=== PATIENT | female | born 1950 | race Native Hawaiian/Other Pacific Islander ===

== ENCOUNTER 2017-09-11 13:57 | Emergency (ER) | payer OTHER, SELFPAY ==
[2017-09-11 14:05] VITALS: BP 152/80; PULSE 73; RESP 20; TEMP 36.6; O2SAT 100
--- NOTE | 2017-09-11 14:07 | ED.GENADULT ---
HPI - General Adult General Chief complaint: Weakness Stated complaint: weakness/fatigue Time Seen by Provider: 09/11/17 14:06 Source: patient Mode of arrival: ambulatory Limitations: no limitations History of Present Illness HPI narrative: 67-year-old female here for evaluation of a headache and bilateral lower extremity ???weakness ???that she states started yesterday. States that she felt like she was going to pass out yesterday. Has been constant since yesterday. Is ambulatory. States that this feels similar to what it felt like when she ???had my prior stroke ???patient states that the difference is that during the time when she had her prior stroke she had double vision which she does not have currently. She states that the stroke was diagnosed after an MRI during hospital stay in [facility]. She describes the symptoms as bilateral lower extremity weakness. No upper extremity weakness. Related Data Home Medications Medication Instructions Recorded Confirmed aspirin 325 mg PO QDAY #0 09/24/16 losartan-hydrochlorothiazide 1 tab PO QDAY #0 09/24/16 calcium carbonate 600 mg PO QDAY #0 03/10/17 cholecalciferol (vitamin D3) 2,000 unit PO QDAY #0 03/10/17 [Vitamin D3] ferrous sulfate [Iron (ferrous 325 mg PO QDAY #0 03/10/17 sulfate)] multivitamin [Multiple Vitamins] 1 tab PO QDAY #0 03/10/17 pioglitazone 30 mg PO QDAY #0 03/10/17 simvastatin [Zocor] 20 mg PO HS #0 03/10/17 lisinopril #0 03/16/17 ranitidine HCl [Zantac] 150 mg PO QDAY #0 03/16/17 Previous Rx's Medication Instructions Recorded ondansetron [Zofran ODT] 4 mg SUBLINGUAL Q6HP PRN #10 odt 03/10/17 Allergies Allergy/AdvReac Type Severity Reaction Status Date / Time No Known Drug Allergies Allergy Verified 09/11/17 14:05 Review of Systems Constitutional Denies chills, Denies fever(s), Reports headache(s), Reports lethargy and Denies weakness Eyes Denies blurry vision, Denies change in vision, Denies diplopia, Denies eye discharge, Denies irritation and Denies loss of vision ENT Ears, Nose, Mouth, and Throat: Denies dizziness and Reports headache(s) Cardiovascular Denies chest pain, Denies syncope, Denies irregular heart rhythm, Denies lightheadedness, Denies palpitations, Denies dyspnea, Denies dyspnea on exertion and Denies orthopnea Respiratory Denies cough, Denies dyspnea, Denies dyspnea on exertion and Denies wheezing Gastrointestinal Gastrointestinal: Denies abdominal pain, Denies change in bowel habits, Denies diarrhea, Denies nausea and Denies vomiting Musculoskeletal Comments: Bilateral lower extremity weakness No upper extremity symptoms Integumentary/Breasts Denies pruritus, Denies erythema, Denies rash and Denies wounds Neurologic Denies confusion, Denies dizziness, Denies syncope, Reports headache(s), Denies loss of vision, Denies restless legs and Denies weakness Psychiatric Denies confusion Endocrine Denies palpitations Hematologic/Lymphatic Denies easy bruising Allergic/Immunologic Denies wheezing Exam Initial Vital Signs Initial Vital Signs: Vital Signs Temperature 97.9 F 09/11/17 14:05 Pulse Rate 73 09/11/17 14:05 Respiratory Rate 20 09/11/17 14:05 Blood Pressure 152/80 H 09/11/17 14:05 Pulse Oximetry 100 09/11/17 14:05 Eyes General: appearance normal, both eyes and all related structures Eyelids: eyelids normal Conjunctivae: conjunctivae normal Sclera: sclerae normal Pupils: PERRL EOM: EOM intact bilaterally Resp Effort & Inspection: normal respiratory effort, able to speak in complete sentences, no respiratory distress and no use of accessory muscles Auscultation: clear to auscultation bilaterally, no rales, no rhonchi and no wheezes Cardio Rate: regular rate Rhythm: regular rhythm Heart Sounds: no click, no gallops, no murmurs and no rubs Pulses: normal peripheral pulses Skin General: no rashes or lesions noted, No jaundice and No petechiae Neuro General: alert, awake, oriented x3, gait normal, moves all extremities, normal light touch, pain and propioception, no meningeal signs and no focal motor deficits Cranial Nerves: CN's II-XI intact bilaterally Cognition: normal cognition Speech: speech normal Motor: strength 5/5 throughout Sensory Exam: no sensory deficits noted Extrem General: full ROM, no clubbing, cyanosis or edema, no pedal edema and no calf tenderness Course Orders Ordered: ED Orders 09/11/17 14:10 Urinalysis and Microscopic Stat EKG-12 Lead Stat 09/11/17 14:24 CT head/brain wo con Stat Basic Metabolic Panel Stat Complete Blood Count AUTO DIFF Stat Partial Thromboplastin Time Stat Prothrombin Time INR Stat Acetaminophen (Tylenol) 650 mg PO Q4HR PRN PRN Reason: As Needed for Fever/Mild Pain Last Admin: 09/11/17 15:31 Dose: 650 mg Vital Signs - 8 hr 09/11/17 14:05 09/11/17 15:07 09/11/17 15:45 Temperature 97.9 F Pulse Rate 73 65 64 Respiratory Rate 20 16 13 Blood Pressure 152/80 H Blood Pressure [Left Arm] 107/71 120/73 Pulse Oximetry 100 98 98 Medical Decision Making MDM Narrative Medical decision making narrative: Patient with negative head CT. Was given Tylenol for her headache. Has bilateral lower extremity weakness however was able to ambulate in the emergency department without any problems. Does not have blurry vision today. Has a NIH scale of 0. Has no real objective findings of neurologic problems. Has a follow-up with her primary doctor at the beginning of next month. I briefly discussed the case with Dr. Kumari who stated that if she does not have objective neurologic findings and the fact that it is bilateral lower extremity symptoms that is CVA is unlikely in that she can follow up with her primary doctor for an outpatient MRI. Discussed this with the patient. She is okay with going home. She was given return precautions. She expressed understanding and agreement with plan Lab Data Lab results reviewed: Yes I reviewed the patient's lab results. Result diagrams: 09/11/17 14:24 09/11/17 14:24 Lab Results 09/11/17 09/11/17 09/11/17 Range/Units 14:24 14:24 14:24 WBC 7.0 (4.5-11.0) X10^3/uL RBC 3.72 L (4.0-5.2) X10^6/uL Hgb 11.3 L (12.0-16.0) g/dL Hct 33.3 L (36-46) % MCV 89.7 (80-100) fL MCH 30.4 (26-34) PG MCHC 33.8 (30-36) % RDW 13.4 (11.6-14.8) % Plt Count 290 (150-400) X10^3/uL Neut % (Auto) 73.1 (50-75) % Lymph % (Auto) 20.4 L (25-40) % [place] % (Auto) 5.3 (3-14) % Eos % (Auto) 0.7 L (2-4) % Baso % (Auto) 0.5 (0-2) % Neut # (Auto) 5200 (8480-1663) /uL PT 9.6 L (10.1-12.7) SECONDS INR 0.9 (0.9-1.3) APTT 33 (26.4-36.2) SECONDS Sodium 139 (137-145) mmol/L Potassium 4.2 (3.4-5.1) mmol/L Chloride 100.0 (98-107) mmol/L Carbon Dioxide 26.0 (22-32) mmol/L BUN 33.0 H (7-17) mg/dL Creatinine 1.10 H (0.52-1.04) mg/dL Estimated GFR 49.2 L (>60) mL/min BUN/Creatinine Ratio 30.0 H (6-22) Glucose 147 H (80-110) mg/dL Calcium 9.8 (8.4-10.2) mg/dL Imaging Data CT scan - head: Radiologist's impression: PROCEDURE: CT HEAD/BRAIN WO CON INDICATIONS: Headache with prior history of stroke TECHNIQUE: Noncontrast 4.5 mm thick angled axial sections acquired from the foramen magnum to the vertex, with coronal and sagittal reformats. For radiation dose reduction, the following was used: automated exposure control, adjustment of mA and/or kV according to patient size. COMPARISON: [facility], CT, HEAD WITHOUT CONTRAST, 03/16/2017, 8:59. FINDINGS: Image quality: Excellent. CSF spaces: Basal cisterns are patent. No extra-axial fluid collections. The ventricles are symmetric in size and shape. There is mild cerebral volume loss, with resultant ventricular and sulcal prominence. Brain: No intracranial hemorrhage, mass, or mass effect. There is a hypodensity within the right thalamus redemonstrated consistent with a prior infarct. There are subcortical, periventricular and deep white matter hypodensities consistent with mild chronic small vessel ischemic changes. There is intracranial internal carotid artery atherosclerosis. Skull and face: Calvarium and visualized facial bones are intact, without suspicious lesions. Sinuses: Visualized sinuses demonstrate mild mucosal thickening within the right maxillary sinus. The mastoid air cells are clear. IMPRESSION: 1. No acute intracranial abnormality. 2. Old right thalamic infarct redemonstrated. 3. Mild cerebral volume loss and chronic white matter small vessel ischemic changes. Dictated by: Ricco Erickson M.D. on 09/11/2017 at 14:52 ECG Data Attestation: I personally reviewed and interpreted this ECG as follows: Prior ECG tracings: available for review Interpretation: EKG time 1410 hr Sinus rhythm Ventricular rate is 72 Normal axis Normal intervals Normal QRS Normal QTC No ST T wave changes Comparison EKG dated 04/22/2017 Sinus rhythm Ventricular rate of 80 Normal axis normal intervals normal QRS no ST T wave changes Discharge Plan Departure Patient Disposition: Home, Self-Care Clinical Impression: Headache, Bilateral leg weakness Instructions: DI for Headache Activity Restrictions/Additional Instructions: Recommend that you continue all of your medications as instructed. Call your primary doctor's office tomorrow to discuss a follow-up. Return to the emergency department for any new or worsening symptoms Prescriptions: No Action losartan-hydrochlorothiazide 100 MG/25 MG tablet 1 tab PO QDAY Qty: 0 RF: 0 aspirin 325 MG tablet,delayed release (DR/EC) 325 mg PO QDAY Qty: 0 RF: 0 simvastatin [Zocor] 20 MG tablet 20 mg PO HS Qty: 0 RF: 0 ferrous sulfate [Iron (ferrous sulfate)] 325 MG tablet 325 mg PO QDAY Qty: 0 RF: 0 pioglitazone 30 MG tablet 30 mg PO QDAY Qty: 0 RF: 0 multivitamin [Multiple Vitamins] 1 EACH tablet 1 tab PO QDAY Qty: 0 RF: 0 cholecalciferol (vitamin D3) [Vitamin D3] 2,000 UNIT capsule 2,000 unit PO QDAY Qty: 0 RF: 0 calcium carbonate 600 MG tablet 600 mg PO QDAY Qty: 0 RF: 0 ondansetron [Zofran ODT] 4 MG tablet,disintegrating 4 mg Sublingual Q6HP PRNQty: 10 RF: 0 lisinopril 2.5 mg Tablet Qty: 0 RF: 0 ranitidine HCl [Zantac] 150 MG tablet 150 mg PO QDAY Qty: 0 RF: 0
--- NOTE | 2017-09-11 14:24 | DI.CT.S_ITS ---
PROCEDURE: CT HEAD/BRAIN WO CON INDICATIONS: Headache with prior history of stroke TECHNIQUE: Noncontrast 4.5 mm thick angled axial sections acquired from the foramen magnum to the vertex, with coronal and sagittal reformats. For radiation dose reduction, the following was used: automated exposure control, adjustment of mA and/or kV according to patient size. COMPARISON: [facility], CT, HEAD WITHOUT CONTRAST, 03/16/2017, 8:59. FINDINGS: Image quality: Excellent. CSF spaces: Basal cisterns are patent. No extra-axial fluid collections. The ventricles are symmetric in size and shape. There is mild cerebral volume loss, with resultant ventricular and sulcal prominence. Brain: No intracranial hemorrhage, mass, or mass effect. There is a hypodensity within the right thalamus redemonstrated consistent with a prior infarct. There are subcortical, periventricular and deep white matter hypodensities consistent with mild chronic small vessel ischemic changes. There is intracranial internal carotid artery atherosclerosis. Skull and face: Calvarium and visualized facial bones are intact, without suspicious lesions. Sinuses: Visualized sinuses demonstrate mild mucosal thickening within the right maxillary sinus. The mastoid air cells are clear. IMPRESSION: 1. No acute intracranial abnormality. 2. Old right thalamic infarct redemonstrated. 3. Mild cerebral volume loss and chronic white matter small vessel ischemic changes. Dictated by: Ricco Erickson M.D. on 09/11/2017 at 14:52 Approved by: Ricco Erickson M.D. on 09/11/2017 at 14:57
[2017-09-11 14:32] LABS: Add Manual Diff / Slide Review NO; Basophils Percent Auto 0.5 % (0-2); Eosinophils Percent Auto 0.7 % (2-4); Hematocrit 33.3 % (36-46); Hemoglobin 11.3 g/dL (12.0-16.0); Lymphocytes Percent Auto 20.4 % (25-40); Mean Corpuscular HGB Conc 33.8 % (30-36); Mean Corpuscular Hemoglobin 30.4 PG (26-34); Mean Corpuscular Volume 89.7 fL (80-100); Monocytes Percent Auto 5.3 % (3-14); Neutrophils Absolute Auto 5200 /uL (3000-5900); Neutrophils Percent Auto 73.1 % (50-75); Platelet Count 290 X10^3/uL (150-400); Red Blood Cell Count 3.72 X10^6/uL (4.0-5.2); Red Cell Distribution Width 13.4 % (11.6-14.8)
[2017-09-11 14:38] LABS: INR 0.9 (0.9-1.3); Prothrombin Time 9.6 SECONDS (10.1-12.7)
[2017-09-11 14:40] LABS: PTT Partial Thromboplastin Tim 33 SECONDS (26.4-36.2)
[2017-09-11 14:42] LABS: Calcium 9.8 mg/dL (8.4-10.2); Estimated Glomerular Filt Rate 49.2 mL/min (>60); Glucose 147 mg/dL (80-110); HEMOLYSIS < 15 (0-50); Potassium 4.2 mmol/L (3.4-5.1); Sodium 139 mmol/L (137-145)
[2017-09-11 15:07] VITALS: BP 107/71; PULSE 65; RESP 16; O2SAT 98
[2017-09-11] MEDS: ACETAMINOPHEN 325 MG TABLET 650 MG PO (15:31)
--- NOTE | 2017-09-11 15:32 | PC.NURSE ---
UNABLE TO SCAN TYLENOL, DUE TO MEDITECH ERROR. PROVIDER AWARE. SUPERUSER AWARE.
[2017-09-11 15:45] VITALS: BP 120/73; PULSE 64; RESP 13; O2SAT 98
[2017-09-11 16:12] VITALS: BP 120/73; PULSE 70; RESP 20; TEMP 37.2; O2SAT 99
== END 2017-09-11 16:13 | disposition home or self-care (01) ==
PROVIDERS: Emergency Provider Emergency Medicine; Family Provider Internal Medicine; PCP Internal Medicine
DX: R51 Headache (principal); R29.898 Other symptoms and signs involving the musculoskeletal system
CPT/HCPCS: 70450; 80048; 85025; 85610; 85730; 93005; 99282; 99285

== ENCOUNTER → 2017-11-26 11:18 | Outpatient (CLI) | payer OTHER, SELFPAY ==
[2017-11-26 13:28] LABS: Hemoglobin A1C% w Est Avg Glu 7.2 % (4.0-6.0)
[2017-11-26 13:30] LABS: Alanine Aminotransferase 22 IU/L (9-52); Albumin 4.3 g/dL (3.5-5.0); Albumin Globulin Ratio 1.3 (1.0-2.8); Alkaline Phosphatase 58 U/L (38-126); Aspartate Aminotransferase 24 IU/L (14-36); Bilirubin Total 0.6 mg/dL (0.2-1.3); Blood Urea Nitrogen 22 mg/dL (7-17); Calcium 9.5 mg/dL (8.4-10.2); Carbon Dioxide 28 mmol/L (22-32); Chloride 100 mmol/L (98-107); Cholesterol 146 mg/dL (140-199); Estimated Glomerular Filt Rate 49.2 mL/min (>60); Globulin 3.4 g/dL (1.7-4.1); Glucose 136 mg/dL (80-110); HDL Cholesterol 52 mg/dL (40-60); HEMOLYSIS < 15 (0-50); LDL Cholesterol Calculated 73 mg/dL (<100); Potassium 3.6 mmol/L (3.4-5.1); Sodium 140 mmol/L (137-145); Total Protein 7.7 g/dL (6.3-8.2); Triglycerides 107 mg/dL (35-150)
== END ==
PROVIDERS: PCP Internal Medicine; Visit Provider Internal Medicine
DX: I10 Essential (primary) hypertension (principal); E11.9 Type 2 diabetes mellitus without complications; E78.5 Hyperlipidemia, unspecified
CPT/HCPCS: 36415; 80053; 80061; 83036

== ENCOUNTER 2017-12-02 16:20 | Emergency (ER) | payer OTHER, SELFPAY ==
[2017-12-02 16:45] VITALS: BP 82/52; PULSE 62; RESP 18; TEMP 35.9; O2SAT 100
[2017-12-02 17:00] VITALS: BP 93/54; PULSE 54; RESP 16; TEMP 36.3; O2SAT 97
[2017-12-02 17:41] LABS: Add Manual Diff / Slide Review NO; Basophils Percent Auto 0.7 % (0-2); Eosinophils Percent Auto 0.9 % (2-4); Hematocrit 29.9 % (36-46); Hemoglobin 10.1 g/dL (12.0-16.0); Lymphocytes Percent Auto 11.8 % (25-40); Mean Corpuscular HGB Conc 33.7 % (30-36); Mean Corpuscular Hemoglobin 31.4 PG (26-34); Mean Corpuscular Volume 93.2 fL (80-100); Monocytes Percent Auto 6.1 % (3-14); Neutrophils Absolute Auto 6800 /uL (3000-5900); Neutrophils Percent Auto 80.5 % (50-75); Platelet Count 280 X10^3/uL (150-400); Red Blood Cell Count 3.21 X10^6/uL (4.0-5.2); Red Cell Distribution Width 13.9 % (11.6-14.8); White Blood Cell Count 8.4 X10^3/uL (4.5-11.0)
[2017-12-02] MEDS: SODIUM CHLORIDE 0.9% 1,000 ML 1000 ML IV (17:41)
[2017-12-02] MEDS: ONDANSETRON 4 MG/2 ML INJ IV (17:41)
[2017-12-02 17:54] LABS: Alanine Aminotransferase 27 IU/L (9-52); Albumin 4.5 g/dL (3.5-5.0); Albumin Globulin Ratio 1.4 (1.0-2.8); Alkaline Phosphatase 68 U/L (38-126); Aspartate Aminotransferase 27 IU/L (14-36); BUN Creatinine Ratio 16.4 (6-22); Bilirubin Total 0.8 mg/dL (0.2-1.3); Blood Urea Nitrogen 23 mg/dL (7-17); Carbon Dioxide 28 mmol/L (22-32); Chloride 103 mmol/L (98-107); Estimated Glomerular Filt Rate 37.3 mL/min (>60); Globulin 3.2 g/dL (1.7-4.1); Glucose 153 mg/dL (80-110); HEMOLYSIS < 15 (0-50); Lipase 143 U/L (23-300); Potassium 3.9 mmol/L (3.4-5.1); Sodium 142 mmol/L (137-145); Total Protein 7.7 g/dL (6.3-8.2)
--- NOTE | 2017-12-02 18:32 | ED_ITS ---
HPI - Nausea/Vomiting/Diarrhea General Chief complaint: Nausea/Vomiting/Diarrhea Stated complaint: thinks poisoned Time Seen by Provider: 12/02/17 17:03 Source: patient Mode of arrival: ambulatory Limitations: no limitations History of Present Illness HPI Narrative: Patient is a 67-year-old female who presents with vomiting and diarrhea. She said she was at work when she began feeling nauseous and threw up a large quantity. She then had 2 episodes of diarrhea. No further vomiting. She does have diffuse abdominal pain. Now overall feeling better. None of this was bloody. No tender chip chest pain shortness of breath. While she was vomiting she had a little lightheaded but did not pass out. MD complaint: nausea, vomiting, diarrhea and abdominal pain Related Data Home Medications Medication Instructions Recorded Confirmed aspirin 325 mg PO QDAY #0 09/24/16 12/02/17 losartan-hydrochlorothiazide 1 tab PO QDAY #0 09/24/16 12/02/17 calcium carbonate 600 mg PO QDAY #0 03/10/17 12/02/17 cholecalciferol (vitamin D3) 2,000 unit PO QDAY #0 03/10/17 12/02/17 [Vitamin D3] ferrous sulfate [Iron (ferrous 325 mg PO QDAY #0 03/10/17 12/02/17 sulfate)] multivitamin [Multiple Vitamins] 1 tab PO QDAY #0 03/10/17 12/02/17 ranitidine HCl [Zantac] 150 mg PO QDAY #0 03/16/17 12/02/17 atorvastatin 20 mg PO QPM 12/02/17 12/02/17 metformin 1 tab PO BID 12/02/17 12/02/17 timolol maleate 1 drp OPHTHALMIC (EYE) DIRECTED 12/02/17 12/02/17 Previous Rx's Medication Instructions Recorded ondansetron [Zofran ODT] 4 mg PO Q6-8H PRN #10 tab 12/02/17 Allergies Allergy/AdvReac Type Severity Reaction Status Date / Time No Known Drug Allergies Allergy Verified 12/02/17 16:52 Review of Systems Review of Systems GENERAL: Denies chills, fatigue, malaise, fever, sweats, travel HEENT: Denies sinus pain, ear pain, sore throat, difficulty swallowing, neck pain RESPIRATORY: Denies dyspnea, cough, wheezing, hemoptysis, sputum. CARDIOVASCULAR: Denies chest pain, palpitations, orthopnea, edema GASTROINTESTINAL: See HPI : Denies dysuria, frequency, incontinence, hematuria, urinary retention, flank pain. MUSCULOSKELETAL: Denies weakness, joint pain, or bony pain SKIN: No rash, no erythema, no pruritus NEUROLOGIC: Denies weakness, dizziness, headache, numbness, change in speech, confusion PSYCHIATRIC: No concerning psychosocial issues. 12 point review of systems is negative except for those stated above and HPI PFSH Medical History Diabetes (Acute) GERD (gastroesophageal reflux disease) (Acute) Hypertension (Acute) Social History Smoking Status: Never smoker alcohol intake: never substance use type: does not use Exam Initial Vital Signs Initial Vital Signs: Vital Signs Temperature 96.7 F L 12/02/17 16:45 Pulse Rate 62 12/02/17 16:45 Respiratory Rate 18 12/02/17 16:45 Blood Pressure 82/52 L 12/02/17 16:45 Pulse Oximetry 100 12/02/17 16:45 GENERAL: Well-appearing, well-nourished and in no acute distress. HEENT: Head atraumatic,EOMI, pupils reactive, face symmetric CARDIOVASCULAR: Regular rate and rhythm without murmurs, rubs or gallops. RESPIRATORY: Breath sounds equal bilaterally, no wheezes rales or rhonchi. ABDOMEN: Soft, minimal epigastric pain without guarding or rebound negative [place] sign. Normoactive bowel sounds all 4 quadrants. No guarding or rebound. EXTREMITIES: Normal range of motion, no clubbing or edema. Neurovascularly intact NEUROLOGICAL: Alert and oriented x4.Normal gait and speech. Cranial nerves II through XII grossly intact. SKIN: Warm, dry, no laceration, no petechiae, no rashes or lesions. Course Orders Ordered: Discontinued Medications Sodium Chloride (Normal Saline 0.9%) 1,000 mls @ 1,000 mls/hr IV BOLUS ONE Stop: 12/02/17 18:00 Last Infusion: 12/02/17 18:55 Dose: 0 mls/hr Admin: 12/02/17 17:41 Dose: 1,000 mls/hr Ondansetron HCl (Zofran) 4 mg IV NOW ONE Stop: 12/02/17 17:02 Last Admin: 12/02/17 17:41 Dose: 4 mg Ondansetron HCl (Zofran Odt Prepack) 1 bottle MISC SEEINSTR ONE Stop: 12/02/17 19:02 Last Admin: 12/02/17 19:33 Dose: 1 bottle Vital Signs - 8 hr 12/02/17 16:45 12/02/17 17:00 12/02/17 18:38 Temperature 96.7 F L 97.4 F L Pulse Rate 62 54 L 62 Respiratory Rate 18 16 Blood Pressure 82/52 L Blood Pressure [Right Arm] 93/54 L 139/63 H Pulse Oximetry 100 97 100 MDM - Nausea/Vomiting/Diarrhea Medical Records Attestation: I reviewed the patient's medical records. Lab Data Attestation: I reviewed the patient's lab results. Result diagrams: 12/02/17 17:30 12/02/17 17:30 Lab Results 12/02/17 12/02/17 12/02/17 Range/Units 17:30 17:30 17:30 WBC 8.4 (4.5-11.0) X10^3/uL RBC 3.21 L (4.0-5.2) X10^6/uL Hgb 10.1 L (12.0-16.0) g/dL Hct 29.9 L (36-46) % MCV 93.2 (80-100) fL MCH 31.4 (26-34) PG MCHC 33.7 (30-36) % RDW 13.9 (11.6-14.8) % Plt Count 280 (150-400) X10^3/uL Neut % (Auto) 80.5 H (50-75) % Lymph % (Auto) 11.8 L (25-40) % [place] % (Auto) 6.1 (3-14) % Eos % (Auto) 0.9 L (2-4) % Baso % (Auto) 0.7 (0-2) % Neut # (Auto) 6800 H (5704-4959) /uL Sodium 142 (137-145) mmol/L Potassium 3.9 (3.4-5.1) mmol/L Chloride 103 (98-107) mmol/L Carbon Dioxide 28 (22-32) mmol/L BUN 23 H (7-17) mg/dL Creatinine 1.40 H (0.52-1.04) mg/dL Estimated GFR 37.3 L (>60) mL/min BUN/Creatinine Ratio 16.4 (6-22) Glucose 153 H (80-110) mg/dL Calcium 10.0 (8.4-10.2) mg/dL Total Bilirubin 0.8 (0.2-1.3) mg/dL AST 27 (14-36) IU/L ALT 27 (9-52) IU/L Alkaline Phosphatase 68 (38-126) U/L Total Protein 7.7 (6.3-8.2) g/dL Albumin 4.5 (3.5-5.0) g/dL Globulin 3.2 (1.7-4.1) g/dL Albumin/Globulin Ratio 1.4 (1.0-2.8) Lipase 143 (23-300) U/L MDM Narrative Medical decision making narrative: Patient overall appears nontoxic. She is awake alert pain is significantly improved. She is tolerating oral fluids. Blood work has been reviewed and compared to prior. Slightly anemic but at baseline for her. Creatinine today is 1.4 it has been 1.4 in the past but previously 1.1. Discussed oral rehydration techniques with both her and her daughter. I discussed all findings with the patient and daughter. Education has been performed regarding treatment plan, diagnosis, warning signs and symptoms and all concerns have been addressed. Verbally agree with and understood all of the above. Discharge Plan Departure Patient Disposition: Home, Self-Care Clinical Impression: Gastroenteritis Discharge Date/Time: 12/02/17 19:43 Interventions: ED Discharge Assessment Last Done: 12/02/17 19:42 Instructions: Clear Liquid Diet, DI for Viral Gastroenteritis -- Adult Activity Restrictions/Additional Instructions: 1) You have been diagnosed with gastroenteritis 2) What to do: Drink frequent but small amounts of fluids. I recommend Gatorade or a Gatorade-like product, as it has small amounts of sugar and salts that improve fluid retention. 3) Take medications as directed: Sent to [facility] in [place] per your request -Zofran 4mg every 6-8hours if needed for nausea or vomiting 4) Follow up with your primary care provider in 2-3 days 5) Return to ER if you should have any new or worsening symptoms such as, unable to hold down fluids despite use of anti-nausea medications and the small volume oral rehydration strategy. Prescriptions: New ondansetron [Zofran ODT] 4 mg tablet,disintegrating 4 mg PO Q6-8H PRN (Reason: nausea and vomiting) Qty: 10 RF: 0 No Action losartan-hydrochlorothiazide 100 MG/25 MG tablet 1 tab PO QDAY Qty: 0 RF: 0 aspirin 325 MG tablet,delayed release (DR/EC) 325 mg PO QDAY Qty: 0 RF: 0 ferrous sulfate [Iron (ferrous sulfate)] 325 MG tablet 325 mg PO QDAY Qty: 0 RF: 0 multivitamin [Multiple Vitamins] 1 EACH tablet 1 tab PO QDAY Qty: 0 RF: 0 cholecalciferol (vitamin D3) [Vitamin D3] 2,000 UNIT capsule 2,000 unit PO QDAY Qty: 0 RF: 0 calcium carbonate 600 MG tablet 600 mg PO QDAY Qty: 0 RF: 0 ranitidine HCl [Zantac] 150 MG tablet 150 mg PO QDAY Qty: 0 RF: 0 atorvastatin 20 mg tablet 20 mg PO QPM RF: 0 metformin 1,000 mg tablet 1 tab PO BID RF: 0 timolol maleate 0.5 % drops 1 drp ophthalmic (eye) DIRECTED RF: 0 Referrals: Yvonne Barr MD [Primary Care Provider] -
[2017-12-02 18:38] VITALS: BP 139/63; PULSE 62; O2SAT 100
[2017-12-02] MEDS: ONDANSETRON 4 MG ODT PREPACK 1 BOTTLE MISC (19:33)
[2017-12-02 19:42] VITALS: BP 113/57; PULSE 54; RESP 14; O2SAT 100
== END 2017-12-02 19:43 | disposition home or self-care (01) ==
PROVIDERS: Emergency Medicine; Emergency Provider Emergency Medicine; Family Provider Internal Medicine; PCP Internal Medicine
DX: K52.9 Noninfective gastroenteritis and colitis, unspecified (principal)
CPT/HCPCS: 36591; 80053; 82962; 83690; 85025; 96361; 96374; 99283; 99284; J2405

== ENCOUNTER → 2018-03-24 12:02 | Outpatient (CLI) | payer OTHER, SELFPAY | PROVIDERS: PCP Internal Medicine; Visit Provider Internal Medicine | DX: M81.0 Age-related osteoporosis without current pathological fracture (principal); Z78.0 Asymptomatic menopausal state; E11.9 Type 2 diabetes mellitus without complications | CPT/HCPCS: 77080 ==

== ENCOUNTER → 2018-05-11 13:01 | Outpatient (CLI) | payer OTHER, SELFPAY ==
--- NOTE | 2018-05-11 | DI.RAD.S_ITS ---
PROCEDURE: XR LUMBAR SPINE 2-3V INDICATIONS: LOW BACK PAIN TECHNIQUE: 3 views of the lumbar spine were acquired. COMPARISON: [facility] [place], [place], XR LUMBAR SPINE 2 OR 3 VIEWS, 11/07/2017, 7:51. FINDINGS: Bones: No fracture or focal osseous destruction. There is anatomic alignment. Diffuse facet arthropathy. Endplate sclerosis and spurring. Mild narrowing of the L2-L3, L3-L4, and moderate narrowing of the L5-S1 disc spaces. Soft tissues: Overlying bowel gas pattern is normal. No suspicious soft tissue calcifications. IMPRESSION: Multilevel lumbar disc degeneration and diffuse facet arthropathy as above. No interval change Dictated by: Chau Miranda M.D. on 05/11/2018 at 15:05 Approved by: Chau Miranda M.D. on 05/11/2018 at 15:07
== END ==
PROVIDERS: PCP Internal Medicine; Visit Provider Internal Medicine
DX: M54.5 Low back pain (principal); M51.36 Other intervertebral disc degeneration, lumbar region; M47.816 Spondylosis without myelopathy or radiculopathy, lumbar region; M48.061 Spinal stenosis, lumbar region without neurogenic claudication; M48.07 Spinal stenosis, lumbosacral region
CPT/HCPCS: 72100

== ENCOUNTER 2018-08-05 19:42 | Emergency (ER) | payer OTHER, SELFPAY ==
[2018-08-05 19:51] VITALS: BP 158/95; PULSE 87; RESP 18; TEMP 37.9; O2SAT 99
[2018-08-05 19:59] VITALS: TEMP 37.9
[2018-08-05] MEDS: ACETAMINOPHEN 325 MG TABLET 650 MG PO (19:59)
[2018-08-05 20:45] LABS: Influenza A and B by PCR Rapid Negative (Negative)
--- NOTE | 2018-08-05 20:49 | ED_ITS ---
HPI - Fever General Chief Complaint: Fever Stated Complaint: Vertigo, tired, headache, body is sore Time Seen by Provider: 08/05/18 20:48 Source: patient Mode of arrival: ambulatory Limitations: no limitations History of Present Illness HPI Narrative: Patient is a 68-year-old female. Earlier this week she was diagnosed with vertigo and was given meclizine by her primary doctor. She states that the vertigo has improved somewhat however is not completely resolved. It does appear to be positional. She states that since then she in general just has not felt very well. Has had occasional headaches. Has had is week off from work. Given the continued symptoms came into the emergency department for evaluation. Related Data Home Medications Medication Instructions Recorded Confirmed aspirin 325 mg PO QDAY #0 09/24/16 12/02/17 losartan-hydrochlorothiazide 1 tab PO QDAY #0 09/24/16 12/02/17 calcium carbonate 600 mg PO QDAY #0 03/10/17 12/02/17 cholecalciferol (vitamin D3) 2,000 unit PO QDAY #0 03/10/17 12/02/17 [Vitamin D3] ferrous sulfate [Iron (ferrous 325 mg PO QDAY #0 03/10/17 12/02/17 sulfate)] multivitamin [Multiple Vitamins] 1 tab PO QDAY #0 03/10/17 12/02/17 ranitidine HCl [Zantac] 150 mg PO QDAY #0 03/16/17 12/02/17 atorvastatin 20 mg PO QPM 12/02/17 12/02/17 metformin 1 tab PO BID 12/02/17 12/02/17 timolol maleate 1 drp OPHTHALMIC (EYE) DIRECTED 12/02/17 12/02/17 Previous Rx's Medication Instructions Recorded ondansetron [Zofran ODT] 4 mg PO Q6-8H PRN #10 tab 12/02/17 Allergies Allergy/AdvReac Type Severity Reaction Status Date / Time No Known Drug Allergies Allergy Verified 12/02/17 16:52 Review of Systems Constitutional Reports fatigue, Denies fever(s), Reports headache(s) and Reports malaise Eyes Denies change in vision ENT Ears, Nose, Mouth, and Throat: Reports vertigo, Reports headache(s) and Reports disequilibrium Cardiovascular Denies chest pain, Denies palpitations and Denies dyspnea Respiratory Denies dyspnea Gastrointestinal Gastrointestinal: Denies abdominal pain Musculoskeletal Denies myalgias and Denies arthralgias Integumentary/Breasts Denies rash Neurologic Reports vertigo, Reports headache(s) and Reports disequilibrium Endocrine Reports fatigue and Denies palpitations Hematologic/Lymphatic Denies easy bleeding and Denies easy bruising Allergic/Immunologic Denies urticaria PFSH Medical History Diabetes (Acute) GERD (gastroesophageal reflux disease) (Acute) Hypertension (Acute) Social History Smoking Status: Never smoker alcohol intake: never substance use type: does not use Social History Smoking Status: Never smoker alcohol intake: never substance use type: does not use Exam Initial Vital Signs Initial Vital Signs: Vital Signs Temperature 100.2 F H 08/05/18 19:51 Pulse Rate 87 08/05/18 19:51 Respiratory Rate 18 08/05/18 19:51 Blood Pressure 158/95 H 08/05/18 19:51 Pulse Oximetry 99 08/05/18 19:51 Const General: cooperative, healthy appearing, comfortable, well developed, well groomed and No acute distress Orientation: alert, awake and oriented x3 HENMT Head: normal to inspection and normocephalic Ears: TM's normal bilaterally Nose: external nose normal Resp Effort & Inspection: normal respiratory effort Auscultation: clear to auscultation bilaterally Cardio Rate: regular rate Rhythm: regular rhythm GI Inspection: non-distended Palpation: soft Skin Lesions: no lesions Rashes: no rashes Neuro General: alert, awake and oriented x3 Cranial Nerves: CN's II-XI intact bilaterally Cognition: normal cognition Speech: speech normal Motor: muscle tone normal throughout Sensory Exam: no sensory deficits noted Extrem General: normal to inspection and capillary refill normal Psych Appearance: grossly normal and well kempt Scores GCS Alethea coma scale eye opening: Spontaneous Alethea coma scale verbal response: [place] coma scale motor response: Obey commands Alethea coma scale total score: 15 Course Orders Ordered: ED Orders 08/05/18 19:56 FLU A and B [Influenza A and B by PCR Rapid] Stat 08/05/18 21:05 CT head/brain wo con Stat Discontinued Medications Acetaminophen (Tylenol) 650 mg PO NOW ONE Stop: 08/05/18 19:57 Last Admin: 08/05/18 19:59 Dose: 650 mg Vital Signs - 8 hr 08/05/18 19:51 08/05/18 19:59 08/05/18 22:31 Temperature 100.2 F H 100.2 F H 98.1 F Pulse Rate 87 64 Respiratory Rate 18 18 Blood Pressure 158/95 H 150/76 H Pulse Oximetry 99 99 MDM - Fever Lab Data Attestation: I reviewed the patient's lab results. Lab Results 08/05/18 Range/Units 19:56 Influenza A & B (PCR) Negative (Negative) Urine Dip Bedside Urine Glucose 1000 mg/dl Bedside Urine Bilirubin - Negative Bedside Urine Ketone - Negative Urine Specific [place] 1.025 Bedside Urine Occult Blood - Negative Bedside Urine pH 6.0 Bedside Urine Protein +/- 15 Bedside Urine Urobilinogen - Negative Bedside Urine Nitrite - Negative Bedside Urine Leukocytes - Negative Esterase Imaging Data CT scan - head: Radiologist's impression: Patient: Rebecca Talamantes EMR#: [id number] : 9Acct:[id number] Age/Sex: 68 / FDate of Service: 08/05/18 Loc: ED Accession Number: [id number] Procedure: CT head/brain wo con Ordering Provider: Kevin Navarro D.O. PROCEDURE: CT HEAD/BRAIN WO CON INDICATIONS: Vertigo and headache TECHNIQUE: Noncontrast 4.5 mm thick angled axial sections acquired from the foramen magnum to the vertex, with coronal and sagittal reformats. For radiation dose reduction, the following was used: automated exposure control, adjustment of mA and/or kV according to patient size. COMPARISON: [facility], CT, CT HEAD/BRAIN WO CON, 09/11/2017, 14:22. FINDINGS: Image quality: Excellent. CSF spaces: Basal cisterns are patent. No extra-axial fluid collections. The ventricles are symmetric in size and shape. Brain: No intracranial bleeds or masses. There is cerebral volume loss for a ge, with resultant ventricular and sulcal prominence. There are periventricular and deep white matter chronic small vessel ischemic changes. There is intracranial internal carotid artery atherosclerosis. Old right thalamic focus of lacunar ischemia. It is unchanged since 2018 Skull and face: Calvarium and visualized facial bones appear intact, without suspicious lesions. Sinuses: Minimal right maxillary sinus mucus retention cyst versus IMPRESSION: 1. No acute intracranial process. 2. Moderate atrophy and chronic microvascular ischemic changes. Dictated by: Terese Henriquez M.D. on 08/05/2018 at 21:53 Approved by: Terese Henriquez M.D. on 08/05/2018 at 21:55 [facility] Narrative Medical decision making narrative: Patient with a normal neurologic exam. She states she felt much better after arriving here to the emergency department. She stated that she wanted a head CT to further evaluate her symptoms. Low suspicion for CVA. Her vertigo seems to be improved. She does have meclizine. It does seem to be positional. Hold on further workup for now. Patient was instructed to contact her primary doctor the beginning of next week. She was given return precautions and follow-up instructions. She expressed understanding and agreement with plan Discharge Plan Departure Patient Disposition: Home Clinical Impression: Vertigo Discharge Date/Time: 08/05/18 22:32 Interventions: ED Discharge Assessment Last Done: 08/05/18 22:31 Instructions: Vertigo (Alternative Therapy), DI for Vertigo Activity Restrictions/Additional Instructions: Continue to use the meclizine as directed by Dr. Barr. I do recommend that you had a decongestant such as Claritin or Gisel or Zyrtec. These medications can be purchased [id number]. Call Dr. Barr's office on Tuesday for follow-up. Return to the emergency department for any new or worsening symptoms Prescriptions: No Action losartan-hydrochlorothiazide 100 MG/25 MG tablet 1 tab PO QDAY Qty: 0 RF: 0 aspirin 325 MG tablet,delayed release (DR/EC) 325 mg PO QDAY Qty: 0 RF: 0 ferrous sulfate [Iron (ferrous sulfate)] 325 MG tablet 325 mg PO QDAY Qty: 0 RF: 0 multivitamin [Multiple Vitamins] 1 EACH tablet 1 tab PO QDAY Qty: 0 RF: 0 cholecalciferol (vitamin D3) [Vitamin D3] 2,000 UNIT capsule 2,000 unit PO QDAY Qty: 0 RF: 0 calcium carbonate 600 MG tablet 600 mg PO QDAY Qty: 0 RF: 0 ranitidine HCl [Zantac] 150 MG tablet 150 mg PO QDAY Qty: 0 RF: 0 atorvastatin 20 mg tablet 20 mg PO QPM RF: 0 metformin 1,000 mg tablet 1 tab PO BID RF: 0 timolol maleate 0.5 % drops 1 drp ophthalmic (eye) DIRECTED RF: 0 ondansetron [Zofran ODT] 4 mg tablet,disintegrating 4 mg PO Q6-8H PRN (Reason: nausea and vomiting) Qty: 10 RF: 0 Referrals: Yvonne Barr MD [Primary Care Provider] -
--- NOTE | 2018-08-05 21:05 | DI.CT.S_ITS ---
PROCEDURE: CT HEAD/BRAIN WO CON INDICATIONS: Vertigo and headache TECHNIQUE: Noncontrast 4.5 mm thick angled axial sections acquired from the foramen magnum to the vertex, with coronal and sagittal reformats. For radiation dose reduction, the following was used: automated exposure control, adjustment of mA and/or kV according to patient size. COMPARISON: [facility], CT, CT HEAD/BRAIN WO CON, 09/11/2017, 14:22. FINDINGS: Image quality: Excellent. CSF spaces: Basal cisterns are patent. No extra-axial fluid collections. The ventricles are symmetric in size and shape. Brain: No intracranial bleeds or masses. There is cerebral volume loss for age, with resultant ventricular and sulcal prominence. There are periventricular and deep white matter chronic small vessel ischemic changes. There is intracranial internal carotid artery atherosclerosis. Old right thalamic focus of lacunar ischemia. It is unchanged since 2018 Skull and face: Calvarium and visualized facial bones appear intact, without suspicious lesions. Sinuses: Minimal right maxillary sinus mucus retention cyst versus IMPRESSION: 1. No acute intracranial process. 2. Moderate atrophy and chronic microvascular ischemic changes. Dictated by: Terese Henriquez M.D. on 08/05/2018 at 21:53 Approved by: Terese Henriquez M.D. on 08/05/2018 at 21:55
[2018-08-05 22:31] VITALS: BP 150/76; PULSE 64; RESP 18; TEMP 36.7; O2SAT 99
== END 2018-08-05 22:32 | disposition home or self-care (01) ==
PROVIDERS: Emergency Provider Emergency Medicine; PCP Internal Medicine
DX: R42 Dizziness and giddiness (principal); R51 Headache; R53.83 Other fatigue
CPT/HCPCS: 70450; 81003; 87400; 99283; 99284

== ENCOUNTER → 2018-12-11 11:00 | Outpatient (CLI) | payer OTHER, SELFPAY ==
--- NOTE | 2018-12-11 | DI.MRI.S_ITS ---
PROCEDURE: MR LUMBAR SPINE WO CON INDICATIONS: Other intervertebral disc degeneration, lumbar reg TECHNIQUE: Noncontrast sagittal T1 spin echo and T2 fast echo, sagittal STIR, axial T1 and T2 fast spin echo through the lumbar spine. In cases with scoliosis, additional coronal T2 fast spin echo may be performed. COMPARISON: None. FINDINGS: Image quality: Excellent. Alignment and Curvature: There is normal bony alignment. Bone Marrow: Marrow is of normal overall signal. No acute vertebral body compression fractures. Spinal Cord: Conus medullaris terminates at the L1 level. Visualized cord demonstrates normal signal and size. Paraspinous Soft Tissues: No paravertebral masses. L1-L2: Normal appearance L2-L3: Normal appearance. L3-L4: Broad-based posterior disc bulge and far left lateral disc protrusion. Bilateral facet arthropathy. Ligamentum flavum hypertrophy. Mild canal narrowing. Partial effacement of both lateral recesses with bilaterally symmetric appearance. Mild left foraminal stenosis. No right foraminal narrowing. L4-L5: Broad-based posterior disc bulge and bilateral facet arthropathy. Mild central canal narrowing. Moderate left foraminal stenosis with minimal nerve root compression. Mild right foraminal narrowing L5-S1: Normal appearance. IMPRESSION: No high-grade canal narrowing. Moderate left L4-L5 foraminal stenosis. Mild left L3-L4, and mild right L4-L5 foraminal narrowing. Dictated by: Chau Miranda M.D. on 12/11/2018 at 12:57 Approved by: Chau Miranda M.D. on 12/11/2018 at 13:02
== END ==
PROVIDERS: PCP Internal Medicine; Visit Provider Physical Medicine & Rehabilitation
DX: M51.36 Other intervertebral disc degeneration, lumbar region (principal); M48.061 Spinal stenosis, lumbar region without neurogenic claudication
CPT/HCPCS: 72148

== ENCOUNTER 2018-12-29 15:28 | Observation (INO) | payer OTHER, SELFPAY ==
[2018-12-29] VITALS (8 sets, daily range): BP systolic 107–153; BP diastolic 64–81; PULSE 59–74; RESP 15–22; TEMP 36.7–37.1; O2SAT 95–100; BMI 29.2; BMI 24.9
--- NOTE | 2018-12-29 11:45 | DI.MRI.S_ITS ---
PROCEDURE: MR STROKE Pre- and post-contrast brain MRI, non-contrast brain MR angiogram, pre- and postcontrast neck MR angiogram INDICATIONS: vertigo x one week with weakness TECHNIQUE: Brain: Noncontrast axial T1 spin echo, axial T2 fast spin echo, sagittal and axial FLAIR, coronal T2 fast spin echo, axial gradient echo, axial diffusion and ADC through the brain. After the administration of contrast, axial 3D VIBE of the cranial vasculature and brain. Brain MRA: Non-contrast 3-D time of flight MR angiogram, with multiple tdxwkjt-zpmqbmnql-amzfdekdiy (MIP) reformats performed. Neck MRA: Axial and sagittal TruFISP through the neck. Coronal dynamic MR angiogram during administration of contrast in the arterial and venous phases, with 3-dimenstional ebybxei-qxsrokanc-uhnkutkgqo (MIP) reformats constructed from subtraction images. COMPARISON: [facility], CT, CT HEAD/BRAIN WO CON, 12/29/2018, 18:26. FINDINGS: Image quality: Diagnostic. BRAIN: CSF spaces: Ventricles are normal in size and shape. Basal cisterns are patent. No extra-axial fluid collections. Brain: No intracranial bleeds or mass effects. Pascal-white matter interface is normal. Diffusion weighted images show no acute ischemic insults. Focal area of encephalomalacia involving the right thalamus may be related to previous area of ischemia. Scattered small areas of increased flair signal are seen within the periventricular and deep white matter of the supratentorial brain. Brainstem appears normal. Normal intravascular flow voids are present. No abnormal intracranial enhancement. Skull and face: Calvarial marrow signal is normal. Orbits appear normal. Sinuses: A mucous retention cyst may be present involving the posterior aspect of the right maxillary sinus. Otherwise, the imaged paranasal sinuses and mastoid air cells are clear. The BRAIN MR ANGIOGRAM: Anterior circulation: Intracranial internal carotid arteries are normal in size and enhancement. The flow within the paired anterior cerebral arteries is normal and symmetric. The flow within the middle cerebral arteries is normal and symmetric. The anterior communicating artery is seen. No stenoses, occlusions, or aneurysms. Posterior circulation: The visualized portions of the vertebral arteries demonstrate normal caliber, and join to form a normal appearing basilar artery. The flow within the posterior cerebral arteries is normal and symmetric. No stenoses, occlusions, or aneurysms. NECK MR ANGIOGRAM: Carotids: Great vessels demonstrate a conventional anatomy as they arise from the aortic arch. The origins of the common carotid arteries appear patent. The calibers and courses of both common carotid arteries are normal. However, the origin of the right common carotid artery is not clearly evident related to motion artifact. Minimal luminal narrowing is evident involving the bilateral carotid bulbs. There is approximately 20% narrowing of the lumen of the vessel at these locations. The internal carotid arteries demonstrate normal course and caliber. Posterior circulation: The origins of the vertebral arteries appear patent. More superior portions of both vertebral arteries demonstrate normal course and caliber, and join to form a normal appearing basilar artery. Miscellaneous: Subclavian arteries appear patent. Pre-contrast images through the neck show no soft tissue abnormalities. IMPRESSION: BRAIN MRI: 1. No acute intracranial hemorrhage or ischemia. 2. Chronic small vessel ischemic changes throughout the brain. 3. Probable mucus retention cyst of the right maxillary sinus. BRAIN MR ANGIOGRAM: -No aneurysms, occlusions, or high-grade narrowing of the intracranial arteries of the [place]. NECK MR ANGIOGRAM: 1. Mild narrowing of the bilateral carotid bulbs probably is atherosclerotic in nature. Otherwise, the bilateral carotid arteries are within normal limits. No high-grade narrowing or occlusions. 2. The vertebral arteries are patent and otherwise unremarkable. No high-grade narrowing or occlusions. Dictated by: Kiet Hearn M.D. on 12/30/2018 at 12:39 Approved by: Kiet Hearn M.D. on 12/30/2018 at 12:51
--- NOTE | 2018-12-29 15:45 | DI.RAD.S_ITS ---
PROCEDURE: XR CHEST 1V INDICATIONS: chest pain TECHNIQUE: One view of the chest was acquired. COMPARISON: None. FINDINGS: Surgical changes and devices: None. Lungs and pleura: Lungs are clear. No pleural effusions or pneumothorax. Mediastinum: Mediastinal contours appear normal. Heart size is normal. Bones and chest wall: No suspicious bony lesions. Overlying soft tissues appear unremarkable. IMPRESSION: No acute cardiopulmonary disease. Dictated by: Harshil Nelson M.D. on 12/29/2018 at 16:59 Approved by: Harshil Nelson M.D. on 12/29/2018 at 17:00
[2018-12-29 16:13] LABS: Add Manual Diff / Slide Review NO; Basophils Absolute Auto 0 /uL (0-100); Basophils Percent Auto 0.5 % (0-2); Eosinophils Absolute Auto 100 /uL (0-450); Eosinophils Percent Auto 0.9 % (2-4); Hematocrit 33.6 % (36-46); Hemoglobin 11.4 g/dL (12.0-16.0); Lymphocytes Absolute Auto 1600 /uL (1100-4500); Lymphocytes Percent Auto 23.8 % (25-40); Mean Corpuscular HGB Conc 33.9 % (30-36); Mean Corpuscular Hemoglobin 30.2 PG (26-34); Mean Corpuscular Volume 89.2 fL (80-100); Monocytes Absolute Auto 400 /uL (0-900); Monocytes Percent Auto 6.4 % (3-14); Neutrophils Absolute Auto 4600 /uL (1500-7000); Neutrophils Percent Auto 68.4 % (50-75); Platelet Count 289 X10^3/uL (150-400); Red Blood Cell Count 3.77 X10^6/uL (4.0-5.2); Red Cell Distribution Width 13.9 % (11.6-14.8); White Blood Cell Count 6.7 X10^3/uL (4.5-11.0)
[2018-12-29 16:16] LABS: INR 0.8 (0.9-1.3); Prothrombin Time 9.6 SECONDS (10.1-12.7)
[2018-12-29 16:18] LABS: PTT Partial Thromboplastin Tim 32 SECONDS (26.4-36.2)
[2018-12-29 16:19] LABS: Alanine Aminotransferase 22 IU/L (9-52); Albumin 4.2 g/dL (3.5-5.0); Albumin Globulin Ratio 1.2 (1.0-2.8); Alkaline Phosphatase 35 U/L (38-126); Aspartate Aminotransferase 30 IU/L (14-36); BUN Creatinine Ratio 19.2 (6-22); Bilirubin Total 0.8 mg/dL (0.2-1.3); Blood Urea Nitrogen 23 mg/dL (7-17); Calcium 9.5 mg/dL (8.4-10.2); Carbon Dioxide 27 mmol/L (22-32); Chloride 98 mmol/L (98-107); Creatine Kinase 72 U/L (30-135); Estimated Glomerular Filt Rate 44.4 mL/min (>60); Globulin 3.4 g/dL (1.7-4.1); Glucose 282 mg/dL (80-110); HEMOLYSIS 77 (0-50); Lipase 266 U/L (23-300); Potassium 5.3 mmol/L (3.4-5.1); Sodium 135 mmol/L (137-145); Total Protein 7.6 g/dL (6.3-8.2)
[2018-12-29 16:31] LABS: Troponin I < 0.012 ng/mL (0.01-0.034)
--- NOTE | 2018-12-29 18:11 | ED_ITS ---
HPI - Dizziness General Chief Complaint: Dizziness Stated Complaint: vertigo,reminds her of a previous stroke Time Seen by Provider: 12/29/18 18:06 Source: patient and family Mode of arrival: ambulatory Limitations: language barrier History of Present Illness HPI Narrative: 68F nonsmoker with history of hypertension, hyperlipidemia, diabetes and former stroke presents with her daughter and a chief complaint of dizziness and trouble ambulating, a series of symptoms that remind her of a prior stroke which left her with residual left facial droop but no other troubles. Patient states that her symptoms started about 1 week ago, she saw her primary care provider earlier in the week and was given meclizine without relief. Patient denies any recent injury, fevers, chills or illness. Patient is not activated as a code stroke as she does not meet criteria as designated by our algorithim MD complaint: dizziness Onset (ago): day(s) Timing: gradual onset Description: off-balance and difficulty walking History of similar episodes: Yes History of trauma: No Severity: moderate Relieving factors: nothing Exacerbating factors: nothing Related Data Home Medications Medication Instructions Recorded Confirmed alendronate 70 mg PO QWEEK 12/29/18 12/29/18 atorvastatin 20 mg PO DAILY 12/29/18 12/29/18 glipizide 20 mg PO DAILY 12/29/18 losartan-hydrochlorothiazide 1 tab PO DAILY 12/29/18 12/29/18 meclizine 25 mg PO TID PRN 12/29/18 12/29/18 metformin 1,000 mg PO BID 12/29/18 12/29/18 pantoprazole 40 mg PO DAILY 12/29/18 12/29/18 timolol maleate 1 drp OPHTHALMIC (EYE) DIRECTED 12/29/18 12/29/18 Allergies Allergy/AdvReac Type Severity Reaction Status Date / Time No Known Drug Allergies Allergy Verified 12/29/18 15:41 Review of Systems Constitutional Constitutional: Denies chills, Denies fatigue, Denies fever(s), Denies frequent falls, Denies lethargy and Reports weakness Eyes Eyes: Denies change in vision, Denies eye discharge, Denies irritation and Denies loss of vision ENT Ears, Nose, Mouth, and Throat: Denies change in voice, Reports dizziness, Denies neck pain, Denies sore throat and Denies throat swelling Cardiovascular Cardiovascular: Denies chest pain, Denies irregular heart rhythm, Denies light headedness, Denies palpitations, Denies dyspnea, Denies dyspnea on exertion and Denies orthopnea Respiratory Respiratory: Denies cough, Denies dyspnea, Denies dyspnea on exertion and Denies wheezing Gastrointestinal Gastrointestinal: Denies abdominal pain, Denies change in bowel habits, Denies diarrhea, Denies nausea and Denies vomiting Genitourinary Genitourinary: Denies hematuria, Denies flank pain, Denies urinary incontinence and Denies urinary urgency Musculoskeletal Musculoskeletal: Denies back pain, Denies muscle weakness, Denies neck pain, Reports numbness and Reports tingling Integumentary/Breasts Skin/Breast: Denies pruritus, Denies erythema, Denies rash and Denies wounds Neurologic Neurologic: Denies behavioral changes, Denies confusion, Reports dizziness, Denies frequent falls, Denies loss of vision, Reports numbness, Reports tingling and Reports weakness Psychiatric Psychiatric: Denies anxiety, Denies behavioral changes, Denies confusion, Denies depression, Denies homicidal ideation and Denies suicidal ideation Endocrine Endocrine: Denies fatigue, Denies flushing and Denies palpitations Hematologic/Lymphatic Hematologic/Lymphatic: Denies easy bruising Allergic/Immunologic Allergic/Immunologic: Denies urticaria, Denies throat swelling and Denies wheez ing [facility] Medical History Cerebrovascular accident (Inactive) Diabetes type 2, uncontrolled (Acute) Glaucoma, left eye (Acute) Hyperlipidemia (Acute) Hypertension (Acute) Osteoporosis (Acute) Surgical History History of section (Acute) Social History household members: family Smoking Status: Never smoker Social History household members: family Smoking Status: Never smoker Exam Narrative Exam Narrative: GENERAL: [68] year old patient appears stated age. Well- nourished, well-developed patient, in mild distress. HEAD: Atraumatic. Normocephalic. EYES: Pupils equal round and reactive. Extraocular motions intact. No scleral icterus. No injection or drainage. ENT: Nose without bleeding, purulent drainage. Throat without erythema, tonsillar hypertrophy or exudate. Airway patent. NECK: Trachea midline. Non tender CARDIOVASCULAR: Regular rate and rhythm without murmurs, gallops, or rubs. RESPIRATORY: Clear to auscultation. Breath sounds equal bilaterally. No wheezes, rales, or rhonchi. GASTROINTESTINAL: Abdomen soft, non-tender, nondistended. EXTREMITIES: No edema or joint tenderness. BACK: Nontender without deformity or crepitance. No flank tenderness. NEURO: AOx3. SKIN: No rash or erythema of visible areas Initial Vital Signs Initial Vital Signs: Vital Signs Temperature 98.5 F 12/29/18 15:35 Pulse Rate 72 12/29/18 15:35 Respiratory Rate 18 12/29/18 15:35 Blood Pressure 128/71 12/29/18 15:35 Pulse Oximetry 98 12/29/18 15:35 Scores NIH Stroke Scale Level of Conciousness: Alert, keenly responsive Ask month/age: Answers both questions correctly. Open/close eyes, close hand: Performs both tasks correctly Best gaze horizontal: Normal Visual cantu: No visual loss Facial palsy: Minor paralysis, flattened nasolabial fold, asymmetry on smiling Left arm drift: Drifts down, not to bed Right arm drift: No drift for full 10 sec Left leg drift: Drifts down, not to bed Right leg drift: No drift for full 10 sec Limb ataxia: Present in one limb Sensory on face/arms/legs: Mild to moderate sensory loss, can tell touch Best language: No aphasia, normal Dysarthria: Normal Extinction or inattention: No abnormality Total NIH Stroke scale score: 5 Course Orders Ordered: Acetaminophen (Tylenol) 650 mg PO Q6HR PRN PRN Reason: As Needed for Fever/Mild Pain Al Hydrox/Mg Hydrox/Simethicone (Maalox Plus) 30 ml PO Q6HR PRN PRN Reason: Dyspepsia Aspirin (Aspirin Ec) 81 mg PO DAILY COUNT INCLUDES THE [facility] Atorvastatin Calcium (Lipitor) 80 mg PO BEDTIME COUNT INCLUDES THE [facility] Last Admin: 12/29/18 22:00 Dose: 80 mg Documented by: JACOB Bisacodyl (Dulcolax) 10 mg MT DAILY PRN PRN Reason: Constipation Calcium Carbonate (Tums) 1,000 mg PO Q4HR PRN PRN Reason: Dyspepsia Clopidogrel Bisulfate (Plavix) 75 mg PO DAILY COUNT INCLUDES THE [facility] Dextrose (D50w) 25 gm IV PRN PRN; Protocol PRN Reason: Hypoglycemia Docusate Sodium (Colace) 100 mg PO BID COUNT INCLUDES THE [facility] Last Admin: 12/29/18 22:00 Dose: 100 mg Documented by: JACOB Enoxaparin Sodium (Lovenox) 40 mg SUBCUT DAILY COUNT INCLUDES THE [facility] Hydrochlorothiazide (Hydrochlorothiazide) 25 mg PO DAILY COUNT INCLUDES THE [facility] Sodium Chloride (Normal Saline 0.9%) 1,000 mls @ 75 mls/hr IV CONT COUNT INCLUDES THE [facility] Last Admin: 12/29/18 22:00 Dose: 75 mls/hr Documented by: JACOB Insulin Aspart (Novolog Flexpen) 0 unit SUBCUT ACHS COUNT INCLUDES THE [facility]; Protocol Losartan Potassium (Cozaar) 100 mg PO DAILY COUNT INCLUDES THE [facility] Morphine Sulfate (Morphine) 2 mg IV Q4HR PRN PRN Reason: Pain, Moderate (4-6) Naloxone HCl (Narcan) 0.2 mg IV Q2MIN PRN PRN Reason: Opiate Reversal Ondansetron HCl (Zofran) 4 mg IV Q8HR PRN PRN Reason: Nausea And Vomiting Pantoprazole Sodium (Protonix) 40 mg PO DAILY COUNT INCLUDES THE [facility] Timolol Maleate (Timoptic 0.5%) 1 drops EYE-LEFT DAILY COUNT INCLUDES THE [facility] Consultations Consultation #1: call to hospitalist Vital Signs Vital signs: Vital Signs - 8 hr 12/29/18 15:35 12/29/18 16:44 Temperature 98.5 F Pulse Rate 72 63 Respiratory Rate 18 20 Blood Pressure 128/71 Blood Pressure [Right Arm] 124/68 Pulse Oximetry 98 98 MDM - Dizziness Lab Data Result diagrams: 12/29/18 15:59 12/29/18 15:59 Labs: Lab Results 12/29/18 12/29/18 12/29/18 Range/Units 15:59 15:59 15:59 WBC 6.7 (4.5-11.0) X10^3/uL RBC 3.77 L (4.0-5.2) X10^6/uL Hgb 11.4 L (12.0-16.0) g/dL Hct 33.6 L (36-46) % MCV 89.2 (80-100) fL MCH 30.2 (26-34) PG MCHC 33.9 (30-36) % RDW 13.9 (11.6-14.8) % Plt Count 289 (150-400) X10^3/uL Neut % (Auto) 68.4 (50-75) % Lymph % (Auto) 23.8 L (25-40) % [place] % (Auto) 6.4 (3-14) % Eos % (Auto) 0.9 L (2-4) % Baso % (Auto) 0.5 (0-2) % Neut # (Auto) 4600 (9074-8354) /uL Lymph # (Auto) 1600 (2414-0484) /uL [place] # (Auto) 400 (0-900) /uL Eos # (Auto) 100 (0-450) /uL Baso # (Auto) 0 (0-100) /uL PT 9.6 L (10.1-12.7) SECONDS INR 0.8 L (0.9-1.3) APTT 32 (26.4-36.2) SECONDS Sodium 135 L (137-145) mmol/L Potassium 5.3 H (3.4-5.1) mmol/L Chloride 98 (98-107) mmol/L Carbon Dioxide 27 (22-32) mmol/L BUN 23 H (7-17) mg/dL Creatinine 1.20 H (0.52-1.04) mg/dL Estimated GFR 44.4 L (>60) mL/min BUN/Creatinine Ratio 19.2 (6-22) Glucose 282 H (80-110) mg/dL Hemoglobin A1c (4.0-6.0) % Calcium 9.5 (8.4-10.2) mg/dL Magnesium (1.6-2.3) mg/dL Total Bilirubin 0.8 (0.2-1.3) mg/dL AST 30 (14-36) IU/L ALT 22 (9-52) IU/L Alkaline Phosphatase 35 L (38-126) U/L Total Creatine Kinase 72 (30-135) U/L CK-MB (CK-2) TNP CK-MB (CK-2) Rel Index TNP Troponin I < 0.012 (0.01-0.034) ng/mL Total Protein 7.6 (6.3-8.2) g/dL Albumin 4.2 (3.5-5.0) g/dL Globulin 3.4 (1.7-4.1) g/dL Albumin/Globulin Ratio 1.2 (1.0-2.8) Triglycerides (35-150) mg/dL Cholesterol (140-199) mg/dL LDL Cholesterol, Calc (<100) mg/dL HDL Cholesterol (40-60) mg/dL Lipase 266 (23-300) U/L 12/29/18 12/29/18 12/29/18 Range/Units 15:59 15:59 15:59 WBC (4.5-11.0) X10^3/uL RBC (4.0-5.2) X10^6/uL Hgb (12.0-16.0) g/dL Hct (36-46) % MCV (80-100) fL MCH (26-34) PG MCHC (30-36) % RDW (11.6-14.8) % Plt Count (150-400) X10^3/uL Neut % (Auto) (50-75) % Lymph % (Auto) (25-40) % [place] % (Auto) (3-14) % Eos % (Auto) (2-4) % Baso % (Auto) (0-2) % Neut # (Auto) (2984-3385) /uL Lymph # (Auto) (7897-0636) /uL [place] # (Auto) (0-900) /uL Eos # (Auto) (0-450) /uL Baso # (Auto) (0-100) /uL PT (10.1-12.7) SECONDS INR (0.9-1.3) APTT (26.4-36.2) SECONDS Sodium (137-145) mmol/L Potassium (3.4-5.1) mmol/L Chloride (98-107) mmol/L Carbon Dioxide (22-32) mmol/L BUN (7-17) mg/dL Creatinine (0.52-1.04) mg/dL Estimated GFR (>60) mL/min BUN/Creatinine Ratio (6-22) Glucose (80-110) mg/dL Hemoglobin A1c 10.3 H (4.0-6.0) % Calcium (8.4-10.2) mg/dL Magnesium 1.6 (1.6-2.3) mg/dL Total Bilirubin (0.2-1.3) mg/dL AST (14-36) IU/L ALT (9-52) IU/L Alkaline Phosphatase (38-126) U/L Total Creatine Kinase (30-135) U/L CK-MB (CK-2) CK-MB (CK-2) Rel Index Troponin I (0.01-0.034) ng/mL Total Protein (6.3-8.2) g/dL Albumin (3.5-5.0) g/dL Globulin (1.7-4.1) g/dL Albumin/Globulin Ratio (1.0-2.8) Triglycerides 180 H (35-150) mg/dL Cholesterol 170 (140-199) mg/dL LDL Cholesterol, Calc 77 (<100) mg/dL HDL Cholesterol 57 (40-60) mg/dL Lipase (23-300) U/L Imaging Data CT scan - head: Radiologist's impression: [address] [address] [address] Scan Report Signed Patient: Rebecca Talamantes EMR#: [id number] : 9Acct:[id number] Age/Sex: 68 / FDate of Service: 12/29/18 Loc: ED Accession Number: [id number] Procedure: CT head/brain wo con Ordering Provider: González Ware D.O. PROCEDURE: CT HEAD/BRAIN WO CON INDICATIONS: dizzy, feels like prior stroke TECHNIQUE: Noncontrast 4.5 mm thick angled axial sections acquired from the foramen magnum to the vertex, with coronal and sagittal reformats. For radiation dose reduction, the following was used: automated exposure control, adjustment of mA and/or kV according to patient size. COMPARISON: None. FINDINGS: Image quality: Excellent. CSF spaces: Basal cisterns are patent. No extra-axial fluid collections. The ventricles are symmetric in size and shape. Brain: No intracranial bleeds or masses. There is cerebral volume loss for age, with resultant ventricular and sulcal prominence. There are periventricular and deep white matter chronic small vessel ischemic changes. There is intracranial internal carotid artery atherosclerosis. Skull and face: Calvarium and visualized facial bones appear intact, without suspicious lesions. Sinuses: Visualized sinuses and mastoids are clear. IMPRESSION: No acute intracranial process. Dictated by: Chau Miranda M.D. on 12/29/2018 at 18:53 Approved by: Chau Miranda M.D. on 12/29/2018 at 18:54 Discharge Plan Departure Patient Disposition: Admitted As Inpatient Clinical Impression: Cerebrovascular accident Discharge Date/Time: 12/29/18 21:04 Admit Date/Time: 12/29/18 19:27 Admit Provider: Ancelmo Gill
--- NOTE | 2018-12-29 21:06 | DI.ECHO.S_ITS ---
[facility]---------+ [facility] +---------+ : : [address] [place] : : : : [id number] : : : : Phone: [phone] Echocardiogram Report + + :Name: PEYTON GALE Study Date: 12/30/2018 Height: 50 in : :[facility] Exam Location: [facility] Weight: 145 lb : : Gender: Female BSA: 1.4 m2 : :: 1950 Age: 68 yrs BP: 137/75 mmHg: :Reason For Study: CVA : :Ordering Physician: Ruth : :Hospitalist Performed By: Arlin Page : :Referring: ROBERT GRANT : + + Interpretation Summary The left ventricle is normal in size. Left ventricular wall thickness is mildly increased. The left ventricular ejection fraction is normal. There are no obvious focal wall motion abnormalities noted but poor endocardial definition reduces the sensitivity for the detection of such. The right ventricle is normal in size and function. The right ventricular systolic pressure is estimated to be at least 25 mmHg based on an estimated right atrial pressure of 3 mm Hg. The left atrium is moderately dilated. There is no Doppler evidence for an interatrial shunt. There is no prior echocardiogram noted for this patient. Procedure: A two-dimensional transthoracic echocardiogram with color flow and Doppler was performed. The study quality was technically adequate. There is no prior echocardiogram noted for this patient. The patient was in sinus bradycardia with heart rates between 50-55 bpm during the exam. Left Ventricle: The left ventricle is normal in size. Left ventricular wall thickness is mildly increased. The ejection fraction is estimated to be 60- 65%. The left ventricular ejection fraction is normal. There are no obvious focal wall motion abnormalities noted but poor endocardial definition reduces the sensitivity for the detection of such. Diastolic parameters suggest a relaxation abnormality of the left ventricle, consistent with probable normal filling pressures. Right Ventricle: The right ventricle is normal in size and function. Atria: The left atrium is moderately dilated. Right atrial size is normal. There is no Doppler evidence for an interatrial shunt. Mitral Valve: The mitral valve leaflets appear mildly thickened, but open well. There is mild mitral annular calcification. There is trace mitral regurgitation. Aortic Valve: The aortic valve is trileaflet. The aortic valve opens well. No aortic regurgitation is present. Tricuspid Valve: The tricuspid valve is normal in structure and function. There is mild tricuspid regurgitation. The right ventricular systolic pressure is estimated to be at least 25 mmHg based on an estimated right atrial pressure of 3 mm Hg. Pulmonic Valve: The pulmonic valve is not well visualized. There is a trace or physiologic amount of pulmonic regurgitation. Great Vessels: The aortic root is normal size. The ascending aorta is mild- moderately enlarged. The pulmonary artery is not well visualized, but is probably normal size. The IVC is of normal diameter and collapses greater than 50% with a sniff. This suggests a low right atrial pressure of 3 mm Hg. Pericardium/ Pleura There is no pericardial effusion. There is no pleural effusion. MMode/2D Measurements & Calculations LVIDd: 3.8 cm LVOT diam: 1.8 cm LVIDs: 2.1 cm Ao root diam: 3.3 cm FS: 45.5 % asc Aorta Diam: 4.0 cm EPSS: 0.27 cm IVSd: 0.82 cm LVPWd: 0.99 cm LV titus. diameter/BSA (cm/m^2): 2.6 LV sys. diameter/BSA (cm/m^2): 1.4 LA A2 area: 23.9 cm2 RA long axis: 4.9 cm LA A4 area: 24.6 cm2 RA area: 15.4 cm2 LA length (vol): 6.0 cm RA vol: 41.3 ml LA vol: 83.2 ml RA : 29.0 ml/m2 LA vol index: 58.3 ml/m2 IVC diam: 1.4 cm RVD1 (basal): 3.4 cm RVD2 (mid): 3.0 cm TAPSE: 1.5 cm Doppler Measurements & Calculations Ao V2 max: 152.7 cm/sec LVOT Max Adiel: 94.7 cm/sec Ao V2 mean: 105.7 cm/sec LV V1 max P.6 mmHg Ao max P.3 mmHg LV V1 VTI: 22.8 cm Ao mean P.8 mmHg MERE(I,D): 1.8 cm2 Ao V2 VTI: 31.7 cm MERE(V,D): 1.6 cm2 sev ratio: 0.72 MERE indexed to BSA (cm^2/m^2): 1.3 MV E max adiel: 53.0 cm/sec TR max adiel: 235.9 cm/sec MV A max adiel: 78.4 cm/sec TR max P.3 mmHg MV E/A: 0.68 PA V2 max: 65.1 cm/sec Med Peak E' Adiel: 3.5 cm/sec PA V2 mean: 45.4 cm/sec E/E' med: 15.1 PA mean P.91 mmHg Lat Peak E' Adiel: 6.5 cm/sec PA Accel Time: 0.14 sec E/E' lat: 8.2 E/e' average: 11.6 MV dec time: 0.31 sec MV P1/2t: 92.6 msec MV P1/2t max adiel: 53.7 cm/sec SV(LVOT): 58.0 ml MVA(P1/2t): 2.4 cm2 Electronically signed by: Chad Jaramillo M.D. on Reading Physician:12/30/2018 06:10 PM
[2018-12-29 21:20] LABS: Magnesium 1.6 mg/dL (1.6-2.3)
[2018-12-29 21:24] LABS: Cholesterol 170 mg/dL (140-199); HDL Cholesterol 57 mg/dL (40-60); LDL Cholesterol Calculated 77 mg/dL (<100); Triglycerides 180 mg/dL (35-150)
[2018-12-29 21:31] LABS: Hemoglobin A1C% w Est Avg Glu 10.3 % (4.0-6.0)
[2018-12-29] MEDS: DOCUSATE 100 MG CAPSULE PO (22:00)
[2018-12-29] MEDS: SODIUM CHLORIDE 0.9% 1,000 ML 75 ML IV (22:00)
[2018-12-29] MEDS: ATORVASTATIN 20 MG TABLET 80 MG PO (22:00)
--- NOTE | 2018-12-29 22:22 | PM.HP.1 ---
History of Present Illness History of Present Illness Date Patient Seen: 12/29/18 Time Patient Seen: 20:05 Chief complaint: vertigo,reminds her of a previous stroke Narrative: Ms. Rebecca Talamantes is a 68-year-old right-handed female with history significant for hypertension, hyperlipidemia, type 2 diabetes mellitus on oral control, glaucoma and prior CVA with residual left facial droop who presents with her daughter for dizziness and difficulty walking which she states is similar to her prior stroke symptoms. Patient has her symptoms for 1 week onset last Tuesday. Since then she has had headache which will be right-side or frontal and has associated blurring of vision like a film over her eyes. She was seen by her primary care provider who started her on meclizine without improvement. She describes her dizziness as occurring when she stands up. She describes nasal congestion but no nasal drainage or sore throat. She has shortness of breath with climbing stairs and atypical chest pain that she describes as sharp substernal be in brief in duration lasting only seconds and going away. She reports no radiation diaphoresis or shortness of breath at rest. She has no complaints of abdominal pain nausea vomiting and complains of constipation passing hard stool. She denies urinary symptoms. The patient also reports some chronic back pain and had stopped taking her daily aspirin last Tuesday after the onset of symptoms for spinal injection procedure. The patient was brought in by her daughter and upon arrival had a temperature of 98.5?, heart rate of 72, blood pressure 128/71, respirations of 18 saturating 98% on room air. Patient underwent CT which showed no acute intracranial processes and also had a chest x-ray which showed no acute cardiopulmonary disease. NIH score per ER provider was 5. On laboratory analysis her CBC is within normal ranges, she has a PT of 9.6 and INR of 0.8 with a PTT of 32. On electrolytes she is mildly hyperkalemic at 5.3 and has a BUN of 23 and creatinine 1.2. Her nonfasting glucose is 282. Her liver functions are within normal range. The patient is admitted for acute CVA with 1 week of symptoms outside the therapeutic treatment window. Patient History Medical History Cerebrovascular accident (Inactive) Diabetes type 2, uncontrolled (Acute) Glaucoma, left eye (Acute) Hyperlipidemia (Acute) Hypertension (Acute) Osteoporosis (Acute) Surgical History History of section (Acute) Social History household members: family Smoking Status: Never smoker Family & Social History Social History: household members family Prior Living Arrangements House Safety & Behavioral: Feels Safe in Current Yes Environment Been Physically Hurt or No Threatened By a Person Suicidal Ideation Description None Suicide Plan Description No Plan Tobacco & Substance use: Smoking Status Never smoker alcohol intake frequency 0-2 drinks per day Substance Use Type does not use Comment: Depression currently lives by herself in a trailer. She has has been for 10 years. The patient's father from trauma related to drowning and her mother from a stroke. She has a family history of diabetes, hypertension but denies family history of cancer or kidney disease. Occupation: Patient currently works at [employer] Smoking: Patient has never smoked. Alcohol: Patient does not consume alcohol. Substance use: The patient denies use of recreational pharmaceuticals, herbal or cannabis products. Advanced directives: The patient has no formal documentation but states her desire to be FULL CODE. She designates her daughter Alejandra Leo to be her surrogate decision maker. Meds Home Medications and Allergies Home Medications Medication Instructions Recorded Confirmed Type alendronate 70 mg PO QWEEK 12/29/18 12/29/18 History atorvastatin 20 mg PO DAILY 12/29/18 12/29/18 History glipizide 20 mg PO DAILY 12/29/18 History losartan-hydrochlorothiazide 1 tab PO DAILY 12/29/18 12/29/18 History meclizine 25 mg PO TID PRN 12/29/18 12/29/18 History metformin 1,000 mg PO BID 12/29/18 12/29/18 History pantoprazole 40 mg PO DAILY 12/29/18 12/29/18 History timolol maleate 1 drp OPHTHALMIC (EYE) DIRECTED 12/29/18 12/29/18 History Allergies Allergy/AdvReac Type Severity Reaction Status Date / Time No Known Drug Allergies Allergy Verified 12/29/18 15:41 Review of Systems Review of Systems ROS Unobtainable: All systems reviewed & are unremarkable except as noted in HPI and below Exam Vital Signs (past 8 hours): - 12/29/18 15:35 12/29/18 16:44 12/29/18 17:00 Temperature 98.5 F Pulse Rate 72 63 61 Respiratory Rate 18 20 22 Blood Pressure 128/71 Blood Pressure [Right Arm] 124/68 112/77 Pulse Oximetry 98 98 98 12/29/18 17:30 12/29/18 18:00 12/29/18 20:55 Temperature Pulse Rate 59 L 61 64 Respiratory Rate 15 22 15 Blood Pressure Blood Pressure [Right Arm] 138/71 127/75 153/81 H Pulse Oximetry 100 98 99 12/29/18 21:00 Temperature 98.7 F Pulse Rate 60 Respiratory Rate 18 Blood Pressure 137/75 Blood Pressure [Right Arm] Pulse Oximetry 99 Oxygen Delivery Method Room Air Narrative Exam Narrative: GENERAL APPEARANCE: well developed, well nourished, in no acute distress. HEENT: A symmetrical facies , left facial droop, PERRLA, EOMs intact without nystagmus, conjunctiva clear, no sinus tenderness to percussion, no rhinorrhea, mucous membranes are moist and pink without lesions or exudate. NECK/THYROID: neck supple, no JVD, no carotid bruit, no thyromegaly, trachea midline. LYMPH NODES: no cervical or supraclavicular lymphadenopathy. SKIN: warm and dry, no suspicious lesions, no rashes, good turgor. HEART: regular rate and rhythm, S1-S2 without murmur, no rubs or gallops, brisk capillary refill, no edema LUNGS: clear to auscultation bilaterally, no coarseness crackles or wheezing, no cough present CHEST: Symmetrical movement, no accessory muscle use, no pain to AP and lateral compression. ABDOMEN: Soft, no distention, no abdominal tenderness on palpation, no organomegaly, no flank or suprapubic tenderness, active bowel tones. 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 NEUROLOGIC: AAO x4, no ptosis, left facial droop present, left side numbness present, drift left lower extremity other limbs are normal, hearing grossly normal to speech, NIH score-3 PSYCH: alert, cognitive function intact, good eye contact, appropriate with stable behavior Objective Labs Result Diagrams: 12/29/18 15:59 12/29/18 15:59 Labs: Laboratory Results - last 24 hr 12/29/18 12/29/18 12/29/18 15:59 15:59 15:59 WBC 6.7 RBC 3.77 L Hgb 11.4 L Hct 33.6 L MCV 89.2 MCH 30.2 MCHC 33.9 RDW 13.9 Plt Count 289 Neut % (Auto) 68.4 Lymph % (Auto) 23.8 L [place] % (Auto) 6.4 Eos % (Auto) 0.9 L Baso % (Auto) 0.5 Neut # (Auto) 4600 Lymph # (Auto) 1600 [place] # (Auto) 400 Eos # (Auto) 100 Baso # (Auto) 0 PT 9.6 L INR 0.8 L APTT 32 Sodium 135 L Potassium 5.3 H Chloride 98 Carbon Dioxide 27 BUN 23 H Creatinine 1.20 H Estimated GFR 44.4 L BUN/Creatinine Ratio 19.2 Glucose 282 H Hemoglobin A1c Calcium 9.5 Magnesium Total Bilirubin 0.8 AST 30 ALT 22 Alkaline Phosphatase 35 L Total Creatine Kinase 72 CK-MB (CK-2) TNP CK-MB (CK-2) Rel Index TNP Troponin I < 0.012 Total Protein 7.6 Albumin 4.2 Globulin 3.4 Albumin/Globulin Ratio 1.2 Triglycerides Cholesterol LDL Cholesterol, Calc HDL Cholesterol Lipase 266 12/29/18 12/29/18 12/29/18 15:59 15:59 15:59 WBC RBC Hgb Hct MCV MCH MCHC RDW Plt Count Neut % (Auto) Lymph % (Auto) [place] % (Auto) Eos % (Auto) Baso % (Auto) Neut # (Auto) Lymph # (Auto) [place] # (Auto) Eos # (Auto) Baso # (Auto) PT INR APTT Sodium Potassium Chloride Carbon Dioxide BUN Creatinine Estimated GFR BUN/Creatinine Ratio Glucose Hemoglobin A1c 10.3 H Calcium Magnesium 1.6 Total Bilirubin AST ALT Alkaline Phosphatase Total Creatine Kinase CK-MB (CK-2) CK-MB (CK-2) Rel Index Troponin I Total Protein Albumin Globulin Albumin/Globulin Ratio Triglycerides 180 H Cholesterol 170 LDL Cholesterol, Calc 77 HDL Cholesterol 57 Lipase Assessment & Plan Assessment & Plan narrative: This is a 68-year-old female patient with symptoms of dizziness treated outpatient with meclizine without benefit and developing ataxia. 1. Acute versus subacute CVA in setting of prior CVA, present on admission, active. -patient with risk factors of diabetes, hypertension, hyperlipidemia. -CT scan finds no evidence of intracranial pathology, will obtain MR stroke in the morning. -EKG is is sinus rhythm with rate of 66, no no block, ST or T-wave changes, Q-waves inferiorly in lead 3 and AVF, will obtain echocardiogram. -aspirin 81 mg daily as well as clopidogrel 75 mg daily for 2nd event occurring while on aspirin. -meclizine was not beneficial to the patient and is discontinued. -PT, OT and speech therapy to evaluate and treat. -patient passed swallow eval and has been eating at home reporting no coughing on thin liquids, no symptoms for 1 week with clear chest x-ray and no fever or white count will load the patient to have a constant carbohydrate diet. 2. Chronic Diabetes type 2, non insulin dependent, uncontrolled, present on admission, active. -patient with elevated blood sugar at 282 on admission to the ER. She reports being compliant with glipizide and metformin. -no complaints of neuropathy or retinopathy, possible nephropathy with elevated creatinine 1.2 with unknown baseline. IV normal saline at 75 cc/hour. -Accu-Cheks AC and HS with low-dose range correctional insulin. -will obtain hemoglobin A1c -dietitian to consult for uncontrolled diabetes. 3. Atypical chest pain, unclear if acute or chronic, active -patient scribed sharp stabbing substernal chest pain lasting seconds and goes away. No pain on palpation of chest wall. -evidence of inferior infarct on EKG with Q-waves in lead 3 and AVF, no evidence of ischemia with no T-wave, ST abnormalities. Troponin is negative. -patient will be on telemetry and will obtain echocardiogram in morning. 4. Chronic Hypertension, stable -on arrival patient's blood pressure was 128/71. -will continue patient's home medications of losartan hydrochlorothiazide 100/25 daily. 5. Hyperlipidemia, chronic, active -patient has cardiovascular disease with prior inferior MS, prior stroke and new stroke. -patient has been on atorvastatin 20 mg daily as which will be increased to 80 mg daily. The patient is admitted to the hospital with acute versus subacute stroke and potential for complications and adverse events. Patient is admitted as an inpatient with expected length of stay to be greater than 2 midnights. Scores GCS [place] coma scale eye opening: Spontaneous [place] coma scale verbal response: Orientated Ale[place]a coma scale motor response: Obey commands Alethea coma scale total score: 15 NIHSS Level of Conciousness: Alert, keenly responsive Ask month/age: Answers both questions correctly. Open/close eyes, close hand: Performs both tasks correctly Best gaze horizontal: Normal Visual cantu: No visual loss Facial palsy: Minor paralysis, flattened nasolabial fold, asymmetry on smiling Left arm drift: No drift for full 10 sec Right arm drift: No drift for full 10 sec Left leg drift: Drifts down, not to bed Right leg drift: No drift for full 5 sec Limb ataxia: Absent Sensory on face/arms/legs: Mild to moderate sensory loss, can tell touch Best language: No aphasia, normal Dysarthria: Normal Extinction or inattention: No abnormality Total NIH Stroke scale score: 3 Quality VTE Deep Vein Thrombosis/Pulmonary Embolism Present on Admission: No
[2018-12-30 04:31] VITALS: BP 126/69; PULSE 63; RESP 16; TEMP 36.2; O2SAT 98
[2018-12-30 06:25] LABS: BUN Creatinine Ratio 16.4 (6-22); Blood Urea Nitrogen 18 mg/dL (7-17); Calcium 9.2 mg/dL (8.4-10.2); Carbon Dioxide 28 mmol/L (22-32); Chloride 102 mmol/L (98-107); Estimated Glomerular Filt Rate 49.1 mL/min (>60); Glucose 144 mg/dL (80-110); HEMOLYSIS < 15 (0-50); Potassium 4.4 mmol/L (3.4-5.1); Sodium 139 mmol/L (137-145)
[2018-12-30 07:01] LABS: Thyroid Stimulating Hormone 2.16 uIU/mL (0.47-4.68)
[2018-12-30] MEDS: ACETAMINOPHEN 325 MG TABLET 650 MG PO (07:40)
[2018-12-30 08:00] VITALS: BP 133/76; PULSE 55; RESP 16; TEMP 36.6; O2SAT 100
[2018-12-30] MEDS: ASPIRIN EC 81 MG TABLET PO (09:27)
[2018-12-30] MEDS: ENOXAPARIN 40 MG/0.4 ML SYRINGE SUBCUT (09:28)
[2018-12-30] MEDS: DOCUSATE 100 MG CAPSULE PO ×2 (09:28→21:19)
[2018-12-30] MEDS: CLOPIDOGREL 75 MG TABLET PO (09:28)
[2018-12-30] MEDS: hydroCHLOROthiazide 25 MG TABLET PO (09:29)
[2018-12-30] MEDS: PANTOPRAZOLE 40 MG TABLET PO (09:29)
[2018-12-30] MEDS: TIMOLOL 0.5% OPHTH 1 DROPS EYE-LEFT (09:29)
[2018-12-30] MEDS: LOSARTAN 50 MG TABLET 100 MG PO (09:29)
[2018-12-30] MEDS: INSULIN ASPART 100 UNIT/ML INSULN PEN SUBCUT ×4 (09:33→21:21)
--- NOTE | 2018-12-30 09:45 | PT.IIE ---
Surgical History (Last Reviewed 12/29/18 @ 22:37 by DIPESH Simmons) History of section (Acute) Medical History (Last Reviewed 12/29/18 @ 22:37 by DIPESH Simmons) Cerebrovascular accident (Inactive) Diabetes type 2, uncontrolled (Acute) Glaucoma, left eye (Acute) Hyperlipidemia (Acute) Hypertension (Acute) Osteoporosis (Acute) Physical Therapy Inpatient Evaluation/Re-Eval M1 PT/OT-IP Prior Functional Status Start: 12/30/18 12:55 Freq: NEEDED Status: Active Protocol: Document 12/30/18 09:45 AB (Rec: 12/30/18 13:40 AB [id number]) Medical Review Prior Functional Status Medical History Reviewed Yes Communication able to make needs known Mobility and Gait pt stated that she is independent with all mobilities and ambulation without AD Social History Household Members family Living Arrangements Mobile home Number of Floors (Floors) One Floor Number of Stairs To Enter/Railing? 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 Additional Social History Comment pt works for [employer] M2 PT-IP Current Condition Start: 12/30/18 12:55 Freq: NEEDED Status: Active Protocol: Document 12/30/18 09:45 AB (Rec: 12/30/18 13:40 AB [id number]) Physical Therapy Current Condition Current Condition Evaluation Date 12/30/18 Treatment Diagnosis CVA; difficulty in walking Onset Date 12/29/18 Precautions Other Precautions falls M3 PT-IP Subjective Start: 12/30/18 12:55 Freq: NEEDED Status: Active Protocol: Document 12/30/18 09:45 AB (Rec: 12/30/18 13:40 AB [id number]) Subjective Physical Therapy Visit Type Type Initial Evaluation Visit Start Time 09:45 Visit Stop Time 10:28 Total Visit Minutes 43 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 Physical Therapy Visit Comments Patient Comments pt agreeable to do PT; stated that she does not want to be disabled Therapy Pain Assessment Pain When Pain Assessed At Rest Pain Present Pain Present Pain Reported Location head Intensity 2 Scale Used increases dizzess with mobility to4/10 M4 PT-IP Mobility and Gait Start: 12/30/18 12:55 Freq: NEEDED Status: Active Protocol: Document 12/30/18 09:45 AB (Rec: 12/30/18 13:40 AB [id number]) PT-Bed Mobility Assessment Supine to Sit Supine to Sit Maximum Assistance,1 Person Assistance,Head of Bed Elevated Sit to Supine Sit to Supine Moderate Assistance PT-Transfer Assessment Sit to and From Stand Sit to and from Stand Moderate Assistance,Use of Upper Extremities Equipment Transfer Assistive Device Gait Belt,Front Wheeled Walker Orthotic/Prosthetic Devices or Brace: No Transfers Transfer Destination Chair Transfer Technique pt ambulated using FWW Transfer Ability Level of Assist Moderate Assistance Comments Mobility Comments BP supine 136/78. pt completed supine to sit max A and max cues. c/o dizziness in supine but increases with upright position. pt laid back down. completed supine to sit again max A and cues. c/o dizziness. sat on EOB CGA . BP checked: 157/87. pt completed sit to stand mod A and cues and ambulated towards the chair mod A ~ 12 ft. pt agreed to sit up on chair. positioned on chair. call light and table placed within reach. bP checked: 169/87. informed nurse. Gait Assessment Gait Gait Assistance Required: Moderate Assistance Distance (Feet) 12 Able to Maintain Weight Bearing Status Yes During Gait Assistive Devices Assistive Device Gait Belt,Front Wheeled Walker Orthotic/Prosthetic Devices or Brace: No Gait Deviations General Gait Pattern Decreased Stride Length, Decreased Feet Clearance,Step- to Gait Factors Limiting Gait Function Factors Limiting Gait Function Decreased Activity Tolerance, Decreased Strength,Pain,Poor Balance,Poor Safety Awareness Comments Gait Comments pt presenst with unsteady gait and requires increase time to complete tasks. PT-Balance Assessment Sitting Balance and Reactions Static Sitting Balance Ability Good Dynamic Sitting Balance Ability Fair Standing Balance and Reactions Static Standing Balance Ability Fair Dynamic Standing Balance Ability Poor Device Used FWW M5 PT-IP Objective Assessments Start: 12/30/18 12:55 Freq: NEEDED Status: Active Protocol: Document 12/30/18 09:45 AB (Rec: 12/30/18 13:40 AB [id number]) Orientation Orientation/Cognition Level of Alertness Alert Orientation Name,Age,Place,Situation Language Function Ability No Deficits Noted Safety Awareness Decreased Safety Awareness Gross Range of Motion Lower Extremity ROM Assessment Within Functional Limits Strength Lower Extremity Strength Assessment Within Functional Limits Sensation Assessment Sensation Gross Sensation WNL Muscle Tone Muscle Tone WNL Yes M6 PT-IP Treatment Start: 12/30/18 12:55 Freq: NEEDED Status: Active Protocol: Document 12/30/18 09:45 AB (Rec: 12/30/18 13:40 AB [id number]) Physical Therapy Treatment Education Education Provided Safety M7 PT-IP Assessment and Plan Start: 12/30/18 12:55 Freq: NEEDED Status: Active Protocol: Document 12/30/18 09:45 AB (Rec: 12/30/18 13:40 AB [id number]) PT Summary Assessment and Plan Potential Rehabilitation Potential Fair Status of Condition at Evaluation Evolving Summary Impairments Pain,Strength,Balance, Coordination,Cognition,Bed Mobility,Transfers,Gait, Activity Tolerance Assessment Summary pt requiring max A with bed mobility and mod A with transfers and ambulation using FWW. pt presents with unsteady gait and requires increase time to complete tasks. pt c/o increase dizziness with upright position and LE weakness. pt d/c plan depending on progress but at this time may require SNF rehab. will continue to assess. Goals Bed Mobility Goal Standby Assistance Transfer Goal Standby Assistance,Front Wheeled Walker Gait Goal Standby Assistance,Front Wheel Walker Gait Distance 100 Other Goals improve ambulation without AD ~ 200 ft SBA be able to complete up/down 3 steps without rails SBA Days to Meet Goals 10 Frequency of Treatment Frequency Of Treatment Twice a Day Treatment Plan Physical Therapy Treatment Plan Bed Mobility Training,Transfer Training,Gait Training, Therapeutic Exercise,Balance Retraining,Post Op Education, Discharge Planning,Hot or Cold Pack,Neuromuscular Re-ed, Coordination Retraining,Manual Therapy Recommendations To Nursing Amount of Assist Needed 1 Person Assist Discharge Recommendations PT Discharge Recommendations SNF Rehab Equipment Needed for Home Before FWW Discharge
[2018-12-30 11:00] VITALS: BP 127/73; PULSE 60
--- NOTE | 2018-12-30 12:14 | PT.IIE ---
Surgical History (Last Reviewed 12/29/18 @ 22:37 by DIPESH Simmons) History of section (Acute) Medical History (Last Reviewed 12/29/18 @ 22:37 by DIPESH Simmons) Cerebrovascular accident (Inactive) Diabetes type 2, uncontrolled (Acute) Glaucoma, left eye (Acute) Hyperlipidemia (Acute) Hypertension (Acute) Osteoporosis (Acute) Physical Therapy Inpatient Evaluation/Re-Eval M1 PT/OT-IP Prior Functional Status Start: 12/30/18 12:55 Freq: NEEDED Status: Active Protocol: Document 12/30/18 09:45 AB (Rec: 12/30/18 13:40 AB [id number]) Medical Review Prior Functional Status Medical History Reviewed Yes Communication able to make needs known Mobility and Gait pt stated that she is independent with all mobilities and ambulation without AD Social History Household Members family Living Arrangements Mobile home Number of Floors (Floors) One Floor Number of Stairs To Enter/Railing? pt stated that she lives in a trailer with her daughter and niece 4steps L rail +landing+2 steps L rail to enter Home Environment Standard Height Toilet,Tub/ Shower Home Equipment Straight Cane Employment Status [employer] Employed Additional Social History Comment pt works for [employer] M2 PT-IP Current Condition Start: 12/30/18 12:55 Freq: NEEDED Status: Active Protocol: Document 12/30/18 09:45 AB (Rec: 12/30/18 13:40 AB [id number]) Physical Therapy Current Condition Current Condition Evaluation Date 12/30/18 Treatment Diagnosis CVA; difficulty in walking Onset Date 12/29/18 Precautions Other Precautions falls M3 PT-IP Subjective Start: 12/30/18 12:55 Freq: NEEDED Status: Active Protocol: Document 12/30/18 09:45 AB (Rec: 12/30/18 13:40 AB [id number]) Subjective Physical Therapy Visit Type Type Initial Evaluation Visit Start Time 09:45 Visit Stop Time 10:28 Total Visit Minutes 43 Number of INSPECTOR FIREARMS Visits 0 Physical Therapy Visit Comments Patient Comments pt agreeable to do PT; stated that she does not want to be disabled Therapy Pain Assessment Pain When Pain Assessed At Rest Pain Present Pain Present Pain Reported Location head Intensity 2 Scale Used increases dizzess with mobility to4/10 M4 PT-IP Mobility and Gait Start: 12/30/18 12:55 Freq: NEEDED Status: Active Protocol: Document 12/30/18 09:45 AB (Rec: 12/30/18 13:40 AB [id number]) PT-Bed Mobility Assessment Supine to Sit Supine to Sit Maximum Assistance,1 Person Assistance,Head of Bed Elevated Sit to Supine Sit to Supine Moderate Assistance PT-Transfer Assessment Sit to and From Stand Sit to and from Stand Moderate Assistance,Use of Upper Extremities Equipment Transfer Assistive Device Gait Belt,Front Wheeled Walker Orthotic/Prosthetic Devices or Brace: No Transfers Transfer Destination Chair Transfer Technique pt ambulated using FWW Transfer Ability Level of Assist Moderate Assistance Comments Mobility Comments BP supine 136/78. pt completed supine to sit max A and max cues. c/o dizziness in supine but increases with upright position. pt laid back down. completed supine to sit again max A and cues. c/o dizziness. sat on EOB CGA . BP checked: 157/87. pt completed sit to stand mod A and cues and ambulated towards the chair mod A ~ 12 ft. pt agreed to sit up on chair. positioned on chair. call light and table placed within reach. bP checked: 169/87. informed nurse. Gait Assessment Gait Gait Assistance Required: Moderate Assistance Distance (Feet) 12 Able to Maintain Weight Bearing Status Yes During Gait Assistive Devices Assistive Device Gait Belt,Front Wheeled Walker Orthotic/Prosthetic Devices or Brace: No Gait Deviations General Gait Pattern Decreased Stride Length, Decreased Feet Clearance,Step- to Gait Factors Limiting Gait Function Factors Limiting Gait Function Decreased Activity Tolerance, Decreased Strength,Pain,Poor Balance,Poor Safety Awareness Comments Gait Comments pt presenst with unsteady gait and requires increase time to complete tasks. PT-Balance Assessment Sitting Balance and Reactions Static Sitting Balance Ability Good Dynamic Sitting Balance Ability Fair Standing Balance and Reactions Static Standing Balance Ability Fair Dynamic Standing Balance Ability Poor Device Used FWW M5 PT-IP Objective Assessments Start: 12/30/18 12:55 Freq: NEEDED Status: Active Protocol: Document 12/30/18 09:45 AB (Rec: 12/30/18 13:40 AB [id number]) Orientation Orientation/Cognition Level of Alertness Alert Orientation Name,Age,Place,Situation Language Function Ability No Deficits Noted Safety Awareness Decreased Safety Awareness Gross Range of Motion Lower Extremity ROM Assessment Within Functional Limits Strength Lower Extremity Strength Assessment Within Functional Limits Sensation Assessment Sensation Gross Sensation WNL Muscle Tone Muscle Tone WNL Yes M6 PT-IP Treatment Start: 12/30/18 12:55 Freq: NEEDED Status: Active Protocol: Document 12/30/18 09:45 AB (Rec: 12/30/18 13:40 AB [id number]) Physical Therapy Treatment Education Education Provided Safety M7 PT-IP Assessment and Plan Start: 12/30/18 12:55 Freq: NEEDED Status: Active Protocol: Document 12/30/18 09:45 AB (Rec: 12/30/18 13:40 AB [id number]) PT Summary Assessment and Plan Potential Rehabilitation Potential Fair Status of Condition at Evaluation Evolving Summary Impairments Pain,Strength,Balance, Coordination,Cognition,Bed Mobility,Transfers,Gait, Activity Tolerance Assessment Summary pt requiring max A with bed mobility and mod A with transfers and ambulation using FWW. pt presents with unsteady gait and requires increase time to complete tasks. pt c/o increase dizziness with upright position and LE weakness. pt d/c plan depending on progress but at this time may require SNF rehab. will continue to assess. Goals Bed Mobility Goal Standby Assistance Transfer Goal Standby Assistance,Front Wheeled Walker Gait Goal Standby Assistance,Front Wheel Walker Gait Distance 100 Other Goals improve ambulation without AD ~ 200 ft SBA be able to complete up/down 3 steps without rails SBA Days to Meet Goals 10 Frequency of Treatment Frequency Of Treatment Twice a Day Treatment Plan Physical Therapy Treatment Plan Bed Mobility Training,Transfer Training,Gait Training, Therapeutic Exercise,Balance Retraining,Post Op Education, Discharge Planning,Hot or Cold Pack,Neuromuscular Re-ed, Coordination Retraining,Manual Therapy Recommendations To Nursing Amount of Assist Needed 1 Person Assist Discharge Recommendations PT Discharge Recommendations SNF Rehab Equipment Needed for Home Before FWW Discharge
--- NOTE | 2018-12-30 14:55 | P.PN_ITS ---
Subjective Subjective Date Patient Seen: 12/30/18 Interval history: 68-year-old female admitted to the hospital for dizziness and difficulty walking. By report the patient has had a stroke in the past. This has affected her speech but she has been able to continue to ambulate without difficulty. She works at [employer] and has continued to do so up until now. The patient also reports a headache which is chronic. She has been taking Tylenol around the clock with minimal relief. Patient was seen and evaluated in the emergency room last and admitted to the hospital for presumed recurrent stroke. Per the patient her symptoms are similar to her prior symptoms with her former stroke she was discharged however without need for assistive devices for ambulation. Today during physical therapy the patient was quite unsteady with a walker and is felt to be unsafe to return home independently at this time. Exam Vital Signs (past 8 hours): - 12/30/18 08:00 12/30/18 11:00 Temperature 97.8 F Pulse Rate 55 L 60 Respiratory Rate 16 Blood Pressure 133/76 127/73 Pulse Oximetry 100 Oxygen Delivery Method Room Air Oxygen Flow Rate 0 Narrative Exam Narrative: Pleasant female in no obvious distress, with slurred speech which according to family is her baseline Lungs: Clear to auscultate Cardiac exam: Regular rate and rhythm normal S1-S2 Abdomen: Soft nontender nondistended Neuro exam: Cranial nerves are intact, speech is slurred, there is minimal left-sided facial weakness. Patient has left lower extremity weakness. Her strength in her upper extremity is 5+ and equal. She is unsteady with ambulation. Sensation is grossly intact reflexes are brisk and equal. Objective Labs Result Diagrams: 12/29/18 15:59 12/30/18 06:00 Labs: Laboratory Results - last 24 hr 12/29/18 12/29/18 12/29/18 15:59 15:59 15:59 WBC 6.7 RBC 3.77 L Hgb 11.4 L Hct 33.6 L MCV 89.2 MCH 30.2 MCHC 33.9 RDW 13.9 Plt Count 289 Neut % (Auto) 68.4 Lymph % (Auto) 23.8 L [place] % (Auto) 6.4 Eos % (Auto) 0.9 L Baso % (Auto) 0.5 Neut # (Auto) 4600 Lymph # (Auto) 1600 [place] # (Auto) 400 Eos # (Auto) 100 Baso # (Auto) 0 PT 9.6 L INR 0.8 L APTT 32 Sodium 135 L Potassium 5.3 H Chloride 98 Carbon Dioxide 27 BUN 23 H Creatinine 1.20 H Estimated GFR 44.4 L BUN/Creatinine Ratio 19.2 Glucose 282 H Hemoglobin A1c Calcium 9.5 Magnesium Total Bilirubin 0.8 AST 30 ALT 22 Alkaline Phosphatase 35 L Total Creatine Kinase 72 CK-MB (CK-2) TNP CK-MB (CK-2) Rel Index TNP Troponin I < 0.012 Total Protein 7.6 Albumin 4.2 Globulin 3.4 Albumin/Globulin Ratio 1.2 Triglycerides Cholesterol LDL Cholesterol, Calc HDL Cholesterol Lipase 266 TSH 12/29/18 12/29/18 12/29/18 15:59 15:59 15:59 WBC RBC Hgb Hct MCV MCH MCHC RDW Plt Count Neut % (Auto) Lymph % (Auto) [place] % (Auto) Eos % (Auto) Baso % (Auto) Neut # (Auto) Lymph # (Auto) [place] # (Auto) Eos # (Auto) Baso # (Auto) PT INR APTT Sodium Potassium Chloride Carbon Dioxide BUN Creatinine Estimated GFR BUN/Creatinine Ratio Glucose Hemoglobin A1c 10.3 H Calcium Magnesium 1.6 Total Bilirubin AST ALT Alkaline Phosphatase Total Creatine Kinase CK-MB (CK-2) CK-MB (CK-2) Rel Index Troponin I Total Protein Albumin Globulin Albumin/Globulin Ratio Triglycerides 180 H Cholesterol 170 LDL Cholesterol, Calc 77 HDL Cholesterol 57 Lipase TSH 12/30/18 12/30/18 06:00 06:00 WBC RBC Hgb Hct MCV MCH MCHC RDW Plt Count Neut % (Auto) Lymph % (Auto) [place] % (Auto) Eos % (Auto) Baso % (Auto) Neut # (Auto) Lymph # (Auto) [place] # (Auto) Eos # (Auto) Baso # (Auto) PT INR APTT Sodium 139 Potassium 4.4 Chloride 102 Carbon Dioxide 28 BUN 18 H Creatinine 1.10 H Estimated GFR 49.1 L BUN/Creatinine Ratio 16.4 Glucose 144 H D Hemoglobin A1c Calcium 9.2 Magnesium Total Bilirubin AST ALT Alkaline Phosphatase Total Creatine Kinase CK-MB (CK-2) CK-MB (CK-2) Rel Index Troponin I Total Protein Albumin Globulin Albumin/Globulin Ratio Triglycerides Cholesterol LDL Cholesterol, Calc HDL Cholesterol Lipase TSH 2.16 Assessment & Plan Assessment & Plan narrative: Acute versus subacute CVA in setting of prior CVA, present on admission, active. -patient with risk factors of diabetes, hypertension, hyperlipidemia. -CT scan finds no evidence of intracranial pathology, will obtain MR stroke in the morning. -EKG is is sinus rhythm with rate of 66, no no block, ST or T-wave changes, Q- waves inferiorly in lead 3 and AVF, will obtain echocardiogram. -aspirin 81 mg daily as well as clopidogrel 75 mg daily for 2nd event occurring while on aspirin. -meclizine was not beneficial to the patient and is discontinued. -PT, OT and speech therapy to evaluate and treat. -patient passed swallow eval and has been eating at home reporting no coughing on thin liquids, no symptoms for 1 week with clear chest x-ray and no fever or white count will load the patient to have a constant carbohydrate diet. MRI negative for acute ischemic infarct despite negative MRI suspect the patient has had a recurrent vascular event. Given her significant inability to ambulate with the walker and unsteadiness will would define this as an MRI negative CVA. Patient will continue with physical therapy and occupational therapy. She is unsafe to be at home independent. For recommended rehabilitation at discharge. 2. Chronic Diabetes type 2, non insulin dependent, uncontrolled, present on admission, active. -patient with elevated blood sugar at 282 on admission to the ER. She reports being compliant with glipizide and metformin. -no complaints of neuropathy or retinopathy, possible nephropathy with elevated creatinine 1.2 with unknown baseline. IV normal saline at 75 cc/hour. -Accu-Cheks AC and HS with low-dose range correctional insulin. -will obtain hemoglobin A1c -dietitian to consult for uncontrolled diabetes. 3. Atypical chest pain, unclear if acute or chronic, active -patient scribed sharp stabbing substernal chest pain lasting seconds and goes away. No pain on palpation of chest wall. -evidence of inferior infarct on EKG with Q-waves in lead 3 and AVF, no evidence of ischemia with no T-wave, ST abnormalities. Troponin is negative. -patient will be on telemetry and will obtain echocardiogram in morning. 4. Chronic Hypertension, stable -on arrival patient's blood pressure was 128/71. -will continue patient's home medications of losartan hydrochlorothiazide 100/25 daily. 5. Hyperlipidemia, chronic, active -patient has cardiovascular disease with prior inferior [place], prior stroke and new stroke. -patient has been on atorvastatin 20 mg daily as which will be increased to 80 mg daily. 6. Chronic daily headache. Patient will continue with Tylenol as needed as needed. The patient is admitted to the hospital with acute versus subacute stroke and potential for complications and adverse events. Patient is admitted as an inpatient with expected length of stay to be greater than 2 midnights. Quality VTE Deep Vein Thrombosis/Pulmonary Embolism Present on Admission: No
--- NOTE | 2018-12-30 15:33 | CM.DANOTE ---
Patient is a 68 year old female who was admitted on 12/29/18 for Vertigo, possible CVA. Pt has [employer] MCR ADV for insurance and her PCP is not listed. EMR was reviewed. Per MD, pt to have MRI to determine if possible stroke and PT/OT/ST ordered. Per PT, recommending possible SNF pending pt's progress while hospitalized. SW met bedside with pt, Dtr, and niece and explained role and updated white board and pt confirms that she lives in [place] in a mobile home with her adult Dtr/DPOA Alejandra and her niece and is typically independent with ADL's at baseline and works at [employer]. Pt had a previous hospitalization for CVA but was able to d/c home without the need for SNF at that time. Pt does not think that she had HH before either, just outpt. SW discussed possible need for SNF at d/c pending progress and pt confirms that her preference would be to d/c home if possible but would be agreeable to SNF if needed. SW provided the SNF Choice List and discussed the need to confirm that SNF is contracted with [employer] as well. Pt's preference would be [facility] or [facility] due to location to their home and family. SW called [facility] admissions [place] who confirms that they are NOT contracted with [employer]. SW called [facility] September admission and confirms they also are NOT contracted with [employer] either. SW called [facility] and w/e staff believe that they ARE still contracted with [employer]. Due to triage needs, SW unable to update pt and Dtr on above information and still waiting for further PT/OT/ST to confirm if SNF needed at d/c. Plan: SW to follow closely with pt in the morning to update on [facility] and [facility] not being contracted and determine if pt agreeable to referral to the [facility]F's if SNF still needed at d/c. SW to follow for further PT/OT/ST recommendations. PASRR needed if SNF at d/c. DANISH Sotelo Discharge Planning/Care Management CM Discharge Assessment Start: 12/30/18 15:07 Freq: Status: Active Protocol: Document 12/30/18 15:07 BF (Rec: 12/30/18 15:33 BF [id number]) Discharge Planning Assessment Assigned Bread Stacker Ramona, TICKET COLLECTOR DPOA/Assigned Designee Name Maira Roberts Contact Information [phone] Advance Directives? No Advance Directives on File No History Provided By Patient,Family Member,Medical Record Has Patient been admitted in last 30 No days? Prior Living Arrangements Mobile home Household Members family Type of transporation used prior to Drives own vehicle admit Independent with ADL's Yes Is patient alert and oriented? Yes Caregiver for Another No Patient/Family Preference [facility] Barriers to Discharge No Discharge Plan [facility] Transportation Arrangement If home family can transport, if SNF then facility to transport Medicare Choice List Provided Yes SNF/HH Preference [facility] but neither likely contracted with insurance Has Agency SNF been contacted Yes Whiteboard Updated in Patient Room with Yes name and ext. # of Bread Stacker Review Status In Process Please Provide Date Initial DC 12/30/18 Assessment Was Performed Next Review Type Continued Stay Review
[2018-12-30 15:36] VITALS: BMI 25.4
--- NOTE | 2018-12-30 15:40 | DIET.PN ---
Dietary Progress Note Assessment: 68y [place] descent F referred to nutrition for uncontrolled DM2 c A1c 10.2 Pt lives c daughter, works FT plus often overtime at [employer]. Responsible for packing own lunches and snacks. Drives brain to work at 6am. Pt resistant to talking about food choices, reports not eating much rice, likes fruit-jackfruit, apples, grapes, sometimes drinks regular Pepsi. Pt daughter reports pt is stubborn, will eat what she wants. Pt interested in getting PA routine for gym membership via home health. Usual Intake: B: cheerios c milk and coffee, occ oatmeal L: fruit Did not get dinner intake Sn: pumpkin seeds, peanuts, fruits, Pepsi sometimes HT: 149.8cm WT: 57kg BMI: 25.4 Labs: BG 144-282 (H), A1c 10.3 (H), GFR 49.1 (L), K+ 4.4-5.3 Nutrition Diagnosis: Undesirable food choices r/t uncontrolled DM2 aeb A1c 10.3 (H), pt unable to name foods which elevate BG besides rice, abnormal kidney lab values (GFR 49.1, K+ elevated). Interventions: Discussed elevated BG effects on kidney health, educated on foods which raise BG, stressed importance of adequate PRO (pt enjoys smelt, halibut, tilapia, nuts and seeds), vegetables, and water. Recc switching to Sprite Zero or Stevia soda instead of regular Pepsi if choosing to drink soda. Encouraged pt interest in getting PA routine from PT usinig her gym membership. Monitoring/Evaluations: Pt would greatly benefit from OP diabetes education
[2018-12-30 15:45] VITALS: BP 135/84; PULSE 54; RESP 15; TEMP 37; O2SAT 100
--- NOTE | 2018-12-30 15:50 | PT.IPTN ---
Physical Therapy Treatment Note M2 PT-IP Current Condition Start: 12/30/18 12:55 Freq: NEEDED Status: Active Protocol: Document 12/30/18 09:45 AB (Rec: 12/30/18 13:40 AB [id number]) Physical Therapy Current Condition Current Condition Evaluation Date 12/30/18 Treatment Diagnosis CVA; difficulty in walking Onset Date 12/29/18 Precautions Other Precautions falls M3 PT-IP Subjective Start: 12/30/18 12:55 Freq: NEEDED Status: Active Protocol: Document 12/30/18 15:50 GGD (Rec: 12/30/18 16:05 GGD [id number]) Subjective Physical Therapy Visit Type Type Treatment Note Visit Start Time 15:15 Visit Stop Time 15:48 Total Visit Minutes 23 Number of ANATOMIC PATHOLOGY ASSISTANT Visits 1 Physical Therapy Visit Comments Patient Comments Pt want's to work with therapy Therapy Pain Assessment Pain When Pain Assessed At Rest Pain Present Pain Present Pain Reported M4 PT-IP Mobility and Gait Start: 12/30/18 12:55 Freq: NEEDED Status: Active Protocol: Document 12/30/18 15:50 GGD (Rec: 12/30/18 16:05 GGD [id number]) PT-Bed Mobility Assessment Supine to Sit Supine to Sit Contact Guard Assistance,1 Person Assistance,Bedrails Scooting Scooting to Edge of Bed Standby Assistance PT-Transfer Assessment Sit to and From Stand Sit to and from Stand Contact Guard Assistance,1 Person Assistance Equipment Transfer Assistive Device Gait Belt,Front Wheeled Walker Orthotic/Prosthetic Devices or Brace: No Transfers Transfer Destination Chair Transfer Ability Level of Assist Contact Guard Assistance Gait Assessment Gait Gait Assistance Required: Standby Assistance,Contact Guard Assist,1 Person Assist Distance (Feet) 220 Able to Maintain Weight Bearing Status Yes During Gait Assistive Devices Assistive Device Gait Belt,Front Wheeled Walker Gait Deviations General Gait Pattern Decreased Stride Length, Decreased Feet Clearance,Step- to Gait Factors Limiting Gait Function Factors Limiting Gait Function Decreased Activity Tolerance, Decreased Strength,Pain,Poor Balance,Poor Safety Awareness Stair Climbing Assessment Evaluation Level of Assist On Stairs Contact Guard Assistance,1 Person Assistance Devices Stair Climbing Assistive Devices Right Railing Technique/Endurance Stair Climbing Direction Ascend and Descend Stair Climbing Technique Step to Step Number of Steps Climbed 3 Stair Climbing Set # Repetitions (reps) 1 M5 PT-IP Objective Assessments Start: 12/30/18 12:55 Freq: NEEDED Status: Active Protocol: Document 12/30/18 09:45 AB (Rec: 12/30/18 13:40 AB [id number]) Orientation Orientation/Cognition Level of Alertness Alert Orientation Name,Age,Place,Situation Language Function Ability No Deficits Noted Safety Awareness Decreased Safety Awareness Gross Range of Motion Lower Extremity ROM Assessment Within Functional Limits Strength Lower Extremity Strength Assessment Within Functional Limits Sensation Assessment Sensation Gross Sensation WNL Muscle Tone Muscle Tone WNL Yes M6 PT-IP Treatment Start: 12/30/18 12:55 Freq: NEEDED Status: Active Protocol: Document 12/30/18 09:45 AB (Rec: 12/30/18 13:40 AB [id number]) Physical Therapy Treatment Education Education Provided Safety M7 PT-IP Assessment and Plan Start: 12/30/18 12:55 Freq: NEEDED Status: Active Protocol: Document 12/30/18 15:50 GGD (Rec: 12/30/18 16:05 GGD [id number]) PT Summary Assessment and Plan Summary Assessment Summary Pt improving with mobility. She had need decrease in assistance with bed mobility. She was able to progress gait distance. She was safe and stable with gait with FWW, needing min cues for FWW management. Frequency of Treatment Frequency Of Treatment Twice a Day Recommendations To Nursing Amount of Assist Needed 1 Person Assist Discharge Recommendations PT Discharge Recommendations Home with Assistance,Home Health,SNF Rehab Other Discharge Recommendations SNF vs home with HH Equipment Needed for Home Before FWW Discharge
--- NOTE | 2018-12-30 18:29 | OT.IP.EVAL ---
Past Medical History (Last Reviewed 12/29/18 @ 22:37 by DIPESH Simmons) Cerebrovascular accident (Inactive) Diabetes type 2, uncontrolled (Acute) Glaucoma, left eye (Acute) Hyperlipidemia (Acute) Hypertension (Acute) Osteoporosis (Acute) Surgical History (Last Reviewed 12/29/18 @ 22:37 by DIPESH Simmons) History of section (Acute) Occupational Therapy Inpatient Evaluation/Re-Eval M1 PT/OT-IP Prior Functional Status Start: 12/30/18 17:59 Freq: NEEDED Status: Active Protocol: Document 12/30/18 17:59 [facility] (Rec: 12/30/18 18:28 [facility] [id number]) Medical Review Prior Functional Status Medical History Reviewed Yes Communication able to make needs known Mobility and Gait pt stated that she is independent with all mobilities and ambulation without AD Activities of Daily Living and IADL's Pt completely independent with all ADL, IADL, workgin at [employer], and driving. Social History Household Members family Living Arrangements Mobile home Number of Floors (Floors) One Floor Number of Stairs To Enter/Railing? pt stated that she lives in a trailer with her daughter and niece 4steps L rail +landing+2 steps L rail to enter Home Environment Standard Height Toilet,Tub/ Shower Home Equipment Straight Cane M2 OT-IP Current Condition Start: 12/30/18 17:59 Freq: Status: Active Protocol: Document 12/30/18 17:59 [facility] (Rec: 12/30/18 18:28 [facility] [id number]) Occupational Therapy Current Condition Current Condition Evaluation Date 12/30/18 Treatment Diagnosis CVA, weakness Diagnosis Onset Date 12/29/18 Weight Bearing Status Weight Bearing Status Weight Bear as Tolerated M3 OT- IP Subjective and Pain Start: 12/30/18 17:59 Freq: Status: Active Protocol: Document 12/30/18 17:59 [facility] (Rec: 12/30/18 18:28 [facility] [id number]) OT- Subjective Occupational Therapy Visit Type Type Initial Evaluation Visit Start Time 12:00 Visit Stop Time 12:17 Total Visit Minutes 82 Notes Also seen from [id number]. Occupational Therapy Visit Comments Patient Comments Pt having to get MRI and then seen again in the PM. Patient/Caregiver Goals Pt wanting to go home. OT Pain Assessment Pain When Pain Assessed At Rest Pain Present Pain Present Denied Pain M4 OT- IP ADL's Start: 12/30/18 17:59 Freq: Status: Active Protocol: Document 12/30/18 17:59 [facility] (Rec: 12/30/18 18:28 [facility] [id number]) OT [id number] General Evaluation Self-Feeding Ability Independent OT ADL-Grooming General Evaluation Grooming Ability Standby Assistance Comments OT Grooming Comments Pt able to stand with FWW at the sink in order to do all grooming needs. OT ADL-Oral Care General Eval Oral Care Ability Independent OT ADL-Dressing General Eval Lower Body Dressing Ability Independent Comments OT Dressing Comments Pt able to maddie/doff socks while sitting at the edge of the bed. OT ADL-Toileting General Evaluation Toileting Ability Standby Assistance Comments OT Toileting Comments VC to use FWW to back up all the way to the toilet before sitting down. M5 OT- IP IADL's Start: 12/30/18 17:59 Freq: Status: Active Protocol: Document 12/30/18 17:59 [facility] (Rec: 12/30/18 18:28 [facility] [id number]) OT-Instrumental Activities of Daily Living Home Safety Awareness Home Safety Comments Pt needing verbal prompt to identify call 911 in case of emergency. Otherwise pt was 90% accurate for home safety situations. Medication Management Medication Management No Deficits Identified Money Management Money Management No Deficits Identified Optical Laboratory Mechanic Optical Laboratory Mechanic Comments Due to decreased balance, pt will initially need assist for IADL needs. M6 OT- IP Functional Cognition Start: 12/30/18 17:59 Freq: Status: Active Protocol: Document 12/30/18 17:59 [facility] (Rec: 12/30/18 18:28 [facility] [id number]) Cognitive Factors Limiting Selfcare Function Cognitive Ability Level of Alertness Alert Patient Orientation Name,Age,Birthday,Month,Date, Year,Day of Week,Place, Situation Attention Span Ability Capable of Focused Attention, Capable of Sustained Attention Ability to Follow Commands Able to Follow One Step Commands Memory Description No Deficits Noted Safety Awareness Underestimates Need for Assistance Problem Solving Ability Needs Assist to Identify Solutions Cognitive Tests ACL Pt scored 5.6 out of 6.0. Pt's scored indicated may live alone or live with others, learns and follow precautions, effective use of prior learning, aware of primary effects of actions and makes adaptations for improvement. Cognitive Comments Cognitive Assessment Comments Pt needing intial education for FWW safety and use. VC to keep FWW in front of her at all times. In addition vc for safety awareness due to decreased balance to push up from the surface to stand versus pull on the FWW. Palestinian is pt's second language. OT- Vision and Hearing OT- Hearing Assessment OT- Hearing Assessment WFL OT- Vision Assessment Visual Acuity Glasses For Reading Visual Lei WFL M7 OT- IP Mobility and Balance Start: 12/30/18 17:59 Freq: Status: Active Protocol: Document 12/30/18 17:59 [facility] (Rec: 12/30/18 18:28 [facility] [id number]) OT- Bed Mobility Assessment Rolling Type of Rolling Bilateral Supine to Sit Supine to Sit Assist Standby Assistance,Bedrails Sit to Supine Sit to Supine Assist Standby Assistance,Bedrails OT-Transfer Assessment Sit to and From Stand Sit to and from Stand Standby Assistance,Contact Guard Assistance Transfers Transfer Ability Contact Guard Assistance, Minimal Assistance Technique Transfer Destination Bed,Chair,Toilet Transfer Technique Stand Step Pivot Devices Transfer Assistive Devices Gait Belt,Front Wheeled Walker Comments Mobility Comments Pt needing assist for FWW for balance needing CGA to SBA with fww and mainly needing vc for safety. Without use of walker , pt very unsteady and needing GOMEZ. OT- Balance Assessment Sitting Balance and Reactions Static Sitting Balance Ability Normal Dynamic Sitting Balance Ability Good Standing Balance and Reactions Static Standing Balance Ability Fair M8 OT- IP Objective Assessments Start: 12/30/18 17:59 Freq: Status: Active Protocol: Document 12/30/18 17:59 [facility] (Rec: 12/30/18 18:28 [facility] [id number]) OT Gross Range of Motion Upper Extremity Range of Motion Assessment Within Functional Limits OT- Coordination Assessment Upper Extremity Finger to Nose Test Within Functional Limits OT-Muscle Tone Assessment Muscle Tone WNL Yes M9 OT- IP Assessment and Plan Start: 12/30/18 17:59 Freq: Status: Active Protocol: Document 12/30/18 17:59 [facility] (Rec: 12/30/18 18:28 [facility] [id number]) OT Summary Assessment and Plan Potential Rehabilitation Potential Excellent Analytic Complexity at Evaluation Low Summary OT Impairments Balance,Functional Mobility, Dressing,Toileting,Bathing Progress Towards Goals Progressing Toward Goals Assessment Summary Pt low complexity and main barriers are steps and decreased dynamic balance and now needing use of walker for safety. Pt's prior is home alone from the day however due to decreased balance may benefit from short skilled rehab prior to going home pending medical progress. Goals Grooming Goal Independent Dressing Goal Independent Toileting Goal Independent Bathing Goal Standby Assistance Toilet Transfer Goal Independent Shower Transfer Goal Standby Assistance Days to Meet Goals 5 Frequency of Treatment Frequency Of Treatment Once a Day Treatment Plan OT Treatment Plan ADL Training,Functional Mobility,Patient/Family Education,Discharge Planning Other Treatment Recommendations and Next shower Treatment Focus Discharge Recommendations OT Discharge Recommendations SNF Rehab Other Discharge Recommendations Pending progress home with assist. Home Equipment Needs FWW, shower chair
[2018-12-30 19:40] VITALS: BP 134/67; PULSE 65; RESP 16; TEMP 37.2; O2SAT 99
[2018-12-30] MEDS: SODIUM CHLORIDE 0.9% FLUSH 10 ML IV (21:19)
[2018-12-30] MEDS: ATORVASTATIN 20 MG TABLET 80 MG PO (21:19)
[2018-12-30 23:00] VITALS: BP 130/77; PULSE 60; RESP 16; TEMP 36.4; O2SAT 97
[2018-12-31] MEDS: ACETAMINOPHEN 325 MG TABLET 650 MG PO (01:20)
--- NOTE | 2018-12-31 01:35 | PC.NURSE ---
Patient is oriented except for date. Slight left facial droop consistent with baseline. Speech can be difficult to understand related to accent. Breath sounds CTA with RA sat of 98%; on continuous oximetry. HRR but bradycardic in 50's; telemetry reading was SR. Denies nausea. BT present and abdomen is soft. Denies dysuria, frequency or urgency; urine is light yellow. Able to turn self in bed. Ambulates to bathroom with walker and SBA; slightly unsteady on legs but seems to have good strength in all extremities. Complains of 4/10 headache across upper head; medicated with Tylenol. Wearing bilateral SCD's. Fall risk score is high and bed alarm is activated.
[2018-12-31 06:00] VITALS: BP 108/72; PULSE 73; RESP 16; TEMP 37.2; O2SAT 97
[2018-12-31 08:00] VITALS: BP 127/73; PULSE 54; RESP 16; TEMP 36.2; O2SAT 97
--- NOTE | 2018-12-31 08:04 | PM.PN.1 ---
Subjective Subjective Date Patient Seen: 12/31/18 Exam Vital Signs (past 8 hours): - 12/31/18 06:00 Temperature 98.9 F Pulse Rate 73 Respiratory Rate 16 Blood Pressure 108/72 Pulse Oximetry 97 Oxygen Delivery Method Room Air Oxygen Flow Rate 0 Objective Labs Result Diagrams: 12/29/18 15:59 12/30/18 06:00 Quality VTE Deep Vein Thrombosis/Pulmonary Embolism Present on Admission: No
[2018-12-31] MEDS: ENOXAPARIN 40 MG/0.4 ML SYRINGE SUBCUT (09:00)
[2018-12-31] MEDS: DOCUSATE 100 MG CAPSULE PO (09:03)
[2018-12-31] MEDS: TIMOLOL 0.5% OPHTH 1 DROPS EYE-LEFT (09:03)
[2018-12-31] MEDS: PANTOPRAZOLE 40 MG TABLET PO (09:04)
[2018-12-31] MEDS: SODIUM CHLORIDE 0.9% FLUSH 10 ML IV (09:04)
[2018-12-31] MEDS: ASPIRIN EC 81 MG TABLET PO (09:04)
[2018-12-31] MEDS: CLOPIDOGREL 75 MG TABLET PO (09:04)
[2018-12-31] MEDS: INSULIN ASPART 100 UNIT/ML INSULN PEN SUBCUT (09:06)
--- NOTE | 2018-12-31 09:27 | PT.IPTN ---
Physical Therapy Treatment Note M2 PT-IP Current Condition Start: 12/30/18 12:55 Freq: NEEDED Status: Active Protocol: Document 12/30/18 09:45 AB (Rec: 12/30/18 13:40 AB [id number]) Physical Therapy Current Condition Current Condition Evaluation Date 12/30/18 Treatment Diagnosis CVA; difficulty in walking Onset Date 12/29/18 Precautions Other Precautions falls M3 PT-IP Subjective Start: 12/30/18 12:55 Freq: NEEDED Status: Active Protocol: Document 12/31/18 09:10 [facility] (Rec: 12/31/18 11:49 [facility] [id number]) Subjective Physical Therapy Visit Type Type Treatment Note Visit Start Time 09:10 Visit Stop Time 09:27 Total Visit Minutes 17 Number of CLOUD PHYSICIST Visits 2 Physical Therapy Visit Comments Patient Comments Pt want's to work with therapy Therapy Pain Assessment Pain When Pain Assessed During Mobility Pain Present Pain Present Denied Pain M4 PT-IP Mobility and Gait Start: 12/30/18 12:55 Freq: NEEDED Status: Active Protocol: Document 12/31/18 09:10 [facility] (Rec: 12/31/18 11:49 [facility] [id number]) PT-Transfer Assessment Equipment Transfer Assistive Device Gait Belt,Front Wheeled Walker Orthotic/Prosthetic Devices or Brace: No Transfers Transfer Destination Chair Transfer Ability Level of Assist Contact Guard Assistance Comments Mobility Comments pt able to perform sit<>stand CGA Gait Assessment Gait Gait Assistance Required: Standby Assistance,Contact Guard Assist,1 Person Assist Distance (Feet) 450 Able to Maintain Weight Bearing Status Yes During Gait Assistive Devices Assistive Device Gait Belt,Front Wheeled Walker Gait Deviations General Gait Pattern Decreased Stride Length, Decreased Feet Clearance,Step- to Gait Factors Limiting Gait Function Factors Limiting Gait Function Decreased Activity Tolerance, Decreased Strength,Pain,Poor Balance,Poor Safety Awareness Comments Gait Comments Pt able to ambulate with FWW SBA-CGA. Pt c/o her vertigo like walking in the ocean. Pt was able to increase ambulation w/o LOB or rest breaks. Pt with increased steadiness with FWW. Stair Climbing Assessment Evaluation Level of Assist On Stairs Standby Assistance,Contact Guard Assistance,1 Person Assistance Devices Stair Climbing Assistive Devices Right Railing Technique/Endurance Stair Climbing Direction Ascend and Descend Stair Climbing Technique Step Over Step Number of Steps Climbed 3 Stair Climbing Set # Repetitions (reps) 3 Comments Stair Climbing Comments Pt able to climb stairs SBA- CGA climbing three sets of three stairs with step over step. M5 PT-IP Objective Assessments Start: 12/30/18 12:55 Freq: NEEDED Status: Active Protocol: Document 12/30/18 09:45 [facility] (Rec: 12/30/18 13:40 AB [id number]) Orientation Orientation/Cognition Level of Alertness Alert Orientation Name,Age,Place,Situation Language Function Ability No Deficits Noted Safety Awareness Decreased Safety Awareness Gross Range of Motion Lower Extremity ROM Assessment Within Functional Limits Strength Lower Extremity Strength Assessment Within Functional Limits Sensation Assessment Sensation Gross Sensation WNL Muscle Tone Muscle Tone WNL Yes M6 PT-IP Treatment Start: 12/30/18 12:55 Freq: NEEDED Status: Active Protocol: Document 12/30/18 09:45 [facility] (Rec: 12/30/18 13:40 AB [id number]) Physical Therapy Treatment Education Education Provided Safety M7 PT-IP Assessment and Plan Start: 12/30/18 12:55 Freq: NEEDED Status: Active Protocol: Document 12/31/18 09:10 [facility] (Rec: 12/31/18 11:49 [facility] [id number]) PT Summary Assessment and Plan Summary Assessment Summary Pt continues to improve with stability during ambulation and increased gait distance. Pt improved with walker management and was able to safely ambulate in [place] ~450ft . Pt daughter stated she or her daughter would be with pt once at home for safety. Goals Bed Mobility Goal Standby Assistance Transfer Goal Standby Assistance,Front Wheeled Walker Gait Goal Standby Assistance,Front Wheel Walker Gait Distance 100 Other Goals improve ambulation without AD ~ 200 ft SBA be able to complete up/down 3 steps without rails SBA Days to Meet Goals 10 Frequency of Treatment Frequency Of Treatment Twice a Day Treatment Plan Physical Therapy Treatment Plan Bed Mobility Training,Transfer Training,Gait Training, Therapeutic Exercise,Balance Retraining,Post Op Education, Discharge Planning,Hot or Cold Pack,Neuromuscular Re-ed, Coordination Retraining,Manual Therapy Recommendations To Nursing Amount of Assist Needed Standby Assistance Discharge Recommendations PT Discharge Recommendations Home with Assistance,Home Health,SNF Rehab Other Discharge Recommendations Home with HH vs SNF Equipment Needed for Home Before Issued pt FWW at d/c Discharge
--- NOTE | 2018-12-31 09:59 | PC.NURSE ---
Addendum entered by Rekha Nogueira R.N. 12/31/18 13:51: Pt left unit at 1350 via wheelchair in no distress with all belongings and her family at her side with a [employer] escort. Addendum entered by Rekha Nogueira R.N. 12/31/18 13:42: Discahrge Summary reviewed with pt and her 2 daughters in the room. No voiced concerns, Pt will call Tuesday to make follow up appointment with her PCP. TElemetry and PIV discontinued. Pt has walker given to her by PT. No further needs at home voiced. Pt's 2 daughters stated they will arrange transport to her follow up appointments and arrange for family home assist. Addendum entered by Rekha Nogueira R.N. 12/31/18 11:24: Dr. Kwong aware of BP meds held this AM, plan to recheck BP. Pt will be discharging home today with family Original Note: Day Shift- Pt A&OX4, encouraged to use call light for help as pt was sitting in chair and found ambulating in room by herself using her walker. Pt assisted to BR with SBA and sink for hand hygiene and then back to chair with chair alarm on and call light within reach. Pt's gait steady today compared to yesterday. Pt states feeling overall better. Dizziness with turning her head during ambulation. PT reported after walking with pt in hallways that pt reported dizziness when turning her head was greater when turning to the right compared to the left with ambulation. Pt has history of vertigo and not currently on her home medication meclizine, will report to physician during rounding. Family at bedside- a niece and her daughter Sherry.
--- NOTE | 2018-12-31 11:34 | P.DS_ITS ---
History of Present Illness History of Present Illness Date Patient Seen: 12/31/18 Time Patient Seen: 11:34 Chief complaint: vertigo,reminds her of a previous stroke Narrative: Ms. Rebecca Talamantes is a 68-year-old right-handed female with history significant for hypertension, hyperlipidemia, type 2 diabetes mellitus on oral control, glaucoma and prior CVA with residual left facial droop who presents with her daughter for dizziness and difficulty walking which she states is similar to her prior stroke symptoms. Patient has her symptoms for 1 week onset last Tuesday. Since then she has had headache which will be right-side or frontal and has associated blurring of vision like a film over her eyes. She was seen by her primary care provider who started her on meclizine without improvement. She describes her dizziness as occurring when she stands up. She describes nasal congestion but no nasal drainage or sore throat. She has shortness of breath with climbing stairs and atypical chest pain that she describes as sharp substernal be in brief in duration lasting only seconds and going away. She reports no radiation diaphoresis or shortness of breath at rest. She has no complaints of abdominal pain nausea vomiting and complains of constipation passing hard stool. She denies urinary symptoms. The patient also reports some chronic back pain and had stopped taking her daily aspirin last Tuesday after the onset of symptoms for spinal injection procedure. The patient was brought in by her daughter and upon arrival had a temperature of 98.5?, heart rate of 72, blood pressure 128/71, respirations of 18 saturating 98% on room air. Patient underwent CT which showed no acute intracranial processes and also had a chest x-ray which showed no acute cardiopulmonary disease. NIH score per ER provider was 5. On laboratory analysis her CBC is wit hin normal ranges, she has a PT of 9.6 and INR of 0.8 with a PTT of 32. On electrolytes she is mildly hyperkalemic at 5.3 and has a BUN of 23 and creatinine 1.2. Her nonfasting glucose is 282. Her liver functions are within normal range. The patient is admitted for acute CVA with 1 week of symptoms outside the therapeutic treatment window. Discharge Providers Provider Date of admission: 12/29/18 19:27 Discharge Date: 12/31/18 Consults: 12/29/18 20:57 Consult to Discharge Planning Routine Comment: Consult to Occupational Therapy Evaluate & Treat Comment: CVA, left weakness, history prior CVA Physician Instructions: Evaluate and treat Consult to Physical Therapy Evaluate & Treat Comment: CVA left weakness, history prior CVA Physician Instructions: Evaluate and Treat Consult to Speech Therapy Evaluate & Treat Comment: CVA symptoms for 1 week Physician Instructions: Evaluate and treat 12/29/18 21:20 Consult to Dietitian, Adult Routine Comment: Reason For Exam: uncontrolled diabeties 12/31/18 10:11 Consult to Physical Therapy Evaluate & Treat Comment: DX: vertigo/stroke Physician Instructions: FWW for home use Discharge provider: Solitario Kwong MD Summary Hospital Course Discharge Diagnosis: 1. Acute versus subacute CVA in setting of prior CVA, present on admission, active. 2. Chronic Diabetes type 2, non insulin dependent, uncontrolled, present on admission, active. 3. Atypical chest pain, unclear if acute or chronic, active 4. Chronic Hypertension, stable 5. Hyperlipidemia, chronic, active 6. Chronic daily headache. Patient will continue with Tylenol as needed as needed. 7. Vertigo Hospital Course: 1. Acute versus subacute CVA in setting of prior CVA, present on admission, active. -patient with risk factors of diabetes, hypertension, hyperlipidemia. -CT and MRI scans finds no evidence of intracranial pathology. -EKG was sinus rhythm with rate of 66, no no block, ST or T-wave changes, Q- waves inferiorly in lead 3 and AVF -Echocardiogram is normal -aspirin 81 mg daily as well as clopidogrel 75 mg daily for 2nd event occurring while on aspirin. -meclizine was initially not helpful but she is requesting it today and indicating that she feels her vertigo is the major cause of her symptoms? -PT, OT and speech therapy evaluated and treated. -patient passed swallow eval and has been eating at home reporting no coughing on thin liquids, no symptoms for 1 week with clear chest x-ray and no fever or white count. MRI negative for acute ischemic infarct despite negative MRI suspect the patient has had a recurrent vascular event. Given her significant inability to ambulate with the walker and unsteadiness yesterday would define this as an MRI negative CVA. She is remarkably better today. Walking the hallways, climbing the stairs. -it is recommended that she undergo outpatient neurological evaluation for possible migraine equivalent as a cause of these variable symptoms especially given her complaint of headaches. 2. Chronic Diabetes type 2, non insulin dependent, uncontrolled, present on admission, active. -patient with elevated blood sugar at 282 on admission to the ER. She reports being compliant with glipizide and metformin. -no complaints of neuropathy or retinopathy, possible nephropathy with elevated creatinine 1.2 with unknown baseline. -A1c was ordered but no results available before discharge. 3. Atypical chest pain, unclear if acute or chronic, active -patient described sharp stabbing substernal chest pain lasting seconds and goes away. No pain on palpation of chest wall. -evidence of inferior infarct on EKG with Q-waves in lead 3 and AVF, no evidence of ischemia with no T-wave, ST abnormalities. Troponin is negative. -echocardiogram was normal. 4. Chronic Hypertension, stable -on arrival patient's blood pressure was 128/71. -will continue patient's home medications of losartan hydrochlorothiazide 100/25 daily. 5. Hyperlipidemia, chronic, active -patient has cardiovascular disease with prior inferior [place], prior stroke and new stroke. -patient has been on atorvastatin 20 mg daily as which will be increased to 80 mg daily. 6. Chronic daily headache. Patient will continue with Tylenol as needed as needed. -recommend outpatient neurological evaluation for possible migraine cause of headaches and atypical neurological symptoms noted for this ?MRI negative CVA.? Status at Discharge Cognitive/behavioral status at discharge: at baseline, oriented Functional status at discharge: independent ambulation Overall status at discharge: patient is back to baseline Time Spent with Patient Time spent: Greater than 30 minutes Exam Vital Signs (past 8 hours): - 12/31/18 06:00 12/31/18 08:00 12/31/18 09:04 Temperature 98.9 F 97.1 F L Pulse Rate 73 54 L 60 Respiratory Rate 16 16 Blood Pressure 108/72 127/73 104/69 Pulse Oximetry 97 97 Oxygen Delivery Method Room Air Oxygen Flow Rate 0 Narrative Exam Narrative: She is alert and oriented x3. She is in no apparent distress No neurological symptoms ongoing. No speech slurring, asymmetric motor weakness or cranial nerve abnormality seen today. Heart is regular rate and rhythm without murmur. Lungs are clear to auscultation bilaterally. Extremities no ankle edema. Objective Labs Result Diagrams: 12/29/18 15:59 12/30/18 06:00 Discharge Plan Discharge Plan Patient Disposition: Home Discharge comment: See Dr. Momo jang and ask her about a referral to Neurology for your headaches and other symptoms. Discharge Med Rec/Prescriptions Prescriptions: New clopidogrel 75 mg Tablet 75 mg PO DAILY Qty: 30 RF: 0 aspirin 81 mg Tablet,Delayed Release (Dr/Ec) 81 mg PO DAILY Qty: 30 RF: 0 Continued atorvastatin 20 mg tablet 20 mg PO DAILY RF: 0 alendronate 70 mg tablet 70 mg PO QWEEK RF: 0 glipizide 5 mg tablet extended release 24hr 20 mg PO DAILY RF: 0 losartan-hydrochlorothiazide 100-25 mg tablet 1 tab PO DAILY RF: 0 meclizine 25 mg tablet 25 mg PO TID PRN (Reason: Vertigo) RF: 0 pantoprazole 40 mg tablet,delayed release (DR/EC) 40 mg PO DAILY RF: 0 metformin 1,000 mg tablet 1,000 mg PO BID RF: 0 timolol maleate 0.5 % drops 1 drp OPHTHALMIC (EYE) DIRECTED RF: 0 Follow up/Referrals: Yvonne Barr MD [Physician] - (please follow up with your Primary Care Provider as soon as possible. ) Visit Report/Discharge Packet Instructions: Ischemic Stroke, DI for Stroke-Ischemic, DI for Vertigo, How to Prevent Falls, Clopidogrel Discharges patient from system. Discharge Date/Time: 12/31/18 13:50 Quality VTE Deep Vein Thrombosis/Pulmonary Embolism Present on Admission: No
[2018-12-31 12:00] VITALS: BP 125/75; PULSE 60; RESP 16; O2SAT 100
[2018-12-31 13:10] VITALS: BP 104/69; PULSE 60
[2018-12-31] MEDS: hydroCHLOROthiazide 25 MG TABLET PO (13:10)
[2018-12-31] MEDS: LOSARTAN 50 MG TABLET 100 MG PO (13:10)
--- NOTE | 2018-12-31 13:49 | CM.DPNOTE ---
DCP/continued: Received notification in AM rounds that patient medically stable for discharge today. Per therapy patient cleared to d/c home with supportive family. No SNF recommended at this time. Per [employer] patient managed steps and walked the hallway this AM. Current recommendation from therapy is outpatient therapy and FWW for home use. Order obtained for FWW and PT will provide prior to patient's departure. P: Home today. DANISH Quintero
== END 2018-12-31 13:50 | disposition home or self-care (01) | DRG 66 ==
LOC: ED 19:26 → AC 12-30 07:15
PROVIDERS: Emergency Medicine; Admitting Provider Nurse Practitioner Adult Health; Emergency Provider Emergency Medicine; Visit Provider Nurse Practitioner Adult Health
DX: I63.9 Cerebral infarction, unspecified (principal); E11.9 Type 2 diabetes mellitus without complications; H53.8 Other visual disturbances; R26.0 Ataxic gait; R42 Dizziness and giddiness; I69.392 Facial weakness following cerebral infarction; I10 Essential (primary) hypertension; E78.5 Hyperlipidemia, unspecified; R51 Headache; R07.89 Other chest pain; Z79.84 Long term (current) use of oral hypoglycemic drugs
CPT/HCPCS: 36415; 36591; 70450; 70548; 70553; 71045; 80048; 80053; 80061; 82550; 82962; 83036; 83690; 83735; 84443; 84484; 85025; 85610; 85730; 93005; 93306; 97116; 97162; 97165; 97530; 97535; 99283; G0378; A9579; J1650

== ENCOUNTER → 2019-02-05 14:15 | Outpatient (ROUT) | payer OTHER, SELFPAY ==
[2018-12-29 21:52] VITALS: BMI 24.9
[2019-02-05 15:06] LABS: Alanine Aminotransferase 17 IU/L (9-52); Aspartate Aminotransferase 22 IU/L (14-36); BUN Creatinine Ratio 25.5 (6-22); Blood Urea Nitrogen 28 mg/dL (7-17); Calcium 9.8 mg/dL (8.4-10.2); Carbon Dioxide 27 mmol/L (22-32); Chloride 97 mmol/L (98-107); Cholesterol 166 mg/dL (140-199); Estimated Glomerular Filt Rate 49.1 mL/min (>60); Glucose 154 mg/dL (80-110); HDL Cholesterol 63 mg/dL (40-60); HEMOLYSIS < 15 (0-50); Hemoglobin A1C% w Est Avg Glu 9.5 % (4.0-6.0); LDL Cholesterol Calculated 75 mg/dL (<100); Potassium 4.1 mmol/L (3.4-5.1); Sodium 138 mmol/L (137-145); Triglycerides 138 mg/dL (35-150)
== END ==
PROVIDERS: PCP Internal Medicine; Visit Provider Internal Medicine
DX: E78.5 Hyperlipidemia, unspecified (principal); I10 Essential (primary) hypertension; E11.9 Type 2 diabetes mellitus without complications
CPT/HCPCS: 80048; 80061; 83036; 84450; 84460

== ENCOUNTER → 2020-05-14 08:53 | Outpatient (CLI) | payer OTHER, SELFPAY ==
[2018-12-29 21:52] VITALS: BMI 24.9
[2020-05-14 09:57] LABS: Alanine Aminotransferase 41 IU/L (<35); Albumin 4.8 g/dL (3.5-5.0); Alkaline Phosphatase 130 U/L (38-126); Aspartate Aminotransferase 32 IU/L (14-36); BUN Creatinine Ratio 24.1 (6-22); Blood Urea Nitrogen 47 mg/dL (7-17); Carbon Dioxide 29 mmol/L (22-32); Chloride 87 mmol/L (98-107); Cholesterol 273 mg/dL (140-199); Estimated Glomerular Filt Rate 25.3 mL/min (>60); Globulin 4.9 g/dL (1.7-4.1); HDL Cholesterol 48 mg/dL (40-60); HEMOLYSIS < 15 (0-50); LDL Cholesterol Calculated 164 mg/dL (<100); Potassium 4.9 mmol/L (3.4-5.1); Sodium 128 mmol/L (137-145); Triglycerides 304 mg/dL (35-150)
[2020-05-14 10:01] LABS: Hemoglobin A1C% w Est Avg Glu 13.5 % (4.0-6.0)
[2020-05-14 10:20] LABS: Glucose 772 mg/dL (80-110); Total Protein 9.7 g/dL (6.3-8.2)
[2020-05-14 11:33] LABS: Creatinine Urine Random 48.5 mg/dL
[2020-05-14 11:37] LABS: Microalbumi Creatinin Ratio Ur 119.5 ug/mg CR (<30); Microalbumin Urine Random 5.8 mg/dL (0-1.6)
== END ==
PROVIDERS: PCP Internal Medicine; Referring Provider Internal Medicine; Visit Provider Internal Medicine
DX: E11.9 Type 2 diabetes mellitus without complications (principal); I10 Essential (primary) hypertension; E78.5 Hyperlipidemia, unspecified
CPT/HCPCS: 36415; 80053; 80061; 82043; 82570; 83036

== ENCOUNTER 2020-05-21 13:22 | Observation (INO) | payer OTHER, SELFPAY ==
[2018-12-29 21:52] VITALS: BMI 24.9
[2020-05-21] VITALS (52 sets, daily range): BP systolic 76–120; BP diastolic 50–66; PULSE 59–88; RESP 14–32; TEMP 36.5–37; O2SAT 29–100; BMI 28.3; BMI 27.8
--- NOTE | 2020-05-21 13:42 | DI.RAD.S_ITS ---
PROCEDURE: XR CHEST 1V INDICATIONS: hypeglycemia TECHNIQUE: One view of the chest was acquired. COMPARISON: [facility], CR, XR CHEST 1V, 12/29/2018, 16:22. FINDINGS: Surgical changes and devices: None. Scattered subsegmental atelectasis and/or scarring. No focal consolidation. No pleural effusions or pneumothorax. Mediastinum: Mediastinal contours appear normal. Heart size is normal. Bones and chest wall: No suspicious bony lesions. Overlying soft tissues appear unremarkable. IMPRESSION: No acute disease. Dictated by: Chau Miranda M.D. on 05/21/2020 at 14:50 Approved by: Chau Miranda M.D. on 05/21/2020 at 14:54
[2020-05-21 13:49] LABS: Add Manual Diff / Slide Review NO; Basophils Absolute Auto 0 /uL (0-100); Basophils Percent Auto 0.5 % (0-2); Eosinophils Absolute Auto 0 /uL (0-450); Eosinophils Percent Auto 0.7 % (2-4); Hemoglobin 11.7 g/dL (12.0-16.0); Lymphocytes Absolute Auto 1400 /uL (1100-4500); Lymphocytes Percent Auto 23.6 % (25-40); Mean Corpuscular HGB Conc 32.5 % (30-36); Mean Corpuscular Hemoglobin 29.5 PG (26-34); Mean Corpuscular Volume 90.7 fL (80-100); Monocytes Absolute Auto 300 /uL (0-900); Monocytes Percent Auto 4.8 % (3-14); Neutrophils Absolute Auto 4200 /uL (1500-7000); Neutrophils Percent Auto 70.4 % (50-75); Platelet Count 241 X10^3/uL (150-400); Red Blood Cell Count 3.97 X10^6/uL (4.0-5.2); Red Cell Distribution Width 12.3 % (11.6-14.8)
[2020-05-21] MEDS: SODIUM CHLORIDE 0.9% 1,000 ML 1000 ML IV ×2 (13:56→14:09)
[2020-05-21 14:04] LABS: HEMOLYSIS < 15 (0-50)
[2020-05-21 14:08] LABS: Lactate (Lactic Acid) 3.7 mmol/L (0.7-2.1)
[2020-05-21 14:09] LABS: Alanine Aminotransferase 36 IU/L (<35); Albumin 4.2 g/dL (3.5-5.0); Albumin Globulin Ratio 1.1 (1.0-2.8); Alkaline Phosphatase 107 U/L (38-126); Aspartate Aminotransferase 39 IU/L (14-36); BUN Creatinine Ratio 17.2 (6-22); Bilirubin Total 0.6 mg/dL (0.2-1.3); Blood Urea Nitrogen 33 mg/dL (7-17); Calcium 8.8 mg/dL (8.4-10.2); Carbon Dioxide 26 mmol/L (22-32); Chloride 88 mmol/L (98-107); Estimated Glomerular Filt Rate 25.7 mL/min (>60); Globulin 3.9 g/dL (1.7-4.1); Potassium 3.9 mmol/L (3.4-5.1); Sodium 125 mmol/L (137-145); Total Protein 8.1 g/dL (6.3-8.2)
--- NOTE | 2020-05-21 14:13 | ED_ITS ---
HPI - Dizziness General Chief Complaint: Diabetic Problem Stated Complaint: mouth dry,dizzy Time Seen by Provider: 05/21/20 14:13 Source: patient Mode of arrival: Wheelchair Limitations: no limitations History of Present Illness HPI Narrative: This is a 69-year-old female comes in with complaint of dizziness, blurry vision, dry mouth, polyuria and feeling generally unwell. Patient has a history of diabetes, dyslipidemia, hypertension and GERD. Patient was in the [facility] and was stuck in the [facility] secondary to travel restrictions starting in June. She only recently returned to the [facility], she had to quarantine for 14-20 days and did not have any of her medications. She states she did have medications available to her while in the [facility]. She called her physician in the last 1-2 weeks to restart her medications. Patient denies fevers. No chest pain or shortness of breath she h as had some nausea but no vomiting. She denies any diarrhea or constipation. She denies any urinary issues other than polyuria and frequency. She denies any dysuria. She denies any swelling in her extremities. She states she does take injectable insulin, she is unsure of the name. She states she has a history of . Denies other surgeries. No tobacco, alcohol or illicit. She is acc ompanied by her son Clark. Patient's PCP is . Related Data Home Medications Medication Instructions Recorded Confirmed aspirin 325 mg PO QDAY #0 09/24/16 12/02/17 losartan-hydrochlorothiazide 1 tab PO QDAY #0 09/24/16 05/21/20 calcium carbonate 600 mg PO QDAY #0 03/10/17 12/02/17 cholecalciferol (vitamin D3) 2,000 unit PO QDAY #0 03/10/17 12/02/17 [Vitamin D3] ferrous sulfate [Iron (ferrous 325 mg PO QDAY #0 03/10/17 12/02/17 sulfate)] multivitamin [Multiple Vitamins] 1 tab PO QDAY #0 03/10/17 12/02/17 ranitidine HCl [Zantac] 150 mg PO QDAY #0 03/16/17 12/02/17 atorvastatin 20 mg PO QPM 12/02/17 12/02/17 metformin 1 tab PO BID 12/02/17 12/02/17 timolol maleate 1 drp OPHTHALMIC (EYE) DIRECTED 12/02/17 12/02/17 alendronate 70 mg PO QWEEK 12/29/18 12/29/18 atorvastatin 20 mg PO DAILY 12/29/18 12/29/18 glipizide 20 mg PO DAILY 12/29/18 12/30/18 losartan-hydrochlorothiazide 1 tab PO DAILY 12/29/18 12/29/18 meclizine 25 mg PO TID PRN 12/29/18 12/29/18 metformin 1,000 mg PO BID 12/29/18 12/29/18 pantoprazole 40 mg PO DAILY 12/29/18 05/21/20 timolol maleate 1 drp OPHTHALMIC (EYE) DIRECTED 12/29/18 12/29/18 insulin glargine [Lantus Solostar 30 unit SUBCUT DAILY 05/21/20 05/21/20 U-100 Insulin] Previous Rx's Medication Instructions Recorded ondansetron [Zofran ODT] 4 mg PO Q6-8H PRN #10 tab 12/02/17 aspirin 81 mg PO DAILY #30 tab 12/31/18 clopidogrel 75 mg PO DAILY #30 tab 12/31/18 Allergies Allergy/AdvReac Type Severity Reaction Status Date / Time No Known Drug Allergies Allergy Verified 05/21/20 13:38 Review of Systems Review of Systems ROS Unobtainable: All systems reviewed & are unremarkable except as noted in HPI and below Patient History Medical History Cerebrovascular accident Diabetes Diabetes type 2, uncontrolled GERD (gastroesophageal reflux disease) Glaucoma, left eye Hyperlipidemia Hypertension Hypertension Osteoporosis Surgical History History of section Social History household members: family Smoking Status: Never smoker alcohol intake: never substance use type: does not use Smoking Status: Never smoker alcohol intake frequency: 0-2 drinks per day Substance Use Type: does not use Exam Narrative Exam Narrative: GEN: well nourished, well appearing female, alert and oriented x 3, patient appears to be in mild distress. HEENT: Atraumatic, pupils are equal round reactive to light, extraocular movements are intact, nares are clear, dry mucous membranes. HEART: Regular rate and rhythm without murmur, clicks, rubs. Pulses are equal in upper and lower extremities LUNGS:Lungs clear to auscultation, no wheezes, rales, crackles, chest moves symmetrically ABD:bowel sounds normal, soft, non-tender, no guarding, rebound, rigidity, no masses noted, no hepatosplenomegaly :No CVA tenderness MSCL: Non-tender, no muscle atrophy, muscles strength 5/5 upper and lower extremities, full range of motion, normal gait NEURO:CN 2-12 intact, sensation normal. SKIN: No erythema, rash or other changes appreciated Initial Vital Signs Initial Vital Signs: Vital Signs Pulse Rate 84 05/21/20 13:32 Respiratory Rate 20 05/21/20 13:32 Pulse Oximetry 99 05/21/20 13:32 Scores GCS Hickman coma scale eye opening: Spontaneous Hickman coma scale verbal response: Orientated Alethea coma scale motor response: Obey commands Hickman coma scale total score: 15 Course Orders Ordered: ED Orders 05/21/20 13:35 Complete Blood Count AUTO DIFF Stat Comprehensive Metabolic Panel Stat Ketones (Beta-Hydroxybutyrate) Stat Lactate (Lactic Acid) Stat Procalcitonin Stat 05/21/20 13:39 EKG-12 Lead Stat 05/21/20 13:42 XR chest 1V Stat 05/21/20 13:52 Venous Blood Gas Stat 05/21/20 14:10 COVID19 Stat 05/21/20 14:17 Blood Culture Stat 05/21/20 14:45 Urinalysis and Microscopic Stat Urine Culture Stat 05/21/20 15:09 Glucose Stat Acetaminophen (Acetaminophen 325 Mg Tablet) 650 mg PO Q6HR PRN PRN Reason: Fever/Mild Pain (1-3) Aspirin (Aspirin Ec 81 Mg Tablet) 81 mg PO DAILY AUGUSTIN Dextrose (Dextrose 50 % In Water 25 Gm/50 Ml Syringe) 25 gm IV PRN PRN PRN Reason: Hypoglycemia Enoxaparin Sodium (Enoxaparin 30 Mg/0.3 Ml Syringe) 30 mg SUBCUT DAILY AUGUSTIN Sodium Chloride (Normal Saline 0.9%) 1,000 mls @ 100 mls/hr IV BOLUS ONE Stop: 05/22/20 02:20 Last Infusion: 05/21/20 18:17 Dose: 100 mls/hr Documented by: Admin: 05/21/20 16:29 Dose: 200 mls/hr Documented by: KAUSHAL Ceftriaxone Sodium/Dextrose (Rocephin) 1 gm in 50 mls @ 100 mls/hr IV Q24H AUGUSTIN Insulin Aspart (Insulin Aspart 100 Unit/Ml Insuln Pen) 0 unit SUBCUT ACHS AUGUSTIN; Protocol Insulin Glargine (Insulin Glargine 100 Unit/Ml 3ml Pen) 30 unit SUBCUT 2100 AUGUSTIN Ondansetron HCl (Ondansetron 4 Mg/2 Ml Inj) 4 mg IV Q8HR PRN PRN Reason: Nausea And Vomiting Pantoprazole Sodium (Pantoprazole 40 Mg Tablet) 40 mg PO DAILY AUGUSTIN Discontinued Medications Sodium Chloride (Normal Saline 0.9%) 1,000 mls @ 1,000 mls/hr IV BOLUS ONE Stop: 05/21/20 14:38 Last Infusion: 05/21/20 15:44 Dose: 0 mls/hr Documented by: Admin: 05/21/20 13:56 Dose: 1,000 mls/hr Documented by: LUIS ALBERTO Sodium Chloride (Normal Saline 0.9%) 1,000 mls @ 1,000 mls/hr IV BOLUS ONE Stop: 05/21/20 15:06 Last Infusion: 05/21/20 15:44 Dose: 0 mls/hr Documented by: Admin: 05/21/20 14:09 Dose: 1,000 mls/hr Documented by: LUIS ALBERTO Ceftriaxone Sodium/Dextrose (Rocephin) 1 gm in 50 mls @ 100 mls/hr IV NOW ONE Stop: 05/21/20 16:15 Last Infusion: 05/21/20 17:00 Dose: 0 mls/hr Documented by: Admin: 05/21/20 16:21 Dose: 100 mls/hr Documented by: KAUSHAL Insulin Human Regular (Insulin Regular 100 Unit/Ml 3 Ml Vial) 10 unit SUBCUT NOW ONE Stop: 05/21/20 16:17 Last Admin: 05/21/20 16:28 Dose: 10 unit Documented by: KAUSHAL Cosigned by: LUIS ALBERTO Consultations Consultation #1: Dr. Weir accepts for observation. Plan for subcutaneous insulin 10 units, plan to continue hydration. Patient had Rocephin 1gram ordered for possible UTI although unlikely cause of her hyperglycemia as she was off medications for at minimum several weeks. Time: 15:46 Vital Signs Vital signs: Vital Signs - 8 hr 05/21/20 13:32 05/21/20 13:33 05/21/20 13:35 Temperature 98.6 F Pulse Rate 84 88 82 Respiratory Rate 20 16 20 Blood Pressure 104/57 L Pulse Oximetry 99 99 100 05/21/20 13:40 05/21/20 13:45 05/21/20 13:50 Temperature Pulse Rate 82 80 79 Respiratory Rate 20 21 20 Blood Pressure Pulse Oximetry 98 99 98 05/21/20 13:55 05/21/20 14:00 05/21/20 14:01 Temperature Pulse Rate 78 77 77 Respiratory Rate 19 14 22 Blood Pressure 77/51 L 76/50 L Pulse Oximetry 96 99 100 05/21/20 14:05 05/21/20 14:10 05/21/20 14:15 Temperature Pulse Rate 78 77 74 Respiratory Rate 25 H 23 18 Blood Pressure 77/50 L 85/51 L Pulse Oximetry 100 98 05/21/20 14:20 05/21/20 14:25 05/21/20 14:30 Temperature Pulse Rate 74 73 72 Respiratory Rate 18 25 H 23 Blood Pressure 86/53 L 88/50 L Pulse Oximetry 100 100 100 05/21/20 14:35 05/21/20 14:40 05/21/20 14:42 Temperature Pulse Rate 71 64 73 Respiratory Rate 24 18 Blood Pressure 91/57 L Pulse Oximetry 99 92 05/21/20 14:45 05/21/20 14:50 05/21/20 14:55 Temperature Pulse Rate 72 71 68 Respiratory Rate 14 27 H 23 Blood Pressure 91/51 L Pulse Oximetry 100 100 99 05/21/20 15:00 05/21/20 15:05 05/21/20 15:10 Temperature Pulse Rate 67 66 65 Respiratory Rate 21 18 17 Blood Pressure 91/54 L 89/51 L 92/53 L Pulse Oximetry 99 100 100 05/21/20 15:15 05/21/20 15:20 05/21/20 15:25 Temperature Pulse Rate 66 66 68 Respiratory Rate 22 20 25 H Blood Pressure 90/55 L Pulse Oximetry 100 100 100 05/21/20 15:30 05/21/20 15:35 05/21/20 15:40 Temperature Pulse Rate 66 67 69 Respiratory Rate 27 H 30 H 21 Blood Pressure 90/53 L 110/64 Pulse Oximetry 100 99 100 05/21/20 15:45 05/21/20 15:50 05/21/20 15:55 Temperature Pulse Rate 67 66 68 Respiratory Rate 22 18 20 Blood Pressure 97/59 L Pulse Oximetry 99 99 98 05/21/20 16:00 05/21/20 16:05 05/21/20 16:10 Temperature Pulse Rate 66 65 65 Respiratory Rate 26 H 19 20 Blood Pressure 95/62 100/61 Pulse Oximetry 63 L 98 78 L 05/21/20 16:15 05/21/20 16:20 05/21/20 16:27 Temperature Pulse Rate 64 65 68 Respiratory Rate 25 H 17 16 Blood Pressure 118/57 L Pulse Oximetry 100 29 L 05/21/20 16:30 Temperature Pulse Rate 61 Respiratory Rate 27 H Blood Pressure 120/60 Pulse Oximetry 82 L MDM - Dizziness Lab Data Attestation: I reviewed the patient's lab results. Result diagrams: 05/21/20 13:35 05/21/20 16:38 Labs: Lab Results 05/21/20 05/21/20 05/21/20 Range/Units 13:35 13:35 13:35 WBC 6.0 (4.5-11.0) X10^3/uL RBC 3.97 L (4.0-5.2) X10^6/uL Hgb 11.7 L (12.0-16.0) g/dL Hct 36.0 (36-46) % MCV 90.7 (80-100) fL MCH 29.5 (26-34) PG MCHC 32.5 (30-36) % RDW 12.3 (11.6-14.8) % Plt Count 241 (150-400) X10^3/uL Neut % (Auto) 70.4 (50-75) % Lymph % (Auto) 23.6 L (25-40) % Allen % (Auto) 4.8 (3-14) % Eos % (Auto) 0.7 L (2-4) % Baso % (Auto) 0.5 (0-2) % Neut # (Auto) 4200 (1905-2301) /uL Lymph # (Auto) 1400 (8468-6070) /uL Allen # (Auto) 300 (0-900) /uL Eos # (Auto) 0 (0-450) /uL Baso # (Auto) 0 (0-100) /uL VBG pH (7.33-7.43) VBG pCO2 (45-50) mmHg VBG pO2 (35-45) mmHg VBG HCO3 (23-28) mmol/L VBG Total CO2 (24-29) mmol/L VBG O2 Saturation (70-75) % VBG Base Excess (0-4) mmol/L Sodium 125 L (137-145) mmol/L Potassium 3.9 (3.4-5.1) mmol/L Chloride 88 L (98-107) mmol/L Carbon Dioxide 26 (22-32) mmol/L BUN 33 H (7-17) mg/dL Creatinine 1.92 H (0.52-1.04) mg/dL Estimated GFR 25.7 L (>60) mL/min BUN/Creatinine Ratio 17.2 (6-22) Glucose 741 H* (80-110) mg/dL Lactate (0.7-2.1) mmol/L Calcium 8.8 (8.4-10.2) mg/dL Total Bilirubin 0.6 (0.2-1.3) mg/dL AST 39 H (14-36) IU/L ALT 36 H (<35) IU/L Alkaline Phosphatase 107 (38-126) U/L Total Protein 8.1 (6.3-8.2) g/dL Albumin 4.2 (3.5-5.0) g/dL Globulin 3.9 (1.7-4.1) g/dL Albumin/Globulin Ratio 1.1 (1.0-2.8) Procalcitonin < 0.05 (<0.5) ng/mL Urine Color Urine Appearance Urine pH (4.5-8.0) Ur Specific Waldo (1.000-1.035) Urine Protein (Negative) Urine Glucose (UA) (Negative) g/dL Urine Ketones (NEGATIVE) Urine Occult Blood (Negative) Urine Nitrate (Negative) Urine Bilirubin (NEGATIVE) Urine Urobilinogen (0.2) E.U./dL Ur Leukocyte Esterase (NEGATIVE) Urine RBC (0-5/HPF) Urine WBC (0-5/HPF) Urine Bacteria (None) Ur Culture Indicated? Ketones 0.14 (<0.27) mmol/L SARS-CoV-2 (PCR) (Negative) 05/21/20 05/21/20 05/21/20 Range/Units 13:35 13:52 14:10 WBC (4.5-11.0) X10^3/uL RBC (4.0-5.2) X10^6/uL Hgb (12.0-16.0) g/dL Hct (36-46) % MCV (80-100) fL MCH (26-34) PG MCHC (30-36) % RDW (11.6-14.8) % Plt Count (150-400) X10^3/uL Neut % (Auto) (50-75) % Lymph % (Auto) (25-40) % Allen % (Auto) (3-14) % Eos % (Auto) (2-4) % Baso % (Auto) (0-2) % Neut # (Auto) (0839-3390) /uL Lymph # (Auto) (5741-3223) /uL Allen # (Auto) (0-900) /uL Eos # (Auto) (0-450) /uL Baso # (Auto) (0-100) /uL VBG pH 7.33 (7.33-7.43) VBG pCO2 50.4 H (45-50) mmHg VBG pO2 25 L (35-45) mmHg VBG HCO3 27 (23-28) mmol/L VBG Total CO2 28 (24-29) mmol/L VBG O2 Saturation 40 L (70-75) % VBG Base Excess 1.0 (0-4) mmol/L Sodium (137-145) mmol/L Potassium (3.4-5.1) mmol/L Chloride (98-107) mmol/L Carbon Dioxide (22-32) mmol/L BUN (7-17) mg/dL Creatinine (0.52-1.04) mg/dL Estimated GFR (>60) mL/min BUN/Creatinine Ratio (6-22) Glucose (80-110) mg/dL Lactate 3.7 H (0.7-2.1) mmol/L Calcium (8.4-10.2) mg/dL Total Bilirubin (0.2-1.3) mg/dL AST (14-36) IU/L ALT (<35) IU/L Alkaline Phosphatase (38-126) U/L Total Protein (6.3-8.2) g/dL Albumin (3.5-5.0) g/dL Globulin (1.7-4.1) g/dL Albumin/Globulin Ratio (1.0-2.8) Procalcitonin (<0.5) ng/mL Urine Color Urine Appearance Urine pH (4.5-8.0) Ur Specific Waldo (1.000-1.035) Urine Protein (Negative) Urine Glucose (UA) (Negative) g/dL Urine Ketones (NEGATIVE) Urine Occult Blood (Negative) Urine Nitrate (Negative) Urine Bilirubin (NEGATIVE) Urine Urobilinogen (0.2) E.U./dL Ur Leukocyte Esterase (NEGATIVE) Urine RBC (0-5/HPF) Urine WBC (0-5/HPF) Urine Bacteria (None) Ur Culture Indicated? Ketones (<0.27) mmol/L SARS-CoV-2 (PCR) Negative (Negative) 05/21/20 05/21/20 05/21/20 Range/Units 14:45 15:09 16:30 WBC (4.5-11.0) X10^3/uL RBC (4.0-5.2) X10^6/uL Hgb (12.0-16.0) g/dL Hct (36-46) % MCV (80-100) fL MCH (26-34) PG MCHC (30-36) % RDW (11.6-14.8) % Plt Count (150-400) X10^3/uL Neut % (Auto) (50-75) % Lymph % (Auto) (25-40) % Allen % (Auto) (3-14) % Eos % (Auto) (2-4) % Baso % (Auto) (0-2) % Neut # (Auto) (3980-4819) /uL Lymph # (Auto) (2299-9768) /uL Allen # (Auto) (0-900) /uL Eos # (Auto) (0-450) /uL Baso # (Auto) (0-100) /uL VBG pH (7.33-7.43) VBG pCO2 (45-50) mmHg VBG pO2 (35-45) mmHg VBG HCO3 (23-28) mmol/L VBG Total CO2 (24-29) mmol/L VBG O2 Saturation (70-75) % VBG Base Excess (0-4) mmol/L Sodium (137-145) mmol/L Potassium (3.4-5.1) mmol/L Chloride (98-107) mmol/L Carbon Dioxide (22-32) mmol/L BUN (7-17) mg/dL Creatinine (0.52-1.04) mg/dL Estimated GFR (>60) mL/min BUN/Creatinine Ratio (6-22) Glucose 613 H* (80-110) mg/dL Lactate 1.3 (0.7-2.1) mmol/L Calcium (8.4-10.2) mg/dL Total Bilirubin (0.2-1.3) mg/dL AST (14-36) IU/L ALT (<35) IU/L Alkaline Phosphatase (38-126) U/L Total Protein (6.3-8.2) g/dL Albumin (3.5-5.0) g/dL Globulin (1.7-4.1) g/dL Albumin/Globulin Ratio (1.0-2.8) Procalcitonin (<0.5) ng/mL Urine Color Yellow Urine Appearance Clear Urine pH 6.0 (4.5-8.0) Ur Specific Waldo 1.010 (1.000-1.035) Urine Protein Negative (Negative) Urine Glucose (UA) 3+ H (Negative) g/dL Urine Ketones Negative (NEGATIVE) Urine Occult Blood Trace-intact (Negative) Urine Nitrate Negative (Negative) Urine Bilirubin Negative (NEGATIVE) Urine Urobilinogen 0.2 (0.2) E.U./dL Ur Leukocyte Esterase Trace H (NEGATIVE) Urine RBC 1-5/hpf (0-5/HPF) Urine WBC 5-10/hpf H (0-5/HPF) Urine Bacteria None seen (None) Ur Culture Indicated? Specimen cultured Ketones (<0.27) mmol/L SARS-CoV-2 (PCR) (Negative) Point of Care Testing Glucose POC 500 Imaging Data Chest x-ray: Radiologist's Impression: [address] [id number] ReportSigned Patient: Rebecca Talamantes EMR#: [id number]: [id number]:[id number]/Sex: 69 / FDate of Service: 05/21/20Loc: EDAccession Number: [id number] Procedure: XR chest 1V Ordering Provider: Shanell Peralta D.O. PROCEDURE: XR CHEST 1V INDICATIONS: hypeglycemia TECHNIQUE: One view of the chest was acquired. COMPARISON: [facility], , XR CHEST 1V, 12/29/2018, 16:22. FINDINGS: Surgical changes and devices: None. Scattered subsegmental atelectasis and/or scarring. No focal consolidation. No pleural effusions or pneumothorax. Mediastinum: Mediastinal contours appear normal. Heart size is normal. Bones and chest wall: No suspicious bony lesions. Overlying soft tissues appear unremarkable. IMPRESSION: No acute disease. Dictated by: Chau Miranda M.D. on 05/21/2020 at 14:50 Approved by: Chau Miranda M.D. on 05/21/2020 at 14:54 ECG Data Attestation: I personally reviewed and interpreted this ECG as follows: Prior ECG tracings: available for review Interpretation: Sinus rhythm rate of 78, CT 192, QRS is 86 QTC is 478. Q-wave in 2 3 AVF. Non specific change. Patient has prior EKG from 01/08/2019 which appears similar including Q-waves in [address] segment changes. MDM Narrative Medical decision making narrative: This is a 69-year-old female who comes to the emergency department with complaint consistent with hyperglycemia. Patient's VBG shows a pH of 7.328, CO2 of 50 with the bicarb of 26. Patient glucose is 741, she has a sodium of 125 when corrected for hyperglycemia is 135 with potassium at 3.9. CO2 is 26 and her anion gap is only 11. Patient's creatinine is 1.9 which appears consistent with last week from January of 2019. Patient has had a hemoglobin A1c last week that was 13.5. Her lactate is 3.7 today. Patient is hypotensive but slowly improving. Some of this may be consistent with dehydration. Patient glucose slowly trending downwards, plan for subcutaneous insulin, fluid replacement and continuing monitoring. Patient does not meet criteria for DKA today. Urine shows leukocyte esterase but no nitrates was given a dose of Rocephin for possible UTI. Unlikely this causes her hyperglycemia and medication noncompliance secondary patient being unable to return to her home after travel restrictions. Discharge Plan Departure Patient Disposition: Admitted as Observation Clinical Impression: Hyperglycemia, Acidosis, lactic, Kidney injury Admit Date/Time: 05/21/20 16:33 Admit Provider: Ancelmo Weir
[2020-05-21 14:29] LABS: HCO3 VBG 27 mmol/L (23-28); Oxygen Saturation VBG 40 % (70-75); PCO2 VBG 50.4 mmHg (45-50); PO2 VBG 25 mmHg (35-45); Total CO2 VBG 28 mmol/L (24-29); pH VBG 7.33 (7.33-7.43)
[2020-05-21 14:31] LABS: Glucose 741 mg/dL (80-110); Procalcitonin < 0.05 ng/mL (<0.5)
[2020-05-21 14:42] LABS: COVID19 -Nasal RAPID Negative (Negative)
[2020-05-21 15:00] LABS: Bacteria Urine None Seen
[2020-05-21 15:25] LABS: Appearance Urine UA CLEAR; Bilirubin Urine UA NEGATIVE (NEGATIVE); Color Urine UA YELLOW; Glucose Urine UA 3+ g/dL (Negative); Ketones Urine UA NEGATIVE (NEGATIVE); Leukocyte Esterase Urine UA TRACE (NEGATIVE); Nitrite Urine UA NEGATIVE (Negative); Occult Blood Urine UA TRACE-INTACT (Negative); Protein Urine UA NEGATIVE (Negative); Urobilinogen Urine UA 0.2 E.U./dL (0.2)
[2020-05-21 15:30] LABS: Culture Indicated Urine Specimen Cultured; RBC Urine 1-5/HPF (0-5/HPF); WBC Urine 5-10/HPF (0-5/HPF)
[2020-05-21 15:47] LABS: Ketones (Beta-Hydroxybutyrate) 0.14 mmol/L (<0.27)
[2020-05-21 15:49] LABS: Reflexed Lactate in 2 Hours Y
[2020-05-21 16:03] LABS: Glucose 613 mg/dL (80-110)
[2020-05-21] MEDS: CEFTRIAXONE 1 GM/50 ML FROZ.PIGGY IV (16:21)
[2020-05-21] MEDS: INSULIN REGULAR 100 UNIT/ML 3 ML VIAL 10 UNIT SUBCUT (16:28)
[2020-05-21] MEDS: SODIUM CHLORIDE 0.9% 1,000 ML 200 ML IV (16:29)
--- NOTE | 2020-05-21 17:07 | PC.NURSE ---
Second time calling lab for repeat glucose. They are checking on it
[2020-05-21 17:17] LABS: Lactate 2HR (Lactic Acid Rflx) 1.3 mmol/L (0.7-2.1)
[2020-05-21 17:21] LABS: Glucose 525 mg/dL (80-110)
--- NOTE | 2020-05-21 18:01 | P.HP_ITS ---
History of Present Illness History of Present Illness Date Patient Seen: 05/21/20 Time Patient Seen: 18:02 Chief complaint: mouth dry,dizzy Narrative: Rebecca Talamantes is a 69 year old female with a past medical history of hypertension, type 2 diabetes, hyperlipidemia, osteoporosis, and GERD who presented with dizziness and blurry vision since this morning. For the past 3-4 days she has also had polyuria and polydipsia, generalized malaise and fatigue. Patient had been in the [facility] secondary to travel restrictions starting in June of last year. She only recently returned to the [facility] and had to quarantine, and she did not have access to her medications. Patient went to see her primary care doctor, Dr. Barr, who refilled some of her medications but to check blood work. Patient reports that her office called and sent her prescription for insulin which she has been taking 30 units nightly, and she had stopped metformin per their recommendations. In the emergency room, patient was mildly hypotensive but this improved with fluids. Remainder of her vital signs were unremarkable. Initial CBC was unremarkable except for a mild normocytic anemia with a hemoglobin of 11.7. VBG was unremarkable. Chemistries revealed a sodium of 125, although this corrects to normal when considering her glucose on admission was 741. She had labs done about a week ago after her PCP visit with similar lab values. Creatinine was also elevated at 1.92, also similar from these previous values. Procalcitonin was negative. Urinalysis shows 5-10 white blood cells per high-powered field, glucose, and leuk esterase but negative nitrites. Specimen was sent for culture. Ketone levels were within normal limits. COVID-19 testing was negative. EKG showed normal sinus rhythm. Chest x-ray was unremarkable. Given the patient's hypotension and lactic acid of 3.4, she was admitted under observation for sepsis rule out from a possible UTI, but more likely HHS. Patient History Medical History Cerebrovascular accident Diabetes Diabetes type 2, uncontrolled GERD (gastroesophageal reflux disease) Glaucoma, left eye Hyperlipidemia Hypertension Hypertension Osteoporosis Surgical History History of section Family & Social History Social History: household members family Prior Living Arrangements Mobile home Safety & Behavioral: Feels Safe in Current Yes Environment Been Physically Hurt or No Threatened By a Person Suicidal Ideation Description None Suicide Plan Description No Plan Tobacco & Substance use: Smoking Status Never smoker alcohol intake never alcohol intake frequency 0-2 drinks per day Substance Use Type does not use Meds Home Medications and Allergies Home Medications Medication Instructions Recorded Confirmed Type aspirin 325 mg PO QDAY #0 09/24/16 12/02/17 History losartan-hydrochlorothiazide 1 tab PO QDAY #0 09/24/16 05/21/20 History calcium carbonate 600 mg PO QDAY #0 03/10/17 12/02/17 History cholecalciferol (vitamin D3) 2,000 unit PO QDAY #0 03/10/17 12/02/17 History [Vitamin D3] ferrous sulfate [Iron (ferrous 325 mg PO QDAY #0 03/10/17 12/02/17 History sulfate)] multivitamin [Multiple Vitamins] 1 tab PO QDAY #0 03/10/17 12/02/17 History ranitidine HCl [Zantac] 150 mg PO QDAY #0 03/16/17 12/02/17 History atorvastatin 20 mg PO QPM 12/02/17 12/02/17 History metformin 1 tab PO BID 12/02/17 12/02/17 History ondansetron [Zofran ODT] 4 mg PO Q6-8H PRN #10 tab 12/02/17 Rx timolol maleate 1 drp OPHTHALMIC (EYE) DIRECTED 12/02/17 12/02/17 History alendronate 70 mg PO QWEEK 12/29/18 12/29/18 History atorvastatin 20 mg PO DAILY 12/29/18 12/29/18 History glipizide 20 mg PO DAILY 12/29/18 12/30/18 History losartan-hydrochlorothiazide 1 tab PO DAILY 12/29/18 12/29/18 History meclizine 25 mg PO TID PRN 12/29/18 12/29/18 History metformin 1,000 mg PO BID 12/29/18 12/29/18 History pantoprazole 40 mg PO DAILY 12/29/18 05/21/20 History timolol maleate 1 drp OPHTHALMIC (EYE) DIRECTED 12/29/18 12/29/18 History aspirin 81 mg PO DAILY #30 tab 12/31/18 05/21/20 Rx clopidogrel 75 mg PO DAILY #30 tab 12/31/18 Rx insulin glargine [Lantus Solostar 30 unit SUBCUT DAILY 05/21/20 05/21/20 History U-100 Insulin] Allergies Allergy/AdvReac Type Severity Reaction Status Date / Time No Known Drug Allergies Allergy Verified 05/21/20 13:38 Review of Systems Review of Systems Narrative: All other systems reviewed with the patient and are negative unless otherwise stated. Exam Vital Signs (past 8 hours): - 05/21/20 13:32 05/21/20 13:33 05/21/20 13:35 Temperature 98.6 F Pulse Rate 84 88 82 Respiratory Rate 20 16 20 Blood Pressure 104/57 L Pulse Oximetry 99 99 100 05/21/20 13:40 05/21/20 13:45 05/21/20 13:50 Temperature Pulse Rate 82 80 79 Respiratory Rate 20 21 20 Blood Pressure Pulse Oximetry 98 99 98 05/21/20 13:55 05/21/20 14:00 05/21/20 14:01 Temperature Pulse Rate 78 77 77 Respiratory Rate 19 14 22 Blood Pressure 77/51 L 76/50 L Pulse Oximetry 96 99 100 05/21/20 14:05 05/21/20 14:10 05/21/20 14:15 Temperature Pulse Rate 78 77 74 Respiratory Rate 25 H 23 18 Blood Pressure 77/50 L 85/51 L Pulse Oximetry 100 98 05/21/20 14:20 05/21/20 14:25 05/21/20 14:30 Temperature Pulse Rate 74 73 72 Respiratory Rate 18 25 H 23 Blood Pressure 86/53 L 88/50 L Pulse Oximetry 100 100 100 05/21/20 14:35 05/21/20 14:40 05/21/20 14:42 Temperature Pulse Rate 71 64 73 Respiratory Rate 24 18 Blood Pressure 91/57 L Pulse Oximetry 99 92 05/21/20 14:45 05/21/20 14:50 05/21/20 14:55 Temperature Pulse Rate 72 71 68 Respiratory Rate 14 27 H 23 Blood Pressure 91/51 L Pulse Oximetry 100 100 99 05/21/20 15:00 05/21/20 15:05 05/21/20 15:10 Temperature Pulse Rate 67 66 65 Respiratory Rate 21 18 17 Blood Pressure 91/54 L 89/51 L 92/53 L Pulse Oximetry 99 100 100 05/21/20 15:15 05/21/20 15:20 05/21/20 15:25 Temperature Pulse Rate 66 66 68 Respiratory Rate 22 20 25 H Blood Pressure 90/55 L Pulse Oximetry 100 100 100 05/21/20 15:30 05/21/20 15:35 05/21/20 15:40 Temperature Pulse Rate 66 67 69 Respiratory Rate 27 H 30 H 21 Blood Pressure 90/53 L 110/64 Pulse Oximetry 100 99 100 05/21/20 15:45 05/21/20 15:50 05/21/20 15:55 Temperature Pulse Rate 67 66 68 Respiratory Rate 22 18 20 Blood Pressure 97/59 L Pulse Oximetry 99 99 98 05/21/20 16:00 05/21/20 16:05 05/21/20 16:10 Temperature Pulse Rate 66 65 65 Respiratory Rate 26 H 19 20 Blood Pressure 95/62 100/61 Pulse Oximetry 63 L 98 78 L 05/21/20 16:15 05/21/20 16:20 05/21/20 16:27 Temperature Pulse Rate 64 65 68 Respiratory Rate 25 H 17 16 Blood Pressure 118/57 L Pulse Oximetry 100 29 L 05/21/20 16:30 05/21/20 16:35 05/21/20 16:40 Temperature Pulse Rate 61 61 60 Respiratory Rate 27 H 26 H 32 H Blood Pressure 120/60 Pulse Oximetry 82 L 88 L 100 05/21/20 16:41 05/21/20 16:45 05/21/20 16:50 Temperature Pulse Rate 60 67 62 Respiratory Rate 28 H 23 Blood Pressure 102/64 108/65 Pulse Oximetry 97 98 05/21/20 16:55 05/21/20 17:00 05/21/20 17:05 Temperature Pulse Rate 79 65 64 Respiratory Rate 17 18 27 H Blood Pressure 111/65 Pulse Oximetry 05/21/20 17:30 Temperature 97.7 F Pulse Rate 59 L Respiratory Rate 18 Blood Pressure 95/66 Pulse Oximetry 99 Oxygen Delivery Method Room Air Oxygen Flow Rate 0 Narrative Exam Narrative: GENERAL APPEARANCE: Well developed, well nourished, in no acute distress. SKIN: Inspection of the skin reveals no rashes, ulcerations or petechiae. HEENT: Normocephalic atraumatic, extraocular muscles are intact, oropharynx is clear and mucous membranes are mildly dry, neck is supple without adenopathy NECK: Supple and symmetric. There was no thyroid enlargement, and no tenderness, or masses were felt. CHEST: Normal AP diameter and normal contour without any kyphoscoliosis. LUNGS: Auscultation of the lungs revealed no wheezes, rhonchi, or rales. CARDIOVASCULAR: There was a regular rate and rhythm without any murmurs, gallops, rubs. Peripheral pulses were 2+ and symmetric. ABDOMEN: Soft and nontender with normal bowel sounds. No ascites was noted. MUSCULOSKELETAL: There was no tenderness or effusions noted. Muscle strength and tone were normal. EXTREMITIES: No cyanosis, clubbing or edema. NEUROLOGIC: Alert and oriented x 3. Normal affect. Strength is +5/5 in the Upper Extremities and Lower Extremities Bilaterally. Sensation to touch was normal. Objective Labs Result Diagrams: 05/21/20 13:35 05/21/20 16:38 Labs: Laboratory Results - last 24 hr 05/21/20 05/21/20 05/21/20 13:35 13:35 13:35 WBC 6.0 RBC 3.97 L Hgb 11.7 L Hct 36.0 MCV 90.7 MCH 29.5 MCHC 32.5 RDW 12.3 Plt Count 241 Neut % (Auto) 70.4 Lymph % (Auto) 23.6 L [place] % (Auto) 4.8 Eos % (Auto) 0.7 L Baso % (Auto) 0.5 Neut # (Auto) 4200 Lymph # (Auto) 1400 [place] # (Auto) 300 Eos # (Auto) 0 Baso # (Auto) 0 VBG pH VBG pCO2 VBG pO2 VBG HCO3 VBG Total CO2 VBG O2 Saturation VBG Base Excess Sodium 125 L Potassium 3.9 Chloride 88 L Carbon Dioxide 26 BUN 33 H Creatinine 1.92 H Estimated GFR 25.7 L BUN/Creatinine Ratio 17.2 Glucose 741 H* Lactate Calcium 8.8 Total Bilirubin 0.6 AST 39 H ALT 36 H Alkaline Phosphatase 107 Total Protein 8.1 Albumin 4.2 Globulin 3.9 Albumin/Globulin Ratio 1.1 Procalcitonin < 0.05 Urine Color Urine Appearance Urine pH Ur Specific [place] Urine Protein Urine Glucose (UA) Urine Ketones Urine Occult Blood Urine Nitrate Urine Bilirubin Urine Urobilinogen Ur Leukocyte Esterase Urine RBC Urine WBC Urine Bacteria Ur Culture Indicated? Ketones 0.14 SARS-CoV-2 (PCR) 05/21/20 05/21/2021 13:35 13:52 14:10 WBC RBC Hgb Hct MCV MCH MCHC RDW Plt Count Neut % (Auto) Lymph % (Auto) [place] % (Auto) Eos % (Auto) Baso % (Auto) Neut # (Auto) Lymph # (Auto) [place] # (Auto) Eos # (Auto) Baso # (Auto) VBG pH 7.33 VBG pCO2 50.4 H VBG pO2 25 L VBG HCO3 27 VBG Total CO2 28 VBG O2 Saturation 40 L VBG Base Excess 1.0 Sodium Potassium Chloride Carbon Dioxide BUN Creatinine Estimated GFR BUN/Creatinine Ratio Glucose Lactate 3.7 H Calcium Total Bilirubin AST ALT Alkaline Phosphatase Total Protein Albumin Globulin Albumin/Globulin Ratio Procalcitonin Urine Color Urine Appearance Urine pH Ur Specific [place] Urine Protein Urine Glucose (UA) Urine Ketones Urine Occult Blood Urine Nitrate Urine Bilirubin Urine Urobilinogen Ur Leukocyte Esterase Urine RBC Urine WBC Urine Bacteria Ur Culture Indicated? Ketones SARS-CoV-2 (PCR) Negative 05/21/20 05/21/20 05/21/20 14:45 15:09 16:30 WBC RBC Hgb Hct MCV MCH MCHC RDW Plt Count Neut % (Auto) Lymph % (Auto) [place] % (Auto) Eos % (Auto) Baso % (Auto) Neut # (Auto) Lymph # (Auto) [place] # (Auto) Eos # (Auto) Baso # (Auto) VBG pH VBG pCO2 VBG pO2 VBG HCO3 VBG Total CO2 VBG O2 Saturation VBG Base Excess Sodium Potassium Chloride Carbon Dioxide BUN Creatinine Estimated GFR BUN/Creatinine Ratio Glucose 613 H* Lactate 1.3 Calcium Total Bilirubin AST ALT Alkaline Phosphatase Total Protein Albumin Globulin Albumin/Globulin Ratio Procalcitonin Urine Color Yellow Urine Appearance Clear Urine pH 6.0 Ur Specific [place] 1.010 Urine Protein Negative Urine Glucose (UA) 3+ H Urine Ketones Negative Urine Occult Blood Trace-intact Urine Nitrate Negative Urine Bilirubin Negative Urine Urobilinogen 0.2 Ur Leukocyte Esterase Trace H Urine RBC 1-5/hpf Urine WBC 5-10/hpf H Urine Bacteria None seen Ur Culture Indicated? Specimen cultured Ketones SARS-CoV-2 (PCR) 05/21/20 16:38 WBC RBC Hgb Hct MCV MCH MCHC RDW Plt Count Neut % (Auto) Lymph % (Auto) [place] % (Auto) Eos % (Auto) Baso % (Auto) Neut # (Auto) Lymph # (Auto) [place] # (Auto) Eos # (Auto) Baso # (Auto) VBG pH VBG pCO2 VBG pO2 VBG HCO3 VBG Total CO2 VBG O2 Saturation VBG Base Excess Sodium Potassium Chloride Carbon Dioxide BUN Creatinine Estimated GFR BUN/Creatinine Ratio Glucose 525 H* Lactate Calcium Total Bilirubin AST ALT Alkaline Phosphatase Total Protein Albumin Globulin Albumin/Globulin Ratio Procalcitonin Urine Color Urine Appearance Urine pH Ur Specific [place] Urine Protein Urine Glucose (UA) Urine Ketones Urine Occult Blood Urine Nitrate Urine Bilirubin Urine Urobilinogen Ur Leukocyte Esterase Urine RBC Urine WBC Urine Bacteria Ur Culture Indicated? Ketones SARS-CoV-2 (PCR) Assessment & Plan Assessment & Plan narrative: Rebecca Talamantes is a 69 year old female with a past medical history of hypertension, type 2 diabetes, hyperlipidemia, osteoporosis, and GERD who presented with dizziness and blurry vision since this morning. For the past 3-4 days she has also had polyuria and polydipsia, generalized malaise and fatigue. She was admitted for probable HHS. 1. Type 2 diabetes with hyperglycemia, probable HHS, present on admission -patient presents with dizziness and blurry vision since this morning, she had only recently restarted taking her medications and does state that she had started 30 units of Lantus at night approximately 3-4 days ago per her PCP recommendations after blood work was done. She had not been taking metformin. Despite the addition of Lantus, she has similar elevated glucoses today. -patient was given 10 units of regular insulin in the ER with subsequent improvement in her sugars into the 500s. Will resume her 30 units of Lantus tonight. Have added medium dose sliding scale coverage as well. Suspect she will need some mealtime coverage. -patient was adequately rehydrated with 2 L of normal saline. 2. Possible acute on chronic kidney failure, chronic stage 3, present on admission -suspect in the setting of dehydration from hyperglycemia. Creatinine of 1.9 was also present a week ago, this may be indicative a new baseline given that she was off of medications while in the [facility]. -will check a urine protein creatinine ratio -will hold home blood pressure medications at this time, including diuretics and Arb, pending further trending of her creatinine. 3. Elevated lactate, resolved -likely secondary to dehydration from HHS, exacerbated by her home blood pressure medications including a diuretic and Arb. Another possibility, although very low likelihood, is that her blood pressures were low due to her possible acute cystitis. -resolved after 2 L of fluids given in the ER, will continue fluids overnight at 100 cc of normal saline. No acidosis on labs. 4. Hypertension, chronic -will hold home medications as noted above, if there is improvement in her creatinine can restart her home losartan. Would continue to hold diuretic until sugars are improved. 5. Hyperlipidemia, chronic -continue home medications 6. GERD, chronic -continue home pantoprazole 7. Possible acute cystitis -patient presents with no complaints of dysuria but has had urinary frequency although this may be related to her hyperglycemia. UA is positive with 5-10 white blood cells and was sent for culture. Will continue ceftriaxone out of an abundance of precaution, low threshold to discontinue if cultures are negative. treat x3 days unless cultures negative before then. Code: Full Dispo: Admitted under observation status, expect discharge tomorrow if symptomatically improved DVT: Lovenox daily COVID-19 COVID-19 status: Negative Quality VTE Deep Vein Thrombosis/Pulmonary Embolism Present on Admission: No
[2020-05-21 19:57] LABS: Creatinine Urine Random 66.2 mg/dL
[2020-05-21 20:40] LABS: Protein (Total) Urine Random 15 mg/dL (0-12); Protein Creatinine Ratio Urine 0.22 GRAM/24H
[2020-05-21] MEDS: INSULIN ASPART 100 UNIT/ML INSULN PEN SUBCUT (21:27)
[2020-05-21] MEDS: INSULIN GLARGINE 100 UNIT/ML 3ML PEN 30 UNIT SUBCUT (21:29)
[2020-05-21] MEDS: ACETAMINOPHEN 325 MG TABLET 650 MG PO (21:31)
--- NOTE | 2020-05-21 22:03 | PC.NURSE ---
Admission: Patient arrived via stretcher from ED @ 1720, ambulates without assistive device. No hx of falls. AxOx3, can make needs known. Partial medication reconciliation done, [facility] notified that patient has a history of medications but has not had any of them recently filled or updated since trip to [facility]. Fall risk and safety education given, call light in reach, bed alarm active.
[2020-05-22] VITALS: BP 100/54; PULSE 60; RESP 18; TEMP 36.7; O2SAT 94
[2020-05-22 03:03] VITALS: O2SAT 94
[2020-05-22 05:00] VITALS: BP 113/69; PULSE 59; RESP 18; TEMP 36.9; O2SAT 99
[2020-05-22 06:06] LABS: Add Manual Diff / Slide Review NO; Basophils Absolute Auto 0 /uL (0-100); Basophils Percent Auto 0.4 % (0-2); Eosinophils Absolute Auto 100 /uL (0-450); Hematocrit 33.1 % (36-46); Lymphocytes Absolute Auto 2600 /uL (1100-4500); Lymphocytes Percent Auto 40.5 % (25-40); Mean Corpuscular HGB Conc 33.2 % (30-36); Mean Corpuscular Hemoglobin 29.5 PG (26-34); Mean Corpuscular Volume 88.7 fL (80-100); Monocytes Absolute Auto 400 /uL (0-900); Monocytes Percent Auto 5.7 % (3-14); Neutrophils Absolute Auto 3300 /uL (1500-7000); Neutrophils Percent Auto 52.4 % (50-75); Platelet Count 222 X10^3/uL (150-400); Red Blood Cell Count 3.73 X10^6/uL (4.0-5.2); Red Cell Distribution Width 12.4 % (11.6-14.8); White Blood Cell Count 6.4 X10^3/uL (4.5-11.0)
[2020-05-22 06:16] LABS: BUN Creatinine Ratio 19.5 (6-22); Blood Urea Nitrogen 24 mg/dL (7-17); Calcium 8.8 mg/dL (8.4-10.2); Carbon Dioxide 29 mmol/L (22-32); Chloride 103 mmol/L (98-107); Glucose 143 mg/dL (80-110); HEMOLYSIS < 15 (0-50); Magnesium 2.3 mg/dL (1.6-2.3); Sodium 136 mmol/L (137-145)
[2020-05-22 08:00] VITALS: BP 145/77; PULSE 66; RESP 18; TEMP 36.7; O2SAT 100
[2020-05-22] MEDS: INSULIN ASPART 100 UNIT/ML INSULN PEN SUBCUT ×2 (08:19→12:02)
[2020-05-22] MEDS: ASPIRIN EC 81 MG TABLET PO (08:21)
[2020-05-22] MEDS: PANTOPRAZOLE 40 MG TABLET PO (08:22)
--- NOTE | 2020-05-22 10:26 | P.DS_ITS ---
History of Present Illness History of Present Illness Date Patient Seen: 05/22/20 Time Patient Seen: 09:15 Chief complaint: mouth dry,dizzy Narrative: Rebecca Talamantes is a 69 year old female with a past medical history of hypertension, type 2 diabetes, hyperlipidemia, osteoporosis, and GERD who presented with dizziness and blurry vision since this morning. For the past 3-4 days she has also had polyuria and polydipsia, generalized malaise and fatigue. Patient had been in the [facility] secondary to travel restrictions starting in June of last year. She only recently returned to the [facility] and had to quarantine, and she did not have access to her medications. Patient went to see her primary care doctor, Dr. Barr, who refilled some of her medications but to check blood work. Patient reports that her office called and sent her prescription for insulin which she has been taking 30 units nightly, and she had stopped metformin per their recommendations. In the emergency room, patient was mildly hypotensive but this improved with fluids. Remainder of her vital signs were unremarkable. Initial CBC was unremarkable except for a mild normocytic anemia with a hemoglobin of 11.7. VBG was unremarkable. Chemistries revealed a sodium of 125, although this corrects to normal when considering her glucose on admission was 741. She had labs done about a week ago after her PCP visit with similar lab values. Creatinine was also elevated at 1.92, also similar from these previous values. Procalcitonin was negative. Urinalysis shows 5-10 white blood cells per high-powered field, glucose, and leuk esterase but negative nitrites. Specimen was sent for culture. Ketone levels were within normal limits. COVID-19 testing was negative. EKG showed normal sinus rhythm. Chest x-ray was unremarkable. Given the patient's hypotension and lactic acid of 3.4, she was admitted under observation for sepsis rule out from a possible UTI, but more likely HHS. Discharge Providers Provider Date of admission: 05/21/20 16:33 Discharge Date: 05/22/20 Primary care physician: Yvonne Barr MD Consults: 05/21/20 18:34 Consult to Dietitian, Adult Routine Comment: Reason For Exam: uncontrolled DM Discharge provider: Ancelmo Weir DO Summary Hospital Course Hospital Course: Rebecca Talamantes is a 69 year old female with a past medical history of hypertension, type 2 diabetes, hyperlipidemia, osteoporosis, and GERD who presented with dizziness and blurry vision. For the past 3-4 days she also had polyuria and polydipsia, generalized malaise and fatigue. She was admitted for probable HHS, dehydration, and acute kidney injury. Improved fairly quickly after fluids, carb controlled diet, and resuming of insulin. Discharged home the following morning. 1. Type 2 diabetes with hyperglycemia, probable HHS, present on admission -patient presented with dizziness and blurry vision since the morning of her admission, she had only recently restarted taking her medications and does state that she had started 30 units of Lantus at night approximately 3-4 days pre viously per her PCP recommendations after blood work was done. She had not been taking metformin. Despite the addition of Lantus, she has similar elevated glucoses today. -patient was given 10 units of regular insulin in the ER with subsequent improvement in her sugars into the 500s. Resumed lantus 30 with controlled glucose the following morning. Given improvement suspect increased carbohydrate intake at home. Patient was seen by photoengraving etcher apprentice prior to discharge. -patient was adequately rehydrated with 2 L of normal saline. -safe to resume metformin on discharge with improvement in Creatinine to near baseline. Would hold glipizide to reduce risk of hypoglycemia. 2. acute on chronic kidney failure, chronic stage 3, present on admission -suspect in the setting of dehydration from hyperglycemia. Creatinine of 1.9 on admission was also present a week ago but improved tto 1.2 with above fluids and improvement in blood sugars. -UPC 0.22 -safe to resume home BP medications on discharge with improvement in Cr. 3. Elevated lactate, resolved -likely secondary to dehydration from HHS, exacerbated by her home blood pressure medications including a diuretic and Arb. -resolved after 2 L of fluids given in the ER, will continue fluids overnight at 100 cc of normal saline. No acidosis on labs. 4. Hypertension, chronic -will hold home medications as noted above, if there is improvement in her creatinine can restart her home losartan. Would continue to hold diuretic until sugars are improved. 5. Hyperlipidemia, chronic -continue home medications 6. GERD, chronic -continue home pantoprazole 7. asymptomatic bacteruria. -patient presents with no complaints of dysuria but has had urinary frequency although this may be related to her hyperglycemia. UA was positive with 5-10 w becka blood cells and was sent for culture which grew gram negative bacteria, but only 10-20K / hpf. Given one dose of ceftriaxone given admission complaint of frequency and + UA. No further antibiotics recommended. Code: Full Dispo: Admitted under observation status, expect discharge tomorrow if symptomatically improved DVT: Lovenox daily Exam Vital Signs (past 8 hours): - 05/22/20 03:03 05/22/20 05:00 05/22/20 08:00 Temperature 98.5 F 98.0 F Pulse Rate 59 L 66 Respiratory Rate 18 18 Blood Pressure 113/69 145/77 H Pulse Oximetry 94 99 100 Oxygen Delivery Method Room Air Oxygen Flow Rate 0 Narrative Exam Narrative: GENERAL APPEARANCE: Well developed, well nourished, in no acute distress. SKIN: Inspection of the skin reveals no rashes, ulcerations or petechiae. HEENT: Normocephalic atraumatic, extraocular muscles are intact, oropharynx is clear and mucous membranes are mildly dry, neck is supple without adenopathy NECK: Supple and symmetric. There was no thyroid enlargement, and no tenderness, or masses were felt. CHEST: Normal AP diameter and normal contour without any kyphoscoliosis. LUNGS: Auscultation of the lungs revealed no wheezes, rhonchi, or rales. CARDIOVASCULAR: There was a regular rate and rhythm without any murmurs, gallops, rubs. Peripheral pulses were 2+ and symmetric. ABDOMEN: Soft and nontender with normal bowel sounds. No ascites was noted. MUSCULOSKELETAL: There was no tenderness or effusions noted. Muscle strength and tone were normal. EXTREMITIES: No cyanosis, clubbing or edema. NEUROLOGIC: Alert and oriented x 3. Normal affect. Strength is +5/5 in the Upper Extremities and Lower Extremities Bilaterally. Sensation to touch was normal. Objective Labs Result Diagrams: 05/22/20 05:32 05/22/20 05:32 Labs: Laboratory Results - last 24 hr 05/21/20 05/21/20 05/21/20 13:35 13:35 13:35 WBC 6.0 RBC 3.97 L Hgb 11.7 L Hct 36.0 MCV 90.7 MCH 29.5 MCHC 32.5 RDW 12.3 Plt Count 241 Neut % (Auto) 70.4 Lymph % (Auto) 23.6 L [place] % (Auto) 4.8 Eos % (Auto) 0.7 L Baso % (Auto) 0.5 Neut # (Auto) 4200 Lymph # (Auto) 1400 [place] # (Auto) 300 Eos # (Auto) 0 Baso # (Auto) 0 VBG pH VBG pCO2 VBG pO2 VBG HCO3 VBG Total CO2 VBG O2 Saturation VBG Base Excess Sodium 125 L Potassium 3.9 Chloride 88 L Carbon Dioxide 26 BUN 33 H Creatinine 1.92 H Estimated GFR 25.7 L BUN/Creatinine Ratio 17.2 Glucose 741 H* Lactate Calcium 8.8 Magnesium Total Bilirubin 0.6 AST 39 H ALT 36 H Alkaline Phosphatase 107 Total Protein 8.1 Albumin 4.2 Globulin 3.9 Albumin/Globulin Ratio 1.1 Procalcitonin < 0.05 TSH Urine Color Urine Appearance Urine pH Ur Specific [place] Urine Protein Urine Glucose (UA) Urine Ketones Urine Occult Blood Urine Nitrate Urine Bilirubin Urine Urobilinogen Ur Leukocyte Esterase Urine RBC Urine WBC Urine Bacteria Ur Culture Indicated? U Random Total Protein Urine Creatinine Protein/Creatinin Ratio Ketones 0.14 SARS-CoV-2 (PCR) 05/21/20 05/21/20 05/21/20 13:35 13:52 14:10 WBC RBC Hgb Hct MCV MCH MCHC RDW Plt Count Neut % (Auto) Lymph % (Auto) [place] % (Auto) Eos % (Auto) Baso % (Auto) Neut # (Auto) Lymph # (Auto) [place] # (Auto) Eos # (Auto) Baso # (Auto) VBG pH 7.33 VBG pCO2 50.4 H VBG pO2 25 L VBG HCO3 27 VBG Total CO2 28 VBG O2 Saturation 40 L VBG Base Excess 1.0 Sodium Potassium Chloride Carbon Dioxide BUN Creatinine Estimated GFR BUN/Creatinine Ratio Glucose Lactate 3.7 H Calcium Magnesium Total Bilirubin AST ALT Alkaline Phosphatase Total Protein Albumin Globulin Albumin/Globulin Ratio Procalcitonin TSH Urine Color Urine Appearance Urine pH Ur Specific [place] Urine Protein Urine Glucose (UA) Urine Ketones Urine Occult Blood Urine Nitrate Urine Bilirubin Urine Urobilinogen Ur Leukocyte Esterase Urine RBC Urine WBC Urine Bacteria Ur Culture Indicated? U Random Total Protein Urine Creatinine Protein/Creatinin Ratio Ketones SARS-CoV-2 (PCR) Negative 05/21/20 05/21/20 05/21/20 14:45 15:09 16:30 WBC RBC Hgb Hct MCV MCH MCHC RDW Plt Count Neut % (Auto) Lymph % (Auto) [place] % (Auto) Eos % (Auto) Baso % (Auto) Neut # (Auto) Lymph # (Auto) [place] # (Auto) Eos # (Auto) Baso # (Auto) VBG pH VBG pCO2 VBG pO2 VBG HCO3 VBG Total CO2 VBG O2 Saturation VBG Base Excess Sodium Potassium Chloride Carbon Dioxide BUN Creatinine Estimated GFR BUN/Creatinine Ratio Glucose 613 H* Lactate 1.3 Calcium Magnesium Total Bilirubin AST ALT Alkaline Phosphatase Total Protein Albumin Globulin Albumin/Globulin Ratio Procalcitonin TSH Urine Color Yellow Urine Appearance Clear Urine pH 6.0 Ur Specific [place] 1.010 Urine Protein Negative Urine Glucose (UA) 3+ H Urine Ketones Negative Urine Occult Blood Trace-intact Urine Nitrate Negative Urine Bilirubin Negative Urine Urobilinogen 0.2 Ur Leukocyte Esterase Trace H Urine RBC 1-5/hpf Urine WBC 5-10/hpf H Urine Bacteria None seen Ur Culture Indicated? Specimen cultured U Random Total Protein Urine Creatinine Protein/Creatinin Ratio Ketones SARS-CoV-2 (PCR) 05/21/20 05/21/20 05/22/20 16:38 16:45 05:32 WBC 6.4 RBC 3.73 L Hgb 11.0 L Hct 33.1 L MCV 88.7 MCH 29.5 MCHC 33.2 RDW 12.4 Plt Count 222 Neut % (Auto) 52.4 Lymph % (Auto) 40.5 H [place] % (Auto) 5.7 Eos % (Auto) 1.0 L Baso % (Auto) 0.4 Neut # (Auto) 3300 Lymph # (Auto) 2600 [place] # (Auto) 400 Eos # (Auto) 100 Baso # (Auto) 0 VBG pH VBG pCO2 VBG pO2 VBG HCO3 VBG Total CO2 VBG O2 Saturation VBG Base Excess Sodium Potassium Chloride Carbon Dioxide BUN Creatinine Estimated GFR BUN/Creatinine Ratio Glucose 525 H* Lactate Calcium Magnesium Total Bilirubin AST ALT Alkaline Phosphatase Total Protein Albumin Globulin Albumin/Globulin Ratio Procalcitonin TSH Urine Color Urine Appearance Urine pH Ur Specific [place] Urine Protein Urine Glucose (UA) Urine Ketones Urine Occult Blood Urine Nitrate Urine Bilirubin Urine Urobilinogen Ur Leukocyte Esterase Urine RBC Urine WBC Urine Bacteria Ur Culture Indicated? U Random Total Protein 15 H Urine Creatinine 66.2 Protein/Creatinin Ratio 0.22 Ketones SARS-CoV-2 (PCR) 05/22/20 05/22/20 05:32 05:32 WBC RBC Hgb Hct MCV MCH MCHC RDW Plt Count Neut % (Auto) Lymph % (Auto) [place] % (Auto) Eos % (Auto) Baso % (Auto) Neut # (Auto) Lymph # (Auto) [place] # (Auto) Eos # (Auto) Baso # (Auto) VBG pH VBG pCO2 VBG pO2 VBG HCO3 VBG Total CO2 VBG O2 Saturation VBG Base Excess Sodium 136 L D Potassium 4.0 Chloride 103 Carbon Dioxide 29 BUN 24 H Creatinine 1.23 H Estimated GFR 43.0 L BUN/Creatinine Ratio 19.5 Glucose 143 H D Lactate Calcium 8.8 Magnesium 2.3 Total Bilirubin AST ALT Alkaline Phosphatase Total Protein Albumin Globulin Albumin/Globulin Ratio Procalcitonin TSH 1.80 Urine Color Urine Appearance Urine pH Ur Specific [place] Urine Protein Urine Glucose (UA) Urine Ketones Urine Occult Blood Urine Nitrate Urine Bilirubin Urine Urobilinogen Ur Leukocyte Esterase Urine RBC Urine WBC Urine Bacteria Ur Culture Indicated? U Random Total Protein Urine Creatinine Protein/Creatinin Ratio Ketones SARS-CoV-2 (PCR) PFSH Medical History Cerebrovascular accident Diabetes Diabetes type 2, uncontrolled GERD (gastroesophageal reflux disease) Glaucoma, left eye Hyperlipidemia Hypertension Hypertension Osteoporosis Surgical History History of section Social History household members: family Smoking Status: Never smoker alcohol intake: never substance use type: does not use Discharge Plan Discharge Plan Patient Disposition: Home Provider Discharge Comment: You were admitted to the hospital with high blood sugars. This improved with insulin and a carb controlled diet. You were seen by the drill press tender to go over carbohydrate consistent diets. Your kidney function improved with fluids and improved blood sugars, I believe you are safe to resume your metformin. Please follow up with Dr. Barr in the next 1-2 weeks. Discharge orders & Medications Prescriptions: Continued losartan-hydrochlorothiazide 100 MG/25 MG tablet 1 tab PO QDAY Qty: 0 RF: 0 cholecalciferol (vitamin D3) [Vitamin D3] 2,000 UNIT capsule 2,000 unit PO QDAY Qty: 0 RF: 0 calcium carbonate 600 MG tablet 600 mg PO QDAY Qty: 0 RF: 0 Basaglar KwikPen U-100 Insulin 100 unit/mL (3 mL) insulin pen 30 unit SUBCUT BEDTIME RF: 0 atorvastatin 20 mg tablet 20 mg PO QPM RF: 0 metformin 1,000 mg tablet 1 tab PO BID RF: 0 alendronate 70 mg tablet 70 mg PO QWEEK RF: 0 pantoprazole 40 mg tablet,delayed release (DR/EC) 40 mg PO DAILY RF: 0 timolol maleate 0.5 % drops 1 drp OPHTHALMIC (EYE) DIRECTED RF: 0 aspirin 81 mg Tablet,Delayed Release (Dr/Ec) 81 mg PO DAILY Qty: 30 RF: 0 Follow up/Referrals: Yvonne Barr MD [Primary Care Provider] - 2 Weeks Diet/Activity/Treatments Diet: Diet as Tolerated and Carb-consistent/Diabetic Activity: As tolerated Visit Report/Discharge Packet Instructions: DI for Diabetes Type 2 Discharge Data Primary Care Provider: Yvonne Barr Attending Provider: Ancelmo Weir VTE Deep Vein Thrombosis/Pulmonary Embolism Present on Admission: No
--- NOTE | 2020-05-22 12:30 | DIET.PN ---
Dietary Progress Note Assessment: 69y [place] female c pmhx of DM2, HTN, HLD, osteoporosis, GERD admitted for uncontrolled DM2 and acute kidney injury referred to nutrition for the same. Pt got stuck visiting family in the [facility] during global pandemic, what should have been 3mo was over 6mo which was difficult for her as majority of her family [place]. Pt did not have DM supplies upon return to [place] in March 2020 and admitted c sx of hyperglycemia including dizziness, blurry vision, polyuria, polydipsea, fatigue c admit BG 741 and A1c 13.7. Pt reports no formal DM education but would prefer to receive education IP with handouts to use at home rather than DSME at this time. Pt agrees to start DSME if BG remains uncontrolled. Pt reports drinking a variety of beverages including soda secondary to her excessive thirst and urination. Pt says she is on a diet and doesn't want to come back to the hospital again for this. Usual Day: B: packet oatmeal, lemon tea L: pb sandwich on white bread, water D: salad HT: 149.6cm WT: 62.4kg BMI: 27.8 Labs: A1c 13.7, admit BG 741, post-insulin tx 140, eGFR 25.7 trending up, Cr 1.92 trending down Nutrition Diagnosis: altered nutrition related laboratory values (BG, A1c) r/t medication non-compliance and dietary indescretions aeb A1c 13.7, admit BG 741, pt recently [place] without DM medication, pt consuming high carb beverages c sx of polyuria and polydipsea. Interventions: 1. Provided pt Carb Counting for people c DM2 handout. Worked through handout c pt answering questions as we went. Pt agrees to limit her intake of sugar-sweetened beverages and desserts and moderate portions of noodles and bread. Pt does not eat rice. Diet Order: CCD3 EER: 30-45g CHO c meals Monitoring/Evaluations: Recc pt be referred to DSME if A1c >8 in 3mo
--- NOTE | 2020-05-22 14:40 | CM.IDA ---
Initial DCP Assessment Note Pt is a 69 yo female, resident of [place], patient presents to the ED w/dry mouth, extreme and persistent thirst and dizziness, admitted for uncontrolled DM2 and acute kidney injury; patient recently stuck in the [facility] visiting family, d/t COVID-19 pandemic, and did not have access to usual medical care and medications PCP: Yvonne Barr Payer: Griselda JANE Reviewed chart, pt discussed in multidisciplinary rounds this morning. Dr Weir has discharged patient home today after dietary consult, patient medically cleared. Patient eager to return home, up ambulating in room, no needs from this [employer]. Home w/family today, close outpatient f/u recommended DANISH Tao
== END 2020-05-22 12:50 | disposition home or self-care (01) ==
LOC: ED 16:17 → AC 16:34
PROVIDERS: Admitting Provider Internal Medicine; Emergency Provider Emergency Medicine; PCP Internal Medicine; Referring Provider Emergency Medicine; Visit Provider Internal Medicine
DX: E11.65 Type 2 diabetes mellitus with hyperglycemia (principal); R42 Dizziness and giddiness; E86.0 Dehydration; R74.02 Elevation of levels of lactic acid dehydrogenase [LDH]; E78.5 Hyperlipidemia, unspecified; I10 Essential (primary) hypertension; K21.9 Gastro-esophageal reflux disease without esophagitis; E11.9 Type 2 diabetes mellitus without complications; Z79.4 Long term (current) use of insulin; Z20.822 Contact with and (suspected) exposure to COVID-19
CPT/HCPCS: 36415; 71045; 80048; 80053; 81001; 82009; 82570; 82805; 82947; 82962; 83605; 83735; 84145; 84156; 84443; 85025; 87040; 87077; 87086; 87186; 87635; 93005; 96361; 96365; 96372; 99284; C9803; G0378

== ENCOUNTER 2020-08-14 09:15 | Emergency (ER) | payer OTHER, SELFPAY ==
[2020-05-21 16:47] VITALS: BMI 27.8
[2020-08-14] VITALS (11 sets, daily range): BP systolic 136–161; BP diastolic 75–87; PULSE 57–68; RESP 15–24; TEMP 37.2; O2SAT 98–99; BMI 29.9
--- NOTE | 2020-08-14 09:37 | DI.RAD.S_ITS ---
PROCEDURE: XR CHEST 2V INDICATIONS: dizzy TECHNIQUE: 2 views of the chest were acquired. COMPARISON: [facility], CR, XR CHEST 1V, 05/21/2020, 14:20. FINDINGS: Surgical changes and devices: None. Lungs and pleura: Lungs are clear. No pleural effusions or pneumothorax. Mediastinum: Mediastinal contours are normal. Heart size is normal. Bones and chest wall: No suspicious bony abnormalities. Soft tissues appear unremarkable. IMPRESSION: No acute cardiopulmonary abnormalities. No focal consolidation. Dictated by: Rosas Sales M.D. on 08/14/2020 at 9:37 Approved by: Rosas Sales M.D. on 08/14/2020 at 9:38
[2020-08-14 09:50] LABS: Add Manual Diff / Slide Review NO; Basophils Absolute Auto 0 /uL (0-100); Basophils Percent Auto 0.4 % (0-2); Eosinophils Absolute Auto 100 /uL (0-450); Eosinophils Percent Auto 1.8 % (2-4); Hematocrit 33.2 % (36-46); Hemoglobin 11.1 g/dL (12.0-16.0); Lymphocytes Absolute Auto 1800 /uL (1100-4500); Lymphocytes Percent Auto 33.3 % (25-40); Mean Corpuscular HGB Conc 33.5 % (30-36); Mean Corpuscular Hemoglobin 30.2 PG (26-34); Mean Corpuscular Volume 90.1 fL (80-100); Monocytes Absolute Auto 300 /uL (0-900); Monocytes Percent Auto 6.4 % (3-14); Neutrophils Absolute Auto 3100 /uL (1500-7000); Neutrophils Percent Auto 58.1 % (50-75); Platelet Count 267 X10^3/uL (150-400); Prothrombin Time 11.1 SECONDS (10.1-12.7); Red Blood Cell Count 3.68 X10^6/uL (4.0-5.2); White Blood Cell Count 5.4 X10^3/uL (4.5-11.0)
[2020-08-14 09:54] LABS: Alanine Aminotransferase 23 IU/L (<35); Albumin 4.3 g/dL (3.5-5.0); Albumin Globulin Ratio 1.1 (1.0-2.8); Alkaline Phosphatase 65 U/L (38-126); Aspartate Aminotransferase 35 IU/L (14-36); BUN Creatinine Ratio 19.8 (6-22); Bilirubin Total 0.7 mg/dL (0.2-1.3); Blood Urea Nitrogen 21 mg/dL (7-17); Calcium 9.4 mg/dL (8.4-10.2); Carbon Dioxide 26 mmol/L (22-32); Chloride 103 mmol/L (98-107); Globulin 3.8 g/dL (1.7-4.1); Glucose 142 mg/dL (80-110); HEMOLYSIS < 15 (0-50); Potassium 3.8 mmol/L (3.4-5.1); Sodium 138 mmol/L (137-145); Total Protein 8.1 g/dL (6.3-8.2)
--- NOTE | 2020-08-14 09:58 | ED.DIZZY ---
HPI - Dizziness General Chief Complaint: Dizziness Stated Complaint: dizzy/headaches Time Seen by Provider: 08/14/20 09:44 Source: patient, family and old records reviewed Mode of arrival: Ambulatory Limitations: no limitations History of Present Illness HPI Narrative: This is a 70-year-old female comes to the emergency department with complaint of dizziness that started yesterday which is worsened today. She describes just feeling off balance. She denies any other vertigo type symptoms such as the room spinning. Patient has not had any acute vision changes she states that she is in the process of having her glasses prescription changed. She states that she has a headache today she did have chest pain yesterday but does not have any today. She denies any difficulty with speech. She denies any chest pain or pressure today. She has some had some mild shortness of breath. Patient denies any nausea, no vomiting, no issues such as diarrhea constipation she has not had any urinary symptoms. She has noticed that her legs feel little heavier today. She denies any numbness, tingling or weakness in general. Patient does have diabetes, hypertension, dyslipidemia and a daily aspirin. Patient denies any prior surgeries. No allergies to medications. No tobacco, alcohol or illicit. Her primary care is Dr. Yvonne Barr. Patient states she was diagnosed with a stroke last time she was here but according to her discharge summary with probable HHS from her diabetes an asymptomatic bacteriuria. Related Data Home Medications Medication Instructions Recorded Confirmed losartan-hydrochlorothiazide 1 tab PO QDAY #0 09/24/16 05/21/20 calcium carbonate 600 mg PO QDAY #0 03/10/17 05/22/20 cholecalciferol (vitamin D3) 2,000 unit PO QDAY #0 03/10/17 05/22/20 [Vitamin D3] atorvastatin 20 mg PO QPM 12/02/17 05/22/20 metformin 1 tab PO BID 12/02/17 05/22/20 alendronate 70 mg PO QWEEK 12/29/18 05/22/20 pantoprazole 40 mg PO DAILY 12/29/18 05/21/20 timolol maleate 1 drp OPHTHALMIC (EYE) DIRECTED 12/29/18 05/22/20 Basagltori Dee U-100 Insulin 30 unit SUBCUT BEDTIME 05/22/20 05/22/20 Previous Rx's Medication Instructions Recorded aspirin 81 mg PO DAILY #30 tab 12/31/18 meclizine 50 mg PO TID PRN #20 tab 08/14/20 Allergies Allergy/AdvReac Type Severity Reaction Status Date / Time No Known Drug Allergies Allergy Verified 08/14/20 09:37 Review of Systems Review of Systems ROS Unobtainable: All systems reviewed & are unremarkable except as noted in HPI and below Patient History Medical History (Updated 08/14/20 @ 11:12 by Shanell Peralta DO) Cerebrovascular accident Diabetes Diabetes type 2, uncontrolled GERD (gastroesophageal reflux disease) Glaucoma, left eye Hyperlipidemia Hypertension Hypertension Osteoporosis Surgical History History of section Social History household members: family Smoking Status: Never smoker alcohol intake: never substance use type: does not use Smoking Status: Never smoker alcohol intake frequency: 0-2 drinks per day Substance Use Type: does not use Exam Narrative Exam Narrative: GEN: well nourished, well appearing elderly female, alert and oriented x 3, patient appears to be in mild distress. HEENT: Atraumatic, pupils are equal round reactive to light, extraocular movements are intact, no nystagmus, nares are clear, TMs are clear with no fluid, there is no conjunctival pallor. Throat is clear without any exudates, erythema, tonsillar enlargement or uvular deviation HEART: Regular rate and rhythm without murmur, clicks, rubs. Pulses are equal in upper and lower extremities LUNGS:Lungs clear to auscultation, no wheezes, rales, crackles, chest moves symmetrically ABD:bowel sounds normal, soft, non-tender, no guarding, rebound, rigidity, no masses noted, no hepatosplenomegaly :No CVA tenderness MSCL: Non-tender, no muscle atrophy, muscles strength 5/5 upper and lower extremities, full range of motion NEURO:CN 2-12 intact, sensation normal except for possible difference on left cheek, reflexes 2/4 upper and lower extremities. finger nose finger test normal, heel andino test normal SKIN: No rash, no erythema or skin changes noted. Initial Vital Signs Initial Vital Signs: Vital Signs Temperature 98.9 F 08/14/20 09:17 Pulse Rate 63 08/14/20 09:17 Respiratory Rate 15 08/14/20 09:17 Blood Pressure 161/75 H 08/14/20 09:17 Pulse Oximetry 98 08/14/20 09:17 Scores GCS [place] coma scale eye opening: Spontaneous [place] coma scale verbal response: Orientated [place] coma scale motor response: Obey commands [place] coma scale total score: 15 NIH Stroke Scale Level of Conciousness: Alert, keenly responsive Ask month/age: Answers both questions correctly. Open/close eyes, close hand: Performs both tasks correctly Best gaze horizontal: Normal Visual cantu: No visual loss Facial palsy: Normal symetrical movement Left arm drift: No drift for full 10 sec Right arm drift: No drift for full 10 sec Left leg drift: No drift for full 5 sec Right leg drift: No drift for full 5 sec Limb ataxia: Absent Sensory on face/arms/legs: Normal, no sensory loss Best language: No aphasia, normal Dysarthria: Normal Extinction or inattention: No abnormality Total NIH Stroke scale score: 0 Course Orders Ordered: ED Orders 08/14/20 10:21 CT head/brain wo con Stat 08/14/20 10:29 CT angio head and neck Stat Discontinued Medications Acetaminophen (Acetaminophen 325 Mg Tablet) 650 mg PO NOW ONE Stop: 08/14/20 10:22 Last Admin: 08/14/20 10:50 Dose: 650 mg Documented by: CAMELIA Sodium Chloride (Normal Saline 0.9%) 1,000 mls @ 150 mls/hr IV CONT AUGUSTIN Last Infusion: 08/14/20 11:58 Dose: 0 mls/hr Documented by: Admin: 08/14/20 10:50 Dose: 150 mls/hr Documented by: CAMELIA Meclizine HCl (Meclizine Hcl 12.5 Mg Tablet) 50 mg PO NOW ONE Stop: 08/14/20 10:22 Last Admin: 08/14/20 10:51 Dose: 50 mg Documented by: CAMELIA Vital Signs Vital signs: Vital Signs - 8 hr 08/14/20 10:55 08/14/20 11:53 Pulse Rate 61 57 L Respiratory Rate 23 22 Blood Pressure 136/75 136/75 Pulse Oximetry 99 99 MDM - Dizziness Lab Data Attestation: I reviewed the patient's lab results. Result diagrams: 08/14/20 09:27 08/14/20 09:27 Labs: Lab Results 08/14/20 08/14/20 08/14/20 Range/Units 09:27 09:27 09:27 WBC 5.4 (4.5-11.0) X10^3/uL RBC 3.68 L (4.0-5.2) X10^6/uL Hgb 11.1 L (12.0-16.0) g/dL Hct 33.2 L (36-46) % MCV 90.1 (80-100) fL MCH 30.2 (26-34) PG MCHC 33.5 (30-36) % RDW 13.0 (11.6-14.8) % Plt Count 267 (150-400) X10^3/uL Neut % (Auto) 58.1 (50-75) % Lymph % (Auto) 33.3 (25-40) % [place] % (Auto) 6.4 (3-14) % Eos % (Auto) 1.8 L (2-4) % Baso % (Auto) 0.4 (0-2) % Neut # (Auto) 3100 (7533-8008) /uL Lymph # (Auto) 1800 (2964-2181) /uL [place] # (Auto) 300 (0-900) /uL Eos # (Auto) 100 (0-450) /uL Baso # (Auto) 0 (0-100) /uL PT 11.1 (10.1-12.7) SECONDS INR 1.0 (0.9-1.3) Sodium 138 (137-145) mmol/L Potassium 3.8 (3.4-5.1) mmol/L Chloride 103 (98-107) mmol/L Carbon Dioxide 26 (22-32) mmol/L BUN 21 H (7-17) mg/dL Creatinine 1.06 H (0.52-1.04) mg/dL Estimated GFR 51.0 L (>60) mL/min BUN/Creatinine Ratio 19.8 (6-22) Glucose 142 H (80-110) mg/dL Lactate (0.7-2.1) mmol/L Calcium 9.4 (8.4-10.2) mg/dL Total Bilirubin 0.7 (0.2-1.3) mg/dL AST 35 (14-36) IU/L ALT 23 (<35) IU/L Alkaline Phosphatase 65 (38-126) U/L Troponin I < 0.012 (0.01-0.034) ng/mL Total Protein 8.1 (6.3-8.2) g/dL Albumin 4.3 (3.5-5.0) g/dL Globulin 3.8 (1.7-4.1) g/dL Albumin/Globulin Ratio 1.1 (1.0-2.8) Lipase (23-300) U/L 08/14/20 08/14/20 Range/Units 09:27 09:27 WBC (4.5-11.0) X10^3/uL RBC (4.0-5.2) X10^6/uL Hgb (12.0-16.0) g/dL Hct (36-46) % MCV (80-100) fL MCH (26-34) PG MCHC (30-36) % RDW (11.6-14.8) % Plt Count (150-400) X10^3/uL Neut % (Auto) (50-75) % Lymph % (Auto) (25-40) % [place] % (Auto) (3-14) % Eos % (Auto) (2-4) % Baso % (Auto) (0-2) % Neut # (Auto) (1183-8271) /uL Lymph # (Auto) (1323-8137) /uL [place] # (Auto) (0-900) /uL Eos # (Auto) (0-450) /uL Baso # (Auto) (0-100) /uL PT (10.1-12.7) SECONDS INR (0.9-1.3) Sodium (137-145) mmol/L Potassium (3.4-5.1) mmol/L Chloride (98-107) mmol/L Carbon Dioxide (22-32) mmol/L BUN (7-17) mg/dL Creatinine (0.52-1.04) mg/dL Estimated GFR (>60) mL/min BUN/Creatinine Ratio (6-22) Glucose (80-110) mg/dL Lactate 1.0 (0.7-2.1) mmol/L Calcium (8.4-10.2) mg/dL Total Bilirubin (0.2-1.3) mg/dL AST (14-36) IU/L ALT (<35) IU/L Alkaline Phosphatase (38-126) U/L Troponin I (0.01-0.034) ng/mL Total Protein (6.3-8.2) g/dL Albumin (3.5-5.0) g/dL Globulin (1.7-4.1) g/dL Albumin/Globulin Ratio (1.0-2.8) Lipase 147 (23-300) U/L Urine Dip Bedside Urine Glucose Negative Bedside Urine Bilirubin - Negative Bedside Urine Ketone - Negative Urine Specific [place] 1.015 Bedside Urine Occult Blood - Negative Bedside Urine pH 7 Bedside Urine Protein - Negative Bedside Urine Urobilinogen - Negative Bedside Urine Nitrite - Negative Bedside Urine Leukocytes - Negative Esterase Imaging Data CTA - brain/neck: Radiologist's Impression: [address] [id number] Scan ReportSigned Patient: Rebecca Talamantes EMR#: [id number]: 9Acct:[id number]/Sex: 70 / FDate of Service: 08/14/20Loc: EDAccession Number: [id number] Procedure: CT angio head and neck Ordering Provider: Shanell Peralta D.O. PROCEDURE: CT ANGIO HEAD AND NECK INDICATIONS: dizziness, headache, diabetes TECHNIQUE: After the administration of intravenous contrast, 1 mm thick sections acquired from the aortic arch through the [place] of [place]. Post-contrast 4.5 mm thick sections then re-acquired from the foramen magnum to the vertex. 3-dimensional vxmjxzz-pmxojfaqd-zqtxsdpqqw (MIP) and/or volume rendering reformats were acquired of the central intracranial vasculature and neck separately. COMPARISON: None. FINDINGS: Image quality: Excellent. BRAIN: CSF spaces: Ventricles are normal in size and shape. Basal cisterns are patent. No extra-axial fluid collections. Brain: No midline shift. No intracranial bleeds or masses. Pascal-white matter interface appears intact. Skull and face: Calvarium and facial bones appear intact, without suspicious lesions. Orbits appear normal. Sinuses: Sinuses and mastoids are clear. HEAD CT ANGIOGRAPHY: Anterior circulation: Intracranial internal carotid arteries are normal in flow. Atherosclerotic calcifications noted in the cavernous and clinoid segments of the internal carotid arteries which causes mild narrowing of the vessels. The flow within the paired anterior cerebral arteries is normal and symmetric. The flow within the middle cerebral arteries is normal and symmetric. The anterior communicating artery is seen. No aneurysms are seen. Posterior circulation: Visualized portions of the vertebral arteries demonstrate normal caliber, and join to form a normal appearing basilar artery. Flow within the posterior cerebral arteries is normal and symmetric. No aneurysms are seen. Dural sinuses demonstrate normal postcontrast enhancement. NECK CT ANGIOGRAPHY: Carotid system: The great vessels demonstrate a conventional anatomy as they arise from the aortic arch. The origins of the common carotid arteries appear patent. The common carotid arteries demonstrate normal caliber and courses. Atherosclerotic calcifications noted in the origins of the internal carotid arteries which causes less than 50% stenosis of the vessels. Posterior circulation: The origins of the vertebral arteries both appear widely patent. The more superior extracranial portions of both vertebral arteries also demonstrate normal courses and calibers. They join to form a normal appearing basilar artery. Soft tissues: Visualized neck soft tissues demonstrate no suspicious abnormalities. Atherosclerotic calcifications noted in the visualized coronary vasculature. Bones: No suspicious bony lesions. Spine degenerative disc disease and facet arthropathy. Visualized cervical spine appears normally aligned. IMPRESSION: 1. No acute intracranial disease process. 2. No large vessel occlusion, hemodynamically significant vascular stenosis, vascular dissection or aneurysm. Any quantitative measurements of stenosis were performed using NASCET criteria. Dictated by: India Sarabia MD, PhD on 08/14/2020 at 10:57 Approved by: India Sarabia MD, PhD on 08/14/2020 at 11:09 Chest x-ray: Radiologist's Impression: [address] [id number] ReportSigned Patient: Rebecca Talamantes EMR#: [id number]: [id number]:[id number]/Sex: 70 / FDate of Service: 08/14/20Loc: EDAccession Number: [id number] Procedure: XR chest 2V Ordering Provider: Shanell Peralta D.O. PROCEDURE: XR CHEST 2V INDICATIONS: dizzy TECHNIQUE: 2 views of the chest were acquired. COMPARISON: [facility], , XR CHEST 1V, 05/21/2020, 14:20. FINDINGS: Surgical changes and devices: None. Lungs and pleura: Lungs are clear. No pleural effusions or pneumothorax. Mediastinum: Mediastinal contours are normal. Heart size is normal. Bones and chest wall: No suspicious bony abnormalities. Soft tissues appear unremarkable. IMPRESSION: No acute cardiopulmonary abnormalities. No focal consolidation. Dictated by: Rosas Sales M.D. on 08/14/2020 at 9:37 Approved by: Rosas Sales M.D. on 08/14/2020 at 9:38 CT scan - head: Radiologist's Impression: Rebecca Talamantes 70 F [address] [id number] Scan ReportSigned Patient: Rebecca Talamantes EMR#: [id number]: 1950cct:[id number]/Sex: 70 / FDate of Service: 08/14/20Loc: EDAccession Number: [id number] Procedure: CT head/brain wo con Ordering Provider: Shanell Peralta D.O. PROCEDURE: CT HEAD/BRAIN WO CON INDICATIONS: dizziness, headache, diabetes TECHNIQUE: Noncontrast 4.5 mm thick angled axial sections acquired from the foramen magnum to the vertex, with coronal and sagittal reformats. For radiation dose reduction, the following was used: automated exposure control, adjustment of mA and/or kV according to patient size. COMPARISON: [facility], MR, MR STROKE, 12/30/2018, 11:53. [facility], CT, CT HEAD/BRAIN WO CON, 12/29/2018, 18:26. FINDINGS: Image quality: Excellent. CSF spaces: Basal cisterns are patent. No extra-axial fluid collections. The ventricles are symmetric in size and shape. Brain: No intracranial bleeds or masses. There is cerebral volume loss for age, with resultant ventricular and sulcal prominence. There are periventricular and deep white matter chronic small vessel ischemic changes. Chronic right thalamic lacunar infarct is stable compared to prior CT scan and MRI scan. There is intracranial internal carotid artery and vertebral artery atherosclerosis. Skull and face: Calvarium and visualized facial bones appear intact, without suspicious lesions. Sinuses: Visualized sinuses and mastoids are clear. IMPRESSION: No acute intracranial disease process. Dictated by: India Sarabia MD, PhD on 08/14/2020 at 10:54 Approved by: India Sarabia MD, PhD on 08/14/2020 at 10:56 ECG Data Attestation: I personally reviewed and interpreted this ECG as follows: Prior ECG tracings: available for review Interpretation: Sinus rhythm, rate of 61 P are 166 QRS 80 and QTC 446. No acute changes appreciated. Patient has prior EKG from 05/21/2020 appears similar MDM Narrative Medical decision making narrative: This is a 70-year-old female comes in with complaint of headache and dizziness that started yesterday with chest pain present yesterday but none today and headache developing today. Patient describes it more as dizziness and feeling off balance but without any spinning of the room. She has been seen in the past for vertigo. She does have risk factors for stroke, her NIH scale is 0. Patient labs and imaging do not show any acute changes today. After further discussion patient defers any observation. We did discuss that my suspicion is higher for recurrence of her vertigo symptoms over stroke but she does have risk factors an observation was offered. All questions were answered. Patient does not have any further concerns at this time. She was encouraged to follow-up close with her primary care physician. Discharge Plan Departure Patient Disposition: Home Clinical Impression: Dizziness Instructions: DI for Dizziness-Nonvertigo Activity Restrictions/Additional Instructions: Follow-up with your physician, call for an appointment. This may be a recurrence of your vertigo from before. Continue home medications as prescribed. You may take meclizine 1-2 tablets every 6-8 hours as needed for symptoms. Prescription was sent to [facility] in [place]. Please return for new or worsening symptoms, lightheadedness or passing out, persistent vomiting, new weakness, numbness, loss of sensation, difficulty with speech, if you feel unsafe that you going to fall frequently, difficulty using your extremity or lifting or moving your arms or legs or other new or concerning symptoms. Prescriptions: New meclizine 25 mg tablet 50 mg PO TID PRN (Reason: dizziness) Qty: 20 RF: 0 No Action losartan-hydrochlorothiazide 100 MG/25 MG tablet 1 tab PO QDAY Qty: 0 RF: 0 cholecalciferol (vitamin D3) [Vitamin D3] 2,000 UNIT capsule 2,000 unit PO QDAY Qty: 0 RF: 0 calcium carbonate 600 MG tablet 600 mg PO QDAY Qty: 0 RF: 0 Basaglar KwikPen U-100 Insulin 100 unit/mL (3 mL) insulin pen 30 unit SUBCUT BEDTIME RF: 0 atorvastatin 20 mg tablet 20 mg PO QPM RF: 0 metformin 1,000 mg tablet 1 tab PO BID RF: 0 alendronate 70 mg tablet 70 mg PO QWEEK RF: 0 pantoprazole 40 mg tablet,delayed release (DR/EC) 40 mg PO DAILY RF: 0 timolol maleate 0.5 % drops 1 drp OPHTHALMIC (EYE) DIRECTED RF: 0 aspirin 81 mg Tablet,Delayed Release (Dr/Ec) 81 mg PO DAILY Qty: 30 RF: 0 Referrals: Yvonne Barr MD [Primary Care Provider] -
[2020-08-14 10:05] LABS: Troponin I < 0.012 ng/mL (0.01-0.034)
--- NOTE | 2020-08-14 10:21 | DI.CT.S_ITS ---
PROCEDURE: CT HEAD/BRAIN WO CON INDICATIONS: dizziness, headache, diabetes TECHNIQUE: Noncontrast 4.5 mm thick angled axial sections acquired from the foramen magnum to the vertex, with coronal and sagittal reformats. For radiation dose reduction, the following was used: automated exposure control, adjustment of mA and/or kV according to patient size. COMPARISON: [facility], MR, MR STROKE, 12/30/2018, 11:53. [facility], CT, CT HEAD/BRAIN WO CON, 12/29/2018, 18:26. FINDINGS: Image quality: Excellent. CSF spaces: Basal cisterns are patent. No extra-axial fluid collections. The ventricles are symmetric in size and shape. Brain: No intracranial bleeds or masses. There is cerebral volume loss for age, with resultant ventricular and sulcal prominence. There are periventricular and deep white matter chronic small vessel ischemic changes. Chronic right thalamic lacunar infarct is stable compared to prior CT scan and MRI scan. There is intracranial internal carotid artery and vertebral artery atherosclerosis. Skull and face: Calvarium and visualized facial bones appear intact, without suspicious lesions. Sinuses: Visualized sinuses and mastoids are clear. IMPRESSION: No acute intracranial disease process. Dictated by: India Sarabia MD, PhD on 08/14/2020 at 10:54 Approved by: India Sarabia MD, PhD on 08/14/2020 at 10:56
--- NOTE | 2020-08-14 10:29 | DI.CT.S_ITS ---
PROCEDURE: CT ANGIO HEAD AND NECK INDICATIONS: dizziness, headache, diabetes TECHNIQUE: After the administration of intravenous contrast, 1 mm thick sections acquired from the aortic arch through the [place] of [place]. Post-contrast 4.5 mm thick sections then re-acquired from the foramen magnum to the vertex. 3-dimensional uvhvghl-cmaynjzhy-dwbcoesfmx (MIP) and/or volume rendering reformats were acquired of the central intracranial vasculature and neck separately. COMPARISON: None. FINDINGS: Image quality: Excellent. BRAIN: CSF spaces: Ventricles are normal in size and shape. Basal cisterns are patent. No extra-axial fluid collections. Brain: No midline shift. No intracranial bleeds or masses. Pascal-white matter interface appears intact. Skull and face: Calvarium and facial bones appear intact, without suspicious lesions. Orbits appear normal. Sinuses: Sinuses and mastoids are clear. HEAD CT ANGIOGRAPHY: Anterior circulation: Intracranial internal carotid arteries are normal in flow. Atherosclerotic calcifications noted in the cavernous and clinoid segments of the internal carotid arteries which causes mild narrowing of the vessels. The flow within the paired anterior cerebral arteries is normal and symmetric. The flow within the middle cerebral arteries is normal and symmetric. The anterior communicating artery is seen. No aneurysms are seen. Posterior circulation: Visualized portions of the vertebral arteries demonstrate normal caliber, and join to form a normal appearing basilar artery. Flow within the posterior cerebral arteries is normal and symmetric. No aneurysms are seen. Dural sinuses demonstrate normal postcontrast enhancement. NECK CT ANGIOGRAPHY: Carotid system: The great vessels demonstrate a conventional anatomy as they arise from the aortic arch. The origins of the common carotid arteries appear patent. The common carotid arteries demonstrate normal caliber and courses. Atherosclerotic calcifications noted in the origins of the internal carotid arteries which causes less than 50% stenosis of the vessels. Posterior circulation: The origins of the vertebral arteries both appear widely patent. The more superior extracranial portions of both vertebral arteries also demonstrate normal courses and calibers. They join to form a normal appearing basilar artery. Soft tissues: Visualized neck soft tissues demonstrate no suspicious abnormalities. Atherosclerotic calcifications noted in the visualized coronary vasculature. Bones: No suspicious bony lesions. Spine degenerative disc disease and facet arthropathy. Visualized cervical spine appears normally aligned. IMPRESSION: 1. No acute intracranial disease process. 2. No large vessel occlusion, hemodynamically significant vascular stenosis, vascular dissection or aneurysm. Any quantitative measurements of stenosis were performed using NASCET criteria. Dictated by: India Sarabia MD, PhD on 08/14/2020 at 10:57 Approved by: India Sarabia MD, PhD on 08/14/2020 at 11:09
[2020-08-14 10:34] LABS: Lipase 147 U/L (23-300)
[2020-08-14] MEDS: ACETAMINOPHEN 325 MG TABLET 650 MG PO (10:50)
[2020-08-14] MEDS: SODIUM CHLORIDE 0.9% 1,000 ML 150 ML IV (10:50)
[2020-08-14] MEDS: MECLIZINE HCL 12.5 MG TABLET 50 MG PO (10:51)
== END 2020-08-14 11:58 | disposition home or self-care (01) ==
PROVIDERS: Emergency Provider Emergency Medicine; PCP Internal Medicine
DX: R42 Dizziness and giddiness (principal); R51.9 Headache, unspecified
CPT/HCPCS: 36415; 70450; 70496; 70498; 71046; 80053; 81003; 83605; 83690; 84484; 85025; 85610; 93005; 93010; 96360; 99284

== ENCOUNTER 2021-03-18 13:55 | Emergency (ER) | payer OTHER, SELFPAY ==
[2020-05-21 16:47] VITALS: BMI 27.8
[2021-03-18 14:06] VITALS: BP 156/84; PULSE 74; RESP 18; TEMP 36.8; O2SAT 100
--- NOTE | 2021-03-18 14:11 | DI.RAD.S_ITS ---
PROCEDURE: XR CHEST 1V INDICATIONS: chest pain TECHNIQUE: One view of the chest was acquired. COMPARISON: [facility], CR, XR CHEST 2V, 08/14/2020, 9:35. FINDINGS: Surgical changes and devices: None. Lungs and pleura: Lungs are clear. No pleural effusions or pneumothorax. Mediastinum: Mediastinal contours appear normal. Heart size is enlarged. Bones and chest wall: No suspicious bony lesions. Overlying soft tissues appear unremarkable. IMPRESSION: No acute cardiopulmonary findings. Mild cardiomegaly accentuated by low lung volumes Approved by: Deshawn Burns M.D. on 03/18/2021 at 14:18
[2021-03-18] MEDS: MECLIZINE HCL 12.5 MG TABLET 50 MG PO (14:24)
[2021-03-18 14:48] LABS: Add Manual Diff / Slide Review NO; Basophils Absolute Auto 0 /uL (0-100); Basophils Percent Auto 0.3 % (0-2); Eosinophils Absolute Auto 100 /uL (0-450); Eosinophils Percent Auto 0.9 % (2-4); Hematocrit 33.9 % (36-46); Hemoglobin 11.3 g/dL (12.0-16.0); Lymphocytes Absolute Auto 1400 /uL (1100-4500); Lymphocytes Percent Auto 20.7 % (25-40); Mean Corpuscular HGB Conc 33.4 % (30-36); Mean Corpuscular Hemoglobin 29.6 PG (26-34); Mean Corpuscular Volume 88.4 fL (80-100); Monocytes Absolute Auto 300 /uL (0-900); Monocytes Percent Auto 4.8 % (3-14); Neutrophils Absolute Auto 5000 /uL (1500-7000); Neutrophils Percent Auto 73.3 % (50-75); Platelet Count 305 X10^3/uL (150-400); Red Blood Cell Count 3.83 X10^6/uL (4.0-5.2); Red Cell Distribution Width 13.7 % (11.6-14.8); White Blood Cell Count 6.8 X10^3/uL (4.5-11.0)
[2021-03-18 14:59] LABS: Alanine Aminotransferase 24 IU/L (<35); Albumin 4.9 g/dL (3.5-5.0); Albumin Globulin Ratio 1.2 (1.0-2.8); Alkaline Phosphatase 65 U/L (38-126); Aspartate Aminotransferase 30 IU/L (14-36); BUN Creatinine Ratio 18.7 (6-22); Bilirubin Total 0.8 mg/dL (0.2-1.3); Blood Urea Nitrogen 23 mg/dL (7-17); Calcium 9.6 mg/dL (8.4-10.2); Carbon Dioxide 27 mmol/L (22-32); Chloride 103 mmol/L (98-107); Creatine Kinase 133 U/L (30-135); Estimated Glomerular Filt Rate 42.9 mL/min (>60); Glucose 122 mg/dL (80-110); HEMOLYSIS < 15 (0-50); Lipase 173 U/L (23-300); Potassium 3.4 mmol/L (3.4-5.1); Sodium 143 mmol/L (137-145); Total Protein 8.9 g/dL (6.3-8.2)
[2021-03-18 15:11] LABS: Troponin I < 0.012 ng/mL (0.01-0.034)
[2021-03-18 15:14] LABS: CKMB % Relative Index 1.2 % (1.5-5.0); Creatine Kinase MB 1.61 ng/mL (<2.37)
--- NOTE | 2021-03-18 15:32 | ED.DIZZY ---
HPI - Dizziness <Byron Noriega PA-C - Last Filed: 03/18/21 19:52> General Chief Complaint: Dizziness Stated Complaint: Dizzy/chest pain/nausea intermittent x1day Time Seen by Provider: 03/18/21 15:00 Source: patient Mode of arrival: Ambulatory Limitations: no limitations History of Present Illness HPI Narrative: Patient is a 70-year-old female presenting to the emergency department today for evaluation of dizziness. Patient states that she is experience intermittent dizziness for unspecified number of years, but she notes that it worsened yesterday with an associated headache and nausea. Patient states that her dizziness is exacerbated with lying supine and she notes that when she lays down the room begins to spin. Additionally, patient has reported associated ringing in her years that began approximately the same time her dizziness began. Patient denies fever, chills, chest pain, shortness of breath, cough, abdominal pain, vomiting, diarrhea, dysuria, syncope, changes in vision. No other concerns voiced at this time. Related Data Home Medications Medication Instructions Recorded Confirmed losartan 100 1 tab PO QDAY #0 09/24/16 05/21/20 mg-hydrochlorothiazide 25 mg tablet calcium carbonate 600 mg calcium 600 mg PO QDAY #0 03/10/17 05/22/20 (1,500 mg) tablet cholecalciferol (vitamin D3) 50 2,000 unit PO QDAY #0 03/10/17 05/22/20 mcg (2,000 unit) capsule (Vitamin D3) atorvastatin 20 mg tablet 20 mg PO QPM 12/02/17 05/22/20 metformin 1,000 mg tablet 1 tab PO BID 12/02/17 05/22/20 alendronate 70 mg tablet 70 mg PO QWEEK 12/29/18 05/22/20 pantoprazole 40 mg tablet,delayed 40 mg PO DAILY 12/29/18 05/21/20 release timolol maleate 0.5 % eye drops 1 drp OPHTHALMIC (EYE) DIRECTED 12/29/18 05/22/20 insulin glargine 100 unit/mL (3 30 unit SUBCUT BEDTIME 05/22/20 05/22/20 mL) subcutaneous pen (Basaglar KwikPen U-100 Insulin) Previous Rx's Medication Instructions Recorded aspirin 81 mg tablet,delayed 81 mg PO DAILY #30 tab 12/31/18 release meclizine 25 mg tablet 50 mg PO TID PRN #20 tab 08/14/20 meclizine 25 mg tablet 25 mg PO TID PRN #60 tab 03/18/21 Allergies Allergy/AdvReac Type Severity Reaction Status Date / Time No Known Drug Allergies Allergy Verified 08/14/20 09:37 Review of Systems <Byron Noriega PA-C - Last Filed: 03/18/21 19:52> Constitutional Constitutional: Denies chills, Denies fatigue, Denies fever(s), Denies frequent falls, Reports headache(s), Denies lethargy and Denies weakness Eyes Eyes: Denies loss of vision ENT Ears, Nose, Mouth, and Throat: Denies change in voice, Reports dizziness, Reports headache(s), Denies neck pain, Reports tinnitus, Denies sore throat and Denies throat swelling Cardiovascular Cardiovascular: Denies chest pain, Denies irregular heart rhythm, Denies lightheadedness, Denies palpitations, Denies dyspnea, Denies dyspnea on exertion and Denies orthopnea Respiratory Respiratory: Denies cough, Denies dyspnea, Denies dyspnea on exertion and Denies wheezing Gastrointestinal Gastrointestinal: Denies abdominal pain, Denies change in bowel habits, Denies diarrhea, Reports nausea and Denies vomiting Genitourinary Genitourinary: Denies hematuria, Denies flank pain, Denies urinary incontinence and Denies urinary urgency Musculoskeletal Musculoskeletal: Denies neck pain, Denies numbness and Denies tingling Neurologic Neurologic: Denies behavioral changes, Denies confusion, Reports dizziness, Denies frequent falls, Reports headache(s), Denies loss of vision, Denies numbness, Denies tingling and Denies weakness Psychiatric Psychiatric: Denies behavioral changes and Denies confusion Endocrine Endocrine: Denies fatigue and Denies palpitations Allergic/Immunologic Allergic/Immunologic: Denies urticaria, Denies throat swelling and Denies wheezing Patient History <Byron Noriega PA-C - Last Filed: 03/18/21 19:52> Medical History (Updated 03/18/21 @ 16:40 by Byron Noriega PA-C) Cerebrovascular accident Diabetes Diabetes type 2, uncontrolled GERD (gastroesophageal reflux disease) Glaucoma, left eye Hyperlipidemia Hypertension Hypertension Osteoporosis Surgical History History of section Social History household members: family Smoking Status: Never smoker alcohol intake: never substance use type: does not use Smoking Status: Never smoker alcohol intake frequency: 0-2 drinks per day Substance Use Type: does not use Exam <Byron Noriega PA-C - Last Filed: 03/18/21 19:52> Narrative Exam Narrative: GENERAL: 70 year old patient appears stated age. Well-developed patient, in mild distress. HEAD: Atraumatic. Normocephalic. EYES: Pupils equal round and reactive. Extraocular motions intact. No scleral icterus. No injection or drainage. ENT: Nose without bleeding, purulent drainage. Throat without erythema, tonsillar hypertrophy or exudate. Airway patent. Tympanic membrane obstructed due to cerumen impaction on the right, tympanic membrane clear without erythema or bulging on the left. NECK: Trachea midline. Non tender CARDIOVASCULAR: Regular rate and rhythm without murmurs, gallops, or rubs. RESPIRATORY: Clear to auscultation. Breath sounds equal bilaterally. No wheezes, rales, or rhonchi. GASTROINTESTINAL: Abdomen soft, non-tender, nondistended. EXTREMITIES: No edema or joint tenderness. BACK: Nontender without deformity or crepitance. No flank tenderness. NEURO: AOx3. SKIN: No rash or erythema of visible areas Initial Vital Signs Initial Vital Signs: Vital Signs Temperature 98.2 F 03/18/21 14:06 Pulse Rate 74 03/18/21 14:06 Respiratory Rate 18 03/18/21 14:06 Blood Pressure 156/84 H 03/18/21 14:06 Pulse Oximetry 100 03/18/21 14:06 Neuro General: [place] [facility] (Modified: Increased dizziness while looking directly up) <Kevin Navarro DO - Last Filed: 03/20/21 07:19> Initial Vital Signs Initial Vital Signs: Vital Signs Temperature 98.2 F 03/18/21 14:06 Pulse Rate 74 03/18/21 14:06 Respiratory Rate 18 03/18/21 14:06 Blood Pressure 156/84 H 03/18/21 14:06 Pulse Oximetry 100 03/18/21 14:06 Course <Byron Noriega PA-C - Last Filed: 03/18/21 19:52> Course Course Narrative: CBC, troponin, CMP, lipase, chest x-ray, EKG ordered Orders Ordered: Discontinued Medications Acetaminophen (Acetaminophen 325 Mg Tablet) 650 mg PO NOW ONE Stop: 03/18/21 15:57 Last Admin: 03/18/21 16:08 Dose: 650 mg Documented by: DEBBIE Meclizine HCl (Meclizine Hcl 12.5 Mg Tablet) 50 mg PO NOW ONE Stop: 03/18/21 14:22 Last Admin: 03/18/21 14:24 Dose: 50 mg Documented by: SERJIO Vital Signs Vital signs: Vital Signs - 8 hr 03/18/21 14:06 03/18/21 15:51 03/18/21 15:52 Temperature 98.2 F Pulse Rate 74 68 65 Respiratory Rate 18 Blood Pressure 156/84 H 158/74 H Pulse Oximetry 100 98 100 03/18/21 16:00 03/18/21 16:30 03/18/21 16:31 Temperature Pulse Rate 63 58 L 74 Respiratory Rate Blood Pressure 137/64 166/92 H Pulse Oximetry 98 100 100 <Kevin Navarro DO - Last Filed: 03/20/21 07:19> Orders Ordered: Discontinued Medications Acetaminophen (Acetaminophen 325 Mg Tablet) 650 mg PO NOW ONE Stop: 03/18/21 15:57 Last Admin: 03/18/21 16:08 Dose: 650 mg Documented by: DEBBIE Meclizine HCl (Meclizine Hcl 12.5 Mg Tablet) 50 mg PO NOW ONE Stop: 03/18/21 14:22 Last Admin: 03/18/21 14:24 Dose: 50 mg Documented by: SERJIO Vital Signs Vital signs: Vital Signs - 8 hr 03/18/21 14:06 03/18/21 15:51 03/18/21 15:52 Temperature 98.2 F Pulse Rate 74 68 65 Respiratory Rate 18 Blood Pressure 156/84 H 158/74 H Pulse Oximetry 100 98 100 03/18/21 16:00 03/18/21 16:30 03/18/21 16:31 Temperature Pulse Rate 63 58 L 74 Respiratory Rate Blood Pressure 137/64 166/92 H Pulse Oximetry 98 100 100 MDM - Dizziness <Byron Noriega PA-C - Last Filed: 03/18/21 19:52> Lab Data Result diagrams: 03/18/21 14:30 03/18/21 14:30 Labs: Lab Results 03/18/21 03/18/21 Range/Units 14:30 14:30 WBC 6.8 (4.5-11.0) X10^3/uL RBC 3.83 L (4.0-5.2) X10^6/uL Hgb 11.3 L (12.0-16.0) g/dL Hct 33.9 L (36-46) % MCV 88.4 (80-100) fL MCH 29.6 (26-34) PG MCHC 33.4 (30-36) % RDW 13.7 (11.6-14.8) % Plt Count 305 (150-400) X10^3/uL Neut % (Auto) 73.3 (50-75) % Lymph % (Auto) 20.7 L (25-40) % Guthrie % (Auto) 4.8 (3-14) % Eos % (Auto) 0.9 L (2-4) % Baso % (Auto) 0.3 (0-2) % Neut # (Auto) 5000 (0106-8352) /uL Lymph # (Auto) 1400 (2950-7890) /uL Guthrie # (Auto) 300 (0-900) /uL Eos # (Auto) 100 (0-450) /uL Baso # (Auto) 0 (0-100) /uL Sodium 143 (137-145) mmol/L Potassium 3.4 (3.4-5.1) mmol/L Chloride 103 (98-107) mmol/L Carbon Dioxide 27 (22-32) mmol/L BUN 23 H (7-17) mg/dL Creatinine 1.23 H (0.52-1.04) mg/dL Estimated GFR 42.9 L (>60) mL/min BUN/Creatinine Ratio 18.7 (6-22) Glucose 122 H (80-110) mg/dL Calcium 9.6 (8.4-10.2) mg/dL Total Bilirubin 0.8 (0.2-1.3) mg/dL AST 30 (14-36) IU/L ALT 24 (<35) IU/L Alkaline Phosphatase 65 (38-126) U/L Total Creatine Kinase 133 (30-135) U/L CK-MB (CK-2) 1.61 (<2.37) ng/mL CK-MB (CK-2) Rel Index 1.2 L (1.5-5.0) % Troponin I < 0.012 (0.01-0.034) ng/mL Total Protein 8.9 H (6.3-8.2) g/dL Albumin 4.9 (3.5-5.0) g/dL Globulin 4.0 (1.7-4.1) g/dL Albumin/Globulin Ratio 1.2 (1.0-2.8) Lipase 173 (23-300) U/L Imaging Data Chest x-ray: Radiologist's Impression: PROCEDURE:? XR CHEST 1V ? INDICATIONS:? chest pain ? TECHNIQUE:? One view of the chest was acquired.? ? COMPARISON:? [facility], , XR CHEST 2V, 08/14/2020, 9:35. ? FINDINGS:? ? Surgical changes and devices:? None.? ? Lungs and pleura:? Lungs are clear.? No pleural effusions or pneumothorax.? ? Mediastinum:? Mediastinal contours appear normal.? Heart size is enlarged.? ? Bones and chest wall:? No suspicious bony lesions.? Overlying soft tissues appear unremarkable.? ? IMPRESSION:? No acute cardiopulmonary findings.? Mild cardiomegaly accentuated by low lung volumes ? ? ? Approved by: Deshawn Burns M.D. on 03/18/2021 at 14:18? [facility] Narrative Medical decision making narrative: Patient is a 70-year-old female presenting to the emergency department today for evaluation of dizziness. To consider transient ischemic attack versus arrhythmia versus benign paroxysmal vertigo. Overall physical examination and history are reassuring. No neuro deficits noted on physical exam. Overall lab results and imaging results are reassuring, and results were discussed patient. At this time she feels comfortable being discharged home with strict return precautions discussed prior to discharge. <Kevin Navarro, DO - Last Filed: 03/20/21 07:19> Lab Data Labs: Lab Results 03/18/21 03/18/21 Range/Units 14:30 14:30 WBC 6.8 (4.5-11.0) X10^3/uL RBC 3.83 L (4.0-5.2) X10^6/uL Hgb 11.3 L (12.0-16.0) g/dL Hct 33.9 L (36-46) % MCV 88.4 (80-100) fL MCH 29.6 (26-34) PG MCHC 33.4 (30-36) % RDW 13.7 (11.6-14.8) % Plt Count 305 (150-400) X10^3/uL Neut % (Auto) 73.3 (50-75) % Lymph % (Auto) 20.7 L (25-40) % Guthrie % (Auto) 4.8 (3-14) % Eos % (Auto) 0.9 L (2-4) % Baso % (Auto) 0.3 (0-2) % Neut # (Auto) 5000 (4386-4584) /uL Lymph # (Auto) 1400 (7705-2185) /uL Guthrie # (Auto) 300 (0-900) /uL Eos # (Auto) 100 (0-450) /uL Baso # (Auto) 0 (0-100) /uL Sodium 143 (137-145) mmol/L Potassium 3.4 (3.4-5.1) mmol/L Chloride 103 (98-107) mmol/L Carbon Dioxide 27 (22-32) mmol/L BUN 23 H (7-17) mg/dL Creatinine 1.23 H (0.52-1.04) mg/dL Estimated GFR 42.9 L (>60) mL/min BUN/Creatinine Ratio 18.7 (6-22) Glucose 122 H (80-110) mg/dL Calcium 9.6 (8.4-10.2) mg/dL Total Bilirubin 0.8 (0.2-1.3) mg/dL AST 30 (14-36) IU/L ALT 24 (<35) IU/L Alkaline Phosphatase 65 (38-126) U/L Total Creatine Kinase 133 (30-135) U/L CK-MB (CK-2) 1.61 (<2.37) ng/mL CK-MB (CK-2) Rel Index 1.2 L (1.5-5.0) % Troponin I < 0.012 (0.01-0.034) ng/mL Total Protein 8.9 H (6.3-8.2) g/dL Albumin 4.9 (3.5-5.0) g/dL Globulin 4.0 (1.7-4.1) g/dL Albumin/Globulin Ratio 1.2 (1.0-2.8) Lipase 173 (23-300) U/L Discharge Plan Departure Patient Disposition: Home Clinical Impression: Benign paroxysmal positional vertigo Instructions: Benign Paroxysmal Positional Vertigo, DI for Vertigo Activity Restrictions/Additional Instructions: *You have been diagnosed with benign paroxysmal positional vertigo *What to do: *Please continue to take your regular medications as directed. [X] New medication prescriptions sent to your pharmacy: [facility] - Meclizine [ ] New medication written as a paper prescription [ ] No new medications given *Please follow up with your primary care provider in the next 24-48 hours, call for an appointment. Let them know you were seen in the Emergency Department and that we ask that you be seen in follow up. We will electronically transmit a record of today's note if your PCP is in our system. *Please contact the office of Dr. Jenaro Thomas (ENT) for the earliest available appointment. His office can be reached at . *If you do not have a primary care provider please contact the [facility] Resource line at [phone]. They will ask some questions about your medical history and help get you set up with a doctor in the community. *Return to Emergency Department if you should have any new, worsening or concerning symptoms, such as fever greater than 101 F, shaking chills, worsening dizziness, persistent vomiting or other bothersome symptoms. Prescriptions: New meclizine 25 mg tablet 25 mg PO TID PRN (Reason: dizziness) Qty: 60 0RF No Action losartan-hydrochlorothiazide 100 MG/25 MG tablet 1 tab PO QDAY Qty: 0 0RF cholecalciferol (vitamin D3) [Vitamin D3] 2,000 UNIT capsule 2,000 unit PO QDAY Qty: 0 0RF Label Comments: not known if current calcium carbonate 600 MG tablet 600 mg PO QDAY Qty: 0 0RF Label Comments: not known if current Basaglar KwikPen U-100 Insulin 100 unit/mL (3 mL) insulin pen 30 unit SUBCUT BEDTIME 0RF meclizine 25 mg tablet 50 mg PO TID PRN (Reason: dizziness) Qty: 20 0RF atorvastatin 20 mg tablet 20 mg PO QPM 0RF metformin 1,000 mg tablet 1 tab PO BID 0RF alendronate 70 mg tablet 70 mg PO QWEEK 0RF pantoprazole 40 mg tablet,delayed release (DR/EC) 40 mg PO DAILY 0RF timolol maleate 0.5 % drops 1 drp OPHTHALMIC (EYE) DIRECTED 0RF aspirin 81 mg Tablet,Delayed Release (Dr/Ec) 81 mg PO DAILY Qty: 30 0RF Referrals: Jenaro Thomas MD [Physician] - As soon as possible <Kevin Navarro DO - Last Filed: 03/20/21 07:19> Cosign ED Attending Cosignature Attestation: Dr Navarro Co-Sign Statement: I was available for consultation during this patient's emergency department visit. This chart is signed by myself for administrative purposes only. I did not have direct contact with this patient during this visit. They were seen independently by the APC.
[2021-03-18 15:51] VITALS: PULSE 68; O2SAT 98
[2021-03-18 15:52] VITALS: BP 158/74; PULSE 65; O2SAT 100
[2021-03-18 16:00] VITALS: BP 137/64; PULSE 63; O2SAT 98
[2021-03-18] MEDS: ACETAMINOPHEN 325 MG TABLET 650 MG PO (16:08)
[2021-03-18 16:30] VITALS: PULSE 58; O2SAT 100
[2021-03-18 16:31] VITALS: BP 166/92; PULSE 74; O2SAT 100
== END 2021-03-18 16:57 | disposition home or self-care (01) ==
PROVIDERS: Emergency Medicine; Emergency Provider Physician Assistant
DX: H81.10 Benign paroxysmal vertigo, unspecified ear (principal); R03.0 Elevated blood-pressure reading, without diagnosis of hypertension
CPT/HCPCS: 36415; 71045; 80053; 82550; 82553; 83690; 84484; 85025; 93005; 99283; 99284

== ENCOUNTER 2021-08-04 18:30 | Emergency (ER) | payer OTHER, SELFPAY ==
[2020-05-21 16:47] VITALS: BMI 27.8
[2021-08-04 18:30] VITALS: BP 210/109; PULSE 88; RESP 25; TEMP 36.4; O2SAT 98; BMI 28.3
--- NOTE | 2021-08-04 18:36 | DI.RAD.S_ITS ---
PROCEDURE: XR CHEST 1V INDICATIONS: chest pain TECHNIQUE: One view of the chest was acquired. COMPARISON: [facility], CT, CT ANGIO HEAD AND NECK, 08/14/2020, 10:32. [facility], CR, XR CHEST 1V, 03/18/2021, 14:28. [facility], CR, XR CHEST 2V, 08/14/2020, 9:35. FINDINGS: Surgical changes and devices: None. Lungs and pleura: Lungs are clear. No pleural effusions or pneumothorax. Mediastinum: Mediastinal contours appear unchanged. Heart size is within normal limits. Bones and chest wall: No suspicious bony lesions. Overlying soft tissues appear unremarkable. IMPRESSION: No acute cardiopulmonary abnormality. Dictated by: Jossue Lawrence M.D. on 08/04/2021 at 20:03 Approved by: Jossue Lawrence M.D. on 08/04/2021 at 20:05
[2021-08-04 18:51] LABS: Add Manual Diff / Slide Review NO; Basophils Absolute Auto 0 /uL (0-100); Basophils Percent Auto 0.5 % (0-2); Eosinophils Absolute Auto 100 /uL (0-450); Eosinophils Percent Auto 2.2 % (2-4); Hematocrit 33.4 % (36-46); Hemoglobin 11.1 g/dL (12.0-16.0); Lymphocytes Absolute Auto 2300 /uL (1100-4500); Lymphocytes Percent Auto 34.6 % (25-40); Mean Corpuscular HGB Conc 33.3 % (30-36); Mean Corpuscular Hemoglobin 29.3 PG (26-34); Mean Corpuscular Volume 87.9 fL (80-100); Monocytes Absolute Auto 400 /uL (0-900); Monocytes Percent Auto 6.1 % (3-14); Neutrophils Absolute Auto 3700 /uL (1500-7000); Neutrophils Percent Auto 56.6 % (50-75); Platelet Count 327 X10^3/uL (150-400); Red Cell Distribution Width 13.5 % (11.6-14.8); White Blood Cell Count 6.6 X10^3/uL (4.5-11.0)
[2021-08-04 19:02] LABS: Alanine Aminotransferase 21 IU/L (<35); Albumin 4.6 g/dL (3.5-5.0); Albumin Globulin Ratio 1.1 (1.0-2.8); Alkaline Phosphatase 60 U/L (38-126); Aspartate Aminotransferase 26 IU/L (14-36); BUN Creatinine Ratio 14.3 (6-22); Bilirubin Total 0.4 mg/dL (0.2-1.3); Blood Urea Nitrogen 22 mg/dL (7-17); Calcium 9.3 mg/dL (8.4-10.2); Carbon Dioxide 30 mmol/L (22-32); Chloride 102 mmol/L (98-107); Creatine Kinase 173 U/L (30-135); Estimated Glomerular Filt Rate 35.4 mL/min (>60); Globulin 4.1 g/dL (1.7-4.1); Glucose 212 mg/dL (80-110); HEMOLYSIS < 15 (0-50); Lipase 221 U/L (23-300); Magnesium 1.5 mg/dL (1.6-2.3); Potassium 3.2 mmol/L (3.4-5.1); Sodium 144 mmol/L (137-145); Total Protein 8.7 g/dL (6.3-8.2)
[2021-08-04 19:14] LABS: Troponin I < 0.012 ng/mL (0.01-0.034)
[2021-08-04 19:17] LABS: CKMB % Relative Index 1.1 % (1.5-5.0); Creatine Kinase MB 1.84 ng/mL (<2.37)
--- NOTE | 2021-08-04 19:49 | ED.CHESTPAIN ---
HPI - Chest Pain General Chief Complaint: Chest Pain Stated Complaint: FAST HEART RATE SOB Time Seen by Provider: 08/04/21 19:22 Mode of arrival: Family Vehicle History of Present Illness HPI narrative: 71 year old woman with history of hypertension, type 2 diabetes, reflux, hyperlipidemia recurrent episodes of BPV presents today complaining of acute onset of chest pain at 4:00 p.m. this afternoon. She describes it as central radiating through to her back associated with shortness of breath describes the initial pain as an 8/10 and increasing to a 9/10 and was associated with significant emotional distress at the time but no overt physical exertion. She states that the pain has decreased to a pressure sensation at this point. She describes no recent fever, cough, chills no recent palpitations no prior chest pain but she does note that she has a stroke. She is very anxious because her mother of chest pain. She has had no vomiting, abdominal pain, diarrhea. She does note that she is developing mild headache. She notes no acute neurologic findings or complaints of new weakness or paresthesias. Related Data Home Medications Medication Instructions Recorded Confirmed losartan 100 1 tab PO QDAY #0 09/24/16 05/21/20 mg-hydrochlorothiazide 25 mg tablet calcium carbonate 600 mg calcium 600 mg PO QDAY #0 03/10/17 05/22/20 (1,500 mg) tablet cholecalciferol (vitamin D3) 50 2,000 unit PO QDAY #0 03/10/17 05/22/20 mcg (2,000 unit) capsule (Vitamin D3) atorvastatin 20 mg tablet 20 mg PO QPM 12/02/17 05/22/20 metformin 1,000 mg tablet 1 tab PO BID 12/02/17 05/22/20 alendronate 70 mg tablet 70 mg PO QWEEK 12/29/18 05/22/20 pantoprazole 40 mg tablet,delayed 40 mg PO DAILY 12/29/18 05/21/20 release timolol maleate 0.5 % eye drops 1 drp OPHTHALMIC (EYE) DIRECTED 12/29/18 05/22/20 insulin glargine 100 unit/mL (3 30 unit SUBCUT BEDTIME 05/22/20 05/22/20 mL) subcutaneous pen (Basaglar KwikPen U-100 Insulin) Previous Rx's Medication Instructions Recorded aspirin 81 mg tablet,delayed 81 mg PO DAILY #30 tab 12/31/18 release meclizine 25 mg tablet 50 mg PO TID PRN #20 tab 08/14/20 meclizine 25 mg tablet 25 mg PO TID PRN #60 tab 03/18/21 Allergies Allergy/AdvReac Type Severity Reaction Status Date / Time No Known Drug Allergies Allergy Verified 08/04/21 18:44 Review of Systems Review of Systems Narrative: Remainder of complete review of systems is otherwise unremarkable except for that included in the HPI. Patient History Medical History (Updated 08/04/21 @ 22:52 by Veronica Gutierrez MD) Cerebrovascular accident Diabetes Diabetes type 2, uncontrolled GERD (gastroesophageal reflux disease) Glaucoma, left eye Hyperlipidemia Hypertension Hypertension Osteoporosis Surgical History History of section Social History household members: family Smoking Status: Never smoker alcohol intake: never substance use type: does not use Smoking Status: Never smoker alcohol intake frequency: 0-2 drinks per day Substance Use Type: does not use Exam Initial Vital Signs Initial Vital Signs: Vital Signs Temperature 97.6 F 08/04/21 18:30 Pulse Rate 88 08/04/21 18:30 Respiratory Rate 25 H 08/04/21 18:30 Blood Pressure 210/109 H 08/04/21 18:30 Pulse Oximetry 98 08/04/21 18:30 General: Patient appears anxious with no tachypnea, pain behaviors or diaphoresis. Able to give a complete and coherent history. Well-nourished well-developed HEENT: Moist mucous membranes, normal sclera with reactive pupils, Neck: No JVD, supple Respiratory: Lungs are clear to auscultation, no wheezing no rales no rhonchi. Full and symmetrical air movement Chest: She does have some tenderness along the left costochondral margin that does reproduce the pain of which she is complaining. There are no skin changes associated with that area. Cardiac: Regular rate and rhythm no murmurs no bruits Abdomen: Soft, nontender, good bowel tones, no flank pain Skin: Warm and dry, no rashes Neurologic: Grossly neurologically intact with no obvious asymmetries or abnormalities Extremities: No trauma, well perfused Psych: Cooperative, appropriate insight and affect Course Orders Ordered: ED Orders 08/04/21 18:36 XR chest 1V Stat EKG-12 Lead Stat 08/04/21 18:45 Complete Blood Count AUTO DIFF Stat Comprehensive Metabolic Panel Stat Lipase Stat Magnesium Stat Troponin & CK Cardiac Panel Stat 08/04/21 20:48 Trop I [Troponin I] Stat Nitroglycerin (Nitroglycerin 0.4 Mg Sl Tab) 0.4 mg SL [id number] PRN PRN Reason: Chest Pain Last Admin: 08/04/21 20:26 Dose: 0.4 mg Documented by: Admin: 08/04/21 20:19 Dose: 0.4 mg Documented by: GRADY Discontinued Medications Aspirin (Aspirin 81 Mg Chew Tab) 324 mg PO NOW ONE Stop: 08/04/21 20:02 Last Admin: 08/04/21 20:18 Dose: 324 mg Documented by: GRADY Ketorolac Tromethamine (Ketorolac 30 Mg/Ml Vial) 15 mg IV NOW ONE Stop: 08/04/21 20:02 Last Admin: 08/04/21 20:18 Dose: 15 mg Documented by: GRADY Vital Signs Vital signs: Vital Signs - 8 hr 08/04/21 18:30 08/04/21 20:25 08/04/21 22:22 Temperature 97.6 F Pulse Rate 88 73 78 Respiratory Rate 25 H 16 27 H Blood Pressure 210/109 H 148/82 H Pulse Oximetry 98 99 98 08/04/21 22:23 Temperature Pulse Rate 69 Respiratory Rate 39 H Blood Pressure 145/68 H Pulse Oximetry 99 MDM - Chest Pain Lab Data Result diagrams: 08/04/21 18:45 08/04/21 18:45 Labs: Lab Results 08/04/21 08/04/21 08/04/21 Range/Units 18:45 18:45 20:48 WBC 6.6 (4.5-11.0) X10^3/uL RBC 3.80 L (4.0-5.2) X10^6/uL Hgb 11.1 L (12.0-16.0) g/dL Hct 33.4 L (36-46) % MCV 87.9 (80-100) fL MCH 29.3 (26-34) PG MCHC 33.3 (30-36) % RDW 13.5 (11.6-14.8) % Plt Count 327 (150-400) X10^3/uL Neut % (Auto) 56.6 (50-75) % Lymph % (Auto) 34.6 (25-40) % [place] % (Auto) 6.1 (3-14) % Eos % (Auto) 2.2 (2-4) % Baso % (Auto) 0.5 (0-2) % Neut # (Auto) 3700 (4174-3786) /uL Lymph # (Auto) 2300 (4807-6782) /uL [place] # (Auto) 400 (0-900) /uL Eos # (Auto) 100 (0-450) /uL Baso # (Auto) 0 (0-100) /uL Sodium 144 (137-145) mmol/L Potassium 3.2 L (3.4-5.1) mmol/L Chloride 102 (98-107) mmol/L Carbon Dioxide 30 (22-32) mmol/L BUN 22 H (7-17) mg/dL Creatinine 1.54 H (0.52-1.04) mg/dL Estimated GFR 35.4 L (>60) mL/min BUN/Creatinine Ratio 14.3 (6-22) Glucose 212 H (80-110) mg/dL Calcium 9.3 (8.4-10.2) mg/dL Magnesium 1.5 L (1.6-2.3) mg/dL Total Bilirubin 0.4 (0.2-1.3) mg/dL AST 26 (14-36) IU/L ALT 21 (<35) IU/L Alkaline Phosphatase 60 (38-126) U/L Total Creatine Kinase 173 H (30-135) U/L CK-MB (CK-2) 1.84 (<2.37) ng/mL CK-MB (CK-2) Rel Index 1.1 L (1.5-5.0) % Troponin I < 0.012 < 0.012 (0.01-0.034) ng/mL Total Protein 8.7 H (6.3-8.2) g/dL Albumin 4.6 (3.5-5.0) g/dL Globulin 4.1 (1.7-4.1) g/dL Albumin/Globulin Ratio 1.1 (1.0-2.8) Lipase 221 (23-300) U/L Imaging Data Chest x-ray: Radiologist's Impression: FINDINGS:? ? Surgical changes and devices:? None.? ? Lungs and pleura:? Lungs are clear.? No pleural effusions or pneumothorax.? ? Mediastinum:? Mediastinal contours appear unchanged.? Heart size is within normal limits. ? ? Bones and chest wall:? No suspicious bony lesions.? Overlying soft tissues appear unremarkable.? ? IMPRESSION:? No acute cardiopulmonary abnormality. ? ? ? Dictated by: Jossue Lawrence M.D. on 08/04/2021 at 20:03? ?? ECG Data Interpretation: NSR at 80 Normal intervals, normal axis No acute ischemic changes MDM Narrative Medical decision making narrative: 71-year-old woman presents with left-sided chest pain that started abruptly this evening. It is reproducible with palpation along the left anterior sternal border. It is significantly improved with ibuprofen. He does have multiple risk factors for heart attack in acute coronary syndrome. Cardiac workup is very reassuring today with troponin negative x2 and a normal EKG. There is no evidence of pneumonia, pneumothorax, widened mediastinum or congestive heart failure. At this time I believe the costochondritis is the most unifying diagnosis and will recommend ibuprofen for the next 3-7 days as needed she does have a follow-up appointment scheduled with her primary care doctor on the . She is safe for home discharge Discharge Plan Departure Patient Disposition: Home Clinical Impression: Acute costochondritis Instructions: DI for Costochondritis Activity Restrictions/Additional Instructions: Thank you for coming in today You do have many risk factors for having a heart attack and it is frightening when you have chest pain particularly knowing this is how your mother . Fortunately, today there is no evidence of a heart attack or heart attack like syndrome. There is no evidence of collapsed lung, blood clots in your lungs, pneumonia or other overwhelming infection. With the pain along the left side of your breast bone, I believe you have costochondritis. This typically will get better within 3-7 days. Using 400 mg of ibuprofen (2 [id number] pills) and 1 Tylenol every 6 hours can be very helpful in controlling pain. If you have worsening signs or symptoms please feel free to return to the emergency department. I encourage you to keep your follow-up appointment as scheduled with your primary care doctor on the . Prescriptions: No Action losartan-hydrochlorothiazide 100 MG/25 MG tablet 1 tab PO QDAY Qty: 0 0RF cholecalciferol (vitamin D3) [Vitamin D3] 2,000 UNIT capsule 2,000 unit PO QDAY Qty: 0 0RF Label Comments: not known if current calcium carbonate 600 MG tablet 600 mg PO QDAY Qty: 0 0RF Label Comments: not known if current Basaglar KwikPen U-100 Insulin 100 unit/mL (3 mL) insulin pen 30 unit SUBCUT BEDTIME 0RF meclizine 25 mg tablet 50 mg PO TID PRN (Reason: dizziness) Qty: 20 0RF atorvastatin 20 mg tablet 20 mg PO QPM 0RF metformin 1,000 mg tablet 1 tab PO BID 0RF alendronate 70 mg tablet 70 mg PO QWEEK 0RF pantoprazole 40 mg tablet,delayed release (DR/EC) 40 mg PO DAILY 0RF timolol maleate 0.5 % drops 1 drp OPHTHALMIC (EYE) DIRECTED 0RF aspirin 81 mg Tablet,Delayed Release (Dr/Ec) 81 mg PO DAILY Qty: 30 0RF meclizine 25 mg tablet 25 mg PO TID PRN (Reason: dizziness) Qty: 60 0RF
[2021-08-04] MEDS: ASPIRIN 81 MG CHEW TAB 324 MG PO (20:18)
[2021-08-04] MEDS: KETOROLAC 30 MG/ML VIAL 15 MG IV (20:18)
[2021-08-04] MEDS: NITROGLYCERIN 0.4 MG SL TAB SL ×2 (20:19→20:26)
[2021-08-04 20:25] VITALS: BP 148/82; PULSE 73; RESP 16; O2SAT 99
[2021-08-04 21:17] LABS: Troponin I < 0.012 ng/mL (0.01-0.034)
[2021-08-04 22:22] VITALS: PULSE 78; RESP 27; O2SAT 98
[2021-08-04 22:23] VITALS: BP 145/68; PULSE 69; RESP 39; O2SAT 99
== END 2021-08-04 22:58 | disposition home or self-care (01) ==
PROVIDERS: Emergency Provider Emergency Medicine
DX: R07.9 Chest pain, unspecified (principal); M94.0 Chondrocostal junction syndrome [Tietze]
CPT/HCPCS: 36415; 71045; 80053; 82550; 82553; 83690; 83735; 84484; 85025; 93005; 93010; 96374; 99284; J1885

== ENCOUNTER 2021-08-23 17:29 | Emergency (ER) | payer OTHER, SELFPAY ==
[2020-05-21 16:47] VITALS: BMI 27.8
[2021-08-23] VITALS (11 sets, daily range): BP systolic 139–185; BP diastolic 80–94; PULSE 91–100; RESP 18–33; TEMP 37.3–37.9; O2SAT 98–100
--- NOTE | 2021-08-23 17:39 | DI.RAD.S_ITS ---
PROCEDURE: XR CHEST 2V INDICATIONS: cough/fever TECHNIQUE: 2 views of the chest were acquired. COMPARISON: [facility], CR, XR CHEST 2V, 08/14/2020, 9:35. [facility], CR, XR CHEST 1V, 03/18/2021, 14:28. [facility], CR, XR CHEST 1V, 08/04/2021, 18:36. FINDINGS: Surgical changes and devices: None. Lungs and pleura: Lungs are clear. No pleural effusions or pneumothorax. Mediastinum: The cardiac contours are within normal limits. The aorta demonstrates calcification and tortuosity. Bones and chest wall: Age-appropriate bony degenerative changes are seen. Accentuated thoracic kyphosis is seen. No suspicious bony abnormalities. Soft tissues appear unremarkable. IMPRESSION: Negative for infiltrate. Dictated by: Ananda Marie M.D. on 08/23/2021 at 16:58 Approved by: Ananda Marie M.D. on 08/23/2021 at 16:59
--- NOTE | 2021-08-23 18:28 | ED.SOB ---
HPI - SOB/Dyspnea General Chief Complaint: Fever Stated Complaint: sore throat, dry cough, dizzy, headache Time Seen by Provider: 08/23/21 18:14 Source: patient Mode of arrival: Ambulatory History of Present Illness HPI Narrative: 71-year-old female nonsmoker with a history of renal insufficiency presents with her son and a chief complaint of sore throat, cough productive of yellowish sputum and mild headache over the course of the week. She has had subjective fevers. She denies exposure to other ill persons. She has had pneumonia in the past and states this feels like that and she is concerned that she has pneumonia again. Her headache is mild and was gradual in onset. She denies any fall or injury. She has no neck pain. She takes no blood thinners. She denies other neurologic symptoms such as blurred vision, trouble speech or extremity weakness. She has had cough but denies significant shortness of breath, she denies any significant work of breathing or need for supplemental oxygen. She denies abdominal pain, nausea, vomiting or diarrhea. She denies dysuria, frequency or urgency. She took a COVID test earlier in the week and was negative. Related Data Home Medications Medication Instructions Recorded Confirmed losartan 100 1 tab PO QDAY #0 09/24/16 05/21/20 mg-hydrochlorothiazide 25 mg tablet calcium carbonate 600 mg calcium 600 mg PO QDAY #0 03/10/17 05/22/20 (1,500 mg) tablet cholecalciferol (vitamin D3) 50 2,000 unit PO QDAY #0 03/10/17 05/22/20 mcg (2,000 unit) capsule (Vitamin D3) atorvastatin 20 mg tablet 20 mg PO QPM 12/02/17 05/22/20 metformin 1,000 mg tablet 1 tab PO BID 12/02/17 05/22/20 alendronate 70 mg tablet 70 mg PO QWEEK 12/29/18 05/22/20 pantoprazole 40 mg tablet,delayed 40 mg PO DAILY 12/29/18 05/21/20 release timolol maleate 0.5 % eye drops 1 drp OPHTHALMIC (EYE) DIRECTED 12/29/18 05/22/20 insulin glargine 100 unit/mL (3 30 unit SUBCUT BEDTIME 05/22/20 05/22/20 mL) subcutaneous pen (Basaglar KwikPen U-100 Insulin) Previous Rx's Medication Instructions Recorded aspirin 81 mg tablet,delayed 81 mg PO DAILY #30 tab 12/31/18 release meclizine 25 mg tablet 50 mg PO TID PRN #20 tab 08/14/20 meclizine 25 mg tablet 25 mg PO TID PRN #60 tab 03/18/21 doxycycline hyclate 100 mg tablet 100 mg PO BID #20 tab 08/23/21 Allergies Allergy/AdvReac Type Severity Reaction Status Date / Time No Known Drug Allergies Allergy Verified 08/04/21 18:44 Review of Systems Review of Systems Narrative: GENERAL: See HPI HEENT: Denies sinus pain, ear pain, sore throat, difficulty swallowing, dizziness. RESPIRATORY: See HPI CARDIOVASCULAR: Denies chest pain, palpitations, orthopnea, edema, GASTROINTESTINAL: Denies nausea, vomiting, abdominal pain, diarrhea, constipation, melena. : Denies dysuria, frequency, incontinence, hematuria, urinary retention. MUSCULOSKELETAL: denies weakness, joint pain, or bony pain SKIN: Denies rash, skin lesions, or other NEUROLOGIC: Denies weakness, headache, numbness, change in speech, confusion, seizures, incoordination. PSYCHIATRIC: No concerning psychosocial issues. 12 point review of systems is negative except for those stated above Patient History Medical History (Updated 08/23/21 @ 20:48 by González Ware DO) Cerebrovascular accident Diabetes Diabetes type 2, uncontrolled GERD (gastroesophageal reflux disease) Glaucoma, left eye Hyperlipidemia Hypertension Hypertension Osteoporosis Surgical History History of section Social History household members: family Smoking Status: Never smoker alcohol intake: never substance use type: does not use Smoking Status: Never smoker alcohol intake frequency: 0-2 drinks per day Substance Use Type: does not use Exam Narrative Exam Narrative: GENERAL: [71] year old patient appears stated age. Well-developed patient, in mild distress. HEAD: Atraumatic. Normocephalic. EYES: Pupils equal round and reactive. Extraocular motions intact. No scleral icterus. No injection or drainage. ENT: Nose without bleeding, purulent drainage. Throat without erythema, tonsillar hypertrophy or exudate. Airway patent. NECK: Trachea midline. Non tender CARDIOVASCULAR: Regular rate and rhythm without murmurs, gallops, or rubs. RESPIRATORY: Clear to auscultation. Breath sounds equal bilaterally. No wheezes, rales, or rhonchi. Occasional cough, no evidence of respiratory distress, no tachypnea, hypoxemia or use of accessory muscles GASTROINTESTINAL: Abdomen soft, non-tender, nondistended. EXTREMITIES: No edema or joint tenderness. BACK: Nontender without deformity or crepitance. No flank tenderness. NEURO: AOx3. SKIN: No rash or erythema of visible areas Initial Vital Signs Initial Vital Signs: Vital Signs Temperature 100.2 F H 08/23/21 17:36 Pulse Rate 98 H 08/23/21 17:36 Respiratory Rate 20 08/23/21 17:36 Blood Pressure 165/89 H 08/23/21 17:36 Pulse Oximetry 99 08/23/21 17:36 Course Orders Ordered: ED Orders 08/23/21 17:39 Chest [XR chest 2V] Stat 08/23/21 18:27 Influenza A & B (PCR) Stat 08/23/21 18:35 C-Reactive Protein Quant Stat Complete Blood Count AUTO DIFF Stat Comprehensive Metabolic Panel Stat Ferritin Stat Lactate (Lactic Acid) Stat Magnesium Stat NT-proBNP (BNP-Adult 18+) Stat Troponin & CK Cardiac Panel Stat 08/23/21 19:20 COVID19 -Nasal RAPID/Pre-Proc Stat 08/23/21 20:11 Blood Culture Stat Discontinued Medications Doxycycline Hyclate (Doxycycline Hyclate 100 Mg Tablet) 100 mg PO NOW ONE Stop: 08/23/21 20:46 Last Admin: 08/23/21 21:00 Dose: 100 mg Documented by: ABI Sodium Chloride (Normal Saline 0.9%) 1,000 mls @ 1,000 mls/hr IV BOLUS ONE Stop: 08/23/21 19:25 Last Infusion: 08/23/21 20:16 Dose: 0 mls/hr Documented by: Admin: 08/23/21 19:11 Dose: 1,000 mls/hr Documented by: TRENT Vital Signs Vital signs: Vital Signs - 8 hr 08/23/21 17:36 08/23/21 18:19 08/23/21 18:21 Temperature 100.2 F H Pulse Rate 98 H 97 H 94 H Respiratory Rate 20 24 Blood Pressure 165/89 H 185/94 H Pulse Oximetry 99 100 08/23/21 18:26 08/23/21 18:30 08/23/21 19:00 Temperature 99.1 F Pulse Rate 95 H 92 H 94 H Respiratory Rate 18 26 H 33 H Blood Pressure 185/94 H Pulse Oximetry 100 99 99 08/23/21 19:18 08/23/21 19:30 08/23/21 20:00 Temperature Pulse Rate 91 H 91 H 97 H Respiratory Rate 22 20 22 Blood Pressure 139/80 146/83 H 163/81 H Pulse Oximetry 99 98 100 08/23/21 20:37 08/23/21 20:38 Temperature Pulse Rate 100 H 97 H Respiratory Rate 22 Blood Pressure 164/88 H Pulse Oximetry 98 100 MDM - SOB/Dyspnea Lab Data Result diagrams: 08/23/21 18:35 08/23/21 18:35 Labs: Lab Results 08/23/21 08/23/21 08/23/21 Range/Units 18:27 18:35 18:35 WBC 10.3 (4.5-11.0) X10^3/uL RBC 3.96 L (4.0-5.2) X10^6/uL Hgb 11.4 L (12.0-16.0) g/dL Hct 34.6 L (36-46) % MCV 87.2 (80-100) fL MCH 28.8 (26-34) PG MCHC 33.0 (30-36) % RDW 13.5 (11.6-14.8) % Plt Count 335 (150-400) X10^3/uL Neut % (Auto) 75.2 H (50-75) % Lymph % (Auto) 15.5 L (25-40) % [place] % (Auto) 7.2 (3-14) % Eos % (Auto) 1.6 L (2-4) % Baso % (Auto) 0.5 (0-2) % Neut # (Auto) 7800 H (4334-6652) /uL Lymph # (Auto) 1600 (5607-1378) /uL [place] # (Auto) 700 (0-900) /uL Eos # (Auto) 200 (0-450) /uL Baso # (Auto) 0 (0-100) /uL Sodium 142 (137-145) mmol/L Potassium 3.5 (3.4-5.1) mmol/L Chloride 102 (98-107) mmol/L Carbon Dioxide 30 (22-32) mmol/L BUN 18 H (7-17) mg/dL Creatinine 1.32 H (0.52-1.04) mg/dL Estimated GFR 43 L (>60) mL/min BUN/Creatinine Ratio 13.6 (6-22) Glucose 109 (80-110) mg/dL Lactate (0.7-2.1) mmol/L Calcium 9.7 (8.4-10.2) mg/dL Magnesium (1.6-2.3) mg/dL Ferritin (11-264) ng/mL Total Bilirubin 0.7 (0.2-1.3) mg/dL AST 28 (14-36) IU/L ALT 23 (<35) IU/L Alkaline Phosphatase 73 (38-126) U/L Total Creatine Kinase (30-135) U/L CK-MB (CK-2) (<2.37) ng/mL CK-MB (CK-2) Rel Index (1.5-5.0) % Troponin I (0.01-0.034) ng/mL C-Reactive Protein 4.9 H (<1.0) mg/dL NT-Pro-B Natriuret Pep (<125) pg/mL Total Protein 9.5 H (6.3-8.2) g/dL Albumin 4.8 (3.5-5.0) g/dL Globulin 4.7 H (1.7-4.1) g/dL Albumin/Globulin Ratio 1.0 (1.0-2.8) SARS-CoV-2 (PCR) (Negative) Influenza A (RT-PCR) Flu a negative (NEGATIVE) Influenza B (RT-PCR) Flu b negative (NEGATIVE) 08/23/21 08/23/21 08/23/21 Range/Units 18:35 18:35 19:20 WBC (4.5-11.0) X10^3/uL RBC (4.0-5.2) X10^6/uL Hgb (12.0-16.0) g/dL Hct (36-46) % MCV (80-100) fL MCH (26-34) PG MCHC (30-36) % RDW (11.6-14.8) % Plt Count (150-400) X10^3/uL Neut % (Auto) (50-75) % Lymph % (Auto) (25-40) % [place] % (Auto) (3-14) % Eos % (Auto) (2-4) % Baso % (Auto) (0-2) % Neut # (Auto) (1044-9800) /uL Lymph # (Auto) (0070-0794) /uL [place] # (Auto) (0-900) /uL Eos # (Auto) (0-450) /uL Baso # (Auto) (0-100) /uL Sodium (137-145) mmol/L Potassium (3.4-5.1) mmol/L Chloride (98-107) mmol/L Carbon Dioxide (22-32) mmol/L BUN (7-17) mg/dL Creatinine (0.52-1.04) mg/dL Estimated GFR (>60) mL/min BUN/Creatinine Ratio (6-22) Glucose (80-110) mg/dL Lactate 1.0 (0.7-2.1) mmol/L Calcium (8.4-10.2) mg/dL Magnesium 1.7 (1.6-2.3) mg/dL Ferritin 38 (11-264) ng/mL Total Bilirubin (0.2-1.3) mg/dL AST (14-36) IU/L ALT (<35) IU/L Alkaline Phosphatase (38-126) U/L Total Creatine Kinase 210 H (30-135) U/L CK-MB (CK-2) 1.76 (<2.37) ng/mL CK-MB (CK-2) Rel Index 0.8 L (1.5-5.0) % Troponin I < 0.012 (0.01-0.034) ng/mL C-Reactive Protein (<1.0) mg/dL NT-Pro-B Natriuret Pep 127 H (<125) pg/mL Total Protein (6.3-8.2) g/dL Albumin (3.5-5.0) g/dL Globulin (1.7-4.1) g/dL Albumin/Globulin Ratio (1.0-2.8) SARS-CoV-2 (PCR) Negative (Negative) Influenza A (RT-PCR) (NEGATIVE) Influenza B (RT-PCR) (NEGATIVE) Point of Care Testing Rapid Strep A Negative Urine Dip Bedside Urine Glucose Negative Bedside Urine Bilirubin - Negative Bedside Urine Ketone - Negative Urine Specific [place] 1.015 Bedside Urine Occult Blood - Negative Bedside Urine pH 6.5 Bedside Urine Protein - Negative Bedside Urine Urobilinogen - Negative Bedside Urine Nitrite - Negative Bedside Urine Leukocytes - Negative Esterase Imaging Data Chest x-ray: Radiologist's Impression: Negative for infiltrate MDM Narrative Medical decision making narrative: patient with reassuring history and physical exam. She is alert and oriented, in no respiratory distress, shows no signs of sepsis. Labs and imaging are reassuring. No respiratory distress, use of accessory muscles or need for supplemental oxygen. Given the duration of her symptoms along with fever and sputum production we will treat for an atypical pneumonia, she has been given extensive return precautions and questions have been answered to her apparent satisfaction Discharge Plan Departure Patient Disposition: Home Clinical Impression: Atypical pneumonia Instructions: Atypical Pneumonia Activity Restrictions/Additional Instructions: *You have been diagnosed with [atypical pneumonia. As we discussed your labs, x-ray and swabs for COVID and flu are negative. Given the cough with sputum, we will treat you for atypical pneumonia (walking pneumonia). *What to do: *Please continue to take your regular medications as directed. [x ] New medication prescriptions sent to your pharmacy: [ [facility]] [ ] New medication written as a paper prescription [ ] No new medications given *Please follow up with your primary care provider in 2-3 days, call for an appointment. Let them know you were seen in the Emergency Department and that we ask that you be seen in follow up. We will electronically transmit a record of today's note if your PCP is in our system *If you do not have a primary care provider please contact the [facility] Resource line at [phone]. They will ask some questions about your medical history and help get you set up with a doctor in the community. *Return to Emergency Department if you should have any new, worsening or concerning symptoms, such as [fever greater than 101 F, shaking chills, worsening pain, persistent vomiting or other bothersome symptoms] Prescriptions: New doxycycline hyclate 100 mg tablet 100 mg PO BID Qty: 20 0RF No Action losartan-hydrochlorothiazide 100 MG/25 MG tablet 1 tab PO QDAY Qty: 0 0RF cholecalciferol (vitamin D3) [Vitamin D3] 2,000 UNIT capsule 2,000 unit PO QDAY Qty: 0 0RF Label Comments: not known if current calcium carbonate 600 MG tablet 600 mg PO QDAY Qty: 0 0RF Label Comments: not known if current [place] U-100 Insulin 100 unit/mL (3 mL) insulin pen 30 unit SUBCUT BEDTIME 0RF meclizine 25 mg tablet 50 mg PO TID PRN (Reason: dizziness) Qty: 20 0RF atorvastatin 20 mg tablet 20 mg PO QPM 0RF metformin 1,000 mg tablet 1 tab PO BID 0RF alendronate 70 mg tablet 70 mg PO QWEEK 0RF pantoprazole 40 mg tablet,delayed release (DR/EC) 40 mg PO DAILY 0RF timolol maleate 0.5 % drops 1 drp OPHTHALMIC (EYE) DIRECTED 0RF aspirin 81 mg Tablet,Delayed Release (Dr/Ec) 81 mg PO DAILY Qty: 30 0RF meclizine 25 mg tablet 25 mg PO TID PRN (Reason: dizziness) Qty: 60 0RF Referrals: Yvonne Barr MD [Primary Care Provider] -
[2021-08-23 18:49] LABS: Hemoglobin 11.4 g/dL (12.0-16.0); Mean Corpuscular Volume 87.2 fL (80-100); Monocytes Absolute Auto 700 /uL (0-900); Red Blood Cell Count 3.96 X10^6/uL (4.0-5.2); Red Cell Distribution Width 13.5 % (11.6-14.8); White Blood Cell Count 10.3 X10^3/uL (4.5-11.0)
[2021-08-23 18:54] LABS: Add Manual Diff / Slide Review NO; Basophils Absolute Auto 0 /uL (0-100); Basophils Percent Auto 0.5 % (0-2); Eosinophils Absolute Auto 200 /uL (0-450); Eosinophils Percent Auto 1.6 % (2-4); Hematocrit 34.6 % (36-46); Lymphocytes Absolute Auto 1600 /uL (1100-4500); Lymphocytes Percent Auto 15.5 % (25-40); Mean Corpuscular Hemoglobin 28.8 PG (26-34); Monocytes Percent Auto 7.2 % (3-14); Neutrophils Absolute Auto 7800 /uL (1500-7000); Neutrophils Percent Auto 75.2 % (50-75); Platelet Count 335 X10^3/uL (150-400)
[2021-08-23 19:06] LABS: Alanine Aminotransferase 23 IU/L (<35); Albumin 4.8 g/dL (3.5-5.0); Alkaline Phosphatase 73 U/L (38-126); Aspartate Aminotransferase 28 IU/L (14-36); BUN Creatinine Ratio 13.6 (6-22); Bilirubin Total 0.7 mg/dL (0.2-1.3); Blood Urea Nitrogen 18 mg/dL (7-17); C-Reactive Protein Quant 4.9 mg/dL (<1.0); Calcium 9.7 mg/dL (8.4-10.2); Carbon Dioxide 30 mmol/L (22-32); Chloride 102 mmol/L (98-107); Estimated Glomerular Filt Rate 43 mL/min (>60); Globulin 4.7 g/dL (1.7-4.1); Glucose 109 mg/dL (80-110); HEMOLYSIS < 15 (0-50); Potassium 3.5 mmol/L (3.4-5.1); Sodium 142 mmol/L (137-145); Total Protein 9.5 g/dL (6.3-8.2)
[2021-08-23 19:07] LABS: Creatine Kinase 210 U/L (30-135); Magnesium 1.7 mg/dL (1.6-2.3)
[2021-08-23] MEDS: SODIUM CHLORIDE 0.9% 1,000 ML 1000 ML IV (19:11)
[2021-08-23 19:20] LABS: NT-proBNP (BNP-Adult 18+) 127 pg/mL (<125); Troponin I < 0.012 ng/mL (0.01-0.034)
[2021-08-23 19:22] LABS: CKMB % Relative Index 0.8 % (1.5-5.0); Creatine Kinase MB 1.76 ng/mL (<2.37)
[2021-08-23 19:37] LABS: COVID19 -Nasal RAPID Negative (Negative)
[2021-08-23 19:43] LABS: Ferritin 38 ng/mL (11-264)
[2021-08-23 19:44] LABS: Influenza A - CEPHEID Flu A NEGATIVE (NEGATIVE); Influenza B - CEPHEID Flu B NEGATIVE (NEGATIVE)
[2021-08-23] MEDS: DOXYCYCLINE HYCLATE 100 MG TABLET PO (21:00)
== END 2021-08-23 21:00 | disposition home or self-care (01) ==
PROVIDERS: Emergency Provider Emergency Medicine; PCP Internal Medicine
DX: J18.9 Pneumonia, unspecified organism (principal); Z20.822 Contact with and (suspected) exposure to COVID-19
CPT/HCPCS: 36415; 71046; 80053; 81003; 82550; 82553; 82728; 83605; 83735; 83880; 84484; 85025; 86140; 87040; 87502; 87635; 87880; 99284; C9803

== ENCOUNTER 2021-12-22 16:49 | Emergency (ER) | payer OTHER, SELFPAY ==
[2020-05-21 16:47] VITALS: BMI 27.8
[2021-12-22 16:52] VITALS: BP 128/70; PULSE 69; RESP 20; TEMP 36.6; O2SAT 98
[2021-12-22] MEDS: ONDANSETRON 4 MG ODT SL (17:43)
[2021-12-22] MEDS: ONDANSETRON 4 MG ODT PREPACK 1 BOTTLE MISC (21:21)
[2021-12-22 21:24] VITALS: BP 120/82; PULSE 64; RESP 20; O2SAT 98
--- NOTE | 2021-12-23 03:50 | ED_ITS ---
HPI - Dizziness General Chief Complaint: Dizziness Stated Complaint: Dizzy headache nausea Time Seen by Provider: 12/22/21 19:51 Source: patient Mode of arrival: Ambulatory History of Present Illness HPI Narrative: 71-year-old female nonsmoker with history of diabetes and hyperlipidemia as well as chronic vertigo presents with family in the chief complaint of vertigo. She routinely takes meclizine for the dizziness but tonight she vomited once and was unable to keep her meclizine. She does have dizziness that is typical for her and seems to be worse when she turns her head and improves with rest. She denies recent trauma or injury and has no fever or chills. She takes no blood thinners and denies any neck pain. She is had no chest pain or shortness of breath and denies any cough. She is had no abdominal pain, constipation or diarrhea. She denies dysuria, frequency or urgency Related Data Home Medications Medication Instructions Recorded Confirmed losartan 100 1 tab PO QDAY ##0 09/24/16 05/21/20 mg-hydrochlorothiazide 25 mg tablet calcium carbonate 600 mg calcium 600 mg PO QDAY ##0 03/10/17 05/22/20 (1,500 mg) tablet cholecalciferol (vitamin D3) 50 2,000 unit PO QDAY ##0 03/10/17 05/22/20 mcg (2,000 unit) capsule (Vitamin D3) atorvastatin 20 mg tablet 20 mg PO QPM 12/02/17 05/22/20 metformin 1,000 mg tablet 1 tab PO BID 12/02/17 05/22/20 alendronate 70 mg tablet 70 mg PO QWEEK 12/29/18 05/22/20 pantoprazole 40 mg tablet,delayed 40 mg PO DAILY 12/29/18 05/21/20 release timolol maleate 0.5 % eye drops 1 drp ophthalmic (eye) DIRECTED 12/29/18 05/22/20 insulin glargine 100 unit/mL (3 30 unit SUBCUT BEDTIME 05/22/20 05/22/20 mL) subcutaneous pen (Basaglar KwikPen U-100 Insulin) Previous Rx's Medication Instructions Recorded aspirin 81 mg tablet,delayed 81 mg PO DAILY #30 tabs 12/31/18 release meclizine 25 mg tablet 50 mg PO TID PRN dizziness #20 tabs 08/14/20 meclizine 25 mg tablet 25 mg PO TID PRN dizziness #60 tabs 03/18/21 doxycycline hyclate 100 mg tablet 100 mg PO BID #20 tabs 08/23/21 meclizine 25 mg tablet 25 mg PO BID-TID PRN dizziness #60 12/22/21 tabs ondansetron 4 mg disintegrating 4 mg PO TID-QID PRN nausea and 12/22/21 tablet vomiting #10 tabs Allergies Allergy/AdvReac Type Severity Reaction Status Date / Time No Known Drug Allergies Allergy Verified 08/04/21 18:44 Review of Systems Review of Systems Narrative: GENERAL: Denies chills, fatigue, malaise, fever, sweats. HEENT: Denies sinus pain, ear pain, sore throat, difficulty swallowing, dizziness. RESPIRATORY: Denies dyspnea, cough, wheezing, hemoptysis, sputum. CARDIOVASCULAR: Denies chest pain, palpitations, orthopnea, edema, GASTROINTESTINAL: Denies nausea, vomiting, abdominal pain, diarrhea, constipation, melena. : Denies dysuria, frequency, incontinence, hematuria, urinary retention. MUSCULOSKELETAL: denies weakness, joint pain, or bony pain SKIN: Denies rash, skin lesions, or other NEUROLOGIC: See HPI PSYCHIATRIC: No concerning psychosocial issues. 12 point review of systems is negative except for those stated above Patient History Medical History (Updated 12/22/21 @ 21:17 by González Ware DO) Cerebrovascular accident Diabetes Diabetes type 2, uncontrolled GERD (gastroesophageal reflux disease) Glaucoma, left eye Hyperlipidemia Hypertension Hypertension Osteoporosis Surgical History History of section Social History household members: family Smoking Status: Never smoker alcohol intake: never substance use type: does not use Smoking Status: Never smoker alcohol intake frequency: 0-2 drinks per day Substance Use Type: does not use Exam Narrative Exam Narrative: GENERAL: [71] year old patient appears stated age. Well-developed patient, in mild distress. HEAD: Atraumatic. Normocephalic. EYES: Pupils equal round and reactive. Extraocular motions intact. No scleral icterus. No injection or drainage. ENT: Nose without bleeding, purulent drainage. Throat without erythema, tonsillar hypertrophy or exudate. Airway patent. NECK: Trachea midline. Non tender CARDIOVASCULAR: Regular rate and rhythm without murmurs, gallops, or rubs. RESPIRATORY: Clear to auscultation. Breath sounds equal bilaterally. No wheezes, rales, or rhonchi. GASTROINTESTINAL: Abdomen soft, non-tender, nondistended. EXTREMITIES: No edema or joint tenderness. BACK: Nontender without deformity or crepitance. No flank tenderness. NEURO: AOx3. SKIN: No rash or erythema of visible areas Initial Vital Signs Initial Vital Signs: Vital Signs Temperature 97.9 F 12/22/21 16:52 Pulse Rate 69 12/22/21 16:52 Respiratory Rate 20 12/22/21 16:52 Blood Pressure 128/70 12/22/21 16:52 Pulse Oximetry 98 12/22/21 16:52 Oxygen Delivery Method 12/22/21 16:52 Course Orders Ordered: Discontinued Medications Ondansetron HCl (Ondansetron 4 Mg Odt) 4 mg SL NOW ONE Stop: 12/22/21 16:56 Last Admin: 12/22/21 17:43 Dose: 4 mg Documented By: ELIZABET Ondansetron HCl (Ondansetron 4 Mg Odt Prepack) 1 bottle MISC SEEINSTR ONE Stop: 12/22/21 21:15 Last Admin: 12/22/21 21:21 Dose: 1 bottle Documented By: SERGE Reevaluation(s) Reevaluation #1: Patient given Zofran early in her visit and has been able to tolerate liquids with no difficulty. We did discuss a much more significant workup including labs and imaging but she feels much better and would prefer to go home. She understands the risks and benefits of doing so and demonstrates capacity to make this decision. She understands that she may return at any point for worsening, persistent symptoms or a change of heart. She is been given return precautions and questions answered to her apparent satisfaction Vital Signs Vital signs: Vital Signs - 8 hr 12/22/21 21:24 Pulse Rate 64 Respiratory Rate 20 Blood Pressure 120/82 Pulse Oximetry 98 Oxygen Delivery Method Room Air Discharge Plan Departure Patient Disposition: Home Clinical Impression: Vertigo Instructions: DI for Vertigo Activity Restrictions/Additional Instructions: *You have been diagnosed with [vertigo] *What to do: *Please continue to take your regular medications as directed. [x ] New medication prescriptions sent to your pharmacy: [ [facility]] [ ] New medication written as a paper prescription [ ] No new medications given *Please follow up with your primary care provider in 2-3 days, call for an appointment. Let them know you were seen in the Emergency Department and that we ask that you be seen in follow up. We will electronically transmit a record of today's note if your PCP is in our system *If you do not have a primary care provider please contact the [facility] Resource line at [phone]. They will ask some questions about your medical history and help get you set up with a doctor in the community. *Return to Emergency Department if you should have any new, worsening or concerning symptoms, such as [fever greater than 101 F, shaking chills, worsening pain, persistent vomiting or other bothersome symptoms] Prescriptions: New meclizine 25 mg tablet 25 mg PO BID-TID PRN (Reason: dizziness) Qty: 60 0RF ondansetron 4 mg tablet,disintegrating 4 mg PO TID-QID PRN (Reason: nausea and vomiting) Qty: 10 0RF No Action losartan-hydrochlorothiazide 100 MG/25 MG tablet 1 tab PO QDAY Qty: 0 cholecalciferol (vitamin D3) [Vitamin D3] 2,000 UNIT capsule 2,000 unit PO QDAY Qty: 0 Label Comments: not known if current calcium carbonate 600 MG tablet 600 mg PO QDAY Qty: 0 Label Comments: not known if current Basaglar KwikPen U-100 Insulin 100 unit/mL (3 mL) insulin pen 30 unit SUBCUT BEDTIME meclizine 25 mg tablet 50 mg PO TID PRN (Reason: dizziness) Qty: 20 0RF doxycycline hyclate 100 mg tablet 100 mg PO BID Qty: 20 0RF atorvastatin 20 mg tablet 20 mg PO QPM metformin 1,000 mg tablet 1 tab PO BID alendronate 70 mg tablet 70 mg PO QWEEK pantoprazole 40 mg tablet,delayed release (DR/EC) 40 mg PO DAILY timolol maleate 0.5 % drops 1 drp OPHTHALMIC (EYE) DIRECTED aspirin 81 mg Tablet,Delayed Release (Dr/Ec) 81 mg PO DAILY Qty: 30 0RF meclizine 25 mg tablet 25 mg PO TID PRN (Reason: dizziness) Qty: 60 0RF Visit Report Forms: Patient Portal/API
== END 2021-12-22 21:26 | disposition home or self-care (01) ==
PROVIDERS: Emergency Provider Emergency Medicine
DX: R42 Dizziness and giddiness (principal)
CPT/HCPCS: 99282; 99283

== ENCOUNTER 2022-03-28 17:40 | Emergency (ER) | payer OTHER, SELFPAY ==
[2020-05-21 16:47] VITALS: BMI 27.8
[2022-03-28 17:55] VITALS: BP 180/87; PULSE 93; RESP 24; TEMP 38.1; O2SAT 97; BMI 33.4
--- NOTE | 2022-03-28 18:13 | PC.NURSE ---
pt had covid booster shot on tuesday during the daytime, by that night she had developed a fever. tylenol and ibuprofen was given. this morning she started to feel weak, fell in the bathroom (did not hit head, no loc, not on blood thinners). pt had a few near syncopal episodes and then started to vomit at 1530. has had 4 episodes of vomiting since then
--- NOTE | 2022-03-28 19:00 | DI.RAD.S_ITS ---
PROCEDURE: XR CHEST 1V INDICATIONS: chest pain TECHNIQUE: One view of the chest was acquired. COMPARISON: [facility], CR, XR CHEST 2V, 08/23/2021, 17:36. FINDINGS: Surgical changes and devices: None. Lungs and pleura: Lungs are clear. No pleural effusions or pneumothorax. Mediastinum: Mediastinal contours appear normal. Heart size is prominent, but may be accentuated by portable technique. Bones and chest wall: No suspicious bony lesions. Overlying soft tissues appear unremarkable. Degenerative changes are seen in the spine. IMPRESSION: No acute cardiopulmonary abnormality. Approved by: Fidel Moreno M.D. on 03/28/2022 at 19:21
--- NOTE | 2022-03-28 19:02 | ED_ITS ---
HPI - Weakness General Chief complaint: Weakness Stated complaint: reaction to covid booster, swollen, fever, weaknes Time Seen by Provider: 03/28/22 18:35 Source: patient Mode of arrival: Wheelchair History of Present Illness HPI Narrative: Patient is a 71-year-old female history of diabetes presenting today with fever body aches and generally not feeling well. She received her 5th COVID booster 2 days ago and has had fever and body aches since. She says she typically does not get this reaction with it. She has feels nauseous she has had intermittent vomiting. No significant lower extremity swelling. No significant chest she h as been taking all Tylenol ibuprofen for the fever continues to come back. She has decreased appetite. Related Data Home Medications Medication Instructions Recorded Confirmed losartan 100 1 tab PO QDAY ##0 09/24/16 05/21/20 mg-hydrochlorothiazide 25 mg tablet calcium carbonate 600 mg calcium 600 mg PO QDAY ##0 03/10/17 05/22/20 (1,500 mg) tablet cholecalciferol (vitamin D3) 50 2,000 unit PO QDAY ##0 03/10/17 05/22/20 mcg (2,000 unit) capsule (Vitamin D3) atorvastatin 20 mg tablet 20 mg PO QPM 12/02/17 05/22/20 metformin 1,000 mg tablet 1 tab PO BID 12/02/17 05/22/20 alendronate 70 mg tablet 70 mg PO QWEEK 12/29/18 05/22/20 pantoprazole 40 mg tablet,delayed 40 mg PO DAILY 12/29/18 05/21/20 release timolol maleate 0.5 % eye drops 1 drp ophthalmic (eye) DIRECTED 12/29/18 05/22/20 insulin glargine 100 unit/mL (3 30 unit SUBCUT BEDTIME 05/22/20 05/22/20 mL) subcutaneous pen (Basaglar KwikPen U-100 Insulin) Previous Rx's Medication Instructions Recorded aspirin 81 mg tablet,delayed 81 mg PO DAILY #30 tabs 12/31/18 release meclizine 25 mg tablet 50 mg PO TID PRN dizziness #20 tabs 08/14/20 meclizine 25 mg tablet 25 mg PO TID PRN dizziness #60 tabs 03/18/21 doxycycline hyclate 100 mg tablet 100 mg PO BID #20 tabs 08/23/21 meclizine 25 mg tablet 25 mg PO BID-TID PRN dizziness #60 12/22/21 tabs ondansetron 4 mg disintegrating 4 mg PO TID-QID PRN nausea and 12/22/21 tablet vomiting #10 tabs ondansetron 4 mg disintegrating 4 mg PO Q8H PRN nausea and 03/28/22 tablet vomiting #10 tabs Allergies Allergy/AdvReac Type Severity Reaction Status Date / Time No Known Drug Allergies Allergy Verified 08/04/21 18:44 Review of Systems Review of Systems Narrative: GENERAL: See HPI HEENT: Denies sinus pain, ear pain, sore throat, difficulty swallowing, neck pain RESPIRATORY: Denies dyspnea, cough, wheezing, hemoptysis, sputum. CARDIOVASCULAR: Denies chest pain, palpitations, orthopnea, edema GASTROINTESTINAL: Denies nausea, vomiting, abdominal pain, diarrhea, constipation, melena. : Denies dysuria, frequency, incontinence, hematuria, urinary retention, flank pain. MUSCULOSKELETAL: Denies weakness, joint pain, or bony pain SKIN: No rash, no erythema, no pruritus NEUROLOGIC: Denies weakness, dizziness, headache, numbness, change in speech, confusion PSYCHIATRIC: No concerning psychosocial issues. 12 point review of systems is negative except for those stated above and HPI Patient History Medical History (Updated 03/28/22 @ 21:14 by Lavern Ash DO) Cerebrovascular accident Diabetes Diabetes type 2, uncontrolled GERD (gastroesophageal reflux disease) Glaucoma, left eye Hyperlipidemia Hypertension Hypertension Osteoporosis Surgical History History of section Social History household members: family Smoking Status: Never smoker alcohol intake: never substance use type: does not use Smoking Status: Never smoker alcohol intake frequency: 0-2 drinks per day Substance Use Type: does not use Exam Initial Vital Signs Initial Vital Signs: Vital Signs Temperature 100.5 F H 03/28/22 17:55 Pulse Rate 93 H 03/28/22 17:55 Respiratory Rate 24 03/28/22 17:55 Blood Pressure 180/87 H 03/28/22 17:55 Pulse Oximetry 97 03/28/22 17:55 Oxygen Delivery Method 03/28/22 17:55 GENERAL: Generally weak 71-year-old female appears to not feel well HEENT: Head atraumatic,EOMI, pupils reactive, face symmetric, moist mucous membranes CARDIOVASCULAR: Regular rate and rhythm without murmurs, rubs or gallops. RESPIRATORY: Breath sounds equal bilaterally, no wheezes rales or rhonchi. ABDOMEN: Soft, nontender. Normoactive bowel sounds all 4 quadrants. No gu arding or rebound. EXTREMITIES: Normal range of motion, no clubbing or edema. Neurovascularly intact NEUROLOGICAL: Alert and oriented x4.Normal gait and speech. SKIN: Warm, dry, no laceration, no petechiae, no rashes or lesions. Course Orders Ordered: Discontinued Medications Sodium Chloride (Normal Saline 0.9%) 1,000 mls @ 1,000 mls/hr IV CONT AUGUSTIN Last Infusion: 03/28/22 20:42 Dose: 0 mls/hr Documented By: Admin: 03/28/22 19:22 Dose: 1,000 mls/hr Documented By: ERICKSON Ketorolac Tromethamine (Ketorolac 30 Mg/Ml Vial) 15 mg IV NOW ONE Stop: 03/28/22 19:01 Last Admin: 03/28/22 19:22 Dose: 15 mg Documented By: ERICKSON Ondansetron HCl (Ondansetron 4 Mg/2 Ml Inj) 4 mg IV NOW ONE Stop: 03/28/22 19:01 Last Admin: 03/28/22 19:23 Dose: 4 mg Documented By: ERICKSON Vital Signs Vital signs: Vital Signs - 8 hr 03/28/22 21:31 Temperature 98.9 F Pulse Rate 68 Respiratory Rate 18 Blood Pressure 142/72 H Pulse Oximetry 97 Oxygen Delivery Method Room Air MDM - Weakness Lab Data Result diagrams: 03/28/22 19:21 03/28/22 19:21 Labs: Lab Results 03/28/22 03/28/22 03/28/22 Range/Units 19:21 19:21 19:21 WBC 7.0 (4.5-11.0) X10^3/uL RBC 3.82 L (4.0-5.2) X10^6/uL Hgb 11.1 L (12.0-16.0) g/dL Hct 33.8 L (36-46) % MCV 88.4 (80-100) fL MCH 29.0 (26-34) PG MCHC 32.8 (30-36) % RDW 13.5 (11.6-14.8) % Plt Count 262 (150-400) X10^3/uL Neut % (Auto) 85.7 H (50-75) % Lymph % (Auto) 6.4 L (25-40) % [place] % (Auto) 7.3 (3-14) % Eos % (Auto) 0.3 L (2-4) % Baso % (Auto) 0.3 (0-2) % Neut # (Auto) 6000 (3733-1232) /uL Lymph # (Auto) 400 L (6454-0095) /uL [place] # (Auto) 500 (0-900) /uL Eos # (Auto) 0 (0-450) /uL Baso # (Auto) 0 (0-100) /uL Sodium 136 L (137-145) mmol/L Potassium 3.7 (3.4-5.1) mmol/L Chloride 96 L (98-107) mmol/L Carbon Dioxide 28 (22-32) mmol/L BUN 16 (7-17) mg/dL Creatinine 1.27 H (0.52-1.04) mg/dL Estimated GFR 45 L (>60) mL/min BUN/Creatinine Ratio 12.6 (6-22) Glucose 178 H (80-110) mg/dL Calcium 9.5 (8.4-10.2) mg/dL Total Bilirubin 0.7 (0.2-1.3) mg/dL AST 35 (14-36) IU/L ALT 34 (<35) IU/L Alkaline Phosphatase 63 (38-126) U/L Total Creatine Kinase 121 (30-135) U/L CK-MB (CK-2) 0.69 (<2.37) ng/mL CK-MB (CK-2) Rel Index 0.6 L (1.5-5.0) % Troponin I < 0.012 (0.01-0.034) ng/mL Total Protein 8.9 H (6.3-8.2) g/dL Albumin 4.6 (3.5-5.0) g/dL Globulin 4.3 H (1.7-4.1) g/dL Albumin/Globulin Ratio 1.1 (1.0-2.8) Lipase 103 (23-300) U/L SARS-CoV-2 (PCR) Negative (Negative) Influenza A (RT-PCR) Flu a positive H (NEGATIVE) Influenza B (RT-PCR) Flu b negative (NEGATIVE) RSV (PCR) Negative (Negative) Point of Care Testing Glucose POC 173 Imaging Data Chest x-ray: Radiologist Impression: XRay Report Signed Patient: Rebecca Talamantes MR#: [id number] : 1950 Acct:[id number] Age/Sex: 71 / F Date of Service: 03/28/22 Loc: ED Accession Number: [id number] ?? Procedure: XR chest 1V Ordering Provider: Lavern Ash D.O. PROCEDURE:? XR CHEST 1V ? INDICATIONS:? chest pain ? TECHNIQUE:? One view of the chest was acquired.? ? COMPARISON:? [facility], , XR CHEST 2V, 08/23/2021, 17:36. ? FINDINGS:? ? Surgical changes and devices:? None.? ? Lungs and pleura:? Lungs are clear.? No pleural effusions or pneumothorax.? ? Mediastinum:? Mediastinal contours appear normal.? Heart size is prominent, but may be accentuated by portable technique.? ? Bones and chest wall:? No suspicious bony lesions.? Overlying soft tissues appear unremarkable.? Degenerative changes are seen in the spine. ? IMPRESSION:? No acute cardiopulmonary abnormality. ? ? ? Approved by: Fidel Moreno M.D. on 03/28/2022 at 19:21? ECG Data Interpretation: Normal sinus rhythm rate 97 [place] interval 180 QRS [address] changes Q-waves noted in lead 3 only MDM Narrative Medical decision making narrative: Patient overall appears to not feel well. She had a COVID booster today a couple days ago however she has never had this kind reaction. Her respiratory panel is positive for influenza A. Chest x-ray does not show any pneumonia. Blood work is overall reassuring she is not septic. Now tolerating fluids and feeling a bit better. At this time not needing admission criteria. Discussed supportive care at home Discharge Plan Departure Patient Disposition: Home Clinical Impression: Influenza A Instructions: DI for Influenza -- Adult Activity Restrictions/Additional Instructions: *You have been diagnosed with influenza *What to do: At this time he of influenza. This is not related to her COVID booster. Continue to stay hydrated treat fever as needed rest pain *Continue to take medications as directed Tylenol 650 mg every 4-6 hours if needed for [id number] pain or fever Motrin 600 mg a every 6 hours if needed for mild to moderate pain or fever Zofran 4 mg every 8 hours if needed for nausea or vomiting *Follow up with your primary care provider in 2-3 days or call [phone] *Return to ER if you should have increasing shortness of breath decreasing fluid intake or any new, worsening or concerning symptoms Prescriptions: New ondansetron 4 mg tablet,disintegrating 4 mg PO Q8H PRN (Reason: nausea and vomiting) Qty: 10 0RF No Action losartan-hydrochlorothiazide 100 MG/25 MG tablet 1 tab PO QDAY Qty: 0 cholecalciferol (vitamin D3) [Vitamin D3] 2,000 UNIT capsule 2,000 unit PO QDAY Qty: 0 Label Comments: not known if current calcium carbonate 600 MG tablet 600 mg PO QDAY Qty: 0 Label Comments: not known if current Basaglar KwikPen U-100 Insulin 100 unit/mL (3 mL) insulin pen 30 unit SUBCUT BEDTIME meclizine 25 mg tablet 50 mg PO TID PRN (Reason: dizziness) Qty: 20 0RF doxycycline hyclate 100 mg tablet 100 mg PO BID Qty: 20 0RF atorvastatin 20 mg tablet 20 mg PO QPM metformin 1,000 mg tablet 1 tab PO BID alendronate 70 mg tablet 70 mg PO QWEEK pantoprazole 40 mg tablet,delayed release (DR/EC) 40 mg PO DAILY timolol maleate 0.5 % drops 1 drp OPHTHALMIC (EYE) DIRECTED aspirin 81 mg Tablet,Delayed Release (Dr/Ec) 81 mg PO DAILY Qty: 30 0RF meclizine 25 mg tablet 25 mg PO TID PRN (Reason: dizziness) Qty: 60 0RF meclizine 25 mg tablet 25 mg PO BID-TID PRN (Reason: dizziness) Qty: 60 0RF ondansetron 4 mg tablet,disintegrating 4 mg PO TID-QID PRN (Reason: nausea and vomiting) Qty: 10 0RF Referrals: Yvonne Barr MD [Primary Care Provider] - Visit Report Forms: Patient Portal/API
[2022-03-28] MEDS: SODIUM CHLORIDE 0.9% 1,000 ML 1000 ML IV (19:22)
[2022-03-28] MEDS: KETOROLAC 30 MG/ML VIAL 15 MG IV (19:22)
[2022-03-28] MEDS: ONDANSETRON 4 MG/2 ML INJ IV (19:23)
[2022-03-28 19:34] VITALS: BP 152/80; PULSE 95; O2SAT 94
[2022-03-28 19:48] LABS: Add Manual Diff / Slide Review NO; Basophils Absolute Auto 0 /uL (0-100); Basophils Percent Auto 0.3 % (0-2); Eosinophils Absolute Auto 0 /uL (0-450); Eosinophils Percent Auto 0.3 % (2-4); Hematocrit 33.8 % (36-46); Hemoglobin 11.1 g/dL (12.0-16.0); Lymphocytes Absolute Auto 400 /uL (1100-4500); Lymphocytes Percent Auto 6.4 % (25-40); Mean Corpuscular HGB Conc 32.8 % (30-36); Mean Corpuscular Volume 88.4 fL (80-100); Monocytes Absolute Auto 500 /uL (0-900); Monocytes Percent Auto 7.3 % (3-14); Neutrophils Absolute Auto 6000 /uL (1500-7000); Neutrophils Percent Auto 85.7 % (50-75); Platelet Count 262 X10^3/uL (150-400); Red Blood Cell Count 3.82 X10^6/uL (4.0-5.2); Red Cell Distribution Width 13.5 % (11.6-14.8)
[2022-03-28 20:00] LABS: Alanine Aminotransferase 34 IU/L (<35); Albumin 4.6 g/dL (3.5-5.0); Albumin Globulin Ratio 1.1 (1.0-2.8); Alkaline Phosphatase 63 U/L (38-126); Aspartate Aminotransferase 35 IU/L (14-36); BUN Creatinine Ratio 12.6 (6-22); Bilirubin Total 0.7 mg/dL (0.2-1.3); Blood Urea Nitrogen 16 mg/dL (7-17); Calcium 9.5 mg/dL (8.4-10.2); Carbon Dioxide 28 mmol/L (22-32); Chloride 96 mmol/L (98-107); Creatine Kinase 121 U/L (30-135); Estimated Glomerular Filt Rate 45 mL/min (>60); Globulin 4.3 g/dL (1.7-4.1); Glucose 178 mg/dL (80-110); HEMOLYSIS < 15 (0-50); Lipase 103 U/L (23-300); Potassium 3.7 mmol/L (3.4-5.1); Sodium 136 mmol/L (137-145); Total Protein 8.9 g/dL (6.3-8.2)
[2022-03-28 20:12] LABS: Troponin I < 0.012 ng/mL (0.01-0.034)
[2022-03-28 20:15] LABS: CKMB % Relative Index 0.6 % (1.5-5.0); Creatine Kinase MB 0.69 ng/mL (<2.37)
[2022-03-28 20:40] LABS: Influenza A - CEPHEID Flu A POSITIVE (NEGATIVE); Influenza B - CEPHEID Flu B NEGATIVE (NEGATIVE); Respiratory Syncytial Virus Negative (Negative)
[2022-03-28 20:53] LABS: COVID-19 CEPHEID 4-PLEX PCR Negative (Negative)
[2022-03-28 21:31] VITALS: BP 142/72; PULSE 68; RESP 18; TEMP 37.2; O2SAT 97
== END 2022-03-28 21:30 | disposition home or self-care (01) ==
PROVIDERS: Emergency Provider Emergency Medicine; PCP Internal Medicine
DX: J10.1 Influenza due to other identified influenza virus with other respiratory manifestations (principal); R07.9 Chest pain, unspecified; Z20.822 Contact with and (suspected) exposure to COVID-19
CPT/HCPCS: 0241U; 36415; 71045; 80053; 82550; 82553; 82962; 83690; 84484; 85025; 93005; 93010; 96361; 96374; 96375; 99284; J1885; J2405

== ENCOUNTER → 2022-04-30 12:13 | Outpatient (CLI) | payer OTHER, SELFPAY ==
[2020-05-21 16:47] VITALS: BMI 27.8
== END ==
PROVIDERS: PCP Internal Medicine; Referring Provider Internal Medicine; Visit Provider Internal Medicine
DX: M81.0 Age-related osteoporosis without current pathological fracture (principal); Z78.0 Asymptomatic menopausal state
CPT/HCPCS: 77080

== ENCOUNTER 2022-10-04 08:20 | Emergency (ER) | payer OTHER, SELFPAY ==
[2020-05-21 16:47] VITALS: BMI 27.8
[2022-10-04] VITALS (18 sets, daily range): BP systolic 165–200; BP diastolic 76–86; PULSE 51–61; RESP 14–24; TEMP 36.6; O2SAT 93–100; BMI 32.3
--- NOTE | 2022-10-04 08:52 | DI.RAD.S_ITS ---
PROCEDURE: XR CHEST 1V INDICATIONS: chest pain TECHNIQUE: One view of the chest was acquired. COMPARISON: [facility], CR, XR CHEST 1V, 03/28/2022, 19:00. [facility], CR, XR CHEST 2V, 08/23/2021, 17:36. FINDINGS: Surgical changes and devices: None. Lungs and pleura: Lungs are clear. No pleural effusions or pneumothorax. Mediastinum: Mediastinal contours appear unchanged. Heart size is normal. Bones and chest wall: No suspicious bony lesions. Overlying soft tissues appear unremarkable. IMPRESSION: No acute cardiopulmonary abnormality. Dictated by: Jossue Lawrence M.D. on 10/04/2022 at 9:15 Approved by: Jossue Lawrence M.D. on 10/04/2022 at 9:16
[2022-10-04 09:29] LABS: Add Manual Diff / Slide Review NO; Basophils Absolute Auto 0 /uL (0-100); Basophils Percent Auto 0.8 % (0-2); Eosinophils Absolute Auto 100 /uL (0-450); Eosinophils Percent Auto 1.8 % (2-4); Hematocrit 30.9 % (36-46); Hemoglobin 10.4 g/dL (12.0-16.0); Lymphocytes Absolute Auto 1600 /uL (1100-4500); Lymphocytes Percent Auto 27.7 % (25-40); Mean Corpuscular HGB Conc 33.6 % (30-36); Mean Corpuscular Hemoglobin 29.9 PG (26-34); Mean Corpuscular Volume 89.1 fL (80-100); Monocytes Absolute Auto 400 /uL (0-900); Monocytes Percent Auto 6.6 % (3-14); Neutrophils Absolute Auto 3700 /uL (1500-7000); Neutrophils Percent Auto 63.1 % (50-75); Platelet Count 298 X10^3/uL (150-400); Red Blood Cell Count 3.47 X10^6/uL (4.0-5.2); Red Cell Distribution Width 14.3 % (11.6-14.8); White Blood Cell Count 5.9 X10^3/uL (4.5-11.0)
[2022-10-04 09:36] LABS: INR 0.9 (0.9-1.3); Prothrombin Time 10.8 SECONDS (10.1-12.7)
--- NOTE | 2022-10-04 09:38 | ED_ITS ---
HPI - Headache General Chief Complaint: Headache Stated Complaint: high BP 215-115 /DR recently changed BP meds Time Seen by Provider: 10/04/22 09:34 Mode of arrival: Ambulatory History of Present Illness HPI Narrative: Patient is a 72-year-old female history of diabetes hypertension CVA with left facial droop presenting today with elevated blood pressure and headache 1 week. She reports that back in July her provider changed her medication she was previously on losartan 100 hydrochlorothiazide 25 and it was changed to Cozaar at 100 and metoprolol. She denies any numbness tingling or weakness today. She is no chest pain palpitations or shortness of breath. She is no abdominal pain. She is been taking Tylenol and ibuprofen for her headache which usually works. However today she just wanted to get checked Related Data Home Medications Medication Instructions Recorded Confirmed losartan 100 1 tab PO QDAY ##0 09/24/16 05/21/20 mg-hydrochlorothiazide 25 mg tablet calcium carbonate 600 mg calcium 600 mg PO QDAY ##0 03/10/17 05/22/20 (1,500 mg) tablet cholecalciferol (vitamin D3) 50 2,000 unit PO QDAY ##0 03/10/17 05/22/20 mcg (2,000 unit) capsule (Vitamin D3) atorvastatin 20 mg tablet 20 mg PO QPM 12/02/17 05/22/20 metformin 1,000 mg tablet 1 tab PO BID 12/02/17 05/22/20 alendronate 70 mg tablet 70 mg PO QWEEK 12/29/18 05/22/20 pantoprazole 40 mg tablet,delayed 40 mg PO DAILY 12/29/18 05/21/20 release timolol maleate 0.5 % eye drops 1 drp ophthalmic (eye) DIRECTED 12/29/18 05/22/20 insulin glargine 100 unit/mL (3 30 unit SUBCUT BEDTIME 05/22/20 05/22/20 mL) subcutaneous pen (Basaglar AlmitaPen U-100 Insulin) Previous Rx's Medication Instructions Recorded aspirin 81 mg tablet,delayed 81 mg PO DAILY #30 tabs 12/31/18 release meclizine 25 mg tablet 50 mg PO TID PRN dizziness #20 tabs 08/14/20 meclizine 25 mg tablet 25 mg PO TID PRN dizziness #60 tabs 03/18/21 doxycycline hyclate 100 mg tablet 100 mg PO BID #20 tabs 08/23/21 meclizine 25 mg tablet 25 mg PO BID-TID PRN dizziness #60 12/22/21 tabs ondansetron 4 mg disintegrating 4 mg PO TID-QID PRN nausea and 12/22/21 tablet vomiting #10 tabs ondansetron 4 mg disintegrating 4 mg PO Q8H PRN nausea and 03/28/22 tablet vomiting #10 tabs Allergies Allergy/AdvReac Type Severity Reaction Status Date / Time No Known Drug Allergies Allergy Verified 08/04/21 18:44 Review of Systems Review of Systems ROS Unobtainable: All systems reviewed & are unremarkable except as noted in HPI and below Patient History Medical History (Updated 10/04/22 @ 13:03 by Lavern Ash DO) Cerebrovascular accident Diabetes Diabetes type 2, uncontrolled GERD (gastroesophageal reflux disease) Glaucoma, left eye Hyperlipidemia Hypertension Hypertension Osteoporosis Surgical History History of section Social History household members: family Smoking Status: Never smoker alcohol intake: never substance use type: does not use Smoking Status: Never smoker alcohol intake frequency: 0-2 drinks per day Substance Use Type: does not use Exam Initial Vital Signs Initial Vital Signs: Vital Signs Temperature 98 F 10/04/22 08:43 Pulse Rate 57 L 10/04/22 08:43 Respiratory Rate 18 10/04/22 08:43 Blood Pressure 200/85 H 10/04/22 08:43 Pulse Oximetry 100 10/04/22 08:43 Oxygen Delivery Method Room Air 10/04/22 08:43 GENERAL: Alert pleasant well-appearing 72-year-old female HEENT: Head atraumatic,EOMI, pupils reactive, face symmetric, moist mucous membranes CARDIOVASCULAR: Regular rate and rhythm without murmurs, rubs or gallops. RESPIRATORY: Breath sounds equal bilaterally, no wheezes rales or rhonchi. ABDOMEN: Soft, nontender. Normoactive bowel sounds all 4 quadrants. No guarding or rebound. EXTREMITIES: Normal range of motion, no clubbing or edema. Neurovascularly intact NEUROLOGICAL: Alert and oriented x4.Normal gait and speech. Cranial nerves II through XII grossly intact. Good ohyosx-kk-kzwh, good qone-nv-qtjb, strength equal bilaterally, no dysarthria or aphasia, sensation in tact to soft touch bilaterally, no visual changes, no facial droop SKIN: Warm, dry, no laceration, no petechiae, no rashes or lesions. Scores NIH Stroke Scale Level of Conciousness: Alert, keenly responsive Ask month/age: Answers both questions correctly. Open/close eyes, close hand: Performs both tasks correctly Best gaze horizontal: Normal Visual cantu: No visual loss Facial palsy: Normal symetrical movement Left arm drift: No drift for full 10 sec Right arm drift: No drift for full 10 sec Left leg drift: No drift for full 5 sec Right leg drift: No drift for full 5 sec Limb ataxia: Absent Sensory on face/arms/legs: Normal, no sensory loss Best language: No aphasia, normal Dysarthria: Normal Extinction or inattention: No abnormality Total NIH Stroke scale score: 0 Course Orders Ordered: Discontinued Medications Aspirin (Aspirin 81 Mg Chew Tab) 324 mg PO NOW ONE Stop: 10/04/22 08:53 Last Admin: 10/04/22 11:55 Dose: Not Given Documented By: AT Ketorolac Tromethamine (Ketorolac 30 Mg/Ml Vial) 15 mg IV NOW ONE Stop: 10/04/22 12:23 Last Admin: 10/04/22 12:34 Dose: 15 mg Documented By: AT Vital Signs Vital signs: Vital Signs - 8 hr 10/04/22 11:22 10/04/22 11:22 10/04/22 11:30 Pulse Rate 54 L 53 L Respiratory Rate 14 20 Blood Pressure 187/80 H Pulse Oximetry 99 98 Oxygen Delivery Method Room Air 10/04/22 11:46 10/04/22 11:46 10/04/22 12:00 Pulse Rate 61 Respiratory Rate 21 Blood Pressure 186/86 H 170/79 H Pulse Oximetry 98 Oxygen Delivery Method 10/04/22 12:00 10/04/22 12:30 10/04/22 12:31 Pulse Rate 51 L 52 L Respiratory Rate 18 17 16 Blood Pressure Pulse Oximetry 98 99 98 Oxygen Delivery Method 10/04/22 12:31 10/04/22 13:00 10/04/22 13:01 Pulse Rate 52 L Respiratory Rate 18 Blood Pressure 187/79 H 172/77 H Pulse Oximetry 100 Oxygen Delivery Method Room Air 10/04/22 13:01 Pulse Rate 52 L Respiratory Rate 17 Blood Pressure Pulse Oximetry 100 Oxygen Delivery Method MDM - Headache Lab Data 10/04/22 09:16 10/04/22 09:16 Labs: Lab Results 10/04/22 10/04/22 10/04/22 Range/Units 09:16 09:16 09:16 WBC 5.9 (4.5-11.0) X10^3/uL RBC 3.47 L (4.0-5.2) X10^6/uL Hgb 10.4 L (12.0-16.0) g/dL Hct 30.9 L (36-46) % MCV 89.1 (80-100) fL MCH 29.9 (26-34) PG MCHC 33.6 (30-36) % RDW 14.3 (11.6-14.8) % Plt Count 298 (150-400) X10^3/uL Neut % (Auto) 63.1 (50-75) % Lymph % (Auto) 27.7 (25-40) % [place] % (Auto) 6.6 (3-14) % Eos % (Auto) 1.8 L (2-4) % Baso % (Auto) 0.8 (0-2) % Neut # (Auto) 3700 (7208-6475) /uL Lymph # (Auto) 1600 (0897-0166) /uL [place] # (Auto) 400 (0-900) /uL Eos # (Auto) 100 (0-450) /uL Baso # (Auto) 0 (0-100) /uL PT 10.8 (10.1-12.7) SECONDS INR 0.9 (0.9-1.3) APTT 33 (26-36) SECONDS Sodium 136 L (137-145) mmol/L Potassium 3.8 (3.4-5.1) mmol/L Chloride 101 (98-107) mmol/L Carbon Dioxide 27 (22-32) mmol/L BUN 16 (7-17) mg/dL Creatinine 1.06 H (0.52-1.04) mg/dL Estimated GFR 55 L (>60) mL/min BUN/Creatinine Ratio 15.1 (6-22) Glucose 168 H (80-110) mg/dL Calcium 8.8 (8.4-10.2) mg/dL Magnesium 1.6 (1.6-2.3) mg/dL Total Bilirubin 0.8 (0.2-1.3) mg/dL AST 31 (14-36) IU/L ALT 20 (<35) IU/L Alkaline Phosphatase 32 L (38-126) U/L Total Creatine Kinase 175 H (30-135) U/L CK-MB (CK-2) TNP CK-MB (CK-2) Rel Index TNP Troponin I < 0.012 (0.01-0.034) ng/mL Total Protein 7.3 (6.3-8.2) g/dL Albumin 3.9 (3.5-5.0) g/dL Globulin 3.4 (1.7-4.1) g/dL Albumin/Globulin Ratio 1.1 (1.0-2.8) Lipase 199 (23-300) U/L Urine Dip Bedside Urine Glucose Negative Bedside Urine Bilirubin - Negative Bedside Urine Ketone - Negative Urine Specific [place] 1.010 Bedside Urine Occult Blood - Negative Bedside Urine pH 6.0 Bedside Urine Protein - Negative Bedside Urine Urobilinogen - Negative Bedside Urine Nitrite - Negative Bedside Urine Leukocytes - Negative Esterase Imaging Data CTA - brain/neck: Radiologist's Impression: PROCEDURE:? CT ANGIO HEAD AND NECK ? INDICATIONS:? headache HTN with hx of cva ? TECHNIQUE:? Pre-contrast 4.5 mm thick sections acquired from the foramen magnum to the vertex.? After the administration of intravenous contrast, 1 mm thick sections acquired from the aortic arch through the [place].? Post-contrast 4.5 mm thick sections then re- acquired from the foramen magnum to the vertex.? 3-dimensional lcmqwhf-kzzvupfcg-jiettpjruw (MIP) and/or volume rendering reformats were acquired of the central intracranial vasculature and neck separately. For radiation dose reduction, the following was used:? automated exposure control, adjustment of mA and/or kV according to patient size.? ? COMPARISON:? [facility], CT, CT ANGIO HEAD AND NECK, 08/14/2020, 10:32. ? FINDINGS:? Image quality:? Excellent.? ? BRAIN:? CSF spaces:? Ventricles are normal in size and shape.? Basal cisterns are patent.? No extra-axial fluid collections.? ? Brain:? No midline shift.? No intracranial bleeds or masses.? Pascal-white matter interface appears intact.? Mild atrophy and chronic ischemic change.? Old lacunar infarct noted in the right thalamus ? Skull and face:? Calvarium and facial bones appear intact, without suspicious lesions.? Orbits appear normal.? ? Sinuses:? Sinuses and mastoids are clear.? ? HEAD CT ANGIOGRAPHY:? Anterior circulation:? Intracranial internal carotid arteries are normal in size and flow.? The flow within the paired anterior cerebral arteries is normal and s ymmetric.? The flow within the middle cerebral arteries is normal and symmetric.? The anterior communicating artery is seen.? No aneurysms are seen.? ? Posterior circulation:? Visualized portions of the vertebral arteries demonstrate normal caliber, and join to form a normal appearing basilar artery.? Flow within the posterior cerebral arteries is normal and symmetric.? No aneurysms are seen.? ? NECK CT ANGIOGRAPHY:? Carotid system:? The great vessels demonstrate a conventional anatomy as they a rise from the aortic arch.? The origins of the common carotid arteries appear patent.? The common carotid arteries demonstrate normal caliber and courses.? The bifurcation regions are both widely patent.? The internal carotid arteries demonstrate normal calibers and courses.? ? Posterior circulation:? The origins of the vertebral arteries both appear widely patent.? The more superior extracranial portions of both vertebral arteries also demonstrate normal courses and calibers.? They join to form a normal appearing basilar artery.? ? Soft tissues:? Visualized neck soft tissues demonstrate no suspicious abnormalities.? ? Bones:? No suspicious bony lesions.? Visualized cervical spine appears normally aligned.? IMPRESSION:? ? Atrophy, chronic ischemic change and old right thalamic lacunar infarct.? No intracranial hemorrhage or mass effect. ? Mild atherosclerotic calcification in both proximal ICA as well as intracranial cavernous ICA without evidence stenosis.? ? No evidence of large vessel occlusion, aneurysm or vascular malformation. ? Any quantitative measurements of stenosis were performed using NASCET criteria.? Approved by: Deshawn Burns M.D. on 10/04/2022 at 10:55? ECG Data Interpretation: Normal sinus rhythm rate 55 MS interval 190 QRS [address] changes no T- wave inversions MDM Narrative Medical decision making narrative: Patient 72-year-old female presenting today with headache ongoing for a week previous history of CVA without focal deficits. Blood pressure is noted to be mildly elevated medication was changed about 4-6 weeks ago she is noticed an increase in blood pressure for last 1 week. sHe was given Toradol here in the ED for headache which seems to have helped. She is no sign of end-organ damage CT angio does not show any new stroke. I suspect that her headache may be secondary to blood pressure which is not urgent or emergent about mildly elevated. Recommend she fracture blood pressure follow-up with her primary Discharge Plan Departure Patient Disposition: Home Clinical Impression: Hypertension Instructions: High Blood Pressure Activity Restrictions/Additional Instructions: *You have been diagnosed with hypertension *What to do: At this time please check your blood pressure twice daily and discuss with your primary about maybe changing blood pressure medication. *Continue to take medications as directed Tylenol 1000 mg every 6 hours if needed for chny-ei-kufozaaa pain *Follow up with your primary care provider in 2-3 days or call [phone] *Return to ER if you should have worsening headache nausea vomiting numbness tingling weakness difficulty speaking confusion or any new, worsening or concerning symptoms Prescriptions: No Action losartan-hydrochlorothiazide 100 MG/25 MG tablet 1 tab PO QDAY Qty: 0 cholecalciferol (vitamin D3) [Vitamin D3] 2,000 UNIT capsule 2,000 unit PO QDAY Qty: 0 Patient Comments: not known if current calcium carbonate 600 MG tablet 600 mg PO QDAY Qty: 0 Patient Comments: not known if current Basaglar KwikPen U-100 Insulin 100 unit/mL (3 mL) insulin pen 30 unit SUBCUT BEDTIME meclizine 25 mg tablet 50 mg PO TID PRN (Reason: dizziness) Qty: 20 0RF doxycycline hyclate 100 mg tablet 100 mg PO BID Qty: 20 0RF ondansetron 4 mg tablet,disintegrating 4 mg PO Q8H PRN (Reason: nausea and vomiting) Qty: 10 0RF atorvastatin 20 mg tablet 20 mg PO QPM metformin 1,000 mg tablet 1 tab PO BID alendronate 70 mg tablet 70 mg PO QWEEK pantoprazole 40 mg tablet,delayed release (DR/EC) 40 mg PO DAILY timolol maleate 0.5 % drops 1 drp OPHTHALMIC (EYE) DIRECTED aspirin 81 mg Tablet,Delayed Release (Dr/Ec) 81 mg PO DAILY Qty: 30 0RF meclizine 25 mg tablet 25 mg PO TID PRN (Reason: dizziness) Qty: 60 0RF meclizine 25 mg tablet 25 mg PO BID-TID PRN (Reason: dizziness) Qty: 60 0RF ondansetron 4 mg tablet,disintegrating 4 mg PO TID-QID PRN (Reason: nausea and vomiting) Qty: 10 0RF Referrals: Yvonne Barr MD [Primary Care Provider] - Stand Alone Forms: Patient Portal/API
[2022-10-04 09:39] LABS: PTT Partial Thromboplastin Tim 33 SECONDS (26-36)
[2022-10-04 09:59] LABS: Alanine Aminotransferase 20 IU/L (<35); Albumin 3.9 g/dL (3.5-5.0); Albumin Globulin Ratio 1.1 (1.0-2.8); Alkaline Phosphatase 32 U/L (38-126); Aspartate Aminotransferase 31 IU/L (14-36); BUN Creatinine Ratio 15.1 (6-22); Bilirubin Total 0.8 mg/dL (0.2-1.3); Blood Urea Nitrogen 16 mg/dL (7-17); Calcium 8.8 mg/dL (8.4-10.2); Carbon Dioxide 27 mmol/L (22-32); Chloride 101 mmol/L (98-107); Creatine Kinase 175 U/L (30-135); Estimated Glomerular Filt Rate 55 mL/min (>60); Globulin 3.4 g/dL (1.7-4.1); Glucose 168 mg/dL (80-110); Lipase 199 U/L (23-300); Magnesium 1.6 mg/dL (1.6-2.3); Potassium 3.8 mmol/L (3.4-5.1); Sodium 136 mmol/L (137-145); Total Protein 7.3 g/dL (6.3-8.2)
[2022-10-04 10:00] LABS: HEMOLYSIS 77 (0-50)
[2022-10-04 10:01] LABS: Troponin I < 0.012 ng/mL (0.01-0.034)
--- NOTE | 2022-10-04 10:06 | DI.CT.S_ITS ---
PROCEDURE: CT ANGIO HEAD AND NECK INDICATIONS: headache HTN with hx of cva TECHNIQUE: Pre-contrast 4.5 mm thick sections acquired from the foramen magnum to the vertex. After the administration of intravenous contrast, 1 mm thick sections acquired from the aortic arch through the [place]. Post-contrast 4.5 mm thick sections then re-acquired from the foramen magnum to the vertex. 3-dimensional wyrktta-aovwiutuw-bjboomkbhk (MIP) and/or volume rendering reformats were acquired of the central intracranial vasculature and neck separately. For radiation dose reduction, the following was used: automated exposure control, adjustment of mA and/or kV according to patient size. COMPARISON: [facility], CT, CT ANGIO HEAD AND NECK, 08/14/2020, 10:32. FINDINGS: Image quality: Excellent. BRAIN: CSF spaces: Ventricles are normal in size and shape. Basal cisterns are patent. No extra-axial fluid collections. Brain: No midline shift. No intracranial bleeds or masses. Pascal-white matter interface appears intact. Mild atrophy and chronic ischemic change. Old lacunar infarct noted in the right thalamus Skull and face: Calvarium and facial bones appear intact, without suspicious lesions. Orbits appear normal. Sinuses: Sinuses and mastoids are clear. HEAD CT ANGIOGRAPHY: Anterior circulation: Intracranial internal carotid arteries are normal in size and flow. The flow within the paired anterior cerebral arteries is normal and symmetric. The flow within the middle cerebral arteries is normal and symmetric. The anterior communicating artery is seen. No aneurysms are seen. Posterior circulation: Visualized portions of the vertebral arteries demonstrate normal caliber, and join to form a normal appearing basilar artery. Flow within the posterior cerebral arteries is normal and symmetric. No aneurysms are seen. NECK CT ANGIOGRAPHY: Carotid system: The great vessels demonstrate a conventional anatomy as they arise from the aortic arch. The origins of the common carotid arteries appear patent. The common carotid arteries demonstrate normal caliber and courses. The bifurcation regions are both widely patent. The internal carotid arteries demonstrate normal calibers and courses. Posterior circulation: The origins of the vertebral arteries both appear widely patent. The more superior extracranial portions of both vertebral arteries also demonstrate normal courses and calibers. They join to form a normal appearing basilar artery. Soft tissues: Visualized neck soft tissues demonstrate no suspicious abnormalities. Bones: No suspicious bony lesions. Visualized cervical spine appears normally aligned. IMPRESSION: Atrophy, chronic ischemic change and old right thalamic lacunar infarct. No intracranial hemorrhage or mass effect. Mild atherosclerotic calcification in both proximal ICA as well as intracranial cavernous ICA without evidence stenosis. No evidence of large vessel occlusion, aneurysm or vascular malformation. Any quantitative measurements of stenosis were performed using NASCET criteria. Approved by: Deshawn Burns M.D. on 10/04/2022 at 10:55
[2022-10-04] MEDS: KETOROLAC 30 MG/ML VIAL 15 MG IV (12:34)
== END 2022-10-04 13:20 | disposition home or self-care (01) ==
PROVIDERS: Emergency Provider Emergency Medicine; PCP Internal Medicine
DX: I10 Essential (primary) hypertension (principal); R51.9 Headache, unspecified; R07.9 Chest pain, unspecified
CPT/HCPCS: 36415; 70496; 70498; 71045; 80053; 81003; 82550; 83690; 83735; 84484; 85025; 85610; 85730; 93005; 96374; 99284; J1885

== ENCOUNTER 2022-11-09 17:37 | Emergency (ER) | payer MEDICARE, SELFPAY ==
[2020-05-21 16:47] VITALS: BMI 27.8
[2022-11-09] VITALS (9 sets, daily range): BP systolic 145–157; BP diastolic 79–84; PULSE 81–94; RESP 20–30; TEMP 37.4–37.7; O2SAT 96–99; BMI 23.0
--- NOTE | 2022-11-09 18:00 | DI.RAD.S_ITS ---
PROCEDURE: XR CHEST 1V INDICATIONS: suspected sepsis TECHNIQUE: One view of the chest was acquired. COMPARISON: [facility], CR, XR CHEST 1V, 10/04/2022, 8:57. FINDINGS: Surgical changes and devices: None. Lungs and pleura: Minimal streaky left basilar opacities likely representing atelectasis. No focal consolidation. No pleural effusions or pneumothorax. Mediastinum: Mediastinal contours appear normal. Heart size is normal. Bones and chest wall: No suspicious bony lesions. Overlying soft tissues appear unremarkable. IMPRESSION: Minimal streaky left basilar opacities favored to represent atelectasis. Otherwise, no acute cardiopulmonary abnormalities or focal consolidation. Dictated by: Rosas Sales M.D. on 11/09/2022 at 17:36 Approved by: Rosas Sales M.D. on 11/09/2022 at 17:37
[2022-11-09 18:21] LABS: Prothrombin Time 11.8 SECONDS (10.1-12.7)
[2022-11-09 18:30] LABS: Lactate (Lactic Acid) 0.9 mmol/L (0.7-2.1)
[2022-11-09 18:31] LABS: Alanine Aminotransferase 23 IU/L (<35); Albumin 4.5 g/dL (3.5-5.0); Albumin Globulin Ratio 1.1 (1.0-2.8); Alkaline Phosphatase 52 U/L (38-126); Aspartate Aminotransferase 24 IU/L (14-36); BUN Creatinine Ratio 11.7 (6-22); Bilirubin Total 1.1 mg/dL (0.2-1.3); Blood Urea Nitrogen 14 mg/dL (7-17); Calcium 9.4 mg/dL (8.4-10.2); Carbon Dioxide 28 mmol/L (22-32); Chloride 102 mmol/L (98-107); Estimated Glomerular Filt Rate 48 mL/min (>60); Globulin 4.1 g/dL (1.7-4.1); Glucose 88 mg/dL (80-110); HEMOLYSIS < 15 (0-50); Lipase 95 U/L (23-300); Potassium 3.6 mmol/L (3.4-5.1); Sodium 138 mmol/L (137-145); Total Protein 8.6 g/dL (6.3-8.2)
[2022-11-09 18:36] LABS: Add Manual Diff / Slide Review NO; Basophils Absolute Auto 0 /uL (0-100); Basophils Percent Auto 0.4 % (0-2); Eosinophils Absolute Auto 100 /uL (0-450); Eosinophils Percent Auto 1.3 % (2-4); Hematocrit 33.4 % (36-46); Hemoglobin 11.5 g/dL (12.0-16.0); Lymphocytes Absolute Auto 1200 /uL (1100-4500); Lymphocytes Percent Auto 17.2 % (25-40); Mean Corpuscular HGB Conc 34.4 % (30-36); Mean Corpuscular Hemoglobin 29.5 PG (26-34); Mean Corpuscular Volume 85.9 fL (80-100); Monocytes Absolute Auto 600 /uL (0-900); Monocytes Percent Auto 8.3 % (3-14); Neutrophils Absolute Auto 5200 /uL (1500-7000); Neutrophils Percent Auto 72.8 % (50-75); Platelet Count 291 X10^3/uL (150-400); Red Blood Cell Count 3.89 X10^6/uL (4.0-5.2); Red Cell Distribution Width 13.4 % (11.6-14.8); White Blood Cell Count 7.2 X10^3/uL (4.5-11.0)
[2022-11-09 18:44] LABS: Bacteria Urine None Seen; Ictotest Urine Negative (Negative); RBC Urine None Seen (0-5/HPF); Squamous Epithelial Cell Urine 0-1 /HPF (0-5/HPF); WBC Urine None Seen (0-5/HPF)
[2022-11-09 18:48] LABS: Procalcitonin 0.07 ng/mL (<0.5)
[2022-11-09 18:49] LABS: PTT Partial Thromboplastin Tim 33 SECONDS (26-36)
[2022-11-09] MEDS: SODIUM CHLORIDE 0.9% 1,000 ML 1000 ML IV (19:05)
[2022-11-09 19:31] LABS: Adenovirus Not Detected (Not Detect); B. parapertussis Not Detected (Not Detecte); Bordetella pertussis Not Detected (Not Detecte); Chlamydophila pneumoniae Not Detected (Not Detect); Coronavirus 229E Not Detected (Not Detect); Coronavirus HKU1 Not Detected (Not Detect); Coronavirus NL 63 Not Detected (Not Detect); Coronavirus OC43 Not Detected (Not Detect); Human Metapneumovirus Not Detected (Not Detect); Human Rhinovirus/Enterovirus Not Detected (Not Detect); Influenza A Not Detected (Not Detect); Influenza B Not Detected (Not Detect); Mycoplasma pneumoniae Not Detected (Not Detect); Parainfluenza Virus 1 Not Detected (Not Detect); Parainfluenza Virus 2 Not Detected (Not Detect); Parainfluenza Virus 3 Not Detected (Not Detect); Parainfluenza Virus 4 Not Detected (Not Detect); Respiratory Syncytial Virus Not Detected (Not Detect); SARS- CoV-2 Not Detected (Not Detecte)
--- NOTE | 2022-11-09 20:01 | ED_ITS ---
HPI - General Adult General Chief complaint: Abdominal Pain Stated complaint: body aches all over Time Seen by Provider: 11/09/22 18:10 Source: patient Mode of arrival: Ambulatory History of Present Illness HPI narrative: Patient is a 72-year-old female who is here for evaluation of multiple complaints to include about 4 days of body aches, occasional right sided abdominal discomfort. Occasional dysuria with some incontinence. No back pain. Occasional diarrhea. No chest pain. No shortness of breath. No fevers. No sore throat. Had a shingles shot yesterday and she thought that maybe her symptoms worsened afterwards. No skin rashes. Related Data Home Medications Medication Instructions Recorded Confirmed losartan 100 1 tab PO QDAY ##0 09/24/16 05/21/20 mg-hydrochlorothiazide 25 mg tablet calcium carbonate 600 mg calcium 600 mg PO QDAY ##0 03/10/17 05/22/20 (1,500 mg) tablet cholecalciferol (vitamin D3) 50 2,000 unit PO QDAY ##0 03/10/17 05/22/20 mcg (2,000 unit) capsule (Vitamin D3) atorvastatin 20 mg tablet 20 mg PO QPM 12/02/17 05/22/20 metformin 1,000 mg tablet 1 tab PO BID 12/02/17 05/22/20 alendronate 70 mg tablet 70 mg PO QWEEK 12/29/18 05/22/20 pantoprazole 40 mg tablet,delayed 40 mg PO DAILY 12/29/18 05/21/20 release timolol maleate 0.5 % eye drops 1 drp ophthalmic (eye) DIRECTED 12/29/18 05/22/20 insulin glargine 100 unit/mL (3 30 unit SUBCUT BEDTIME 05/22/20 05/22/20 mL) subcutaneous pen (Basaglar KwikPen U-100 Insulin) Previous Rx's Medication Instructions Recorded aspirin 81 mg tablet,delayed 81 mg PO DAILY #30 tabs 12/31/18 release meclizine 25 mg tablet 50 mg PO TID PRN dizziness #20 tabs 08/14/20 meclizine 25 mg tablet 25 mg PO TID PRN dizziness #60 tabs 03/18/21 doxycycline hyclate 100 mg tablet 100 mg PO BID #20 tabs 08/23/21 meclizine 25 mg tablet 25 mg PO BID-TID PRN dizziness #60 12/22/21 tabs ondansetron 4 mg disintegrating 4 mg PO TID-QID PRN nausea and 12/22/21 tablet vomiting #10 tabs ondansetron 4 mg disintegrating 4 mg PO Q8H PRN nausea and 03/28/22 tablet vomiting #10 tabs Allergies Allergy/AdvReac Type Severity Reaction Status Date / Time No Known Drug Allergies Allergy Verified 11/09/22 18:01 Review of Systems Review of Systems ROS Unobtainable: All systems reviewed & are unremarkable except as noted in HPI and below Patient History Medical History Cerebrovascular accident Diabetes Diabetes type 2, uncontrolled GERD (gastroesophageal reflux disease) Glaucoma, left eye Hyperlipidemia Hypertension Hypertension Osteoporosis Surgical History History of section Social History household members: family Smoking Status: Never smoker alcohol intake: never substance use type: does not use Smoking Status: Never smoker alcohol intake frequency: 0-2 drinks per day Substance Use Type: does not use Exam Initial Vital Signs Initial Vital Signs: Vital Signs Temperature 99.3 F 11/09/22 17:48 Pulse Rate 94 H 11/09/22 17:48 Respiratory Rate 20 11/09/22 17:48 Blood Pressure 151/84 H 11/09/22 17:48 Pulse Oximetry 97 11/09/22 17:48 Oxygen Delivery Method Room Air 11/09/22 17:48 Const General: cooperative, comfortable and No ill appearing [facility] Head: normal to inspection and normocephalic Resp Effort & Inspection: normal respiratory effort Auscultation: clear to auscultation bilaterally Cardio Rate: regular rate Rhythm: regular rhythm GI Inspection: normal to inspection and non-distended Palpation: soft, No firm and No tender Skin General: no rashes or lesions noted Neuro General: patient alert, patient awake, patient oriented x3 and moves all extremities Speech: speech normal Extrem General: normal to inspection and capillary refill normal Course Orders Ordered: ED Orders 11/09/22 18:00 XR chest 1V Stat Complete Blood Count AUTO DIFF Stat Comprehensive Metabolic Panel Stat Lactate (Lactic Acid) Stat Lipase Stat PTT Partial Thromboplastin [place] Stat Procalcitonin Stat Prothrombin Time INR Stat EKG-12 Lead Stat RT Consult Eval and Treat NOW 11/09/22 18:04 Respiratory Panel (Film Array) Stat 11/09/22 18:12 Ictotest Urine Stat Urine Culture Stat Urine Microscopic Stat 11/09/22 19:45 Blood Culture Stat Discontinued Medications Sodium Chloride (Normal Saline 0.9%) 1,000 mls @ 1,000 mls/hr IV BOLUS ONE Stop: 11/09/22 18:58 Last Infusion: 11/09/22 20:22 Dose: 0 mls/hr Documented By: Admin: 11/09/22 19:05 Dose: 1,000 mls/hr Documented By: RB Ondansetron HCl (Ondansetron 4 Mg/2 Ml Inj) 4 mg IV NOW PRN PRN Reason: Nausea And Vomiting Ondansetron HCl (Ondansetron 4 Mg Odt) 4 mg SL NOW PRN PRN Reason: Nausea And Vomiting Vital Signs Vital signs: Vital Signs - 8 hr 11/09/22 17:48 11/09/22 18:26 11/09/22 18:38 Temperature 99.3 F 99.8 F H Pulse Rate 94 H 87 Respiratory Rate 20 28 H Blood Pressure 151/84 H Pulse Oximetry 97 98 Oxygen Delivery Method Room Air 11/09/22 18:45 11/09/22 19:00 11/09/22 19:00 Temperature Pulse Rate 89 84 Respiratory Rate 30 H 27 H Blood Pressure 145/79 H Pulse Oximetry 99 97 Oxygen Delivery Method 11/09/22 19:15 11/09/22 19:30 11/09/22 19:30 Temperature Pulse Rate 81 81 Respiratory Rate 23 25 H Blood Pressure 157/81 H Pulse Oximetry 96 96 Oxygen Delivery Method 11/09/22 19:45 11/09/22 20:00 11/09/22 20:00 Temperature Pulse Rate 83 85 Respiratory Rate 26 H 27 H Blood Pressure 156/79 H Pulse Oximetry 97 98 Oxygen Delivery Method Medical Decision Making Lab Data Lab results reviewed: Yes I reviewed the patient's lab results. 11/09/22 18:00 11/09/22 18:00 Labs: Lab Results 11/09/22 11/09/22 11/09/22 Range/Units 18:00 18:00 18:00 WBC 7.2 (4.5-11.0) X10^3/uL RBC 3.89 L (4.0-5.2) X10^6/uL Hgb 11.5 L (12.0-16.0) g/dL Hct 33.4 L (36-46) % MCV 85.9 (80-100) fL MCH 29.5 (26-34) PG MCHC 34.4 (30-36) % RDW 13.4 (11.6-14.8) % Plt Count 291 (150-400) X10^3/uL Neut % (Auto) 72.8 (50-75) % Lymph % (Auto) 17.2 L (25-40) % [place] % (Auto) 8.3 (3-14) % Eos % (Auto) 1.3 L (2-4) % Baso % (Auto) 0.4 (0-2) % Neut # (Auto) 5200 (8387-7269) /uL Lymph # (Auto) 1200 (2164-0931) /uL [place] # (Auto) 600 (0-900) /uL Eos # (Auto) 100 (0-450) /uL Baso # (Auto) 0 (0-100) /uL PT 11.8 (10.1-12.7) SECONDS INR 1.0 (0.9-1.3) APTT 33 (26-36) SECONDS Sodium 138 (137-145) mmol/L Potassium 3.6 (3.4-5.1) mmol/L Chloride 102 (98-107) mmol/L Carbon Dioxide 28 (22-32) mmol/L BUN 14 (7-17) mg/dL Creatinine 1.20 H (0.52-1.04) mg/dL Estimated GFR 48 L (>60) mL/min BUN/Creatinine Ratio 11.7 (6-22) Glucose 88 (80-110) mg/dL Lactate (0.7-2.1) mmol/L Calcium 9.4 (8.4-10.2) mg/dL Total Bilirubin 1.1 (0.2-1.3) mg/dL AST 24 (14-36) IU/L ALT 23 (<35) IU/L Alkaline Phosphatase 52 (38-126) U/L Total Protein 8.6 H (6.3-8.2) g/dL Albumin 4.5 (3.5-5.0) g/dL Globulin 4.1 (1.7-4.1) g/dL Albumin/Globulin Ratio 1.1 (1.0-2.8) Lipase 95 (23-300) U/L Procalcitonin 0.07 (<0.5) ng/mL Ur Bilirubin Confirm (Negative) Urine RBC (0-5/HPF) Urine WBC (0-5/HPF) Ur Squamous Epith Cells (0-5/HPF) Urine Bacteria (None) Chlamy pneumoniae PCR (Not Detect) Adenovirus (PCR) (Not Detect) B. pertussis DNA (PCR) (Not Detecte) B.parapertussis DNA PCR (Not Detecte) Coronavirus OC43 (PCR) (Not Detect) Coronavirus HKU1 (PCR) (Not Detect) Coronavirus 229E (PCR) (Not Detect) SARS-CoV-2 (PCR) (Not Detecte) Coronavirus NL63 (PCR) (Not Detect) Human Metapneumovir PCR (Not Detect) Influenza Type A (PCR) (Not Detect) Influenza Type B (PCR) (Not Detect) M. pneumoniae (PCR) (Not Detect) Parainfluenza 1 (PCR) (Not Detect) Parainfluenza 2 (PCR) (Not Detect) Parainfluenza 3 (PCR) (Not Detect) Parainfluenza 4 (PCR) (Not Detect) RSV (PCR) (Not Detect) Entero/Rhino (PCR) (Not Detect) 11/09/22 11/09/22 11/09/22 Range/Units 18:00 18:04 18:12 WBC (4.5-11.0) X10^3/uL RBC (4.0-5.2) X10^6/uL Hgb (12.0-16.0) g/dL Hct (36-46) % MCV (80-100) fL MCH (26-34) PG MCHC (30-36) % RDW (11.6-14.8) % Plt Count (150-400) X10^3/uL Neut % (Auto) (50-75) % Lymph % (Auto) (25-40) % [place] % (Auto) (3-14) % Eos % (Auto) (2-4) % Baso % (Auto) (0-2) % Neut # (Auto) (4859-2332) /uL Lymph # (Auto) (4059-9622) /uL [place] # (Auto) (0-900) /uL Eos # (Auto) (0-450) /uL Baso # (Auto) (0-100) /uL PT (10.1-12.7) SECONDS INR (0.9-1.3) APTT (26-36) SECONDS Sodium (137-145) mmol/L Potassium (3.4-5.1) mmol/L Chloride (98-107) mmol/L Carbon Dioxide (22-32) mmol/L BUN (7-17) mg/dL Creatinine (0.52-1.04) mg/dL Estimated GFR (>60) mL/min BUN/Creatinine Ratio (6-22) Glucose (80-110) mg/dL Lactate 0.9 (0.7-2.1) mmol/L Calcium (8.4-10.2) mg/dL Total Bilirubin (0.2-1.3) mg/dL AST (14-36) IU/L ALT (<35) IU/L Alkaline Phosphatase (38-126) U/L Total Protein (6.3-8.2) g/dL Albumin (3.5-5.0) g/dL Globulin (1.7-4.1) g/dL Albumin/Globulin Ratio (1.0-2.8) Lipase (23-300) U/L Procalcitonin (<0.5) ng/mL Ur Bilirubin Confirm Negative (Negative) Urine RBC None seen (0-5/HPF) Urine WBC None seen (0-5/HPF) Ur Squamous Epith Cells 0-1 /hpf (0-5/HPF) Urine Bacteria None seen (None) Chlamy pneumoniae PCR Not detected (Not Detect) Adenovirus (PCR) Not detected (Not Detect) B. pertussis DNA (PCR) Not detected (Not Detecte) B.parapertussis DNA PCR Not detected (Not Detecte) Coronavirus OC43 (PCR) Not detected (Not Detect) Coronavirus HKU1 (PCR) Not detected (Not Detect) Coronavirus 229E (PCR) Not detected (Not Detect) SARS-CoV-2 (PCR) Not detected (Not Detecte) Coronavirus NL63 (PCR) Not detected (Not Detect) Human Metapneumovir PCR Not detected (Not Detect) Influenza Type A (PCR) Not detected (Not Detect) Influenza Type B (PCR) Not detected (Not Detect) M. pneumoniae (PCR) Not detected (Not Detect) Parainfluenza 1 (PCR) Not detected (Not Detect) Parainfluenza 2 (PCR) Not detected (Not Detect) Parainfluenza 3 (PCR) Not detected (Not Detect) Parainfluenza 4 (PCR) Not detected (Not Detect) RSV (PCR) Not detected (Not Detect) Entero/Rhino (PCR) Not detected (Not Detect) Urine Dip Bedside Urine Glucose Negative Bedside Urine Bilirubin + 1 Bedside Urine Ketone - Negative Urine Specific [place] 1.020 Bedside Urine Occult Blood - Negative Bedside Urine pH 6.0 Bedside Urine Protein ++ 100 Bedside Urine Urobilinogen - Negative Bedside Urine Nitrite - Negative Bedside Urine Leukocytes - Negative Esterase Point of care testing: Urine Dip Bedside Urine Glucose Negative Bedside Urine Bilirubin + 1 Bedside Urine Ketone - Negative Urine Specific [place] 1.020 Bedside Urine Occult Blood - Negative Bedside Urine pH 6.0 Bedside Urine Protein ++ 100 Bedside Urine Urobilinogen - Negative Bedside Urine Nitrite - Negative Bedside Urine Leukocytes - Negative Esterase Imaging Data Chest x-ray: Radiologist's Impression: PROCEDURE:? XR CHEST 1V ? INDICATIONS:? suspected sepsis ? TECHNIQUE:? One view of the chest was acquired.? ? COMPARISON:? [facility], , XR CHEST 1V, 10/04/2022, 8:57. ? FINDINGS:? ? Surgical changes and devices:? None.? ? Lungs and pleura:? Minimal streaky left basilar opacities likely representing atelectasis.? No focal consolidation.? No pleural effusions or pneumothorax.? ? Mediastinum:? Mediastinal contours appear normal.? Heart size is normal.? ? Bones and chest wall:? No suspicious bony lesions.? Overlying soft tissues appear unremarkable.? ? IMPRESSION:? Minimal streaky left basilar opacities favored to represent atelectasis.? Otherwise, no acute cardiopulmonary abnormalities or focal consolidation. ECG Data Attestation: I personally reviewed and interpreted this ECG as follows: Interpretation: Sinus rhythm Ventricular rate 92 Normal axis Normal QRS Normal QTC Nonspecific ST T wave changes MDM Narrative Medical decision making narrative: Patient is nontoxic appearing. Her workup here in the emergency department is very reassuring without any specific signs of an infection. She was not having any abdominal tenderness at the time of my exam. I feel that we can hold on any abdominal radiologic studies for now as I have low suspicion for an acute intra- abdominal surgical issue. Urinalysis is not concerning for UTI. Her respiratory panel is negative. She was afebrile here in the ER. No indication for antibiotics. Provided reassurance to the patient. We discussed follow-up instructions and return precautions. She expressed understanding and agreement. Discharge Plan Departure Patient Disposition: Home Clinical Impression: Body aches Instructions: DI for Fatigue Activity Restrictions/Additional Instructions: I do recommend that you continue to take all of your medications as directed. Keep your scheduled medical appointments. Return to the emergency department for new or worsening symptoms. Prescriptions: No Action losartan-hydrochlorothiazide 100 MG/25 MG tablet 1 tab PO QDAY Qty: 0 cholecalciferol (vitamin D3) [Vitamin D3] 2,000 UNIT capsule 2,000 unit PO QDAY Qty: 0 Patient Comments: not known if current calcium carbonate 600 MG tablet 600 mg PO QDAY Qty: 0 Patient Comments: not known if current Basaglar KwikPen U-100 Insulin 100 unit/mL (3 mL) insulin pen 30 unit SUBCUT BEDTIME meclizine 25 mg tablet 50 mg PO TID PRN (Reason: dizziness) Qty: 20 0RF doxycycline hyclate 100 mg tablet 100 mg PO BID Qty: 20 0RF ondansetron 4 mg tablet,disintegrating 4 mg PO Q8H PRN (Reason: nausea and vomiting) Qty: 10 0RF atorvastatin 20 mg tablet 20 mg PO QPM metformin 1,000 mg tablet 1 tab PO BID alendronate 70 mg tablet 70 mg PO QWEEK pantoprazole 40 mg tablet,delayed release (DR/EC) 40 mg PO DAILY timolol maleate 0.5 % drops 1 drp OPHTHALMIC (EYE) DIRECTED aspirin 81 mg Tablet,Delayed Release (Dr/Ec) 81 mg PO DAILY Qty: 30 0RF meclizine 25 mg tablet 25 mg PO TID PRN (Reason: dizziness) Qty: 60 0RF meclizine 25 mg tablet 25 mg PO BID-TID PRN (Reason: dizziness) Qty: 60 0RF ondansetron 4 mg tablet,disintegrating 4 mg PO TID-QID PRN (Reason: nausea and vomiting) Qty: 10 0RF Referrals: Yvonne Barr MD [Primary Care Provider] - Stand Alone Forms: Patient Portal/API
== END 2022-11-09 20:30 | disposition home or self-care (01) ==
PROVIDERS: Emergency Medicine; Emergency Provider Emergency Medicine; PCP Internal Medicine
DX: R10.9 Unspecified abdominal pain (principal); R30.0 Dysuria; Z20.822 Contact with and (suspected) exposure to COVID-19
CPT/HCPCS: 36415; 71045; 80053; 81003; 81015; 83605; 83690; 84145; 85025; 85610; 85730; 87040; 87086; 87633; 93005; 99284

== ENCOUNTER 2023-11-27 01:01 | Emergency (ER) | payer MEDICARE, SELFPAY ==
[2020-05-21 16:47] VITALS: BMI 27.8
--- NOTE | 2023-11-27 01:13 | DI.RAD.S_ITS ---
PROCEDURE: XR CHEST 2V INDICATIONS: lumbar back pain TECHNIQUE: 2 views of the chest were acquired. COMPARISON: [facility], , XR CHEST 1V, 11/09/2022, 18:08. FINDINGS: Surgical changes and devices: None. Lungs and pleura: Lungs are clear. No pleural effusions or pneumothorax. Mediastinum: Mediastinal contours are normal. Heart size is normal. Bones and chest wall: No suspicious bony abnormalities. Soft tissues appear unremarkable. IMPRESSION: No acute cardiopulmonary abnormality is seen. Approved by: Deshawn Burns M.D. on 11/27/2023 at 1:05
--- NOTE | 2023-11-27 01:13 | DI.RAD.S_ITS ---
PROCEDURE: XR LUMBAR SPINE 2-3V INDICATIONS: lumbar back pain TECHNIQUE: 3 views of the lumbar spine were acquired. COMPARISON: [facility], CR, XR LUMBAR SPINE 2-3V, 05/11/2018, 13:24. FINDINGS: Bones: 5 [id number] vertebrae are present. There is normal bony alignment. No vertebral body compression fractures. No suspicious bony lesions. Generalized decreased osseous mineralization noted. Disc space narrowing and hypertrophic facet joints noted particularly in the lower lumbar spine Soft tissues: Overlying bowel gas pattern is normal. No suspicious soft tissue calcifications. IMPRESSION: Osteopenia and degenerative disc disease without fracture or malalignment. Lower lumbar spine arthropathy Approved by: Deshawn Burns M.D. on 11/27/2023 at 1:06
[2023-11-27 01:14] VITALS: PULSE 67; O2SAT 99
--- NOTE | 2023-11-27 01:14 | EKG_ITS ---
[facility] [address] [place] [address] Test Date: 2023-11-27 Pat Name: Rebecca Talamantes Department: [facility] Room: Gender: Female [employer]: : [id number] Requested By: Order Number: [id number] Reading MD: Bob Milian Measurements Intervals [place] Rate: 70 P: 35 NE: 198 QRS: -2 QRSD: 82 T: 37 QT: 414 QTc: 447 Interpretive Statements Normal sinus rhythm Inferior infarct , age undetermined Cannot rule out Anterior infarct , age undetermined Electronically Signed On 11-28-2023 7:26:08 PDT by Bob Milian
[2023-11-27 01:15] VITALS: BP 164/77; PULSE 72; RESP 18; TEMP 37; O2SAT 98; BMI 29.2
--- NOTE | 2023-11-27 01:20 | ED.CHESTPAIN ---
HPI - Chest Pain General Chief Complaint: Chest Pain Stated Complaint: back and chest pain Time Seen by Provider: 11/27/23 01:03 Source: patient and family Mode of arrival: Ambulatory Limitations: language barrier and physical limitation History of Present Illness HPI narrative: 73-year-old female with history of insulin-dependent diabetes, hypertension, hyperlipidemia presents by private vehicle from home for 1 week central chest pain and lumbar back pain. Pain is constant, stabbing, does not radiate. No medications taken prior to arrival. Patient states that tonight it felt worse than usual and she asked her son to bring her to the ER for evaluation. No medications taken prior to arrival. Family at bedside state that they are concerned that she may have pneumonia, however patient denies cough, shortness of breath, fever. Patient states that her main concern is to see if she is having a heart attack Related Data Home Medications Medication Instructions Recorded Confirmed losartan 100 1 tab PO QDAY ##0 09/24/16 05/21/20 mg-hydrochlorothiazide 25 mg tablet calcium carbonate 600 mg PO QDAY ##0 03/10/17 05/22/20 cholecalciferol (vitamin D3) 50 2,000 unit PO QDAY ##0 03/10/17 05/22/20 mcg (2,000 unit) capsule (Vitamin D3) atorvastatin 20 mg tablet 20 mg PO QPM 12/02/17 05/22/20 metformin 1,000 mg tablet 1 tab PO BID 12/02/17 05/22/20 alendronate 70 mg tablet 70 mg PO QWEEK 12/29/18 05/22/20 pantoprazole 40 mg tablet,delayed 40 mg PO DAILY 12/29/18 05/21/20 release timolol maleate 0.5 % eye drops 1 drp ophthalmic (eye) DIRECTED 12/29/18 05/22/20 insulin glargine 100 unit/mL (3 30 unit SUBCUT BEDTIME 05/22/20 05/22/20 mL) subcutaneous pen (Basaglar KwikPen U-100 Insulin) Previous Rx's Medication Instructions Recorded aspirin 81 mg tablet,delayed 81 mg PO DAILY #30 tabs 12/31/18 release meclizine 25 mg tablet 50 mg (2 x 25 mg) PO TID PRN 08/14/20 dizziness #20 tabs meclizine 25 mg tablet 25 mg PO TID PRN dizziness #60 tabs 03/18/21 doxycycline hyclate 100 mg tablet 100 mg PO BID #20 tabs 08/23/21 meclizine 25 mg tablet 25 mg PO BID-TID PRN dizziness #60 12/22/21 tabs ondansetron 4 mg disintegrating 4 mg PO TID-QID PRN nausea and 12/22/21 tablet vomiting #10 tabs ondansetron 4 mg disintegrating 4 mg PO Q8H PRN nausea and 03/28/22 tablet vomiting #10 tabs Allergies Allergy/AdvReac Type Severity Reaction Status Date / Time No Known Drug Allergies Allergy Verified 11/09/22 18:01 Patient History Medical History (Updated 11/27/23 @ 02:21 by Shanell Lennon MD) Osteoporosis Glaucoma, left eye Hyperlipidemia Hypertension Diabetes type 2, uncontrolled Cerebrovascular accident Hypertension Diabetes GERD (gastroesophageal reflux disease) Surgical History History of section Social History household members: family Smoking Status: Never smoker alcohol intake: never substance use type: does not use Smoking Status: Never smoker alcohol intake frequency: 0-2 drinks per day Substance Use Type: does not use Exam Initial Vital Signs Initial Vital Signs: Vital Signs Pulse Rate 67 11/27/23 01:14 Pulse Oximetry 99 11/27/23 01:14 Const: Awake, alert, no acute distress, nontoxic appearing Cardiac: regular rate, regular rhythm Chest: tenderness to palpation along chest wall wihtout crepitus or deformity RESP: unlabored, clear bilaterally, no wheezing GI: Soft, nontender, nondistended MSK back: lumbar paraspinal tenderness to palpation near L2-L3 Skin: Warm, Dry, intact, no rashes Neuro: AO x3, CN II-XII grossly intact, moves all extremities Course Orders Ordered: ED Orders 11/27/23 01:13 Chest [XR chest 2V] Stat XR lumbar spine 2-3V Stat 11/27/23 01:14 EKG-12 Lead Stat 11/27/23 01:20 BNP [NT-proBNP (BNP-Adult 18+)] Stat CBC Auto Diff [Complete Blood Count AUTO DIFF] Stat CMP [Comprehensive Metabolic Panel] Stat PT [Prothrombin Time INR] Stat Troponin & CK Cardiac Panel Stat Discontinued Medications Acetaminophen (Acetaminophen 325 Mg Tablet) 975 mg PO NOW ONE Stop: 11/27/23 01:14 Last Admin: 11/27/23 01:24 Dose: 975 mg Lidocaine (Lidocaine 5% Patch) 1 each TOP NOW ONE Stop: 11/27/23 01:14 Last Admin: 11/27/23 01:24 Dose: 1 each Vital Signs Vital signs: Vital Signs - 8 hr 11/27/23 01:14 11/27/23 01:15 11/27/23 01:36 Temperature 98.6 F Pulse Rate 67 72 69 Respiratory Rate 18 Blood Pressure 164/77 H Pulse Oximetry 99 98 98 Oxygen Delivery Method Room Air 11/27/23 01:37 11/27/23 01:37 Temperature Pulse Rate 65 Respiratory Rate Blood Pressure 149/73 H Pulse Oximetry 98 Oxygen Delivery Method Room Air MDM - Chest Pain Differential Diagnosis Differential diagnosis: Likely pneumothorax, costochondritis and chest pain Lab Data 11/27/23 01:20 11/27/23 01:20 Labs: Lab Results 11/27/23 Range/Units 01:20 WBC 7.1 (4.5-11.0) X10^3/uL RBC 3.92 L (4.0-5.2) X10^6/uL Hgb 11.8 L (12.0-16.0) g/dL Hct 34.7 L (36-46) % MCV 88.4 (80-100) fL MCH 30.0 (26-34) PG MCHC 34.0 (30-36) % RDW 13.1 (11.6-14.8) % Plt Count 293 (150-400) X10^3/uL Neut % (Auto) 63.7 (50-75) % Lymph % (Auto) 27.6 (25-40) % [place] % (Auto) 5.1 (3-14) % Eos % (Auto) 1.3 L (2-4) % Baso % (Auto) 2.3 H (0-2) % Neut # (Auto) 4500 (6772-6247) /uL Lymph # (Auto) 1900 (9030-5404) /uL [place] # (Auto) 400 (0-900) /uL Eos # (Auto) 100 (0-450) /uL Baso # (Auto) 200 H (0-100) /uL PT 10.0 (9.4-12.5) SECONDS INR 0.9 (0.9-1.3) Sodium 141 (137-145) mmol/L Potassium 3.6 (3.4-5.1) mmol/L Chloride 109 H (98-107) mmol/L Carbon Dioxide 24 (22-32) mmol/L BUN 19 H (7-17) mg/dL Creatinine 1.10 H (0.52-1.04) mg/dL Estimated GFR 52 L (>60) mL/min BUN/Creatinine Ratio 17.3 (6-22) Glucose 173 H (80-110) mg/dL Calcium 9.6 (8.4-10.2) mg/dL Total Bilirubin 0.7 (0.2-1.3) mg/dL AST 28 (14-36) IU/L ALT 25 (<35) IU/L Alkaline Phosphatase 46 (38-126) U/L Total Creatine Kinase 107 (30-135) U/L Troponin I < 0.012 (0.01-0.034) ng/mL NT-Pro-B Natriuret Pep 56 (<450) pg/mL Total Protein 8.2 (6.3-8.2) g/dL Albumin 4.5 (3.5-5.0) g/dL Globulin 3.7 (1.7-4.1) g/dL Albumin/Globulin Ratio 1.2 (1.0-2.8) Imaging Data Chest x-ray: Radiologist's Impression: PROCEDURE: XR CHEST 2V INDICATIONS: lumbar back pain TECHNIQUE: 2 views of the chest were acquired. COMPARISON: [facility], , XR CHEST 1V, 11/09/2022, 18:08. FINDINGS: Surgical changes and devices: None. Lungs and pleura: Lungs are clear. No pleural effusions or pneumothorax. Mediastinum: Mediastinal contours are normal. Heart size is normal. Bones and chest wall: No suspicious bony abnormalities. Soft tissues appear unremarkable. IMPRESSION: No acute cardiopulmonary abnormality is seen. Approved by: Deshawn Burns M.D. on 11/27/2023 at 1:05 Extremity x-ray #1: Radiologist's Impression: PROCEDURE: XR LUMBAR SPINE 2-3V INDICATIONS: lumbar back pain TECHNIQUE: 3 views of the lumbar spine were acquired. COMPARISON: [facility], CR, XR LUMBAR SPINE 2-3V, 05/11/2018, 13:24. FINDINGS: Bones: 5 [id number] vertebrae are present. There is normal bony alignment. No vertebral body compression fractures. No suspicious bony lesions. Generalized decreased osseous mineralization noted. Disc space narrowing and hypertrophic facet joints noted particularly in the lower lumbar spine Soft tissues: Overlying bowel gas pattern is normal. No suspicious soft tissue calcifications. IMPRESSION: Osteopenia and degenerative disc disease without fracture or malalignment. Lower lumbar spine arthropathy Approved by: Deshawn Burns M.D. on 11/27/2023 at 1:06 ECG Data Interpretation: Normal sinus rhythm at 70 beats per minute. Normal IN, no ST T wave changes, QTC 447 MDM Narrative Medical decision making narrative: Well-appearing patient with 1 week of symptoms. Chest and back pain are reproducible, low suspicion for ACS or other insidious pathology at this time due to duration of onset and reproducibility on exam. EKG normal sinus rhythm, no acute ischemic findings. Laboratory work and imaging ordered. Laboratory work shows no acute findings. Patient has chronic kidney disease that is at her baseline. Glucose 173, patient is known diabetic. Chest x-ray negative for acute findings, lumbar spine shows degenerative changes. Patient informed of all lab and imaging findings, she was relieved to know the reassuring findings. She was counseled on Tylenol dosing and scheduling. Recommended close PCP follow up if she continues to have back pain as she may need physical therapy. Did not recommend NSAIDs as patient has chronic kidney disease. Patient given single tramadol tablet for pain prior to discharge, her son is here to drive her home. Discharge Plan Departure Patient Disposition: Home Clinical Impression: Chest pain, Lumbar back pain Instructions: DI for Low Back Pain, DI for Chest Pain Activity Restrictions/Additional Instructions: Your laboratory work and x-ray imaging today was normal. You do not have pneumonia, and infection, or a fracture in your back. It does not appear as though this is a heart attack at this time. You may take 1000 mg of Tylenol every 6 hours as needed for pain. I also recommend gentle stretching exercises to help relieve your back pain. If you continue to have pain, I want you to see your primary doctor. Prescriptions: No Action losartan-hydrochlorothiazide 100 MG/25 MG tablet 1 tab PO QDAY Qty: 0 cholecalciferol (vitamin D3) [Vitamin D3] 2,000 UNIT capsule 2,000 unit PO QDAY Qty: 0 Patient Comments: not known if current calcium carbonate 600 MG tablet 600 mg PO QDAY Qty: 0 Patient Comments: not known if current [place] U-100 Insulin 100 unit/mL (3 mL) insulin pen 30 unit SUBCUT BEDTIME meclizine 25 mg tablet 50 mg PO TID PRN (Reason: dizziness) Qty: 20 0RF doxycycline hyclate 100 mg tablet 100 mg PO BID Qty: 20 0RF ondansetron 4 mg tablet,disintegrating 4 mg PO Q8H PRN (Reason: nausea and vomiting) Qty: 10 0RF atorvastatin 20 mg tablet 20 mg PO QPM metformin 1,000 mg tablet 1 tab PO BID alendronate 70 mg tablet 70 mg PO QWEEK pantoprazole 40 mg tablet,delayed release (DR/EC) 40 mg PO DAILY timolol maleate 0.5 % drops 1 drp OPHTHALMIC (EYE) DIRECTED aspirin 81 mg Tablet,Delayed Release (Dr/Ec) 81 mg PO DAILY Qty: 30 0RF meclizine 25 mg tablet 25 mg PO TID PRN (Reason: dizziness) Qty: 60 0RF meclizine 25 mg tablet 25 mg PO BID-TID PRN (Reason: dizziness) Qty: 60 0RF ondansetron 4 mg tablet,disintegrating 4 mg PO TID-QID PRN (Reason: nausea and vomiting) Qty: 10 0RF Referrals: Yvonne Barr MD [Primary Care Provider] - Stand Alone Forms: Patient Portal/API
[2023-11-27] MEDS: LIDOCAINE 5% PATCH 1 EACH TOP (01:24)
[2023-11-27] MEDS: ACETAMINOPHEN 325 MG TABLET 975 MG PO (01:24)
[2023-11-27 01:29] LABS: Add Manual Diff / Slide Review NO; Basophils Absolute Auto 200 /uL (0-100); Basophils Percent Auto 2.3 % (0-2); Eosinophils Absolute Auto 100 /uL (0-450); Eosinophils Percent Auto 1.3 % (2-4); Hematocrit 34.7 % (36-46); Hemoglobin 11.8 g/dL (12.0-16.0); Lymphocytes Absolute Auto 1900 /uL (1100-4500); Lymphocytes Percent Auto 27.6 % (25-40); Mean Corpuscular Volume 88.4 fL (80-100); Monocytes Absolute Auto 400 /uL (0-900); Monocytes Percent Auto 5.1 % (3-14); Neutrophils Absolute Auto 4500 /uL (1500-7000); Neutrophils Percent Auto 63.7 % (50-75); Platelet Count 293 X10^3/uL (150-400); Red Blood Cell Count 3.92 X10^6/uL (4.0-5.2); Red Cell Distribution Width 13.1 % (11.6-14.8); White Blood Cell Count 7.1 X10^3/uL (4.5-11.0)
[2023-11-27 01:34] LABS: INR 0.9 (0.9-1.3)
[2023-11-27 01:36] VITALS: PULSE 69; O2SAT 98
[2023-11-27 01:37] VITALS: BP 149/73; PULSE 65; O2SAT 98
[2023-11-27 01:38] LABS: Alanine Aminotransferase 25 IU/L (<35); Albumin 4.5 g/dL (3.5-5.0); Albumin Globulin Ratio 1.2 (1.0-2.8); Alkaline Phosphatase 46 U/L (38-126); Aspartate Aminotransferase 28 IU/L (14-36); BUN Creatinine Ratio 17.3 (6-22); Bilirubin Total 0.7 mg/dL (0.2-1.3); Blood Urea Nitrogen 19 mg/dL (7-17); Calcium 9.6 mg/dL (8.4-10.2); Carbon Dioxide 24 mmol/L (22-32); Chloride 109 mmol/L (98-107); Creatine Kinase 107 U/L (30-135); Estimated Glomerular Filt Rate 52 mL/min (>60); Globulin 3.7 g/dL (1.7-4.1); Glucose 173 mg/dL (80-110); HEMOLYSIS 27 (0-50); Potassium 3.6 mmol/L (3.4-5.1); Sodium 141 mmol/L (137-145); Total Protein 8.2 g/dL (6.3-8.2)
[2023-11-27 01:50] LABS: NT-proBNP (BNP-Adult 18+) 56 pg/mL (<450); Troponin I < 0.012 ng/mL (0.01-0.034)
[2023-11-27 02:00] VITALS: BP 120/75; PULSE 63; O2SAT 97
[2023-11-27] MEDS: TRAMADOL 50 MG TABLET PO (02:21)
== END 2023-11-27 02:26 | disposition home or self-care (01) ==
PROVIDERS: Emergency Provider Emergency Medicine; PCP Internal Medicine
DX: R07.9 Chest pain, unspecified (principal); M54.50 Low back pain, unspecified; Z79.899 Other long term (current) drug therapy
CPT/HCPCS: 36415; 71046; 72100; 80053; 82550; 83880; 84484; 85025; 85610; 93005; 99284

== ENCOUNTER 2024-03-07 20:28 | Emergency (ER) | payer MEDICARE, SELFPAY ==
[2020-05-21 16:47] VITALS: BMI 27.8
[2024-03-07] VITALS (8 sets, daily range): BP systolic 130–188; BP diastolic 70–79; PULSE 61–70; RESP 18; TEMP 36.4; O2SAT 94–99; BMI 30.7
[2024-03-07 21:12] LABS: Bacteria Urine Occasional (0-1); RBC Urine 0-1/HPF (0-5/HPF); Squamous Epithelial Cell Urine 0-1 /HPF (0-5/HPF); Urine Volume 10mL (spun); WBC Urine 0-1/HPF (0-5/HPF)
[2024-03-07 21:13] LABS: Culture Indicated Urine Cult Not Indicated
--- NOTE | 2024-03-07 22:45 | ED_ITS ---
HPI - Female Genitourinary General Chief complaint: Urogenital-Female Stated complaint: back, burning while urinating, cloudy urine Time Seen by Provider: 03/07/24 22:26 Source: patient Mode of arrival: Ambulatory History of Present Illness HPI Narrative: 73-year-old female with history of diabetes on Ozempic, hypertension, hyperlipidemia presents by private vehicle from home for 1 week of right-sided flank pain with urinary frequency and cloudy urine. Patient states that she was supposed to have a primary care doctor's appointment yesterday, but she had issues with her car yesterday and was unable to make her appointment. Tonight she became concerned that she may have a problem with her kidneys and requested that her daughter bring her in for evaluation. She denies fevers, chills, nausea, vomiting, other complaints at this time. Related Data Home Medications Medication Instructions Recorded Confirmed losartan 100 1 tab PO QDAY ##0 09/24/16 05/21/20 mg-hydrochlorothiazide 25 mg tablet calcium carbonate 600 mg PO QDAY ##0 03/10/17 05/22/20 cholecalciferol (vitamin D3) 50 2,000 unit PO QDAY ##0 03/10/17 05/22/20 mcg (2,000 unit) capsule (Vitamin D3) atorvastatin 20 mg tablet 20 mg PO QPM 12/02/17 05/22/20 metformin 1,000 mg tablet 1 tab PO BID 12/02/17 05/22/20 alendronate 70 mg tablet 70 mg PO QWEEK 12/29/18 05/22/20 pantoprazole 40 mg tablet,delayed 40 mg PO DAILY 12/29/18 05/21/20 release timolol maleate 0.5 % eye drops 1 drp ophthalmic (eye) DIRECTED 12/29/18 05/22/20 insulin glargine 100 unit/mL (3 30 unit SUBCUT BEDTIME 05/22/20 05/22/20 mL) subcutaneous pen (Basaglar KwikPen U-100 Insulin) Previous Rx's Medication Instructions Recorded aspirin 81 mg tablet,delayed 81 mg PO DAILY #30 tabs 12/31/18 release meclizine 25 mg tablet 50 mg (2 x 25 mg) PO TID PRN 08/14/20 dizziness #20 tabs meclizine 25 mg tablet 25 mg PO TID PRN dizziness #60 tabs 11/24/21 doxycycline hyclate 100 mg tablet 100 mg PO BID #20 tabs 08/23/21 meclizine 25 mg tablet 25 mg PO BID-TID PRN dizziness #60 12/22/21 tabs ondansetron 4 mg disintegrating 4 mg PO TID-QID PRN nausea and 12/22/21 tablet vomiting #10 tabs ondansetron 4 mg disintegrating 4 mg PO Q8H PRN nausea and 03/28/22 tablet vomiting #10 tabs Allergies Allergy/AdvReac Type Severity Reaction Status Date / Time No Known Drug Allergies Allergy Verified 11/09/22 18:01 Patient History Medical History Osteoporosis Glaucoma, left eye Hyperlipidemia Hypertension Diabetes type 2, uncontrolled Cerebrovascular accident Hypertension Diabetes GERD (gastroesophageal reflux disease) Surgical History History of section alcohol intake frequency: 0-2 drinks per day Substance Use Type: does not use Exam Initial Vital Signs Initial Vital Signs: Vital Signs Temperature 97.6 F 03/07/24 20:38 Pulse Rate 68 03/07/24 20:38 Respiratory Rate 18 03/07/24 20:38 Blood Pressure 172/79 H 03/07/24 20:38 Pulse Oximetry 99 03/07/24 20:38 Oxygen Delivery Method Room Air 03/07/24 20:38 Const: Awake, alert, no acute distress, nontoxic appearing Cardiac: regular rate, regular rhythm RESP: unlabored, clear bilaterally, no wheezing GI: Soft, nontender, nondistended MSK back: No midline tenderness, right-sided flank tenderness to percussion Skin: Warm, Dry, intact, no rashes Neuro: AO x3, CN II-XII grossly intact, moves all extremities Course Orders Ordered: ED Orders 03/07/24 20:45 Urine Microscopic Stat 03/07/24 22:50 CT kidney ureter bladder (KUB) Stat 03/07/24 23:03 CBC Auto Diff [Complete Blood Count AUTO DIFF] Stat CMP [Comprehensive Metabolic Panel] Stat Discontinued Medications Sodium Chloride (Normal Saline 0.9%) 1,000 mls @ 1,000 mls/hr IV BOLUS ONE Stop: 03/07/24 23:49 Last Infusion: 03/08/24 00:20 Dose: Infused Documented By: Admin: 03/07/24 23:18 Dose: 1,000 mls/hr Documented By: TEE Morphine Sulfate (Morphine 4 Mg/Ml Inj) 4 mg IV NOW ONE Stop: 03/07/24 22:51 Last Admin: 03/07/24 23:18 Dose: 4 mg Documented By: TEE Ondansetron HCl (Ondansetron 4 Mg/2 Ml Inj) 4 mg IV NOW PRN PRN Reason: Nausea And Vomiting Last Admin: 03/07/24 23:18 Dose: 4 mg Documented By: TEE Ondansetron HCl (Ondansetron 4 Mg Odt) 4 mg SL NOW PRN PRN Reason: Nausea And Vomiting Vital Signs Vital signs: Vital Signs - 8 hr 03/07/24 20:38 03/07/24 22:25 03/07/24 22:26 Temperature 97.6 F Pulse Rate 68 63 Respiratory Rate 18 Blood Pressure 172/79 H 188/77 H Pulse Oximetry 99 97 Oxygen Delivery Method Room Air 03/07/24 22:30 03/07/24 22:39 03/07/24 22:39 Temperature Pulse Rate 70 64 Respiratory Rate 18 Blood Pressure 143/70 H Pulse Oximetry 99 99 Oxygen Delivery Method 03/07/24 23:00 03/07/24 23:00 03/07/24 23:30 Temperature Pulse Rate 61 66 Respiratory Rate Blood Pressure 143/76 H Pulse Oximetry 99 94 Oxygen Delivery Method Room Air 03/07/24 23:30 03/07/24 23:48 03/07/24 23:48 Temperature Pulse Rate 63 Respiratory Rate Blood Pressure 130/74 143/71 H Pulse Oximetry 99 Oxygen Delivery Method 03/08/24 00:00 03/08/24 00:00 03/08/24 00:30 Temperature Pulse Rate 65 62 Respiratory Rate Blood Pressure 131/70 Pulse Oximetry 97 96 Oxygen Delivery Method 03/08/24 00:30 03/08/24 00:46 03/08/24 00:46 Temperature Pulse Rate 67 Respiratory Rate Blood Pressure 131/63 146/63 H Pulse Oximetry 96 Oxygen Delivery Method MDM - Female Genitourinary Differential Diagnosis Differential diagnosis: Likely urinary tract infection, cystitis and other (Renal colic) Lab Data 03/07/24 23:03 11/13/24 23:03 Labs: Lab Results 03/07/24 03/07/24 Range/Units 20:45 23:03 WBC 6.1 (4.5-11.0) X10^3/uL RBC 3.57 L (4.0-5.2) X10^6/uL Hgb 10.7 L (12.0-16.0) g/dL Hct 31.4 L (36-46) % MCV 88.0 (80-100) fL MCH 29.9 (26-34) PG MCHC 34.0 (30-36) % RDW 13.3 (11.6-14.8) % Plt Count 269 (150-400) X10^3/uL Neut % (Auto) 50.5 (50-75) % Lymph % (Auto) 39.1 (25-40) % [place] % (Auto) 6.7 (3-14) % Eos % (Auto) 2.2 (2-4) % Baso % (Auto) 1.5 (0-2) % Neut # (Auto) 3100 (6868-8247) /uL Lymph # (Auto) 2400 (3195-2844) /uL [place] # (Auto) 400 (0-900) /uL Eos # (Auto) 100 (0-450) /uL Baso # (Auto) 100 (0-100) /uL Sodium 133 L (137-145) mmol/L Potassium 4.5 (3.4-5.1) mmol/L Chloride 103 (98-107) mmol/L Carbon Dioxide 24 (22-32) mmol/L BUN 26 H (7-17) mg/dL Creatinine 1.05 H (0.52-1.04) mg/dL Estimated GFR 55 L (>60) mL/min BUN/Creatinine Ratio 24.8 H (6-22) Glucose 231 H (80-110) mg/dL Calcium 9.0 (8.4-10.2) mg/dL Total Bilirubin 0.6 (0.2-1.3) mg/dL AST 30 (14-36) IU/L ALT 22 (<35) IU/L Alkaline Phosphatase 45 (38-126) U/L Total Protein 7.4 (6.3-8.2) g/dL Albumin 3.9 (3.5-5.0) g/dL Globulin 3.5 (1.7-4.1) g/dL Albumin/Globulin Ratio 1.1 (1.0-2.8) Urine RBC 0-1/hpf (0-5/HPF) Urine WBC 0-1/hpf (0-5/HPF) Ur Squamous Epith Cells 0-1 /hpf (0-5/HPF) Urine Bacteria Occasional (0-1) (None) Ur Culture Indicated? Cult not indicated Vol Urine Centrifuged 10ml (spun) Urine Dip Bedside Urine Glucose 1000 mg/dl Bedside Urine Bilirubin - Negative Bedside Urine Ketone - Negative Urine Specific [place] 1.010 Bedside Urine Occult Blood - Negative Bedside Urine pH 7 Bedside Urine Protein +/- 15 Bedside Urine Urobilinogen - Negative Bedside Urine Nitrite - Negative Bedside Urine Leukocytes - Negative Esterase Imaging Data CT scan - abdomen/pelvis: Radiologist's Impression: PROCEDURE: CT KIDNEY URETER BLADDER (KUB) INDICATIONS: R FLANK PAIN, URINARY FREQUENCY TECHNIQUE: Axial sections were acquired from the lung bases to the pubic symphysis. Coronal and sagittal reformats were performed. For radiation dose reduction, the following was used: automated exposure control, adjustment of mA and/or kV according to patient size. COMPARISON: None. FINDINGS: Image quality: Diagnostic. Lower Chest: Heart is moderately enlarged. Coronary artery calcifications are present. Moderate hiatal hernia. URINARY: Right Kidney: No stones or hydronephrosis. Right Ureter: No hydroureter. Left Kidney: No stones or hydronephrosis. Left Ureter: No hydroureter. Bladder: Mild bladder wall thickening versus underdistention. No stones. ABDOMEN: Liver: No contour-deforming solid mass. Gallbladder: No radiopaque gallstones or wall thickening. Biliary ducts: No biliary dilation. Pancreas: No ductal dilation. Spleen: Size is within normal limits. Adrenal Glands: No adrenal nodules. Stomach and Bowel: Normal colonic caliber, without significant wall thickening. Normal appendix. Small bowel loops and stomach are unremarkable. Peritoneum: No abnormal intraperitoneal fluid. No free air. Ventral Wall: Small fat containing periumbilical hernia. Abdominal Nodes: No enlarged retroperitoneal or mesenteric lymph nodes. Vessels: Aorta and inferior vena cava are normal in size. PELVIS: Pelvic Organs: Retroverted uterus. No adnexal mass.. Pelvic Nodes: Unremarkable. Miscellaneous: No inguinal hernias are seen. Bones: Degenerative changes are seen in the sacroiliac joints and spine. IMPRESSION: 1. No obstructing stones or hydronephrosis. 2. Mild bladder wall thickening may be related to underdistention versus cystitis. Approved by: Fidel Moreno M.D. on 03/08/2024 at 0:34 MDM Narrative Medical decision making narrative: One week of the above symptoms. Physical exam is overall reassuring, she does have right-sided flank/back tenderness but it was nontoxic in appearance. Urinalysis obtained in triage shows no bacteria, no leukocyte esterase, no nitrites. With right-sided symptoms labs and CT imaging will be ordered for assessment of possible renal stone. Laboratory work reviewed, no leukocytosis, stable kidney function. Patient's glucose is mildly elevated without elevated anion gap to suggest acidosis. CT of the abdomen and pelvis without contrast shows no findings to explain patient's right-sided pain. There may be trace bladder wall thickening, however thought secondary to underdistention as patient has normal urinalysis. Patient did have large amount of glucose in her urine, urinary frequency could be secondary to spillage of glucose in the urine. Patient and daughter at bedside counseled on all lab and imaging findings. Recommended close PCP follow up for diabetic medication adjustment and further investigation of symptoms. Patient states that she has a scheduled upcoming primary appointment Discharge Plan Departure Patient Disposition: Home Clinical Impression: Urinary frequency, Back pain Instructions: DI for Back Strain or Sprain Activity Restrictions/Additional Instructions: Your blood work today showed that you have an elevated blood glucose (231), but your kidney function is normal and there does not appear to be a urinary tract infection at this time. Your CT scan did not show any signs of infection or stones. You also seemed to have a lot of glucose in your urine, which may contribute to your urinary frequency. Follow up with your primary care physician as scheduled. Prescriptions: No Action losartan-hydrochlorothiazide 100 MG/25 MG tablet 1 tab PO QDAY Qty: 0 cholecalciferol (vitamin D3) [Vitamin D3] 2,000 UNIT capsule 2,000 unit PO QDAY Qty: 0 Patient Comments: not known if current calcium carbonate 600 MG tablet 600 mg PO QDAY Qty: 0 Patient Comments: not known if current Basaglar KwikPen U-100 Insulin 100 unit/mL (3 mL) insulin pen 30 unit SUBCUT BEDTIME meclizine 25 mg tablet 50 mg PO TID PRN (Reason: dizziness) Qty: 20 0RF doxycycline hyclate 100 mg tablet 100 mg PO BID Qty: 20 0RF ondansetron 4 mg tablet,disintegrating 4 mg PO Q8H PRN (Reason: nausea and vomiting) Qty: 10 0RF atorvastatin 20 mg tablet 20 mg PO QPM metformin 1,000 mg tablet 1 tab PO BID alendronate 70 mg tablet 70 mg PO QWEEK pantoprazole 40 mg tablet,delayed release (DR/EC) 40 mg PO DAILY timolol maleate 0.5 % drops 1 drp OPHTHALMIC (EYE) DIRECTED aspirin 81 mg Tablet,Delayed Release (Dr/Ec) 81 mg PO DAILY Qty: 30 0RF meclizine 25 mg tablet 25 mg PO TID PRN (Reason: dizziness) Qty: 60 0RF meclizine 25 mg tablet 25 mg PO BID-TID PRN (Reason: dizziness) Qty: 60 0RF ondansetron 4 mg tablet,disintegrating 4 mg PO TID-QID PRN (Reason: nausea and vomiting) Qty: 10 0RF Referrals: Yvonne Barr MD [Primary Care Provider] - Stand Alone Forms: Patient Portal/API/Survey
--- NOTE | 2024-03-07 22:50 | DI.CT.S_ITS ---
PROCEDURE: CT KIDNEY URETER BLADDER (KUB) INDICATIONS: R FLANK PAIN, URINARY FREQUENCY TECHNIQUE: Axial sections were acquired from the lung bases to the pubic symphysis. Coronal and sagittal reformats were performed. For radiation dose reduction, the following was used: automated exposure control, adjustment of mA and/or kV according to patient size. COMPARISON: None. FINDINGS: Image quality: Diagnostic. Lower Chest: Heart is moderately enlarged. Coronary artery calcifications are present. Moderate hiatal hernia. URINARY: Right Kidney: No stones or hydronephrosis. Right Ureter: No hydroureter. Left Kidney: No stones or hydronephrosis. Left Ureter: No hydroureter. Bladder: Mild bladder wall thickening versus underdistention. No stones. ABDOMEN: Liver: No contour-deforming solid mass. Gallbladder: No radiopaque gallstones or wall thickening. Biliary ducts: No biliary dilation. Pancreas: No ductal dilation. Spleen: Size is within normal limits. Adrenal Glands: No adrenal nodules. Stomach and Bowel: Normal colonic caliber, without significant wall thickening. Normal appendix. Small bowel loops and stomach are unremarkable. Peritoneum: No abnormal intraperitoneal fluid. No free air. Ventral Wall: Small fat containing periumbilical hernia. Abdominal Nodes: No enlarged retroperitoneal or mesenteric lymph nodes. Vessels: Aorta and inferior vena cava are normal in size. PELVIS: Pelvic Organs: Retroverted uterus. No adnexal mass.. Pelvic Nodes: Unremarkable. Miscellaneous: No inguinal hernias are seen. Bones: Degenerative changes are seen in the sacroiliac joints and spine. IMPRESSION: 1. No obstructing stones or hydronephrosis. 2. Mild bladder wall thickening may be related to underdistention versus cystitis. Approved by: Fidel Moreno M.D. on 03/08/2024 at 0:34
[2024-03-07] MEDS: MORPHINE 4 MG/ML INJ IV (23:18)
[2024-03-07] MEDS: ONDANSETRON 4 MG/2 ML INJ IV (23:18)
[2024-03-07] MEDS: SODIUM CHLORIDE 0.9% 1,000 ML 1000 ML IV (23:18)
[2024-03-07 23:21] LABS: Add Manual Diff / Slide Review NO; Basophils Absolute Auto 100 /uL (0-100); Basophils Percent Auto 1.5 % (0-2); Eosinophils Absolute Auto 100 /uL (0-450); Eosinophils Percent Auto 2.2 % (2-4); Hematocrit 31.4 % (36-46); Hemoglobin 10.7 g/dL (12.0-16.0); Lymphocytes Absolute Auto 2400 /uL (1100-4500); Lymphocytes Percent Auto 39.1 % (25-40); Mean Corpuscular Hemoglobin 29.9 PG (26-34); Monocytes Absolute Auto 400 /uL (0-900); Monocytes Percent Auto 6.7 % (3-14); Neutrophils Absolute Auto 3100 /uL (1500-7000); Neutrophils Percent Auto 50.5 % (50-75); Platelet Count 269 X10^3/uL (150-400); Red Blood Cell Count 3.57 X10^6/uL (4.0-5.2); Red Cell Distribution Width 13.3 % (11.6-14.8); White Blood Cell Count 6.1 X10^3/uL (4.5-11.0)
--- NOTE | 2024-03-07 23:30 | PC.NURSE ---
Pt assisted to restroom via wheel chair then to imaging with tech.
[2024-03-07 23:35] LABS: Alanine Aminotransferase 22 IU/L (<35); Albumin 3.9 g/dL (3.5-5.0); Albumin Globulin Ratio 1.1 (1.0-2.8); BUN Creatinine Ratio 24.8 (6-22); Bilirubin Total 0.6 mg/dL (0.2-1.3); Blood Urea Nitrogen 26 mg/dL (7-17); Carbon Dioxide 24 mmol/L (22-32); Chloride 103 mmol/L (98-107); Estimated Glomerular Filt Rate 55 mL/min (>60); Globulin 3.5 g/dL (1.7-4.1); Glucose 231 mg/dL (80-110); HEMOLYSIS 57 (0-50); Potassium 4.5 mmol/L (3.4-5.1); Sodium 133 mmol/L (137-145); Total Protein 7.4 g/dL (6.3-8.2)
[2024-03-07 23:36] LABS: Alkaline Phosphatase 45 U/L (38-126); Aspartate Aminotransferase 30 IU/L (14-36)
[2024-03-08] VITALS: BP 131/70; PULSE 65; O2SAT 97
[2024-03-08 00:30] VITALS: BP 131/63; PULSE 62; O2SAT 96
[2024-03-08 00:46] VITALS: BP 146/63; PULSE 67; O2SAT 96
--- NOTE | 2024-03-08 00:56 | PC.NURSE ---
Pt ambulatory around department with cane which is baseline.
== END 2024-03-08 01:02 | disposition home or self-care (01) ==
PROVIDERS: Emergency Provider Emergency Medicine; PCP Internal Medicine
DX: R35.0 Frequency of micturition (principal); M54.50 Low back pain, unspecified
CPT/HCPCS: 36415; 74176; 80053; 81003; 81015; 85025; 96361; 96374; 96375; 99284; J2270; J2405

== ENCOUNTER → 2024-03-14 15:38 | Outpatient (CLI) | payer MEDICARE, SELFPAY ==
[2020-05-21 16:47] VITALS: BMI 27.8
--- NOTE | 2024-03-14 15:41 | DI.RAD.S_ITS ---
PROCEDURE: XR LUMBAR SPINE 2-3V INDICATIONS: BACK PAIN TECHNIQUE: 3 views of the lumbar spine were acquired. COMPARISON: [facility], CT, CT KIDNEY URETER BLADDER (KUB), 03/07/2024, 23:32. [facility], CR, XR LUMBAR SPINE 2-3V, 11/27/2023, 1:19. [facility], CR, XR LUMBAR SPINE 2-3V, 05/11/2018, 13:24. FINDINGS: Bones: 5 [id number]-[id number] vertebrae are present. There is normal bony alignment. No vertebral body compression fractures. Disc space height loss most pronounced at L5-S1. There is endplate sclerosis and osteophytosis. No suspicious bony lesions. Soft tissues: Overlying bowel gas pattern is normal. No suspicious soft tissue calcifications. IMPRESSION: No compression fracture. DDD most pronounced at L5-S1. Dictated by: Jossue Lawrence M.D. on 03/14/2024 at 23:12 Approved by: Jossue Lawrence M.D. on 03/14/2024 at 23:15
== END ==
LOC: RAD 15:40
PROVIDERS: PCP Internal Medicine; Referring Provider Internal Medicine; Visit Provider Internal Medicine
DX: M51.17 Intervertebral disc disorders with radiculopathy, lumbosacral region
CPT/HCPCS: 72100

== ENCOUNTER 2024-04-10 06:05 | Emergency (ER) | payer MEDICARE, SELFPAY ==
[2020-05-21 16:47] VITALS: BMI 27.8
[2024-04-10] VITALS (11 sets, daily range): BP systolic 128–181; BP diastolic 64–81; PULSE 60–71; RESP 15–21; TEMP 37; O2SAT 95–98; BMI 41.1
--- NOTE | 2024-04-10 06:14 | DI.CT.S_ITS ---
PROCEDURE: CT HEAD/BRAIN WO CON INDICATIONS: Double vision and headache TECHNIQUE: Noncontrast 4.5 mm thick angled axial sections acquired from the foramen magnum to the vertex, with coronal and sagittal reformats. For radiation dose reduction, the following was used: automated exposure control, adjustment of mA and/or kV according to patient size. COMPARISON: [facility], CT, CT HEAD/BRAIN WO CON, 08/14/2020, 10:32. FINDINGS: Image quality: Diagnostic. CSF spaces: Basal cisterns are patent. No extra-axial fluid collections. The ventricles are symmetric in size and shape. Brain: No intracranial bleeds or masses. There is cerebral volume loss for age, with resultant ventricular and sulcal prominence. There are periventricular and deep white matter chronic small vessel ischemic changes. There is intracranial internal carotid artery atherosclerosis. Skull and face: Calvarium and visualized facial bones appear intact, without suspicious lesions. Sinuses: Small right maxillary sinus mucous retention cyst. Visualized sinuses and mastoids are otherwise clear. IMPRESSION: No evidence acute intracranial process. Comment: Final report is concordant with preliminary interpretation provided by [facility]. Dictated by: Oz Campos M.D. on 04/10/2024 at 7:53 Approved by: Oz Campos M.D. on 04/10/2024 at 7:53
--- NOTE | 2024-04-10 06:14 | DI.CT.S_ITS ---
PROCEDURE: CT ANGIO HEAD AND NECK INDICATIONS: Double vision and headache TECHNIQUE: After the administration of intravenous contrast, 1 mm thick sections acquired from the aortic arch through the [place] of [place]. 3-dimensional hpplyyf-avhkxixtc-keppmxhgdh (MIP) and/or volume rendering reformats were acquired of the central intracranial vasculature and neck separately. For radiation dose reduction, the following was used: automated exposure control, adjustment of mA and/or kV according to patient size. COMPARISON: [facility], CT, CT ANGIO HEAD AND NECK, 10/04/2022, 11:15. FINDINGS: Image quality: Diagnostic. BRAIN: CSF spaces: Ventricles are normal in size and shape. Basal cisterns are patent. No extra-axial fluid collections. Brain: No significant abnormality of the brain can be seen. Skull and face: Calvarium and facial bones appear intact, without suspicious lesions. Orbits appear normal. Sinuses: Sinuses and mastoids are clear. HEAD CT ANGIOGRAPHY: Anterior circulation: Intracranial internal carotid arteries are normal in size and flow. The flow within the paired anterior cerebral arteries is normal and symmetric. The flow within the middle cerebral arteries is normal and symmetric. The anterior communicating artery is seen. No aneurysms are seen. Posterior circulation: There is a mild, approximately 20% distal right vertebral artery calcified stenosis. The distal left vertebral arteries patent. They join to form a normal caliber basilar artery. Flow within the posterior cerebral arteries is normal and symmetric. No aneurysms are seen. NECK CT ANGIOGRAPHY: Carotid system: The great vessels demonstrate a conventional anatomy as they arise from the aortic arch. The origins of the common carotid arteries appear patent. The common carotid arteries demonstrate normal caliber and courses. The bifurcation regions are both widely patent. The internal carotid arteries demonstrate normal calibers and courses. Posterior circulation: The origins of the vertebral arteries both appear widely patent. The more superior extracranial portions of both vertebral arteries also demonstrate normal courses without flow-limiting stenosis. There is an approximately 20% stenosis of the distal right vertebral artery. They join to form a normal appearing basilar artery. Soft tissues: Visualized neck soft tissues demonstrate no suspicious abnormalities. Bones: No suspicious bony lesions. Visualized cervical spine appears normally aligned. IMPRESSION: Mild non flow limiting distal right vertebral artery stenosis. No flow limiting stenosis. Otherwise unremarkable CTA head. Patent carotids. Comment: Final report is concordant with preliminary interpretation provided by [facility]. Any quantitative measurements of stenosis were performed using NASCET criteria. Dictated by: Oz Campos M.D. on 04/10/2024 at 7:53 Approved by: Oz Campos M.D. on 04/10/2024 at 7:57
--- NOTE | 2024-04-10 06:22 | EKG_ITS ---
[facility] [address] [place] [address] Test Date: 2024-04-10 Pat Name: Rebecca Talamantes Department: [facility] Room: Gender: Female Operations Liaison: PRATIBHA PURI : 1950 Requested By: Order Number: [id number] Reading MD: Ancelmo Weir Measurements Intervals [place] Rate: 62 P: 61 VT: 196 QRS: 37 QRSD: 82 T: 75 QT: 424 QTc: 430 Interpretive Statements Normal sinus rhythm Nonspecific ST abnormality Electronically Signed On 04-10-2024 19:43:01 PST by Ancelmo Weir
[2024-04-10 06:36] LABS: Add Manual Diff / Slide Review NO; Basophils Absolute Auto 0 /uL (0-100); Basophils Percent Auto 0.6 % (0-2); Eosinophils Absolute Auto 100 /uL (0-450); Eosinophils Percent Auto 1.9 % (2-4); Hematocrit 37.5 % (36-46); Hemoglobin 12.3 g/dL (12.0-16.0); Lymphocytes Absolute Auto 2200 /uL (1100-4500); Lymphocytes Percent Auto 42.6 % (25-40); Mean Corpuscular HGB Conc 32.8 % (30-36); Mean Corpuscular Hemoglobin 28.9 PG (26-34); Monocytes Absolute Auto 400 /uL (0-900); Monocytes Percent Auto 8.4 % (3-14); Neutrophils Absolute Auto 2400 /uL (1500-7000); Neutrophils Percent Auto 46.5 % (50-75); Platelet Count 315 X10^3/uL (150-400); Red Blood Cell Count 4.26 X10^6/uL (4.0-5.2); Red Cell Distribution Width 13.2 % (11.6-14.8); White Blood Cell Count 5.2 X10^3/uL (4.5-11.0)
[2024-04-10 06:42] LABS: INR 0.9 (0.9-1.3); Prothrombin Time 10.2 SECONDS (9.4-12.5)
[2024-04-10 06:44] LABS: PTT Partial Thromboplastin Tim 36 SECONDS (25.1-36.5)
--- NOTE | 2024-04-10 06:45 | ED.NEUROSD ---
HPI - Neuro Symptoms/Deficit <Kevin Navarro DO - Last Filed: 04/12/24 07:10> General Chief Complaint: Neuro Symptoms/Deficit Stated Complaint: double vision, headache Time Seen by Provider: 04/10/24 06:12 Source: patient Mode of arrival: Ambulatory Limitations: no limitations History of Present Illness HPI Narrative: Patient was a 73-year-old female. History of hypertension. Tiu-yrxcoan-sleajtaji diabetes. Reflux disease. States she was had 2 prior strokes. Last stroke was approximately 3 years ago. She stated that yesterday during the day she started to have a headache. She contacted her primary doctor however her primary doctor can not get into see her until tomorrow. She was told to take Tylenol. She has been taking Tylenol which does seem to help her headache somewhat. Last evening at about 1800 hours she stated that she was talking with her sister and then she started to have double vision. Unsure as to how long the double vision lasted however this morning she states that she does not have double vision right away when she looks at something but after she looks that for a period of time she starts to develop double vision. She was still having a headache but it was slightly better. No fevers. Yesterday had some chest discomfort on the right side of her chest. No palpitations. No sinus congestion or sore throat. Reports no numbness or tingling in her upper and lower extremities. No balance problems. She stated that the double vision was the symptoms she had when she had her last stroke. On Anticoagulants: No (ASA 81mg) Related Data Home Medications Medication Instructions Recorded Confirmed losartan 100 1 tab PO QDAY ##0 09/24/16 05/21/20 mg-hydrochlorothiazide 25 mg tablet calcium carbonate 600 mg PO QDAY ##0 03/10/17 05/22/20 cholecalciferol (vitamin D3) 50 2,000 unit PO QDAY ##0 03/10/17 05/22/20 mcg (2,000 unit) capsule (Vitamin D3) atorvastatin 20 mg tablet 20 mg PO QPM 12/02/17 05/22/20 metformin 1,000 mg tablet 1 tab PO BID 12/02/17 05/22/20 alendronate 70 mg tablet 70 mg PO QWEEK 12/29/18 05/22/20 pantoprazole 40 mg tablet,delayed 40 mg PO DAILY 12/29/18 05/21/20 release timolol maleate 0.5 % eye drops 1 drp ophthalmic (eye) DIRECTED 12/29/18 05/22/20 insulin glargine 100 unit/mL (3 30 unit SUBCUT BEDTIME 05/22/20 05/22/20 mL) subcutaneous pen (Basaglar KwikPen U-100 Insulin) Previous Rx's Medication Instructions Recorded aspirin 81 mg tablet,delayed 81 mg PO DAILY #30 tabs 12/31/18 release meclizine 25 mg tablet 50 mg (2 x 25 mg) PO TID PRN 08/14/20 dizziness #20 tabs meclizine 25 mg tablet 25 mg PO TID PRN dizziness #60 tabs 03/18/21 doxycycline hyclate 100 mg tablet 100 mg PO BID #20 tabs 08/23/21 meclizine 25 mg tablet 25 mg PO BID-TID PRN dizziness #60 12/22/21 tabs ondansetron 4 mg disintegrating 4 mg PO TID-QID PRN nausea and 12/22/21 tablet vomiting #10 tabs ondansetron 4 mg disintegrating 4 mg PO Q8H PRN nausea and 03/28/22 tablet vomiting #10 tabs Allergies Allergy/AdvReac Type Severity Reaction Status Date / Time No Known Drug Allergies Allergy Verified 11/09/22 18:01 Review of Systems <Kevin Navarro DO - Last Filed: 04/12/24 07:10> Review of Systems ROS Unobtainable: All systems reviewed & are unremarkable except as noted in HPI and below Hematologic/Lymphatic On Anticoagulants: No (ASA 81mg) Patient History <Kevin Navarro DO - Last Filed: 04/12/24 07:10> Medical History (Updated 04/10/24 @ 12:44 by J Carlos Rosa MD) Osteoporosis Glaucoma, left eye Hyperlipidemia Hypertension Diabetes type 2, uncontrolled Cerebrovascular accident Hypertension Diabetes GERD (gastroesophageal reflux disease) Surgical History History of section Social History household members: family Smoking Status: Never smoker alcohol intake: never substance use type: does not use Smoking Status: Never smoker alcohol intake frequency: 0-2 drinks per day Exam <Kevin Navarro DO - Last Filed: 04/12/24 07:10> Initial Vital Signs Initial Vital Signs: Vital Signs Pulse Rate 70 04/10/24 06:10 Pulse Oximetry 97 04/10/24 06:10 Const General: cooperative, comfortable and No ill appearing HENMT Head: normal to inspection and normocephalic Face and sinus: normal facial exam Eyes Pupils: PERRL EOM: EOM intact bilaterally Resp Effort & Inspection: normal respiratory effort Auscultation: clear to auscultation bilaterally Cardio Rate: regular rate Rhythm: regular rhythm Skin General: no rashes or lesions noted Neuro General: patient alert, patient awake, patient oriented x3 and moves all extremities Cranial Nerves: CN's II-XI intact bilaterally Cognition: normal cognition Speech: speech normal Gait: normal gait Coordination: [id number] test normal and [id number] test normal Extrem General: capillary refill normal <J Carlos Rosa MD - Last Filed: 04/11/24 07:57> Initial Vital Signs Initial Vital Signs: Vital Signs Pulse Rate 70 04/10/24 06:10 Pulse Oximetry 97 04/10/24 06:10 Scores <Kevin Navarro DO - Last Filed: 04/12/24 07:10> NIH Stroke Scale Level of Conciousness: Alert, keenly responsive Ask month/age: Answers both questions correctly. Open/close eyes, close hand: Performs both tasks correctly Best gaze horizontal: Normal Visual cantu: No visual loss Facial palsy: Normal symetrical movement Left arm drift: No drift for full 10 sec Right arm drift: No drift for full 10 sec Left leg drift: No drift for full 5 sec Right leg drift: No drift for full 5 sec Limb ataxia: Absent Sensory on face/arms/legs: Mild to moderate sensory loss, can tell touch Best language: No aphasia, normal Dysarthria: Normal Extinction or inattention: No abnormality Total NIH Stroke scale score: 1 <J Carlos Rosa MD - Last Filed: 04/11/24 07:57> NIH Stroke Scale Total NIH Stroke scale score: 1 Course <Kevin Navarro DO - Last Filed: 04/12/24 07:10> Orders Ordered: Discontinued Medications Sodium Chloride (Normal Saline 0.9%) 500 mls @ 1,000 mls/hr IV BOLUS ONE Stop: 04/10/24 08:47 Last Infusion: 04/10/24 09:28 Dose: Infused Documented By: Admin: 04/10/24 08:27 Dose: 1,000 mls/hr Documented By: MARCELA Vital Signs Vital signs: Vital Signs - 8 hr 04/10/24 06:10 04/10/24 06:25 04/10/24 06:25 Temperature Pulse Rate 70 66 Respiratory Rate 18 Blood Pressure 140/79 Pulse Oximetry 97 96 Oxygen Delivery Method Room Air 04/10/24 06:30 04/10/24 07:00 04/10/24 07:00 Temperature 98.6 F Pulse Rate 66 66 Respiratory Rate 18 Blood Pressure 181/79 H 144/72 H Pulse Oximetry 97 97 Oxygen Delivery Method Room Air 04/10/24 07:30 04/10/24 07:30 04/10/24 08:00 Temperature Pulse Rate 60 61 Respiratory Rate 15 17 Blood Pressure 133/73 Pulse Oximetry 97 96 Oxygen Delivery Method 04/10/24 08:00 04/10/24 08:30 04/10/24 08:30 Temperature Pulse Rate 63 Respiratory Rate 20 Blood Pressure 128/75 153/81 H Pulse Oximetry 98 Oxygen Delivery Method 04/10/24 09:00 04/10/24 09:00 04/10/24 09:30 Temperature Pulse Rate 63 Respiratory Rate 21 Blood Pressure 146/72 H 145/72 H Pulse Oximetry 98 Oxygen Delivery Method 04/10/24 09:30 04/10/24 10:00 Temperature Pulse Rate 64 71 Respiratory Rate 20 Blood Pressure Pulse Oximetry 98 97 Oxygen Delivery Method <J Carlos Rosa MD - Last Filed: 04/11/24 07:57> Orders Ordered: Discontinued Medications Sodium Chloride (Normal Saline 0.9%) 500 mls @ 1,000 mls/hr IV BOLUS ONE Stop: 04/10/24 08:47 Last Infusion: 04/10/24 09:28 Dose: Infused Documented By: Admin: 04/10/24 08:27 Dose: 1,000 mls/hr Documented By: MARCELA Vital Signs Vital signs: Vital Signs - 8 hr 04/10/24 06:10 04/10/24 06:25 04/10/24 06:25 Temperature Pulse Rate 70 66 Respiratory Rate 18 Blood Pressure 140/79 Pulse Oximetry 97 96 Oxygen Delivery Method Room Air 04/10/24 06:30 04/10/24 07:00 04/10/24 07:00 Temperature 98.6 F Pulse Rate 66 66 Respiratory Rate 18 Blood Pressure 181/79 H 144/72 H Pulse Oximetry 97 97 Oxygen Delivery Method Room Air 04/10/24 07:30 04/10/24 07:30 04/10/24 08:00 Temperature Pulse Rate 60 61 Respiratory Rate 15 17 Blood Pressure 133/73 Pulse Oximetry 97 96 Oxygen Delivery Method 04/10/24 08:00 04/10/24 08:30 04/10/24 08:30 Temperature Pulse Rate 63 Respiratory Rate 20 Blood Pressure 128/75 153/81 H Pulse Oximetry 98 Oxygen Delivery Method 04/10/24 09:00 04/10/24 09:00 04/10/24 09:30 Temperature Pulse Rate 63 Respiratory Rate 21 Blood Pressure 146/72 H 145/72 H Pulse Oximetry 98 Oxygen Delivery Method 04/10/24 09:30 04/10/24 10:00 Temperature Pulse Rate 64 71 Respiratory Rate 20 Blood Pressure Pulse Oximetry 98 97 Oxygen Delivery Method MDM - Neuro Symptoms/Deficit <Kevin Navarro DO - Last Filed: 04/12/24 07:10> Medical Records Attestation: I reviewed the patient's medical records. Lab Data Attestation: I reviewed the patient's lab results. 04/10/24 06:27 04/10/24 06:27 Labs: Lab Results 04/10/24 Range/Units 06:27 WBC 5.2 (4.5-11.0) X10^3/uL RBC 4.26 (4.0-5.2) X10^6/uL Hgb 12.3 (12.0-16.0) g/dL Hct 37.5 (36-46) % MCV 88.0 (80-100) fL MCH 28.9 (26-34) PG MCHC 32.8 (30-36) % RDW 13.2 (11.6-14.8) % Plt Count 315 (150-400) X10^3/uL Neut % (Auto) 46.5 L (50-75) % Lymph % (Auto) 42.6 H (25-40) % Walsh % (Auto) 8.4 (3-14) % Eos % (Auto) 1.9 L (2-4) % Baso % (Auto) 0.6 (0-2) % Neut # (Auto) 2400 (3719-7648) /uL Lymph # (Auto) 2200 (0741-0661) /uL Walsh # (Auto) 400 (0-900) /uL Eos # (Auto) 100 (0-450) /uL Baso # (Auto) 0 (0-100) /uL PT 10.2 (9.4-12.5) SECONDS INR 0.9 (0.9-1.3) APTT 36 (25.1-36.5) SECONDS Sodium 142 (137-145) mmol/L Potassium 3.7 (3.4-5.1) mmol/L Chloride 107 (98-107) mmol/L Carbon Dioxide 25 (22-32) mmol/L BUN 21 H (7-17) mg/dL Creatinine 1.10 H (0.52-1.04) mg/dL Estimated GFR 52 L (>60) mL/min BUN/Creatinine Ratio 19.1 (6-22) Glucose 175 H (80-110) mg/dL Calcium 9.9 (8.4-10.2) mg/dL Total Bilirubin 0.6 (0.2-1.3) mg/dL AST 41 H (14-36) IU/L ALT 39 H (<35) IU/L Alkaline Phosphatase 54 (38-126) U/L Total Protein 8.4 H (6.3-8.2) g/dL Albumin 4.7 (3.5-5.0) g/dL Globulin 3.7 (1.7-4.1) g/dL Albumin/Globulin Ratio 1.3 (1.0-2.8) Lipase 188 (23-300) U/L Point of Care Testing Glucose POC 166 ECG Data Attestation: I personally reviewed and interpreted this ECG as follows: Interpretation: Sinus rhythm Ventricular rate of 62 Normal axis Normal QRS Nonspecific ST T wave changes MDM Narrative Medical decision making narrative: Symptoms started greater than 12 hours ago. She was not on anticoagulation. She was not a candidate for tPA. She states it her double vision is how she was presented in the past with the strokes. Review of the medical record does not reveal any stroke. She had a brain MRI in 2019 which did not show any ischemic pathology. She states today her headache is better and her double vision now only occurs when she stares at something for an extended period of time and not all the time like what it was yesterday. CT scans ordered. Labs ordered. Care turned over to Dr. Rosa to follow up on scans and disposition. <J Carlos Rosa MD - Last Filed: 04/11/24 07:57> Lab Data Labs: Lab Results 04/10/24 Range/Units 06:27 WBC 5.2 (4.5-11.0) X10^3/uL RBC 4.26 (4.0-5.2) X10^6/uL Hgb 12.3 (12.0-16.0) g/dL Hct 37.5 (36-46) % MCV 88.0 (80-100) fL MCH 28.9 (26-34) PG MCHC 32.8 (30-36) % RDW 13.2 (11.6-14.8) % Plt Count 315 (150-400) X10^3/uL Neut % (Auto) 46.5 L (50-75) % Lymph % (Auto) 42.6 H (25-40) % Walsh % (Auto) 8.4 (3-14) % Eos % (Auto) 1.9 L (2-4) % Baso % (Auto) 0.6 (0-2) % Neut # (Auto) 2400 (6962-3287) /uL Lymph # (Auto) 2200 (9398-7039) /uL Walsh # (Auto) 400 (0-900) /uL Eos # (Auto) 100 (0-450) /uL Baso # (Auto) 0 (0-100) /uL PT 10.2 (9.4-12.5) SECONDS INR 0.9 (0.9-1.3) APTT 36 (25.1-36.5) SECONDS Sodium 142 (137-145) mmol/L Potassium 3.7 (3.4-5.1) mmol/L Chloride 107 (98-107) mmol/L Carbon Dioxide 25 (22-32) mmol/L BUN 21 H (7-17) mg/dL Creatinine 1.10 H (0.52-1.04) mg/dL Estimated GFR 52 L (>60) mL/min BUN/Creatinine Ratio 19.1 (6-22) Glucose 175 H (80-110) mg/dL Calcium 9.9 (8.4-10.2) mg/dL Total Bilirubin 0.6 (0.2-1.3) mg/dL AST 41 H (14-36) IU/L ALT 39 H (<35) IU/L Alkaline Phosphatase 54 (38-126) U/L Total Protein 8.4 H (6.3-8.2) g/dL Albumin 4.7 (3.5-5.0) g/dL Globulin 3.7 (1.7-4.1) g/dL Albumin/Globulin Ratio 1.3 (1.0-2.8) Lipase 188 (23-300) U/L Point of Care Testing Glucose POC [address] scan - head: Radiologist's Impression: [address] [address] [address] Scan Report Signed Patient: Rebecca Talamantes MR#: [id number] : 1950 Acct:[id number] Age/Sex: 73 / F Date of Service: 04/10/24 Loc: ED Accession Number: [id number] Procedure: CT head/brain wo con Ordering Provider: Kevin Navarro D.O. PROCEDURE: CT HEAD/BRAIN WO CON INDICATIONS: Double vision and headache TECHNIQUE: Noncontrast 4.5 mm thick angled axial sections acquired from the foramen magnum to the vertex, with coronal and sagittal reformats. For radiation dose reduction, the following was used: automated exposure control, adjustment of mA and/or kV according to patient size. COMPARISON: [facility], CT, CT HEAD/BRAIN WO CON, 08/14/2020, 10:32. FINDINGS: Image quality: Diagnostic. CSF spaces: Basal cisterns are patent. No extra-axial fluid collections. The ventricles are symmetric in size and shape. Brain: No intracranial bleeds or masses. There is cerebral volume loss for age, with resultant ventricular and sulcal prominence. There are periventricular and deep white matter chronic small vessel ischemic changes. There is intracranial internal carotid artery atherosclerosis. Skull and face: Calvarium and visualized facial bones appear intact, without suspicious lesions. Sinuses: Small right maxillary sinus mucous retention cyst. Visualized sinuses and mastoids are otherwise clear. IMPRESSION: No evidence acute intracranial process. Comment: Final report is concordant with preliminary interpretation provided by [facility]. Dictated by: Oz Campos M.D. on 04/10/2024 at 7:53 Approved by: Oz Campos M.D. on 04/10/2024 at 7:53 CTA - brain/neck: Radiologist's Impression: [address] [address] [address] Scan Report Signed Patient: Rebecca Talamantes MR#: [id number] : 1950 Acct:[id number] Age/Sex: 73 / F Date of Service: 04/10/24 Loc: ED Accession Number: [id number] Procedure: CT angio head and neck Ordering Provider: Kevin Navarro D.O. PROCEDURE: CT ANGIO HEAD AND NECK INDICATIONS: Double vision and headache TECHNIQUE: After the administration of intravenous contrast, 1 mm thick sections acquired from the aortic arch through the [place] of [place]. 3-dimensional zdroijv-bdlfutujb-zigwwltlqr (MIP) and/or volume rendering reformats were acquired of the central intracranial vasculature and neck separately. For radiation dose reduction, the following was used: automated exposure control, adjustment of mA and/or kV according to patient size. COMPARISON: [facility], CT, CT ANGIO HEAD AND NECK, 10/04/2022, 11:15. FINDINGS: Image quality: Diagnostic. BRAIN: CSF spaces: Ventricles are normal in size and shape. Basal cisterns are patent. No extra-axial fluid collections. Brain: No significant abnormality of the brain can be seen. Skull and face: Calvarium and facial bones appear intact, without suspicious lesions. Orbits appear normal. Sinuses: Sinuses and mastoids are clear. HEAD CT ANGIOGRAPHY: Anterior circulation: Intracranial internal carotid arteries are normal in size and flow. The flow within the paired anterior cerebral arteries is normal and symmetric. The flow within the middle cerebral arteries is normal and symmetric. The anterior communicating artery is seen. No aneurysms are seen. Posterior circulation: There is a mild, approximately 20% distal right vertebral artery calcified stenosis. The distal left vertebral arteries patent. They join to form a normal caliber basilar artery. Flow within the posterior cerebral arteries is normal and symmetric. No aneurysms are seen. NECK CT ANGIOGRAPHY: Carotid system: The great vessels demonstrate a conventional anatomy as they arise from the aortic arch. The origins of the common carotid arteries appear patent. The common carotid arteries demonstrate normal caliber and courses. The bifurcation regions are both widely patent. The internal carotid arteries demonstrate normal calibers and courses. Posterior circulation: The origins of the vertebral arteries both appear widely patent. The more superior extracranial portions of both vertebral arteries also demonstrate normal courses without flow-limiting stenosis. There is an approximately 20% stenosis of the distal right vertebral artery. They join to form a normal appearing basilar artery. Soft tissues: Visualized neck soft tissues demonstrate no suspicious abnormalities. Bones: No suspicious bony lesions. Visualized cervical spine appears normally aligned. IMPRESSION: Mild non flow limiting distal right vertebral artery stenosis. No flow limiting stenosis. Otherwise unremarkable CTA head. Patent carotids. Comment: Final report is concordant with preliminary interpretation provided by [facility]. Any quantitative measurements of stenosis were performed using NASCET criteria. Dictated by: Oz Campos M.D. on 04/10/2024 at 7:53 Approved by: Oz Campos M.D. on 04/10/2024 at 7:57 mr brain: Radiologist's Impression: [address] [address] Magnetic Resonance Report Signed Patient: Rebecca Talamantes MR#: [id number] : 1950 Acct:[id number] Age/Sex: 73 / F Date of Service: 04/10/24 Loc: ED Accession Number: [id number] Procedure: MR head/brain wo con Ordering Provider: J Carlos Rosa MD PROCEDURE: MR HEAD/BRAIN WO CON INDICATIONS: TIA/stroke TECHNIQUE: Non-contrast axial T1 spin echo, axial T2 fast spin echo, sagittal and axial FLAIR, coronal T2 fast spin echo, axial gradient echo, axial diffusion and ADC through the brain. COMPARISON: [facility], CT, CT HEAD/BRAIN WO CON, 04/10/2024, 6:24. FINDINGS: Image quality: Excellent. CSF spaces: Ventricles appear symmetric in size and shape. Basal cisterns are patent. No extra-axial fluid collections. Brain: No intracranial bleeds or mass effects. There is cerebral volume loss for age. There are mild, age-appropriate periventricular and deep white matter chronic small vessel ischemic changes. Brainstem appears normal. Diffusion-weighted images show no acute infarct. No chronic ischemic insults. Normal intravascular flow voids are present. Skull and face: Calvarial bone marrow is normal in signal. Orbits are normal. Sinuses: Sinuses and mastoids are clear. IMPRESSION: No acute intracranial process. Age-related volume loss and mild, age-appropriate small-vessel ischemic change. Dictated by: Oz Campos M.D. on 04/10/2024 at 10:59 Approved by: Oz Campos M.D. on 04/10/2024 at 11:[address] [facility] Narrative Medical decision making narrative: Symptoms started greater than 12 hours ago. She was not on anticoagulation. She was not a candidate for tPA. She states it her double vision is how she was presented in the past with the strokes. Review of the medical record does not reveal any stroke. She had a brain MRI in 2019 which did not show any ischemic pathology. She states today her headache is better and her double vision now only occurs when she stares at something for an extended period of time and not all the time like what it was yesterday. CT scans ordered. Labs ordered. Care turned over to Dr. Rosa to follow up on scans and disposition. 7:00 a.m.. Shelley: Shelley: ?sign out from Dr Navarro, patient awaiting to have CT scan imaging. Patient needs to be evaluated for stroke rule out. Had similar symptoms in the past with her stroke/TIA. Has no residual effects from that episode. Vision has improved but not resolved. Headache has improved but not resolved. 8:00 a.m.. Reviewed results with patient. Awaiting for call back from hospitalist. Patient in no distress at this time. After history and exam CT head CT angiogram head and neck EKG CBC [facility] Medical records reviewed: No recent visit visit complaint Differential considered: Includes but not limited to stroke TIA migraine headache ocular migraine headache Lab Test results independently reviewed as above. See chart Independently reviewed EKG normal sinus rhythm rate [address] elevation or depression Imaging studies independently reviewed: CT head CT angiogram head and neck no acute finding Consultations: 8:43 a.m.. Spoke with hospitalist, Dr. Weir, no admission indicated. Patient was seen by him in the past few years for the same complaint. Negative MRI negative echocardiogram. Recommends did not MRI today and if negative discharge home. Likely complex migraine headache Treatments: Normal saline Re-evaluations: 8:23 a.m.. I spoke with patient. For stroke was 10 years ago 2nd stroke was about 3 or 4 years ago. She thinks she was seen here 3 or 4 years ago. No residual effects or deficits after the strokes. Patient is on daily aspirin and atorvastatin. Patient denies any headache or double vision at this time on evaluation. No double vision with left eye or right eye or both eyes. No headache at this time. Patient resting comfortably. Awaiting call back from hospitalist 12:43 p.m.. Reviewed results with patient. Patient is symptom-free. No headache no vision changes. She has been resting comfortably. MRI is negative. CT head and angiogram are negative. Patient admits she has been under lot of stress with her family recently. Reviewed that this could be migraine complex headache. Or tension headache. However no stroke seen on MRI. Return precautions reviewed. She desires discharge home. Discussion: No neurology consult this time. Symptoms have resolved. Patient outside window for tPA. No large vessel occlusion. No endo vascular intervention. Diagnosis: TIA Stroke Core Measures Exclusion Criteria TPA in CVA: Symptom Onset >3 or 4.5 Hours Discharge Plan Departure Patient Disposition: Home Clinical Impression: Headache, migraine Qualifiers: Migraine type: unspecified Status migrainosus presence: without status migrainosus Intractability: not intractable Qualified Code(s): G43.909 - Migraine, unspecified, not intractable, without status migrainosus Instructions: Migraine -- Adult, DI for Headache Activity Restrictions/Additional Instructions: Your exam and laboratory studies and CT scan and MRI studies are reassuring. No stroke was seen. You may be experiencing complex migraine headaches. Return if worse if any questions or concerns. Please see family doctor this week for re-evaluation. You may continue home medications. Prescriptions: No Action losartan-hydrochlorothiazide 100 MG/25 MG tablet 1 tab PO QDAY Qty: 0 cholecalciferol (vitamin D3) [Vitamin D3] 2,000 UNIT capsule 2,000 unit PO QDAY Qty: 0 Patient Comments: not known if current calcium carbonate 600 MG tablet 600 mg PO QDAY Qty: 0 Patient Comments: not known if current Basaglar KwikPen U-100 Insulin 100 unit/mL (3 mL) insulin pen 30 unit SUBCUT BEDTIME meclizine 25 mg tablet 50 mg PO TID PRN (Reason: dizziness) Qty: 20 0RF doxycycline hyclate 100 mg tablet 100 mg PO BID Qty: 20 0RF ondansetron 4 mg tablet,disintegrating 4 mg PO Q8H PRN (Reason: nausea and vomiting) Qty: 10 0RF atorvastatin 20 mg tablet 20 mg PO QPM metformin 1,000 mg tablet 1 tab PO BID alendronate 70 mg tablet 70 mg PO QWEEK pantoprazole 40 mg tablet,delayed release (DR/EC) 40 mg PO DAILY timolol maleate 0.5 % drops 1 drp OPHTHALMIC (EYE) DIRECTED aspirin 81 mg Tablet,Delayed Release (Dr/Ec) 81 mg PO DAILY Qty: 30 0RF meclizine 25 mg tablet 25 mg PO TID PRN (Reason: dizziness) Qty: 60 0RF meclizine 25 mg tablet 25 mg PO BID-TID PRN (Reason: dizziness) Qty: 60 0RF ondansetron 4 mg tablet,disintegrating 4 mg PO TID-QID PRN (Reason: nausea and vomiting) Qty: 10 0RF Referrals: Yvonne Barr MD [Primary Care Provider] - Stand Alone Forms: Patient Portal/API/Survey
[2024-04-10 06:48] LABS: Alanine Aminotransferase 39 IU/L (<35); Albumin 4.7 g/dL (3.5-5.0); Albumin Globulin Ratio 1.3 (1.0-2.8); Alkaline Phosphatase 54 U/L (38-126); Aspartate Aminotransferase 41 IU/L (14-36); BUN Creatinine Ratio 19.1 (6-22); Bilirubin Total 0.6 mg/dL (0.2-1.3); Blood Urea Nitrogen 21 mg/dL (7-17); Calcium 9.9 mg/dL (8.4-10.2); Carbon Dioxide 25 mmol/L (22-32); Chloride 107 mmol/L (98-107); Estimated Glomerular Filt Rate 52 mL/min (>60); Globulin 3.7 g/dL (1.7-4.1); Glucose 175 mg/dL (80-110); HEMOLYSIS < 15 (0-50); Lipase 188 U/L (23-300); Potassium 3.7 mmol/L (3.4-5.1); Sodium 142 mmol/L (137-145); Total Protein 8.4 g/dL (6.3-8.2)
[2024-04-10] MEDS: SODIUM CHLORIDE 0.9% 500 ML 1000 ML IV (08:27)
--- NOTE | 2024-04-10 08:43 | DI.MRI.S_ITS ---
PROCEDURE: MR HEAD/BRAIN WO CON INDICATIONS: TIA/stroke TECHNIQUE: Non-contrast axial T1 spin echo, axial T2 fast spin echo, sagittal and axial FLAIR, coronal T2 fast spin echo, axial gradient echo, axial diffusion and ADC through the brain. COMPARISON: [facility], CT, CT HEAD/BRAIN WO CON, 04/10/2024, 6:24. FINDINGS: Image quality: Excellent. CSF spaces: Ventricles appear symmetric in size and shape. Basal cisterns are patent. No extra-axial fluid collections. Brain: No intracranial bleeds or mass effects. There is cerebral volume loss for age. There are mild, age-appropriate periventricular and deep white matter chronic small vessel ischemic changes. Brainstem appears normal. Diffusion-weighted images show no acute infarct. No chronic ischemic insults. Normal intravascular flow voids are present. Skull and face: Calvarial bone marrow is normal in signal. Orbits are normal. Sinuses: Sinuses and mastoids are clear. IMPRESSION: No acute intracranial process. Age-related volume loss and mild, age-appropriate small-vessel ischemic change. Dictated by: Oz Campos M.D. on 04/10/2024 at 10:59 Approved by: Oz Campos M.D. on 04/10/2024 at 11:01
== END 2024-04-10 12:54 | disposition home or self-care (01) ==
PROVIDERS: Emergency Medicine; Emergency Provider Emergency Medicine; PCP Internal Medicine
DX: G43.909 Migraine, unspecified, not intractable, without status migrainosus (principal); R29.701 NIHSS score 1
CPT/HCPCS: 36415; 70450; 70496; 70498; 70551; 80053; 82962; 83690; 85025; 85610; 85730; 93005; 96360; 99284; Q9967

== ENCOUNTER → 2024-09-18 09:51 | Outpatient (CLI) | payer MEDICARE, SELFPAY ==
[2020-05-21 16:47] VITALS: BMI 27.8
--- NOTE | 2024-09-18 09:52 | DI.RAD.S_ITS ---
PROCEDURE: XR DEXA AXIAL SKELETON INDICATIONS: screening osteoporosis COMPARISON: [facility], CR, XR DEXA AXIAL SKELETON, 04/30/2022, 13:23. [facility], CR, XR DEXA AXIAL SKELETON, 03/24/2018, 12:31. FINDINGS: Lumbar Spine: L1-L4. Bone mineral density 0.954 g/cm2, T score -0.8, significant interval increase in bone mineral density by 7.2%. Left Femoral Neck: Bone mineral density 0.519 g/cm2, T score -3.0. Left Hip: Bone mineral density 0.665 g/cm2, T score -2.3, no significant interval change. Fracture Risk Calculation (when applicable): 10-year fracture risk of a major osteoporotic fracture 16 percent and of a hip fracture 6 percent. (T score greater or equal to -1.0 to: NORMAL) (T score from -1.1 to -2.4: OSTEOPENIA) (T score less than or equal to -2.5: OSTEOPOROSIS) IMPRESSION: Osteoporosis. There is significant interval increase in bone mineral density at the lumbar spine. Follow-up guidelines as follows: Osteoporosis: Consider a repeat DEXA and Vertebral Fracture Assessment (VFA) exam in 2 years or sooner if medically necessary, to reassess this patient's status. Osteopenia: Consider a repeat DEXA in 2-3 years to reassess this patient's status, or if there is a new clinical indication. Normal: Consider a repeat DEXA in 5 years or sooner, or if there is a new clinical indication. All treatment decisions require clinical judgment and consideration of individual patient factors, including patient preferences, comorbidities, previous drug use, risk factors not captured in the FRAX model (e.g., frailty, falls, vitamin D deficiency, increased bone turnover, interval significant decline in bone density ) and possible under- or over-estimation of fracture risk by FRAX. In addition, the NOF Guide recommends that FDA-approved medical therapies be considered in postmenopausal women and men age >= 50 years with a: * Hip or vertebral (clinical or morphometric) fracture * T-score of <=-2.5 at the spine or hip * Ten-year fracture probability by FRAX of >= 3% for hip fracture or >=20% for major osteoporotic fracture. Dictated by: Jossue Lawrence M.D. on 09/18/2024 at 21:10 Approved by: Jossue Lawrence M.D. on 09/18/2024 at 21:16
== END ==
PROVIDERS: PCP Internal Medicine; Referring Provider Internal Medicine; Visit Provider Internal Medicine
DX: M81.0 Age-related osteoporosis without current pathological fracture (principal)
CPT/HCPCS: 77080

== ENCOUNTER 2024-11-15 16:08 | Emergency (ER) | payer MEDICARE, SELFPAY ==
[2020-05-21 16:47] VITALS: BMI 27.8
[2024-11-15] VITALS (16 sets, daily range): BP systolic 116–157; BP diastolic 62–84; PULSE 56–64; RESP 11–27; TEMP 36.9; O2SAT 91–100; BMI 29.9
--- NOTE | 2024-11-15 16:18 | EKG_ITS ---
[place] [id number] [place] [id number] Test Date: 2024-11-15 Pat Name: Rebecca Talamantes Department: Room: Gender: Female [employer] Supervisor: : 1950 Requested By: Order Number: [id number] Reading MD: Bob Milian Measurements Intervals Imperial Rate: 59 P: 34 MA: 196 QRS: 17 QRSD: 82 T: 42 QT: 426 QTc: 421 Interpretive Statements Sinus bradycardia Cannot rule out Anterior infarct , age undetermined Electronically Signed On 11-30-2024 8:08:35 PDT by Bob Milian
--- NOTE | 2024-11-15 16:18 | DI.RAD.S_ITS ---
PROCEDURE: XR CHEST 1V INDICATIONS: Chest Pain TECHNIQUE: One view of the chest was acquired. COMPARISON: [facility], CR, XR CHEST 2V, 11/27/2023, 1:19. [facility], CR, XR CHEST 1V, 11/09/2022, 18:08. FINDINGS: Surgical changes and devices: None. Lungs and pleura: An incomplete inspiratory result is noted, causing a crowded appearance to the lung markings. No focal infiltrates are seen. No pneumothorax or significant pleural effusions are seen. Mediastinum: The cardiac contours are within normal limits. The aorta demonstrates calcification and tortuosity. Bones and chest wall: No suspicious bony lesions. Age-appropriate bony degenerative changes are seen. Overlying soft tissues appear unremarkable. IMPRESSION: Low lung volumes, without an acute abnormality seen by plain film. Dictated by: Ananda Marie M.D. on 11/15/2024 at 15:56 Approved by: Ananda Marie M.D. on 11/15/2024 at 15:57
[2024-11-15 18:08] LABS: Add Manual Diff / Slide Review NO; Hematocrit 37.9 % (36-46); Hemoglobin 12.7 g/dL (12.0-16.0); Lymphocytes Absolute Auto 2700 /uL (1100-4500); Mean Corpuscular HGB Conc 33.5 % (30-36); Mean Corpuscular Hemoglobin 30.0 PG (26-34); Mean Corpuscular Volume 89.6 fL (80-100); Platelet Count 290 X10^3/uL (150-400)
[2024-11-15 18:13] LABS: INR 0.9 (0.9-1.3); Prothrombin Time 10.0 SECONDS (9.4-12.5)
[2024-11-15 18:15] LABS: PTT Partial Thromboplastin Tim 30 SECONDS (25.1-36.5)
[2024-11-15 18:19] LABS: Alanine Aminotransferase 47 IU/L (<35); Albumin 4.5 g/dL (3.5-5.0); Albumin Globulin Ratio 1.1 (1.0-2.8); Alkaline Phosphatase 53 U/L (38-126); Blood Urea Nitrogen 14 mg/dL (7-17); Calcium 10.5 mg/dL (8.4-10.2); Carbon Dioxide 25 mmol/L (22-32); Chloride 104 mmol/L (98-107); Creatine Kinase 157 U/L (30-135); Estimated Glomerular Filt Rate > 60 mL/min (>60); Globulin 4.1 g/dL (1.7-4.1); Glucose 70 mg/dL (70-99); HEMOLYSIS 31 (0-50); Lipase 154 U/L (23-300); Magnesium 1.8 mg/dL (1.6-2.3); Potassium 3.8 mmol/L (3.4-5.1); Sodium 140 mmol/L (137-145); Total Protein 8.6 g/dL (6.3-8.2)
[2024-11-15 18:30] LABS: NT-proBNP (BNP-Adult 18+) 130 pg/mL (<450); Troponin I < 0.012 ng/mL (0.01-0.034)
--- NOTE | 2024-11-15 19:53 | ED_ITS ---
HPI - Chest Pain General Chief Complaint: Chest Pain Stated Complaint: Chest Pains, has taken 325mg baby Tylenol Time Seen by Provider: 11/15/24 19:10 Source: patient Mode of arrival: Wheelchair Limitations: no limitations History of Present Illness HPI narrative: 74-year-old female without history of known CAD, complains of left anterior sharp chest pain since earlier this morning, worse with deep inspiration. No injury or trauma. No fevers or chills. Denies recent cough, denies shortness of breath. Has history of diabetes, hypertension, hyperlipidemia, nonsmoker. Denies history of blood clots to legs or lungs, no leg pain or swelling symptoms. Related Data Home Medications ?Medication ?Instructions ?Recorded ?Confirmed losartan 100 1 tab PO QDAY ##0 09/24/16 0 05/21/20 mg-hydrochlorothiazide 25 mg tablet calcium carbonate 600 mg PO QDAY ##0 03/10/17 05/22/20 cholecalciferol (vitamin D3) 50 2,000 unit PO QDAY ##0 03/10/17 05/22/20 mcg (2,000 unit) capsule (Vitamin D3) atorvastatin 20 mg tablet 20 mg PO QPM 12/02/17 metformin 1,000 mg tablet 1 tab PO BID 12/02/17 alendronate 70 mg tablet 70 mg PO QWEEK 12/29/1804/26 pantoprazole 40 mg tablet,delayed 40 mg PO DAILY 12/2905/21/20 release timolol maleate 0.5 % eye drops 1 drp ophthalmic (eye) DIRECTED 12/29/18 05/22/20 insulin glargine 100 unit/mL (3 30 unit SUBCUT BEDTIME 05/22/20 05/22/20 mL) subcutaneous pen (Basaglar KwikPen U-100 Insulin) Previous Rx's ?Medication ?Instructions ?Recorded aspirin 81 mg tablet,delayed 81 mg PO DAILY #30 tabs 0 12/31/18 release meclizine 25 mg tablet 50 mg (2 x 25 mg) PO TID PRN 08/14/20 dizziness #20 tabs meclizine 25 mg tablet 25 mg PO TID PRN dizziness # 60 tabs 03/18/21 doxycycline hyclate 100 mg tablet 100 mg PO BID #20 ta bs 08/23/21 meclizine 25 mg tablet 25 mg PO BID-TID PRN dizzine ss #60 12/22/21 tabs ondansetron 4 mg disintegrating 4 mg PO TID-QID PRN na usea and 12/22/21 tablet vomiting #10 tabs ondansetron 4 mg disintegrating 4 mg PO Q8H PRN nausea and 03/28/22 tablet vomiting #10 tabs omeprazole 20 mg capsule,delayed 20 mg PO DAILY upper abdominal 11/16/24 release pain 30 days #30 caps Allergies Allergy/AdvReac Type Severity Reaction Status Date / Time No Known Drug Allergies Allergy Verified 11/09/22 18:01 Review of Systems Review of Systems Narrative: as per HPI Patient History Medical History (Updated 11/16/24 @ 02:01 by Roderick Reddy MD) Osteoporosis Glaucoma, left eye Hyperlipidemia Hypertension Diabetes type 2, uncontrolled Cerebrovascular accident Hypertension Diabetes GERD (gastroesophageal reflux disease) Surgical History History of section Social History household members: family Smoking Status: Never smoker alcohol intake: never substance use type: does not use Smoking Status: Never smoker alcohol intake frequency: 0-2 drinks per day Exam Narrative Exam Narrative: GENERAL: Well-developed patient, in mild distress. HEAD: Atraumatic. Normocephalic. EYES: Pupils equal round and reactive. Extraocular motions intact. No scleral icterus. No injection or drainage. ENT: Nose without bleeding, grossly nontraumatic. No obvious face/lip edema. NECK: Trachea midline. Moves neck well. CARDIOVASCULAR: Regular rate and rhythm without murmurs, gallops, or rubs. RESPIRATORY: Clear to auscultation. Breath sounds equal bilaterally. No wheezes, rales, or rhonchi. Speaks in full sentences, without retractions. GASTROINTESTINAL: Abdomen soft, non-tender, nondistended. EXTREMITIES: No edema or joint tenderness. No calf pain or swelling. NEURO: AOx3. Motor functions grossly nonfocal. SKIN: No rash or erythema of visible areas Initial Vital Signs Initial Vital Signs: Vital Signs Temperature 98.4 F 11/15/24 16:13 Pulse Rate 64 11/15/24 16:13 Respiratory Rate 18 11/15/24 16:13 Blood Pressure 139/84 11/15/24 16:13 Pulse Oximetry 100 11/15/24 16:13 Oxygen Delivery Method Room Air 11/15/24 16:13 Scores HEART Score Heart Score history: Slightly Suspicious Heart Score EKG: Normal Heart Score Age: > or = 65 years old Heart Score risk factors: > 3 risk factors or hx of atherosclerotic disease Heart Score troponin: < or = to normal limit Heart Score Total: 4 Wells' Criteria for PE Clinical signs and symptoms of DVT: No PE is #1 Dx or equally likely: No Heart rate > 100: No Immobilization at least 3 days or surg in previous 4 weeks: No History of PE or DVT: No Hemoptysis: No Malignancy w/Treatment within 6 months or palliative: No Wells' PE Score total: 0 Course Orders Ordered: Discontinued Medications Aspirin (Aspirin 81 Mg Chew Tab) 324 mg PO NOW ONE Stop: 11/16/24 00:06 Last Admin: 11/16/24 00:11 Dose: 324 mg Documented By: DAYNA Furosemide (Furosemide 40 Mg/4 Ml Vial) 40 mg IV NOW ONE Stop: 11/16/24 01:37 Last Admin: 11/16/24 01:51 Dose: Not Given Documented By: DAYNA Pantoprazole Sodium (Pantoprazole 40 Mg Vial) 40 mg IV NOW ONE Stop: 11/16/24 01:37 Last Admin: 11/16/24 01:53 Dose: 40 mg Documented By: DAYNA Vital Signs Vital signs: Vital Signs - 8 hr 11/15/24 18:13 11/15/24 18:14 11/15/24 18:14 Pulse Rate 63 Respiratory Rate Blood Pressure 157/73 H Pulse Oximetry 99 97 11/15/24 18:30 11/15/24 18:31 11/15/24 18:31 Pulse Rate 57 L 56 L Respiratory Rate 16 19 Blood Pressure 143/76 H Pulse Oximetry 97 97 11/15/24 19:00 11/15/24 19:00 11/15/24 19:30 Pulse Rate 60 60 Respiratory Rate 16 19 Blood Pressure 139/71 Pulse Oximetry 99 96 11/15/24 19:30 11/15/24 20:00 11/15/24 20:00 Pulse Rate 63 Respiratory Rate 27 H Blood Pressure 142/70 H 143/67 H Pulse Oximetry 97 11/15/24 20:30 11/15/24 20:31 11/15/24 20:31 Pulse Rate 61 60 Respiratory Rate 19 19 Blood Pressure 142/67 H Pulse Oximetry 96 96 11/15/24 21:00 11/15/24 21:00 11/15/24 21:30 Pulse Rate 60 62 Respiratory Rate 11 L 16 Blood Pressure 116/77 Pulse Oximetry 93 97 11/15/24 21:30 11/15/24 22:00 11/15/24 22:00 Pulse Rate 59 L Respiratory Rate 18 Blood Pressure 128/67 130/66 Pulse Oximetry 95 11/15/24 22:30 11/15/24 22:30 11/15/24 23:00 Pulse Rate 57 L 58 L Respiratory Rate 19 20 Blood Pressure 141/75 H Pulse Oximetry 91 98 11/15/24 23:00 11/15/24 23:30 11/15/24 23:30 Pulse Rate 60 Respiratory Rate 23 Blood Pressure 131/68 135/62 Pulse Oximetry 97 11/16/24 00:00 11/16/24 00:00 11/16/24 00:28 Pulse Rate 58 L 56 L Respiratory Rate 21 18 Blood Pressure 125/60 Pulse Oximetry 95 100 11/16/24 00:28 11/16/24 00:30 11/16/24 00:30 Pulse Rate 58 L Respiratory Rate 17 Blood Pressure 164/68 H 142/64 H Pulse Oximetry 100 11/16/24 01:00 11/16/24 01:00 Pulse Rate 55 L Respiratory Rate 19 Blood Pressure 146/79 H Pulse Oximetry 98 MDM - Chest Pain Lab Data Attestation: I reviewed the patient's lab results. Lab results narrative: White blood cell count 6300, hemoglobin 12.7, platelets adequate. Glucose 70. Normal renal function. Normal serum CO2 on electrolytes. Mild transaminitis, T bili and alkaline phosphatase normal. Lipase normal. Troponin negative/unmeasurable x2 interval draws. 11/15/24 17:48 11/15/24 17:48 Labs: Lab Results 11/15/24 11/15/24 11/15/24 Range/Units 17:48 17:57 20:00 WBC 6.3 (4.5-11.0) X10^3/uL RBC 4.22 (4.0-5.2) X10^6/uL Hgb 12.7 (12.0-16.0) g/dL Hct 37.9 (36-46) % MCV 89.6 (80-100) fL MCH 30.0 (26-34) PG MCHC 33.5 (30-36) % RDW 12.9 (11.6-14.8) % Plt Count 290 (150-400) X10^3/uL Neut % (Auto) 49.1 L (50-75) % Lymph % (Auto) 43.3 H (25-40) % [place] % (Auto) 5.5 (3-14) % Eos % (Auto) 1.7 L (2-4) % Baso % (Auto) 0.4 (0-2) % Neut # (Auto) 3100 (4753-4185) /uL Lymph # (Auto) 2700 (7730-8659) /uL [place] # (Auto) 300 (0-900) /uL Eos # (Auto) 100 (0-450) /uL Baso # (Auto) 0 (0-100) /uL PT 10.0 (9.4-12.5) SECONDS INR 0.9 (0.9-1.3) APTT 30 (25.1-36.5) SECONDS D-Dimer 1405 H (<500) ng/ml Sodium 140 (137-145) mmol/L Potassium 3.8 (3.4-5.1) mmol/L Chloride 104 (98-107) mmol/L Carbon Dioxide 25 (22-32) mmol/L BUN 14 (7-17) mg/dL Creatinine 0.90 (0.52-1.04) mg/dL Estimated GFR > 60 (>60) mL/min BUN/Creatinine Ratio 15.6 (6-22) Glucose 70 (70-99) mg/dL Calcium 10.5 H (8.4-10.2) mg/dL Magnesium 1.8 (1.6-2.3) mg/dL Total Bilirubin 0.6 (0.2-1.3) mg/dL AST 42 H (14-36) IU/L ALT 47 H (<35) IU/L Alkaline Phosphatase 53 (38-126) U/L Total Creatine Kinase 157 H (30-135) U/L Troponin I < 0.012 < 0.012 (0.01-0.034) ng/mL NT-Pro-B Natriuret Pep 130 (<450) pg/mL Total Protein 8.6 H (6.3-8.2) g/dL Albumin 4.5 (3.5-5.0) g/dL Globulin 4.1 (1.7-4.1) g/dL Albumin/Globulin Ratio 1.1 (1.0-2.8) Lipase 154 (23-300) U/L Imaging Data Chest x-ray: Radiologist's Impression: [address] [address] XRay Report Signed Patient: Rebecca Talamantes MR#: [id number] : 1950 Acct:[id number] Age/Sex: 74 / F Date of Service: 11/15/24 Loc: ED Accession Number: [id number] Procedure: XR chest 1V Ordering Provider: Veronica Gutierrez MD PROCEDURE: XR CHEST 1V INDICATIONS: Chest Pain TECHNIQUE: One view of the chest was acquired. COMPARISON: [facility], CR, XR CHEST 2V, 11/27/2023, 1:19. [facility], CR, XR CHEST 1V, 11/09/2022, 18:08. FINDINGS: Surgical changes and devices: None. Lungs and pleura: An incomplete inspiratory result is noted, causing a crowded appearance to the lung markings. No focal infiltrates are seen. No pneumothorax or significant pleural effusions are seen. Mediastinum: The cardiac contours are within normal limits. The aorta demonstrates calcification and tortuosity. Bones and chest wall: No suspicious bony lesions. Age-appropriate bony degenerative changes are seen. Overlying soft tissues appear unremarkable. IMPRESSION: Low lung volumes, without an acute abnormality seen by plain film. Dictated by: Ananda Marie M.D. on 11/15/2024 at 15:56 Approved by: Ananda Marie M.D. on 11/15/2024 at 15:57 CTA chest: Radiologist's Impression: [address] [address] [address] Scan Report Signed Patient: Rebecca Talamantes MR#: [id number] : 1950 Acct:[id number] Age/Sex: 74 / F Date of Service: 11/16/24 Loc: ED Accession Number: [id number] Procedure: CT angio chest PE protocol Ordering Provider: Roderick Reddy MD PROCEDURE: CT ANGIO CHEST PE PROTOCOL INDICATIONS: chest pain pleuritic, Dd+ TECHNIQUE: After the administration of intravenous contrast, 2 mm thick sections acquired from the pulmonary apices to the posterior costophrenic angles. 3-dimensional maximum intensity projection (MIP) coronal and sagittal reformats were then acquired through the thorax. For radiation dose reduction, the following was used: automated exposure control, adjustment of mA and/or kV according to patient size. COMPARISON: None. FINDINGS: Image quality: Diagnostic. Pulmonary arteries: Pulmonary arteries are normal in size, and demonstrate no intraluminal filling defects to suggest central pulmonary embolism. Lower Neck: No enlarged lymph nodes. Thyroid: No thyroid nodules which require sonographic follow up, per consensus guidelines. Axillae: No enlarged lymph nodes. Chest Wall: Unremarkable. Bones: Unremarkable. Lungs and Pleura: No pneumothorax or pleural effusions. Smooth interstitial thickening and bronchial thickening. Heart: Heart size is enlarged. No pericardial effusion. Extensive LAD calcifications. Thoracic Vessels: No aortic aneurysm. Mediastinum and Dara: No enlarged lymph nodes. Esophagus: No wall thickening. Large hiatal hernia. Upper Abdomen: Visualized upper abdomen solid organs and bowel loops appear normal. IMPRESSION: No pulmonary embolus. Mild pulmonary edema. Large hiatal hernia. Dictated by: Julián Shoemaker M.D. on 11/16/2024 at 0:45 Approved by: Julián Shoemaker M.D. on 11/16/2024 at 0:47 ECG Data Attestation: I personally reviewed and interpreted this ECG as follows: Interpretation: 1616, sinus bradycardia with rate of 59. No obvious ST segment elevation or depression changes. NJ 196, QRS 82, QTC 421. Limited evaluation to comparison study available 04/10/2024 which had artifact changes. MDM Narrative Medical decision making narrative: 74-year-old female with pleuritic chest pain, no history of VTE, no blood thinner medications, no history of CAD but has multiple risk factors. No recent cough. Afebrile, sirs screen negative. EKG, chest x-ray, labs pending. Currently without chest discomfort. Oral aspirin. Heart Score 4. Wells Score 0. DDx pleuritic chest pain due to pneumonia, PTX, musculoskeletal, PE, atypical ACS, other. EKG without obvious ischemic changes. Initial troponin negative. Chest x-ray no acute changes. See radiology report. Lab data: White blood cell count 6300, hemoglobin 12.7, platelets adequate. Glucose 70. Normal renal function. Normal serum CO2 on electrolytes. Mild transaminitis, T bili and alkaline phosphatase normal. Lipase normal. Troponin negative/unmeasurable x2 interval draws. Wells Score zero, but so far no explanation for pleuritic chest pain. Add D- dimer. D-dimer 1400 positive, renal function favorable. CT angiogram chest ordered, patient in agreement. CTA chest showed no PE, suggestion of mild fluid edema, no mentioned pulmonary infiltrates. Hiatal hernia noted. See radiology report. BNP 140 low, doubt congestive heart failure. Consider RASHAD, hiatal hernia noted, add IV Protonix. Heart SCore 4. We will consult cardiology Dr Stark. Case discussed with cardiology Dr. Stark who feels patient can be managed as an outpatient for now, agrees with trial of antacid. Can have cardiac stress testing as an outpatient for now. Discharged home with family. We will send prescription for omeprazole to her pharmacy. Continue baby aspirin for now. DC home with family. Discharge Plan Departure Patient Disposition: Home Clinical Impression: Chest pain, Hiatal hernia Instructions: DI for Hiatal Hernia, DI for Chest Pain Activity Restrictions/Additional Instructions: Chest pain of unclear cause. EKG and serial blood tests not suggestive of heart attack at this time. You do have multiple cardiac risk factors however, and might need further testing as an outpatient for now. CT angiogram testing of the showed no acute chest changes, it but did show the presence of a hiatal hernia, this might be the cause of your discomfort as well. Trial of antacid for now. Continue aspirin and other chronic medications. Case was discussed with Cardiology on-call Dr. Stark he would like to see you in follow up, and felt for now that you could be discharged home, in have further cardiac testing as an outpatient for now. Call his office later today during open hours to arrange close follow up appointment. Return if any change worsening symptoms or any concerns prior. Antacid prescription for omeprazole was sent to your pharmacy. Take antacid as prescribed. Avoid use of ibuprofen, naproxen, which might bother her stomach. Prescriptions: New omeprazole 20 mg capsule,delayed release(DR/EC) 20 mg PO DAILY 30 Days Qty: 30 0RF No Action losartan-hydrochlorothiazide 100 MG/25 MG tablet 1 tab PO QDAY Qty: 0 cholecalciferol (vitamin D3) [Vitamin D3] 2,000 UNIT capsule 2,000 unit PO QDAY Qty: 0 Patient Comments: not known if current calcium carbonate 600 MG tablet 600 mg PO QDAY Qty: 0 Patient Comments: not known if current Basaglar MiriamikPen U-100 Insulin 100 unit/mL (3 mL) insulin pen 30 unit SUBCUT BEDTIME meclizine 25 mg tablet 50 mg PO TID PRN (Reason: dizziness) Qty: 20 0RF doxycycline hyclate 100 mg tablet 100 mg PO BID Qty: 20 0RF ondansetron 4 mg tablet,disintegrating 4 mg PO Q8H PRN (Reason: nausea and vomiting) Qty: 10 0RF atorvastatin 20 mg tablet 20 mg PO QPM metformin 1,000 mg tablet 1 tab PO BID alendronate 70 mg tablet 70 mg PO QWEEK pantoprazole 40 mg tablet,delayed release (DR/EC) 40 mg PO DAILY timolol maleate 0.5 % drops 1 drp OPHTHALMIC (EYE) DIRECTED aspirin 81 mg Tablet,Delayed Release (Dr/Ec) 81 mg PO DAILY Qty: 30 0RF meclizine 25 mg tablet 25 mg PO TID PRN (Reason: dizziness) Qty: 60 0RF meclizine 25 mg tablet 25 mg PO BID-TID PRN (Reason: dizziness) Qty: 60 0RF ondansetron 4 mg tablet,disintegrating 4 mg PO TID-QID PRN (Reason: nausea and vomiting) Qty: 10 0RF Referrals: Yvonne Barr MD [Primary Care Provider, Internal Medicine] Stand Alone Forms: Patient Portal/API
[2024-11-15 20:36] LABS: Troponin I < 0.012 ng/mL (0.01-0.034)
[2024-11-16] VITALS: BP 125/60; PULSE 58; RESP 21; O2SAT 95
--- NOTE | 2024-11-16 00:03 | DI.CT.S_ITS ---
PROCEDURE: CT ANGIO CHEST PE PROTOCOL INDICATIONS: chest pain pleuritic, Dd+ TECHNIQUE: After the administration of intravenous contrast, 2 mm thick sections acquired from the pulmonary apices to the posterior costophrenic angles. 3-dimensional maximum intensity projection (MIP) coronal and sagittal reformats were then acquired through the thorax. For radiation dose reduction, the following was used: automated exposure control, adjustment of mA and/or kV according to patient size. COMPARISON: None. FINDINGS: Image quality: Diagnostic. Pulmonary arteries: Pulmonary arteries are normal in size, and demonstrate no intraluminal filling defects to suggest central pulmonary embolism. Lower Neck: No enlarged lymph nodes. Thyroid: No thyroid nodules which require sonographic follow up, per consensus guidelines. Axillae: No enlarged lymph nodes. Chest Wall: Unremarkable. Bones: Unremarkable. Lungs and Pleura: No pneumothorax or pleural effusions. Smooth interstitial thickening and bronchial thickening. Heart: Heart size is enlarged. No pericardial effusion. Extensive LAD calcifications. Thoracic Vessels: No aortic aneurysm. Mediastinum and Dara: No enlarged lymph nodes. Esophagus: No wall thickening. Large hiatal hernia. Upper Abdomen: Visualized upper abdomen solid organs and bowel loops appear normal. IMPRESSION: No pulmonary embolus. Mild pulmonary edema. Large hiatal hernia. Dictated by: Julián Shoemaker M.D. on 11/16/2024 at 0:45 Approved by: Julián Shoemaker M.D. on 11/16/2024 at 0:47
[2024-11-16] MEDS: ASPIRIN 81 MG CHEW TAB 324 MG PO (00:11)
[2024-11-16 00:28] VITALS: BP 164/68; PULSE 56; RESP 18; O2SAT 100
[2024-11-16 00:30] VITALS: BP 142/64; PULSE 58; RESP 17; O2SAT 100
[2024-11-16 01:00] VITALS: BP 146/79; PULSE 55; RESP 19; O2SAT 98
[2024-11-16 01:30] VITALS: PULSE 49; RESP 17; O2SAT 95
[2024-11-16 01:31] VITALS: BP 173/73; PULSE 54; RESP 18; O2SAT 96
[2024-11-16] MEDS: PANTOPRAZOLE 40 MG VIAL IV (01:53)
== END 2024-11-16 02:12 | disposition home or self-care (01) ==
PROVIDERS: Emergency Medicine; Emergency Provider Emergency Medicine; PCP Internal Medicine
DX: R07.9 Chest pain, unspecified (principal); K44.9 Diaphragmatic hernia without obstruction or gangrene
CPT/HCPCS: 36415; 71045; 71275; 80053; 82550; 83690; 83735; 83880; 84484; 85025; 85379; 85610; 85730; 93005; 96374; 99284; J2470; Q9967

== ENCOUNTER 2024-11-17 07:08 | Emergency (ER) | payer MEDICARE, SELFPAY ==
[2020-05-21 16:47] VITALS: BMI 27.8
[2024-11-17] VITALS (10 sets, daily range): BP systolic 130–159; BP diastolic 70–94; PULSE 59–74; RESP 14–56; TEMP 36.9; O2SAT 94–100
--- NOTE | 2024-11-17 07:53 | ED.GENADULT ---
HPI - General Adult General Chief complaint: Dizziness Stated complaint: Not feeling better from Yesterdays ER visit Time Seen by Provider: 11/17/24 07:12 Source: patient Mode of arrival: Family Vehicle History of Present Illness HPI narrative: 74-year-old [place] Citizen woman she does speak Chinese her daughter helps as well. She has a history of coronary artery disease, diabetes, hypertension, hyperlipidemia, Presents complaining of dizziness and times she stands up with a sensation that the room is spinning as well as headache through the midportion of her upper brain.. It apparently this morning was bad enough that she fell, witnessed rather ?slumping? slide to the ground rather than a fall associated with the any trauma. She has a history of migraine, chronic back pain, was seen yesterday for chest pain. Today has no complaints of chest pain. Notes from yesterday indicate no complaints of headache or dizziness. No fevers, cough, chills, no other neurologic findings Related Data Home Medications ?Medication ?Instructions ?Recorded ?Confirmed losartan 100 1 tab PO QDAY ##0 09/24/16 05/21/20 mg-hydrochlorothiazide 25 mg tablet calcium carbonate 600 mg PO QDAY ##0 03/10/17 05/22/20 cholecalciferol (vitamin D3) 50 2,000 unit PO QDAY ##0 03/10/17 05/22/20 mcg (2,000 unit) capsule (Vitamin D3) atorvastatin 20 mg tablet 20 mg PO QPM 12/02/17 05/22/20 metformin 1,000 mg tablet 1 tab PO BID 12/02/17 05/22/20 alendronate 70 mg tablet 70 mg PO QWEEK 12/29/18 05/22/20 pantoprazole 40 mg tablet,delayed 40 mg PO DAILY 12/29/18 05/21/20 release timolol maleate 0.5 % eye drops 1 drp ophthalmic (eye) DIRECTED 12/29/18 05/22/20 insulin glargine 100 unit/mL (3 30 unit SUBCUT BEDTIME 05/22/20 05/22/20 mL) subcutaneous pen (Basaglar KwikPen U-100 Insulin) Previous Rx's ?Medication ?Instructions ?Recorded aspirin 81 mg tablet,delayed 81 mg PO DAILY #30 tabs 12/31/18 release meclizine 25 mg tablet 50 mg (2 x 25 mg) PO TID PRN 08/14/20 dizziness #20 tabs meclizine 25 mg tablet 25 mg PO TID PRN dizziness #60 tabs 03/18/21 doxycycline hyclate 100 mg tablet 100 mg PO BID #20 tabs 08/23/21 meclizine 25 mg tablet 25 mg PO BID-TID PRN dizziness #60 12/22/21 tabs ondansetron 4 mg disintegrating 4 mg PO TID-QID PRN nausea and 12/22/21 tablet vomiting #10 tabs ondansetron 4 mg disintegrating 4 mg PO Q8H PRN nausea and 03/28/22 tablet vomiting #10 tabs omeprazole 20 mg capsule,delayed 20 mg PO DAILY upper abdominal 11/16/24 release pain 30 days #30 caps meclizine 25 mg tablet 25 mg PO BID PRN vertigo #20 tabs 11/17/24 Allergies Allergy/AdvReac Type Severity Reaction Status Date / Time No Known Drug Allergies Allergy Verified 11/17/24 07:46 Review of Systems Review of Systems Narrative: Pertinent positive and negative findings as per HPI Patient History Medical History (Updated 11/17/24 @ 10:38 by Veronica Gutierrez MD) Osteoporosis Glaucoma, left eye Hyperlipidemia Hypertension Diabetes type 2, uncontrolled Cerebrovascular accident Hypertension Diabetes GERD (gastroesophageal reflux disease) Surgical History History of section Social History household members: family alcohol intake: never substance use type: does not use alcohol intake frequency: 0-2 drinks per day Exam Initial Vital Signs Initial Vital Signs: Vital Signs Temperature 98.4 F 11/17/24 07:25 Pulse Rate 69 11/17/24 07:25 Respiratory Rate 16 11/17/24 07:25 Blood Pressure 156/75 H 11/17/24 07:25 Pulse Oximetry 98 11/17/24 07:25 Oxygen Delivery Method Room Air 11/17/24 07:25 General: Frail, chronically ill-appearing, complains that she is dizzy with any movement whatsoever without any nystagmus appreciated HEENT: Moist mucous membranes, normal sclera with reactive pupils, Respiratory: Lungs are clear to auscultation, no wheezing no rales no rhonchi. Full and symmetrical air movement Cardiac: Regular rate and rhythm no murmurs no bruits Abdomen: Soft, nontender, no rebound or guarding, no flank pain Skin: Warm and dry, no rashes Neurologic: Grossly neurologically intact with no obvious asymmetries or abnormalities, she was able to walk to the room with her cane. Complains of dizziness with any positional change that does not seem to marian and is not associated with nystagmus Extremities: No trauma, well perfused Psych: Cooperative, Course Vital Signs Vital signs: Vital Signs - 8 hr 11/17/24 07:25 Temperature 98.4 F Pulse Rate 69 Respiratory Rate 16 Blood Pressure 156/75 H Pulse Oximetry 98 Oxygen Delivery Method Room Air Medical Decision Making MDM Narrative Medical decision making narrative: CC: Vertigo Complicating co-morbidities: Was seen yesterday for chest pain, history of diabetes, hypertension hyperlipidemia, chronic vertigo with multiple prior prescriptions for meclizine, migraine Data collected from: patient, daughter Medical records reviewed: You are notes from yesterday with full workup including unremarkable labs, CT angiogram of the chest done for slightly elevated D-dimer with benign findings. Final diagnosis chest pain with instructions for outpatient follow up, continue omeprazole and a baby aspirin Differential considered: Migraine, dehydration, viral syndrome, vertigo, doubt benign positional vertigo, vestibular neuritis Exam documented above, pertinent findings include: Aside from complaints of vertigo with any positional change exam is otherwise completely benign Lab Test results independently reviewed as above. Pertinent findings: CBC is unremarkable Chemistries show slight bump in creatinine from 0.9-1.5. LFTs are unremarkable Imaging studies independently reviewed: Imaging studies from the are reviewed. Most recent CT head, angiogram and MRI was that did not show acute changes at that time Treatments: Fluid, dexamethasone, Benadryl and Compazine Discussion: Patient's pain is entirely alleviated. Her vertigo is significantly improved. I suspect that this is a migraine variant causing an exacerbation of chronic vertigo. I am seeing no sign of stroke. No sign of bacterial infection. Significantly improved with fluids. She has had meclizine in the past for her chronic vertigo give her an additional prescription for this. We will refer her back to her primary care physician to again discuss headaches and vertigo. There was no indication for hospitalization at this time Discharge Plan Departure Patient Disposition: Home Clinical Impression: Vertigo Migraine Qualifiers: Migraine type: unspecified Status migrainosus presence: without status migrainosus Intractability: not intractable Qualified Code(s): G43.909 - Migraine, unspecified, not intractable, without status migrainosus Instructions: DI for Migraine, DI for Vertigo Activity Restrictions/Additional Instructions: Thank you for coming in today We treated you for a migraine headache and your symptoms have significantly improved. I am wondering if the headache, that hopefully will now be gone, was making your chronic vertigo even worse. I did not find any sign of infection, stroke or anything that would require further imaging or hospitalization I have given you another prescription for meclizine. You have been given this in the past. This is a medicine that can help with chronic vertigo/dizziness The prescription was electronically transmitted to [facility] in [place] I am going to suggest that you follow up with your primary care doctor regarding further treatment for your chronic vertigo and discuss your chronic headaches. If you find that you are getting worse or develop any new symptoms, please feel free to return to the emergency department for further evaluation. Prescriptions: New meclizine 25 mg tablet 25 mg PO BID PRN (Reason: vertigo) Qty: 20 0RF No Action losartan-hydrochlorothiazide 100 MG/25 MG tablet 1 tab PO QDAY Qty: 0 cholecalciferol (vitamin D3) [Vitamin D3] 2,000 UNIT capsule 2,000 unit PO QDAY Qty: 0 Patient Comments: not known if current calcium carbonate 600 MG tablet 600 mg PO QDAY Qty: 0 Patient Comments: not known if current Basaglar AlmitaPen U-100 Insulin 100 unit/mL (3 mL) insulin pen 30 unit SUBCUT BEDTIME meclizine 25 mg tablet 50 mg PO TID PRN (Reason: dizziness) Qty: 20 0RF doxycycline hyclate 100 mg tablet 100 mg PO BID Qty: 20 0RF ondansetron 4 mg tablet,disintegrating 4 mg PO Q8H PRN (Reason: nausea and vomiting) Qty: 10 0RF atorvastatin 20 mg tablet 20 mg PO QPM metformin 1,000 mg tablet 1 tab PO BID alendronate 70 mg tablet 70 mg PO QWEEK pantoprazole 40 mg tablet,delayed release (DR/EC) 40 mg PO DAILY timolol maleate 0.5 % drops 1 drp OPHTHALMIC (EYE) DIRECTED aspirin 81 mg Tablet,Delayed Release (Dr/Ec) 81 mg PO DAILY Qty: 30 0RF meclizine 25 mg tablet 25 mg PO TID PRN (Reason: dizziness) Qty: 60 0RF meclizine 25 mg tablet 25 mg PO BID-TID PRN (Reason: dizziness) Qty: 60 0RF ondansetron 4 mg tablet,disintegrating 4 mg PO TID-QID PRN (Reason: nausea and vomiting) Qty: 10 0RF omeprazole 20 mg capsule,delayed release(DR/EC) 20 mg PO DAILY 30 Days Qty: 30 0RF Referrals: Yvonne Barr MD [Primary Care Provider, Internal Medicine] Stand Alone Forms: Patient Portal/API
[2024-11-17 08:22] LABS: Add Manual Diff / Slide Review NO; Hematocrit 33.3 % (36-46); Hemoglobin 11.4 g/dL (12.0-16.0); Lymphocytes Absolute Auto 1800 /uL (1100-4500); Mean Corpuscular HGB Conc 34.1 % (30-36); Mean Corpuscular Hemoglobin 30.4 PG (26-34); Mean Corpuscular Volume 89.2 fL (80-100); Platelet Count 267 X10^3/uL (150-400)
[2024-11-17] MEDS: DEXAMETHASONE 10 MG/ML VIAL IV (08:32)
[2024-11-17] MEDS: SODIUM CHLORIDE 0.9% 1,000 ML 1000 ML IV (08:32)
[2024-11-17] MEDS: diphenhydrAMINE 50 MG/ML VIAL 25 MG IV (08:32)
[2024-11-17] MEDS: PROCHLORPERAZINE 10 MG/2 ML VIAL IV (08:33)
[2024-11-17 08:34] LABS: Alanine Aminotransferase 40 IU/L (<35); Albumin 4.3 g/dL (3.5-5.0); Albumin Globulin Ratio 1.2 (1.0-2.8); Alkaline Phosphatase 51 U/L (38-126); Blood Urea Nitrogen 23 mg/dL (7-17); Calcium 9.5 mg/dL (8.4-10.2); Carbon Dioxide 26 mmol/L (22-32); Chloride 102 mmol/L (98-107); Estimated Glomerular Filt Rate 45 mL/min (>60); Globulin 3.7 g/dL (1.7-4.1); Glucose 173 mg/dL (70-99); HEMOLYSIS < 15 (0-50); Potassium 4.0 mmol/L (3.4-5.1); Sodium 139 mmol/L (137-145); Total Protein 8.0 g/dL (6.3-8.2)
--- NOTE | 2024-11-17 09:10 | PC.NURSE ---
Pt reports that she continues to have GONZALEZ pain. 10/02. Discussed plan of care, understands.
== END 2024-11-17 11:09 | disposition home or self-care (01) ==
PROVIDERS: Emergency Provider Emergency Medicine; PCP Internal Medicine
DX: R42 Dizziness and giddiness (principal); G43.909 Migraine, unspecified, not intractable, without status migrainosus
CPT/HCPCS: 36415; 80053; 85025; 96361; 96374; 96375; 99284; J0780; J1100; J1200